=== PATIENT | female | born 1955 | race Caucasian/White ===

== ENCOUNTER 2022-02-20 08:02 | Outpatient (REF) | payer OTHER, SELFPAY ==
--- NOTE | ~2022-02-20 | XR_ITS ---
EXAMINATION: XR PELVIS XR HIP, LEFT CLINICAL INFORMATION: Pain COMPARISON: None TECHNIQUE: One view of the pelvis and 2 views of the left hip. FINDINGS: No fracture or dislocation is seen. There is a left hip replacement in satisfactory position. There is osteopenia or cystic change seen in the pelvis adjacent to the acetabular component. There is also a small lucency adjacent to the stem of the femoral component. There is arthritis at the right hip joint. There are degenerative changes of the visualized lumbar spine. Bones are osteopenic. Bones of the pelvis are unremarkable. Soft tissues are unremarkable. XR/XR pelvis 1-2V IMPRESSION: Left hip replacement. Focal osteopenia or cystic change in the left pelvis adjacent to the acetabular component. Small lucency adjacent to the stem of the femoral component questionable for loosening. Generalized osteopenia. Arthritis at the right hip joint and degenerative changes of the lower lumbar spine.
--- NOTE | ~2022-02-20 | XR_ITS ---
EXAMINATION: XR PELVIS XR HIP, LEFT CLINICAL INFORMATION: Pain COMPARISON: None TECHNIQUE: One view of the pelvis and 2 views of the left hip. FINDINGS: No fracture or dislocation is seen. There is a left hip replacement in satisfactory position. There is osteopenia or cystic change seen in the pelvis adjacent to the acetabular component. There is also a small lucency adjacent to the stem of the femoral component. There is arthritis at the right hip joint. There are degenerative changes of the visualized lumbar spine. Bones are osteopenic. Bones of the pelvis are unremarkable. Soft tissues are unremarkable. XR/XR hip LT min 2V IMPRESSION: Left hip replacement. Focal osteopenia or cystic change in the left pelvis adjacent to the acetabular component. Small lucency adjacent to the stem of the femoral component questionable for loosening. Generalized osteopenia. Arthritis at the right hip joint and degenerative changes of the lower lumbar spine.
== END 2022-02-20 08:03 | disposition home or self-care (01) ==
LOC: HO.HOSX 08:02
PROVIDERS: Visit Provider Physician Assistant
DX: M70.62 Trochanteric bursitis, left hip (principal)
CPT/HCPCS: 20610; 72170; 73502; 99202; J1040

== ENCOUNTER → 2022-03-18 10:15 | Outpatient (REF) | payer OTHER, SELFPAY ==
--- NOTE | ~2022-03-18 | NM_ITS ---
EXAMINATION: THREE PHASE BONE SCAN CLINICAL INFORMATION: Pain left hip, history of left hip arthroplasty, placed 6 years ago. Status post falls September,.. COMPARISON: No previous bone scan is available for comparison. Radiographs of pelvis and the left hip 02/20/2022 are available for comparison.. TECHNIQUE: Initial rapid sequence images were obtained over the hips and proximal femurs in the anterior and posterior projections during the bolus injection of 25 mCi Tc-99m MDP. Static images of the whole-body in the anterior and posterior projections with anterior and posterior oblique views of the chest, pelvis and proximal femurs were then obtained 2.75 hours post injection. FINDINGS: Initial rapid sequence images show no foci of abnormally increased flow in either hip or any other focus in the pelvis or proximal femurs. Blood pool images obtained immediately following the flow study show a subtle photopenic defect from a left hip prosthesis. There are no foci of abnormal blood pool activity present. The delayed static images show: In the head, no significant abnormalities are present. In the thoracic cage and upper extremities, there is mildly increased activity in the glenohumeral articulations bilaterally and in multiple mild foci in the hands bilaterally, most prominently in the radial side of the left hand probably in the first carpometacarpal joint, all likely arthritic. In the spine, there is a mild thoracolumbar scoliosis with lumbar convexity to the right. There is mildly increased activity in the left side of L2 to through L4 and in the right side of L5. There is also mildly increased activity anteriorly in the upper thoracic spine in the small focus to the left of midline in the upper cervical spine. In the pelvis, there is mildly increased activity in the superior lip of the right acetabulum. No abnormal activity is present in the left acetabulum adjacent to the left hip prosthesis. In the lower extremities, a photopenic defect from a left hip prosthesis is noted. There is mildly increased activity diffusely adjacent to the left femoral stem with slightly more intense activity near the distal tip of the femoral stem anteriorly but otherwise no significant focal accentuation's present. There is markedly increased activity diffusely in the right knee, most prominently in the right medial femoral condyle. Additional foci of mildly increased activity are present in the ankles bilaterally and in the proximal right foot and right first metatarsophalangeal joint region. The urinary bladder and both kidneys are visualized. 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 NM/NM bone 3 phase IMPRESSION: 1. Mild activity adjacent to the left femoral stem is nonspecific but in combination with the accentuation near the distal tip, this is suspicious for loosening. There is no significant increase in flow or blood pool activity to suggest active infection. There is only very mild activity diffusely in the left acetabulum and this is not strongly suspicious for loosening or fracture in this region. 2. Very prominent abnormalities are present diffusely in the right knee, with a focal accentuation in the medial femoral condyle and the right. These are likely due to severe degenerative disease, but the focal abnormality in the medial femoral condyle could be due to a recent fracture. Correlation with radiographs of the right knee is recommended. 3. A few additional mild nonspecific abnormalities are noted as described above and these are all likely arthritic or traumatic in etiology. None of these abnormalities is strongly suspicious for metastatic disease.
== END ==
LOC: HO.NUCMED 10:15
PROVIDERS: Visit Provider Physician Assistant
DX: Z98.890 Other specified postprocedural states (principal)
CPT/HCPCS: 78315; A9503

== ENCOUNTER → 2022-04-30 09:34 | Outpatient (BNVA) | payer OTHER, SELFPAY | PROVIDERS: PCP Internal Medicine; Visit Provider Orthopaedic Surgery | DX: M25.552 Pain in left hip (principal); Z96.642 Presence of left artificial hip joint | CPT/HCPCS: 99212 ==

== ENCOUNTER → 2022-07-30 12:43 | Outpatient (BNVA) | payer OTHER, SELFPAY | PROVIDERS: PCP Internal Medicine; Visit Provider Physician Assistant | DX: Z12.11 Encounter for screening for malignant neoplasm of colon (principal); R10.9 Unspecified abdominal pain | CPT/HCPCS: 99202; 99212 ==

== ENCOUNTER 2022-10-14 08:03 | Outpatient (REF) | payer OTHER, SELFPAY ==
--- NOTE | ~2022-10-14 | US_ITS ---
EXAMINATION: US ABDOMEN COMPLETE CLINICAL INFORMATION: Unspecified abdominal pain. COMPARISON: Nuclear medicine study 03/18/2022. Low-dose screening chest CT 08/11/2021. TECHNIQUE: Real-time imaging of the abdominal viscera. Technically difficult study secondary to bowel gas and body habitus. FINDINGS: PANCREAS: Pancreas is obscured by bowel gas and not well seen. ABDOMINAL AORTA: The proximal, mid, and distal segments are normal in caliber. INFERIOR VENA CAVA: Visualized portions are normal. LIVER: The liver is normal in size. The liver contour is normal. There is increased echogenicity due to hepatic steatosis. No focal hepatic lesion. There is no intrahepatic biliary duct dilatation seen. GALLBLADDER: Surgically absent. COMMON BILE DUCT: Normal in caliber measuring 0.3 cm in diameter. RIGHT KIDNEY: Right kidney is malrotated, but otherwise normal No hydronephrosis. No renal calculi or focal parenchymal lesions. The kidney measures 9.7 cm in maximum dimension. LEFT KIDNEY: There is 0.3 x 0.2 x 0.3 cm nonobstructing calculus in the interpolar area of left kidney No focal parenchymal lesions. The kidney measures 10.6 cm in maximum dimension. SPLEEN: Normal. The spleen measures 6.6 cm in maximum dimension. There is 1.7 x 2.1 x 1.8 cm splenule seen . FREE FLUID: None. US/US abdomen complete IMPRESSION: 1. Hepatic steatosis. 2. Malrotated right kidney. 3. Nonobstructing calculus in the left kidney.
== END 2022-10-14 08:04 | disposition home or self-care (01) ==
LOC: HO.US 08:03
PROVIDERS: PCP Internal Medicine; Visit Provider Physician Assistant
DX: R10.9 Unspecified abdominal pain (principal)
CPT/HCPCS: 76700

== ENCOUNTER 2023-02-19 11:00 | Outpatient (RCR) | payer OTHER, SELFPAY | END 2023-05-11 09:20 | disposition home or self-care (01) | LOC: HO.PTCHIC 11:00 | PROVIDERS: PCP Internal Medicine; Visit Provider Internal Medicine | DX: M51.36 Other intervertebral disc degeneration, lumbar region (principal) | CPT/HCPCS: 97110; 97163 ==

== ENCOUNTER 2023-05-10 10:18 | Outpatient (REF) | payer OTHER, SELFPAY ==
--- NOTE | ~2023-05-10 | XR_ITS ---
EXAMINATION: XR ABDOMEN COMPLETE CLINICAL INDICATION: Constipation COMPARISON: None available. TECHNIQUE: 2 views of the abdomen. FINDINGS: There is a moderate stool burden. There are air-fluid levels seen in nondilated loops of large bowel. No free air. No suspicious calcifications. Scoliosis and degenerative changes of the spine. Left hip replacement. XR/XR abdomen min 2V IMPRESSION: Moderate constipation.
== END 2023-05-10 10:19 | disposition home or self-care (01) ==
LOC: HO.XRAY 10:18
PROVIDERS: PCP Internal Medicine; Visit Provider Internal Medicine
DX: K59.09 Other constipation (principal)
CPT/HCPCS: 74019

== ENCOUNTER 2023-06-08 09:00 | Outpatient (REF) | payer OTHER, SELFPAY ==
[2023-06-08 14:43] LABS: Appearance Urine Clear; Color Urine Yellow; Glucose Urine UA Negative (Negative); Leukocyte Esterase Urine Negative (Negative); Nitrite Urine Negative (Negative); PH 5.5 (5.0-9.0); Urine Blood Negative (Negative); Urine Ketones Negative (Negative); Urine Protein Negative (Neg-Trace)
[2023-06-08 15:02] LABS: Anion Gap 16 (12-20); Blood Urea Nitrogen 10 mg/dL (9-16); Calcium 10.1 mg/dL (8.4-10.2); Carbon Dioxide 23 mmol/L (22-29); Chloride 106 mmol/L (96-108); Estimated Glomerular Filt Rate > 60; Glucose Fasting 65 mg/dL (60-99); Potassium 3.9 mmol/L (3.3-5.1); Sodium 141 mmol/L (135-145)
== END 2023-06-08 09:01 | disposition home or self-care (01) ==
LOC: HO.CHCLDS 09:00
PROVIDERS: Visit Provider Internal Medicine
DX: N30.00 Acute cystitis without hematuria (principal)
CPT/HCPCS: 36415; 80048; 81003

== ENCOUNTER 2023-08-17 15:58 | Outpatient (REF) | payer OTHER, SELFPAY ==
[2023-08-17 18:41] LABS: Anion Gap 14 (12-20); Blood Urea Nitrogen 13 mg/dL (9-16); Carbon Dioxide 28 mmol/L (22-29); Chloride 105 mmol/L (96-108); Estimated Glomerular Filt Rate > 60; Glucose Random 86 mg/dL (60-115); Magnesium 2.2 mg/dL (1.6-2.6); Potassium 4.3 mmol/L (3.3-5.1); Sodium 143 mmol/L (135-145)
[2023-08-17 19:10] LABS: Vitamin B12 667 pg/mL (200-900)
[2023-08-22 12:02] LABS: Vitamin B1 73 nmol/L (8-30)
== END 2023-08-17 15:59 | disposition home or self-care (01) ==
LOC: HO.CHCLDS 15:58
PROVIDERS: Visit Provider Internal Medicine
DX: R43.8 Other disturbances of smell and taste (principal)
CPT/HCPCS: 36415; 80048; 82607; 83735; 84425

== ENCOUNTER 2024-03-14 10:37 | Outpatient (REF) | payer OTHER, SELFPAY ==
[2024-03-14 14:28] LABS: MANUAL DIFF FLAG NO
[2024-03-14 14:42] LABS: Basophils Absolute Auto 0.1 X10*3/uL (0.0-0.2); Basophils Percent Auto 0.7 % (0-2); Eosinophils Absolute Auto 0.1 X10*3/uL (0.0-0.4); Eosinophils Percent Auto 0.7 % (0-4); Hematocrit 40.6 % (37.0-47.0); Hemoglobin 13.5 g/dl (12.0-16.0); Imm Gran Abs Auto 0.04 X10*3/uL (0.00-0.03); Imm Gran Pct Auto 0.3 % (0.0-0.4); Lymphocytes Absolute Auto 3.9 X10*3/uL (1.2-4.9); Lymphocytes Percent Auto 33.8 % (20-40); Mean Corpuscular HGB Conc 33.3 g/dl (31.0-35.0); Mean Corpuscular Volume 93.1 fL (80.0-98.0); Mean Platelet Volume 9.9 fL (9.4-12.3); Monocytes Absolute Auto 0.9 X10*3/uL (0.1-1.2); Neutrophils Absolute Auto 6.5 x10*3/uL (2.0-8.3); Neutrophils Percent Auto 56.5 % (45-73); Platelet Count 328 X10*3/uL (160-400); Red Blood Count 4.36 X10*6/uL (4.20-5.50); Red Cell Distribution Width 13.7 % (11.0-16.0); White Blood Count 11.4 X10*3/uL (4.8-10.8)
[2024-03-14 16:46] LABS: Magnesium 2.2 mg/dL (1.6-2.6)
[2024-03-14 16:47] LABS: TSH reflex Free T4 0.74 uIU/mL (0.32-4.0); Vitamin D 25-OH Total 47.5 ng/mL (>30)
[2024-03-14 19:09] LABS: Folate 10.8 ng/mL (> or = 4.0); Vitamin B12 513 pg/mL (200-900)
== END 2024-03-14 10:38 | disposition home or self-care (01) ==
LOC: HO.CHCLDS 10:37
PROVIDERS: Visit Provider Internal Medicine
DX: I10 Essential (primary) hypertension (principal); G47.09 Other insomnia; F32.A Depression, unspecified; F41.1 Generalized anxiety disorder
CPT/HCPCS: 36415; 82306; 82607; 82746; 83735; 84443; 85025

== ENCOUNTER 2024-10-11 10:33 | Outpatient (REF) | payer OTHER, SELFPAY ==
[2024-10-11 14:24] LABS: MANUAL DIFF FLAG NO
[2024-10-11 14:32] LABS: Basophils Absolute Auto 0.1 X10*3/uL (0.0-0.2); Basophils Percent Auto 0.7 % (0-2); Eosinophils Absolute Auto 0.1 X10*3/uL (0.0-0.4); Eosinophils Percent Auto 1.1 % (0-4); Hemoglobin 13.8 g/dl (12.0-16.0); Imm Gran Abs Auto 0.02 X10*3/uL (0.00-0.03); Imm Gran Pct Auto 0.2 % (0.0-0.4); Lymphocytes Absolute Auto 4.3 X10*3/uL (1.2-4.9); Lymphocytes Percent Auto 42.2 % (20-40); Mean Corpuscular HGB Conc 32.9 g/dl (31.0-35.0); Mean Corpuscular Hemoglobin 30.9 pg (27.0-33.0); Mean Corpuscular Volume 94.2 fL (80.0-98.0); Mean Platelet Volume 9.7 fL (9.4-12.3); Monocytes Absolute Auto 0.7 X10*3/uL (0.1-1.2); Monocytes Percent Auto 7.4 % (2-11); Neutrophils Absolute Auto 4.9 x10*3/uL (2.0-8.3); Neutrophils Percent Auto 48.4 % (45-73); Platelet Count 305 X10*3/uL (160-400); Red Blood Count 4.46 X10*6/uL (4.20-5.50); Red Cell Distribution Width 13.7 % (11.0-16.0); White Blood Count 10.1 X10*3/uL (4.8-10.8)
[2024-10-11 15:01] LABS: Alanine Aminotransferase 17 U/L (0-31); Albumin Level 4.4 g/dL (3.5-5.0); Alkaline Phosphatase 66 U/L (39-117); Anion Gap 16 (12-20); Aspartate Amino Transferase 28 U/L (5-31); Bilirubin Total 0.3 mg/dL (0.0-1.0); Blood Urea Nitrogen 6 mg/dL (9-16); Calcium 9.6 mg/dL (8.4-10.2); Carbon Dioxide 22 mmol/L (22-29); Chloride 107 mmol/L (96-108); Cholesterol 153 mg/dL (<200); Estimated Glomerular Filt Rate > 60; Glucose Random 96 mg/dL (60-115); HDL Cholesterol 47 mg/dL (>40); LDL Cholesterol Calculated 70 mg/dL (<100); Potassium 3.7 mmol/L (3.3-5.1); Sodium 141 mmol/L (135-145); Total Protein 7.1 g/dL (6.5-8.0); Triglycerides 180 mg/dL (<150)
== END 2024-10-11 10:34 | disposition home or self-care (01) ==
LOC: HO.CHCLDS 10:33
PROVIDERS: Visit Provider Internal Medicine
DX: M51.360 Other intervertebral disc degeneration, lumbar region with discogenic back pain only (principal)
CPT/HCPCS: 36415; 80053; 80061; 84443; 85025

== ENCOUNTER 2025-03-26 10:06 | Outpatient (REF) | payer MEDICARE, SELFPAY ==
--- OUTSIDE RECORDS SUMMARY | 2025-03-26 11:44 | XMS_ITS | Encounter Summary ---
Author Organization [employer] Address [address] [facility] [address] [place] [address] Care Team Providers Care Cotton Farmer Name Role Phone Indra Eason MD Primary Care Provider [phone] Encounter Details Date Type Department Care Team (Late st Contact Info) Description 11/02/2024 Orders Only [facility] [address] [place], [place] [id number] Provider, MD Maria Isabel Social History Tobacco Use Types Packs/Day Years Used Date Smoking Tobacco: Every Day Cigarettes 0.5 40 Passive Smoke Exposure: Never Smokeless Tobacco: Never Alcohol Use Standard Drinks/Week Comments Never 0 (1 standard drink = 0.6 oz pur e alcohol) Depression Answer Date Recorded Patient Health Questionnaire-9 Score 14 10/11/2024 Patient Health Questionnaire-9 Score 14 10/11/2024 Last PHQ-9: Questionnaire Data Not on file 1 12/11/2023 Housing Stability Answer Date Recorded What is your housing situation today? I have kia berry 10/01/[address] you li ve. Do you have problems with any of the following? None of the above 10/01/2023 Food Insecurity Answer Date Recorded Within the past 12 months, y ou worried that your food would run out before you got money to buy more: Never True 10/01/2023 Within the past 12 months,th e food you bought just didn't last and you didn't have enough money to get more: Never True 01/2023 Transportation Answer Date Recorded In the past 12 months, has l ack of transportation kept you from medical appts, meetings, work or from getting things needed for daily living? No 10/01/2023 Utilities Answer Date Recorded In the past 12 months, has t he electric, gas, oil or water company threatened to shut off services in your home? No 10/01/2023 Depression Answer Date Recorded Patient Health Questionnaire-2 Score 4 10/11/2024 Comments Unknown Sex and Gender Information Value Date Recorded Sex Assigned at Female 09/28/2022 10:37 AM EDT Legal Sex Female 10:37 AM EDT Gender Identity Female 09/28/2022 10:37 AM EDT Sexual Orientation Straight 09/28/2022 10 :37 AM EDT documented as of this encounter Plan of Treatment Upcoming Encounters Date Type Department Care Team (Late st Contact Info) Description 04/02/2025 10:45 AM EDT Office Visit [facility] [address] [place] [address] Indra Eason MD [address] [place] [address] documented as of this encounter Procedures Procedure Name Priority Date/Time Associated Diagnosis Comments LUNG CANCER SCREENING Routine 10/30/2024 11:03 AM EST documented in this encounter Results * Hm Lung Cancer Screning (10/30/2024 11:03 AM EST) Anatomical Region Laterality Modality Other us Historical Provider HEALTH MAINTENANCE Final Result documented in this encounter Visit Diagnoses Not on filedocumented in this encounter Additional Health Concerns Assessment Noted Time PHQ-9 Depression Total Score: 14 024 10:06 AM EST documented as of this encounter Care Teams Cotton Farmer Relationship Specialty Start Date End Date Indra Eason MD [address] [place] [address] PCP - General Internal Medicine 06/12/21 documented as of this encounter
--- OUTSIDE RECORDS SUMMARY | 2025-03-26 11:44 | XMS_ITS | Encounter Summary ---
Author Organization [employer] Address [address] [facility] [address] [place] [address] Care Team Providers Care Plant Quality Manager Name Role Phone Indra Eason MD Primary Care Provider [phone] Reason for Visit * Reason Onset Date Comments Lab Orders 03/23/2025 Encounter Details Date Type Department Care Team (Late st Contact Info) Description 03/23/2025 Telephone [facility] [address] [place] [address] Indra Eason MD [address] [place], [place] [phone] Lab Orders Social History Tobacco Use Types Packs/Day Years Used Date Smoking Tobacco: Every Day Cigarettes 0.5 40 Passive Smoke Exposure: Never Smokeless Tobacco: Never Alcohol Use Standard Drinks/Week Comments Never 0 (1 standard drink = 0.6 oz pur e alcohol) Depression Answer Date Recorded Patient Health Questionnaire-9 Score 16 11/24/2024 Patient Health Questionnaire-9 Score 16 11/24/2024 Last PHQ-9: Questionnaire Data Not on file 1 01/25/2024 Housing Stability Answer Date Recorded What is [...] Answer Date Recorded Patient Health Questionnaire-2 Score 6 11/24/2024 Comments Unknown Sex and Gender Information Value Date Recorded Sex Assigned at Female 09/28/2022 10:37 AM EDT Legal Sex Female 10:37 AM EDT Gender Identity Female 09/28/2022 10:37 AM EDT Sexual Orientation Straight 09/28/2022 10 :37 AM EDT documented as of this encounter Miscellaneous Notes * Telephone Encounter - Anabel Simpson RN - 03/23/2025 10:45 AM EDT TC to patient. She states there is slight burning when urinating, and she is feeling a little weak.Stated urine color was dark yellow. Instructed patient to come into office to give urine sample. Patient stated she could not get to office until Wednesday d/t transportation issues. Uber offered, patient refused. Instructed patient to go to walk-in clinic tomorrow morning if able to, or go to urgent care over the weekend if needed. Patient stated understanding and verbally agreed with plan. * Telephone Encounter - Ilene Peck - 03/23/2025 10:04 AM EDT Tc from pt requesting blood work, pt believe she has some kind of infection. Contact pt at [phone] documented in this encounter Plan of Treatment Upcoming Encounters Date Type Department Care Team ([facility] st Contact Info) Description 04/02/2025 10:45 AM EDT Office Visit [facility] [address] [place] [address] Indra Eason MD [address] [place], [place] [phone] Scheduled Orders Name Type Priority Associated Diagnoses Orde r Schedule Urinalysis, Complete, with Reflex to Culture Lab Routine Burning with urination Expected: 03/23/2025 (Approximate), Expires: 03/23/2026 documented as of this encounter Visit Diagnoses Diagnosis Burning with urination Dysuria documented in this encounter Additional Health Concerns Assessment Noted Time PHQ-9 Depression Total Score: 16 024 12:36 PM EST documented as of this encounter Care Teams Plant Quality Manager Relationship Specialty Start Date End Date Indra Eason MD [address] [place] [address] PCP - General Internal Medicine 06/12/21 documented as of this encounter
--- OUTSIDE RECORDS SUMMARY | 2025-03-26 11:44 | XMS_ITS | Clinical Summary ---
Author Organization [facility] Address [address] [place] [address] Care Team Providers Care Storage And Backup Administrator Name Role Phone Unavailable Primary Care Provider Unavailabl e Social History Tobacco Use Types Packs/Day Years Used Date Smoking Tobacco: Never Assessed Comments Unknown Sex and Gender Information Value Date Recorded Sex Assigned at Not on file Legal Sex Female 8:15 PM EST Gender Identity Not on file Sexual Orientation Not on file Plan of Treatment Health Maintenance Due Date Last Done Comments DTaP,Tdap,and Td Vaccines (1 - Tdap) 1974 Pneumococcal Vaccine: 50+ Years (1 of 1 - PCV) 2005 Zoster Vaccines (1 of 2) 2005 Colorectal Cancer Screening: Colonoscopy 10/31/2022 Depression Screening 10/31/2022 Falls Risk Assessment 10/31/2022 Hepatitis C Screening 10/31/2022 Social Influencers of Health Screening 10/31/2022 COVID-19 Vaccine ( - 2023-2 5 season) 2024 Breast Cancer Screening 04/08/2025 04/08/20 23, 10/03/2021, 09/22/2019 Influenza Vaccine (Season Ended) 2025 RSV Immunization Adult Patients (1 - 1-dose 75+ series) 2030 Osteoporosis Screening (Bone Density Screening) 07/24/2031 07/24/2021 HIB Vaccines Aged Out No longer eligi ble based on patient's age to complete this topic HPV Vaccines Aged Out No longer eligi ble based on patient's age to complete this topic Hepatitis A Vaccines Aged Out No long er eligible based on patient's age to complete this topic Hepatitis B Vaccines Aged Out No long er eligible based on patient's age to complete this topic IPV Vaccines Aged Out No longer eligi ble based on patient's age to complete this topic MMR Vaccines Aged Out No longer eligi ble based on patient's age to complete this topic Meningococcal ACWY Vaccine Aged Out N o longer eligible based on patient's age to complete this topic Meningococcal B Vaccine Aged Out No l onger eligible based on patient's age to complete this topic RSV Immunization Patients Under 20 months Aged Out No longer eligible b ased on patient's age to complete this topic Varicella Vaccines Aged Out No longer eligible based on patient's age to complete this topic Procedures Procedure Name Priority Date/Time Associated Diagnosis Comments [facility] SCREENING DIGITAL Routine 04/08/2023 11:57 AM EDT Encounter for screening mammogram for malignant neoplasm of breast [facility] DEXA AXIAL SKELETON Routine 07/24/2021 11:57 AM EDT Other specified disorders of bone density and structure, multiple sites from Last 3 Months or Most Recently Relevant to Health Maintenance Results * [facility] SCREENING DIGITAL (04/08/2023 11:57 AM EDT) Anatomical Region Laterality Modality Mammography 04/08/2023 11:0 0 AM EDT Narrative 04/08/2023 11:57 AM EDT [facility] Diagnostic Imaging Department [address] [place] [address] Patient: ??MARIBEL ACOSTA ?/Age/Sex: 1955 - 67 - F Unit#: ??[id number] ? Location/Status: ??SPDIMAM/REG CLI ? Mnemonic/Ordering Site: ??DIGSC/SPMAM Ordering Physician: ??INNA EASON MD Quintin Screening Digital - 04/08/23 - 1137 HISTORY: The patient is a 67-year-old female presenting for routine screening mammography. FINDINGS: ??CC and MLO views of both breasts were obtained using full field digital mammography in the [employer] 2000-D unit. Computer aided detection with the iCAD Second Look 7.2-H was employed. In addition, breast tomosynthesis in MLO projection was performed. The breasts are again seen to be composed of a combination of fatty and fibroglandular elements (scattered areas of fibroglandular density, category B density, as calculated by [employer]para software), as also demonstrated on prior studies performed 10/03/2021, 10/03/2019, and 09/22/2019. ??A portion of the right axilla is obscured by an overlying object which was not present on prior studies. ??Again seen is an 18 mm diameter nodular density in the retroareolar region, demonstrated on ultrasound examination performed 10/03/2019 to represent a cyst. ??There is no suspicious cluster of microcalcifications, mass, or area of architectural distortion. There is no skin thickening or nipple retraction. IMPRESSION: No mammographic evidence of malignancy. ??However, a portion of the right axilla is obscured by an overlying object, possibly a cardiac pacemaker, not seen on prior studies. A negative mammogram in the presence of a clinically suspicious palpable abnormality does not preclude the possibility of malignancy or alter the indications for biopsy. BIRADS Code Class 2: ??Benign Finding PQRI CPT II 3342F Code 83836, 27725 PQRI 225 CPT II 7025F Dictating Physician: ??BRENDA HYLTON MD Electronically Signed by: ??BRENDA HYLTON MD Dic Date/Time: ??04/08/23 1149 Sign date/Time: ??04/08/23 1157 Procedure Note Brenda Hylton MD - 12/31/2023 [facility] Diagnostic Imaging Department [address] [place] [address] Patient: MARIBEL ACOSTA /Age/Sex: 1955 - 67 - F Unit#: [id number] Location/Status: [facility] CLI Mnemonic/Ordering Site: [facility] Ordering Physician: INNA EASON MD Quintin Screening Digital - 04/08/231136 HISTORY: The patient is a 67-year-old female presenting for routinescreening mammography. FINDINGS: CC and MLO views of both breasts were obtained using fullfield digital mammography in the [employer] 2000-D unit. Computer aideddetection with the XDx Second Look 7.2-H was employed. In addition, breasttomosynthesis in MLO projection was performed. The breasts are again seen to be composed of a combination of fatty and fibroglandular elements (scattered areas of fibroglandular density,category B density, as calculated by [employer] software), as also demonstratedon prior studies performed 10/03/2021, 10/03/2019, and 09/22/2019. A portionof the right axilla is obscured by an overlying object which was not present onprior studies. Again seen is an 18 mm diameter nodular density in theretroareolar region, demonstrated on ultrasound examination performed 10/03/2019 torepresent a cyst. There is no suspicious cluster of microcalcifications, mass, orarea of architectural distortion. There is no skin thickening or nippleretraction. IMPRESSION: No mammographic evidence of malignancy. However, a portion ofthe right axilla is obscured by an overlying object, possibly a cardiacpacemaker, not seen on prior studies. A negative mammogram in the presence of a clinically suspicious palpable abnormality does not preclude the possibility of malignancy or alter the indications for biopsy. BIRADS Code Class 2: Benign Finding PQRI CPT II 3342F Code 29538, 02920 PQRI 225 CPT II 7025F Dictating Physician: BRENDA HYLTON MD Electronically Signed by: BRENDA HYLTON MD Dic Date/Time: 04/08/23 1149 Sign date/Time: 04/08/23 1157 us Inna Eason MD IMG BI PROCEDURES Final R esult * QUINTIN DEXA AXIAL SKELETON (07/24/2021 11:57 AM EDT) Anatomical Region Laterality Modality Mammography 07/24/2021 10:5 6 AM EDT Narrative 07/24/2021 11:57 AM EDT [facility] Diagnostic Imaging Department [address] [place] [id number] Patient: ??MARIBEL ACOSTA ?/Age/Sex: 1955 - 65 - F Unit#: ??[id number] ? Location/Status: ??SPDIMAM/REG CLI ? Mnemonic/Ordering Site: ??MAMDEXAAX/SPMAM Ordering Physician: ??INNA EASON MD Quintin Dexa Axial Skeleton - 07/24/21 114 HISTORY: ??The patient is a 65-year-old postmenopausal female with clinical concern for metabolic bone disease. FINDINGS: ??Dual energy x-ray absorptiometry of the lumbar spine and right femur is performed. The mean bone mineral density at L1-2 is 0.951 gm/cm2 which is 82% of that of young normals and 98% of that of age matched controls. This yields a T-score of -1.8 and a Z-score of -0.1 which is diagnostic of osteopenia. The mean bone mineral density of the right femur is 0.720 gm/cm2 which is 71% of that of young normals and 85% of that of age matched controls. ??This yields a T-score of -2.3 and a Z-score of -1.0 which is diagnostic of osteopenia. IMPRESSION: 1. Osteopenia. 2. FRAX analysis yields a 10-year probability of major osteoporotic fracture of 12.2% and a 10-year probability of hip fracture of 3.4%. Code 77395 Dictating Physician: ??BRENDA HYLTON MD Electronically Signed by: ??BRENDA HYLTON MD Dic Date/Time: ??07/24/21 1151 Sign date/Time: ??07/24/21 1157 Procedure Note Brenda Hylton MD - 11/25/2022 [facility] Diagnostic Imaging Department [address] [place], [place] [id number] Patient: MARIBEL ACOSTA./Age/Sex: 1955 - 65 - F Unit#: [id number] Location/Status: SPDIMAM/REG CLI [facility] Ordering Physician: INNA EASON MD Quintin Dexa Axial Skeleton - 07/24/21 - 1147 HISTORY: The patient is a 65-year-old postmenopausal female withclinical concern for metabolic bone disease. FINDINGS: Dual energy x-ray absorptiometry of the lumbar spine and rightfemur is performed. The mean bone mineral density at L1-2 is 0.951 gm/cm2 whichis 82% of that of young normals and 98% of that of age matched controls. Thisyields a T-score of -1.8 and a Z-score of -0.1 which is diagnostic of osteopenia. The mean bone mineral density of the right femur is 0.720 gm/cm2 which is71% of that of young normals and 85% of that of age matched controls. Thisyields a T-score of -2.3 and a Z-score of -1.0 which is diagnostic of osteopenia. IMPRESSION: 1. Osteopenia. 2. FRAX analysis yields a 10-year probability of major osteoporoticfracture of 12.2% and a 10-year probability of hip fracture of 3.4%. Code 31560 Dictating Physician: BRENDA HYLTON MD Electronically Signed by: BRENDA HYLTON MD Dic Date/Time: 07/24/21 1151 Sign date/Time: 07/24/21 1157 us Inna Eason MD IMG BI PROCEDURES Final R esult from Last 3 Months or Most Recently Relevant to Health Maintenance
--- OUTSIDE RECORDS SUMMARY | 2025-03-26 11:44 | XMS_ITS | Clinical Summary ---
Author Organization [employer] Address [address] [place] [address] 7t [place] [address] Care Team Providers Care Contract Consultant Name Role Phone Indra Eason MD Primary Care Provider [phone] Allergies Active Allergy Reactions Criticality Noted Date Comments Aspirin 11/10/2022 Medications * This document contains information received from the source organization and may not represent a complete record from that organization. cholecalciferol (Vitamin D-3) 25 MCG (1000 UT) capsule Take 1 capsule by mouth. 1 Active nicotine (Nicoderm, Step 1) 21 MG/24HR patch Place 1 patch on the skin at bed time. 2 Active simethicone (Mylicon,Gas-X) 125 MG capsule Take 1 tablet by mouth every 6 (six) hours. 1 Active zoster vaccine-recombinan t adjuvanted (Shingrix) 50 MCG/0.5ML vaccine Inject 0.5 mL into the shoulder, thigh, or buttocks. 2 Active furosemide (Lasix) 20 MG tablet TAKE 1 TABLET(20 MG) BY MOUTH IN THE MORNING 10 tablet 3 Active Diclofenac Sodium 1 % gelIndications:Yesi pablo osteoarthritis of shoulder, unspecified laterality To apply to the cervical spine 3 times a day 100 g 4 Active lisinopril 5 MG tablet TAKE 1 TABLET BY MOUTH EVERY DAY 90 tablet 3 4 Active estradiol (Estrace) 0.1 MG/GM vaginal cream 1g vaginally twice weekly 45 g 4 Active simvastatin (Zocor) 20 MG tablet TAKE 1 TABLET BY MOUTH EVERY DAY 90 tablet 3 4 Active Active Problems Problem Noted Date Diagnosed Date Persistent depressive disorder 05/09/2024 Assessment & Plan (11/24/2024 12:54 PM EST): During IBH Consult Maribel presenting with depressed mood, Tearful, irritable mood, loss of interests/pleasure , sense of isolation/loneliness , isolating, changes in sleep difficulty falling asleep, psychomotor retardation, fatigue/loss of energy, worthlessness, inappropriate/excessive guilt , difficulty concentrating, indecisiveness; for a period of 24+ mo, for most or all symptoms in the context of family issues, financial concern, and illness or family illness. Pt reported experiencing multiple stressful family situations at this time. Triggers are associated with her sister's worsening medical condition, her daughter's legal problems and extended family with substance abuse. Pt's new insurance is starting on 11/2024. She is unsure if she would be able to continue her medical treatment with us which is also adding to more stress. We explored importance of navigating through one's emotions and validate her feeling in this difficult times. Highlighted the use of coping strategies; pt enjoys watching TV. Her sense of spirituality is strong and identified as protective factor and strength. Pt was on medication for depression, however, side effects were significant. Pt discontinued treatment (PCP was informed). clinician engaged patient with active/reflective listening. Reviewed and assessed for risk, current stressors and protective factors using open-ended questions. Provided a safe space for pt to share her emotions and concerns. Pt would wait until her new insurance starts to make sure her services will continue for medical and behavioral health. Assessment & Plan (05/10/2024 9:46 AM EDT): During IBH Consult Maribel presenting with depressed mood, loss of interests/pleasure , changes in sleep difficulty staying asleep , psychomotor retardation, trouble concentrating, inappropriate guilt , hopelessness, difficulty concentrating and excessive worry/anxiety, difficulty controlling worry, restless/keyed up/On edge, easily fatigued, difficulty concentrating/Mind going blank , irritability, and sleep disturbance difficulty staying asleep ; for a period of 18+ mo, for all symptoms in the context of family issues and illness or family illness. Maribel is aware of family stressors and environmental triggers causing symptoms. Exposure of screen time and keeping up with tragic news worldwide exacerbates severe anxiety as well. Started medication to help decrease sxs; pt reports medication is not working due to having strong side effects for her. PLAN: (check all that apply) Continue with current services (defined as services in the past 12 months) Assessment & Plan (03/14/2024 11:20 AM EDT): During IBH Consult Maribel presenting with depressed mood, loss of interests/pleasure , changes in sleep difficulty falling asleep, change in appetite or weight reduce appetite, psychomotor retardation, trouble concentrating, thoughts of worthlessness or guilt, fatigue/loss of energy, inappropriate guilt , hopelessness, worthlessness , difficulty concentrating and excessive worry/anxiety, difficulty controlling worry, restless/keyed up/On edge, easily fatigued, difficulty concentrating/Mind going blank , irritability, and sleep disturbance difficulty falling asleep; for a period of 0-6 mo, for all symptoms in the context of family issues and illness or family illness. Maribel is aware of family stressors and triggers causing severity of symptoms. Exposure of screen time and keeping up with tragic news worldwide exacerbates anxiety as well. Interested in starting medication for anxiety (see PCP note). PLAN: (check all that apply) Continue with current services (defined as services in the past 12 months) Assessment & Plan (03/02/2024 12:46 PM EDT): During IBH Consult Maribel presenting with depressed mood, loss of interests/pleasure , changes in sleep difficulty falling asleep, psychomotor retardation, trouble concentrating, thoughts of worthlessness or guilt, fatigue/loss of energy, inappropriate guilt , hopelessness, worthlessness , difficulty concentrating and excessive worry/anxiety, difficulty controlling worry, restless/keyed up/On edge, easily fatigued, difficulty concentrating/Mind going blank , irritability, and sleep disturbance difficulty falling asleep; for a period of 0-6 mo, for all symptoms in the context of family issues, illness or family illness, and relationship issues. Maribel is aware of family stressors and triggers for severity of symptoms. Exposure of screen time and keeping up with tragic news worldwide exacerbates anxiety as well. PLAN: (check all that apply) New/Additional Services needed PCP management Off-site services for Behavioral Health Integration Plan External OP therapy referral Patient Self Plan Patient to utilize skills provided in intervention , Patient to reach out to [facility] team as needed, Comply with medication , Patient to engage in OP therapy , and Patient to reach out to [facility] as needed. Clinician will provide follow-up during next medical appointment if needed. Calculus of left kidney 11/19/2022 Assessment & Plan (10/11/2024 11:05 AM EST): Aware to keep herself well hydrated No acute intervention today Multinodular goiter 07/24/2021 Allergic rhinitis 07/07/2021 Chronic obstructive lung disease 07/07/2021 Assessment & Plan (10/11/2024 11:03 AM EST): Stable NO recent worsening Pt will request for help to quit smoking as needed. Degeneration of lumbar intervertebral disc 07/07 Assessment & Plan (10/11/2024 11:06 AM EST): Tylenol and acupuncture recommended Pt declines a referral to physical therapy Generalized anxiety disorder 07/07/2021 Assessment & Plan (05/10/2024 9:46 AM EDT): During IBH Consult Maribel presenting with depressed mood, loss of interests/pleasure , changes in sleep difficulty staying asleep , psychomotor retardation, trouble concentrating, inappropriate guilt , hopelessness, difficulty concentrating and excessive worry/anxiety, difficulty controlling worry, restless/keyed up/On edge, easily fatigued, difficulty concentrating/Mind going blank , irritability, and sleep disturbance difficulty staying asleep ; for a period of 18+ mo, for all symptoms in the context of family issues and illness or family illness. Maribel is aware of family stressors and environmental triggers causing symptoms. Exposure of screen time and keeping up with tragic news worldwide exacerbates severe anxiety as well. Started medication to help decrease sxs; pt reports medication is not working due to having strong side effects for her. PLAN: (check all that apply) Continue with current services (defined as services in the past 12 months) Assessment & Plan (03/14/2024 11:20 AM EDT): During IBH Consult Maribel presenting with depressed mood, loss of interests/pleasure , changes in sleep difficulty falling asleep, change in appetite or weight reduce appetite, psychomotor retardation, trouble concentrating, thoughts of worthlessness or guilt, fatigue/loss of energy, inappropriate guilt , hopelessness, worthlessness , difficulty concentrating and excessive worry/anxiety, difficulty controlling worry, restless/keyed up/On edge, easily fatigued, difficulty concentrating/Mind going blank , irritability, and sleep disturbance difficulty falling asleep; for a period of 0-6 mo, for all symptoms in the context of family issues and illness or family illness. Maribel is aware of family stressors and triggers causing severity of symptoms. Exposure of screen time and keeping up with tragic news worldwide exacerbates anxiety as well. Interested in starting medication for anxiety (see PCP note). PLAN: (check all that apply) Continue with current services (defined as services in the past 12 months) Assessment & Plan (03/02/2024 12:46 PM EDT): During IBH Consult Maribel presenting with depressed mood, loss of interests/pleasure , changes in sleep difficulty falling asleep, psychomotor retardation, trouble concentrating, thoughts of worthlessness or guilt, fatigue/loss of energy, inappropriate guilt , hopelessness, worthlessness , difficulty concentrating and excessive worry/anxiety, difficulty controlling worry, restless/keyed up/On edge, easily fatigued, difficulty concentrating/Mind going blank , irritability, and sleep disturbance difficulty falling asleep; for a period of 0-6 mo, for all symptoms in the context of family issues, illness or family illness, and relationship issues. Maribel is aware of family stressors and triggers for severity of symptoms. Exposure of screen time and keeping up with tragic news worldwide exacerbates anxiety as well. PLAN: (check all that apply) New/Additional Services needed PCP management Off-site services for Behavioral Health Integration Plan External OP therapy referral Patient Self Plan Patient to utilize skills provided in intervention , Patient to reach out to [facility] team as needed, Comply with medication , Patient to engage in OP therapy , and Patient to reach out to [facility] as needed. Clinician will provide follow-up during next medical appointment if needed. Horseshoe kidney 07/07/2021 Tobacco dependence syndrome 07/07/2021 Osteopenia 07/07/2021 Osteoarthritis of multiple joints 07/07/2021 Kyphoscoliosis deformity of spine 07/07/2021 Assessment & Plan (10/11/2024 11:06 AM EST): As above Hypercholesterolemia 01/29/2021 Hypertensive disorder 01/29/2021 Assessment & Plan (10/11/2024 11:04 AM EST): Stable No change TO continue w/ the DASH diet History of total left hip replacement 11/08/2017 Spondylosis without myelopathy 10/30/2016 Left inguinal hernia 10/30/2016 Assessment & Plan (10/11/2024 11:05 AM EST): No acute findings Pt is to contact the office if having any pain, change of color of the skin or other concerns. Encounters Date Type Department Care Team Description 03/23/2025 Telephone [facility] [address] [place] [address] Indra Eason MD Lab Orders 01/29/2025 Telephone [facility]EDS [address] [place], [place] [phone] Indra Eason MD Chart Prep from Last 3 Months Immunizations Name Administration Dates Next Due Influenza, High Dose Seasonal, Preservative Free 10/11/2024 [employer] SARS-CoV-2 Vaccination 02/19/2021 Pfizer Covid-19 Vaccine 12+ 10/17/2021 Pfizer Covid-19 Vaccine 12+ Bivalent 09/17/2022 Pneumococcal Conjugate PCV 20 05/14/2022 RSV Adjuvant 11/11/2023 Tdap 10/11/2024,04/18/2012 Zoster, Recombinant 05/14/2022 Social History Tobacco Use Types Packs/Day Years Used Date Smoking Tobacco: Every Day Cigarettes 0.5 40 Passive Smoke Exposure: Never Smokeless Tobacco: Never Tobacco Cessation:Ready to Q uit: Not Asked; Counseling Given: Not Answered Alcohol Use Standard Drinks/Week Comments Never 0 [...] Orientation Straight 09/28/2022 10 :37 AM EDT Last Filed Vital Signs Vital Sign Reading Time Taken Comments Blood Pressure 138/66 10/11/2024 9:35 AM EST Pulse 70 10/11/2024 9:35 AM EST Temperature 36.5 ??C (97.7 ??F) 10/11/2024 9:35 AM ES T Respiratory Rate 20 10/11/2024 9:35 AM EST Oxygen Saturation 98% 10/11/2024 9:35 AM EST Inhaled Oxygen Concentration - - Weight 67.1 kg (148 lb) 10/11/2024 9:35 AM EST Height 147.3 cm (4' 10 ) 10/11/2024 9:35 AM EST Body Mass Index 30.93 10/11/2024 9:35 AM EST Plan of Treatment Upcoming Encounters Date Type Department Care Team (Late st Contact Info) Description 04/02/2025 10:45 AM EDT Office Visit [facility] [address] [place] [address] Indra Eason MD [address] [place] [address] Health Maintenance Due Date Last Done Comments CT Colonography 1955 FIT DNA/Cologuard 1955 FIT 1955 FOBT 1955 Sigmoidoscopy 1955 Alcohol/Substance Use Screening 1967 Mammogram 1995 Zoster Vaccines (2 of 2) 07/09/2022 05/14/2022 SDOH Screening 03/14/2025 03/14/2024 COVID-19 Vaccine ( season) 2025 11/11/2023, 09/17/2022, 10/17/2021, Additional history exists Postponed from 07/30/2024 (Patient Refused) Tobacco Screening 10/11/2025 10/11/2024 Lung Cancer Screening 10/30/2025 10/30/2024 Depression Screening 11/24/2025 11/24/2024, 11/24/20 24 HPV/Cotest 11/10/2027 11/10/2022 Pap Smear 11/10/2027 11/10/2022 Lipid Panel 10/11/2029 10/11/2024, 04/1 11/2021, 05/23/2021 Colonoscopy 07/30/2032 07/30/2022 Colorectal Cancer Screening 07/30/2032 DTaP/Tdap/Td Vaccines (3 - Td or Tdap) 10/11/2034 10/11/2024, 04/18/2012 Hepatitis C Screening Completed 05/14/2022 Pneumococcal Vaccine: 50+ Years Completed 05/14/2022 RSV Patients and Patients Aged 60 years or older Completed 11/11/2023 Influenza Vaccine Completed 10/11/2024 HIB Vaccines Aged Out No longer eligi [...] patient's age to complete this topic Meningococcal Vaccine Aged Out No zoey pilar eligible based on patient's age to complete this topic RSV under 20 months Aged Out No longe r eligible based on patient's age to complete this topic Rotavirus Vaccines Aged Out No longer eligible based on patient's age to complete this topic Procedures Procedure Name Priority Date/Time Associated Diagnosis Comments LUNG CANCER SCREENING Routine 10/30/2024 11:03 AM EST LIPID PANEL, STANDARD Routine 10/11/2024 10:34 AM EST Degeneration of intervertebral disc of lumbar region with discogenic back pain THINPREP PAP AND HPV MRNA E6/E7 Routine 11/10/2022 12:00 AM EST HM COLONOSCOPY Routine 07/30/2022 ZZZ HISTORICAL HEPATITIS C AB W/REFL TO HCV RNA, QN, PCR Routine 05/14/2022 10:15 AM EDT from Last 3 Months or Most Recently Relevant to Health Maintenance Results * Lung Cancer Screning (10/30/2024 11:03 AM EST) Anatomical Region Laterality Modality Other us Historical Provider MD HEALTH MAINTENANCE Final Result * (ABNORMAL) Lipid Panel, Standard (10/11/2024 10:34 AM EST) Triglycerides 180(H) <150 mg/dL [facility] Comment:Desirable Triglyceri de: less than 150 mg/dLBorderline High Triglyceride 150-199 mg/dLHigh Triglyceride: 200-499 mg/dLVery High Triglyceride: greater than or equal to 5OO mg/dL Cholesterol 153 <200 mg/dL [facility] Comment:Desirable Cholestero l: less than 200 mg/dLBorderline High Cholesterol: 200-239 mg/dLHigh Cholesterol: greater than 239 mg/dL LDL Cholesterol Calculated 70 <100 mg/dL [facility] Comment:Desirable LDL: less than 100 mg/dLNear Optimal/Above Optimal LDL: 110- 129 mg/dLBorderline High LDL: 130-159 mg/dLHigh LDL: 160-189 mg/dLVery High LDL: greater than or equal to 190 mg/dL HDL Cholesterol 47 >40 mg/dL [facility] Comment:Desirable HDL: great er than 40 mg/dL Note: This HDL assay may give artificially low results in patients with liver disease. Blood Venous blood specimen / Unknown 10/11/2024 10:34 AM EST 10/11/2024 2:19 PM EST us Indra Eason MD LAB BLOOD ORDERABLES Final Result [facility] [address] [place] [phone] * Thinprep PAP and HPV nRNA E6/E7 (11/10/2022 12:00 AM EST) Clinical Information: Routine exam Metacafe LMP: NONE GIVEN Metacafe Prev. PAP: NONE GIVEN [employer] Prev. BX: NONE GIVEN [employer]acafe SOURCE: Cervix Metacafe Statement Of Adequacy: SATISFACTORY FOR EVALUATION Metacafe Interpretation/Re sult: Metacafe Comment: Negative for intraepithelial lesion or malignancy. Atrophic pattern; predominantly parabasal cells Contact Lens Polisher: [email or web address] Comment: SL, CT(ASCP) CT screening location: [address] ??[phone] (Always Message) [facility] [email or web address] Comment: EXPLANATORY NOTE: The Pap is a screening test for cervical cancer. It is not a diagnostic test and is subject to false negative and false positive results. It is most reliable when a satisfactory sample, regularly obtained, is submitted with relevant clinical findings and history, and when the Pap result is evaluated along with historic and current clinical information. HPV nRNA E6/E7 Not Detected Not Detected [employer] Comment: Methodology: Checker Loader-Mediated Amplification This assay detects E6/E7 viral messenger RNA (mRNA) from 14 high-risk HPV types (16,18,31,33,35,39,45,51,52,56,58,59,66,68). Cervical sources are required for HPV testing. If a vaginal source from a patient who has had a total hysterectomy with removal of cervix was submitted, please contact the testing laboratory for alternative testing options. For additional information, please refer to http://CrowdRise.Ceon/faq/JBX560g6 (This link if provided for information/ educational purposes only.) 11/10/2022 11/11/2022 9:2 1 AM EST Narrative [facility] - 12/29/2022 12:43 PM EST FASTING: UNKNOWN Alix Ayala CNM LAB PATHOLOGY ORDERABLES Final Result [address], [place] [address] Seriously-Seriously [address] [place] [address], ([address]) [place] [address] * Colonoscopy (07/30/2022) Colonoscopy Performed Historical Provider HEALTH MAINTENANCE Final Result * HEPATITIS C AB W/REFL TO HCV RNA, QN, PCR (05/14/2022 10:15 AM EDT) HEPATITIS C ANTIBODY NON-REACT L[facility]SET NON-REACT [facility] INDEX <0.02 <1.00 [facility] Comment: ?? HCV antibody was non-reactive. There is no laboratory ?? evidence of HCV infection. ?? In most cases, no further action is required. However, if recent HCV exposure is suspected, a test for HCV RNA (test code 26890) is suggested. ?? For additional information please refer to http://CrowdRise.Ceon/faq/TCA45h7 (This link is being provided for informational/ educational purposes only.) ?? 05/14/2022 10:1 5 AM EDT Indra Eason MD HISTORICAL/NON ORDERABLE LA BS Final Result [facility] [address] from Last 3 Months or Most Recently Relevant to Health Maintenance Insurance [employer] PPO Care Teams Contract Consultant Relationship Specialty Start Date End Date Indra Eason MD [address] [place], [place] [phone] PCP - General Internal Medicine 06/12/21
--- OUTSIDE RECORDS SUMMARY | 2025-03-26 11:44 | XMS_ITS | Encounter Summary ---
Author Organization [employer] Address [address] [facility] [address] [place] [address] Care Team Providers Care Order Processor Name Role Phone Indra Eason MD Primary Care Provider [phone]- [phone] Encounter Details Date Type Department Care Team (Late st Contact Info) Description 03/17/2024 Orders Only [facility] [address] [place], [place] [phone] Indra Eason MD [address] [place], [place] [phone] Depressive disorder (Primary Dx) Social History Tobacco Use Types Packs/Day Years Used Date Smoking Tobacco: Every Day Cigarettes 0.5 40 Passive Smoke Exposure: Never Smokeless Tobacco: Never Alcohol Use Standard Drinks/Week Comments Never 0 (1 standard drink = 0.6 oz pur e alcohol) Depression Answer Date Recorded Patient Health Questionnaire-9 Score 22 03/14/2024 Patient Health Questionnaire-9 Score 22 03/14/2024 Last PHQ-9: Questionnaire Data Not on file 0 03/14/2024 Housing Stability Answer Date Recorded What is [...] Date Recorded Patient Health Questionnaire-2 Score 6 03/14/2024 Comments Unknown Sex and Gender Information Value [...] Description 04/02/2025 10:45 AM EDT Office Visit [facility] PEDS [address] [place] [address] Indra Eason MD [address] [place] [address] documented as of this encounter Visit Diagnoses Diagnosis Depressive disorder- Primary Depressive disorder, not elsewhere classified documented in this encounter Additional Health Concerns Assessment Noted Time PHQ-9 Depression Total Score: 22 024 9:57 AM EDT documented as of this encounter Care Teams Order Processor Relationship Specialty Start Date End Date Indra Eason MD [address] [place] [address] PCP - General Internal Medicine 06/12/21 documented as of this encounter
--- OUTSIDE RECORDS SUMMARY | 2025-03-26 11:44 | XMS_ITS | Encounter Summary ---
Author Organization [employer] Address [address] [facility] 7t [place] [address] Care Team Providers Care Tank Operator Name Role Phone Indra Eason MD Primary Care Provider [phone] [phone] Encounter Details Date Type Department Care Team (Late st Contact Info) Description 10/01/2023 Abstract [facility] [address] [place], [place] [phone] Tanya Fields Social History Tobacco Use Types Packs/Day Years Used Date Smoking Tobacco: Every Day Cigarettes 0.5 40 Passive Smoke Exposure: Never Smokeless Tobacco: Never Alcohol Use Standard Drinks/Week Comments Never 0 (1 standard drink = 0.6 oz pur e alcohol) Depression Answer Date Recorded Patient Health Questionnaire-9 Score 9 11/19/2022 Housing Stability Answer Date Recorded What is [...] Answer Date Recorded Patient Health Questionnaire-2 Score 2 11/19/2022 Comments Unknown Sex and Gender Information Value [...] 10:45 AM EDT Office Visit [facility] MED & PEDS [address] [place] [address] Indra Eason MD [address] [place] [address] documented as of this encounter Visit Diagnoses Not on filedocumented in this encounter Additional Health Concerns Assessment Noted Time PHQ-9 Depression Total Score: 9 11/19/20 22 11:13 AM EST documented as of this encounter Care Teams Tank Operator Relationship Specialty Start Date End Date Indra Eason MD [address] [place] [address] PCP - General Internal Medicine 06/12/21 documented as of this encounter
--- OUTSIDE RECORDS SUMMARY | 2025-03-26 11:44 | XMS_ITS | Encounter Summary ---
Author Organization [employer] [facility] Address [address] [place] [address] 7 [place] [address] Care Team Providers Care Black Powder Glazing Operator Name Role Phone Indra Eason MD Primary Care Provider [phone]- [phone] Reason for Visit * Reason Comments Med Refill Encounter Details Date Type Department Care Team ([facility] Contact Info) Description 08/25/2023 Refill [facility] [address] [place], [place] [phone] Indra Eason MD [address] [place], [place] [phone] Tingling of upper extremity Social History Tobacco Use Types Packs/Day Years Used Date Smoking Tobacco: Every Day Cigarettes 0.5 40 Passive Smoke Exposure: Never Smokeless Tobacco: Never Alcohol Use Standard Drinks/Week Comments Never 0 (1 standard drink = 0.6 oz pur e alcohol) Depression Answer Date Recorded Patient Health Questionnaire-9 Score 9 11/19/2022 Depression Answer Date Recorded Patient Health Questionnaire-2 [...] Encounters Date Type Department Care Team (Late Contact Info) Description 04/02/2025 10:45 AM EDT Office Visit [facility] [address] [place], [place] [phone] Indra Eason MD [address] [place], [place] [phone] documented as of this encounter Visit Diagnoses Diagnosis Tingling of upper extremity documented in this encounter Additional Health Concerns Assessment Noted Time PHQ-9 Depression Total Score: 9 11/19/20 22 11:13 AM EST documented as of this encounter Care Teams Black Powder Glazing Operator Relationship Specialty Start Date End Date Indra Eason MD [address] [place] [address] PCP - General Internal Medicine 06/12/21 documented as of this encounter
--- OUTSIDE RECORDS SUMMARY | 2025-03-26 11:44 | XMS_ITS | Data Portability ---
Author Organization [employer] Address [address] [place] [address] Care Team Providers Care Outlet Manager Name Role Phone [facility] Referring Provider [phone] [facility] Referring Provider Assessment Encounter Date Assessment Date Assessment LastModified by Organization Details LastModified Time 08/13/2022 08/13/2022 Ms. Maribel Chahal am is a 67yoF w/ a PmHx of HTN and recurrent UTIs who is seen today for dysuria and right sided flank pain. Ms. Dong reports 3-4 days of increasing urinary frequency, burning with urination, and sharp right flank pain. No nausea/vomiting, diarrhea, or fevers. VSS. Tool Maker Bench on site reports appears well. POC UA negative but with visible sediment suggestive of ?nephrolithiasis. Will culture UA and give dose of toradol for pain control today. Primary team, Ms. Dong would benefit from follow up in the next week to make sure her pain is improving and consideration to first time nephrolithiasis work up. [email or web address] Not available 08/13/2022 11:56:34 05/24/2023 05/24/2023 Called to jiaanca martinez 67 y/o w COPD, HTN who c/o urinary sxs x 2 days. Reports dysuria, hematuria and left flank pain. VSS Urine POC: leuk+, Nitr-, blood+ Given bactrim DS x 1 Allergies: NKDA Clinical picture c/w pyelonephritis, given dose of bactrim DS on site. Patient strongly encouraged to drink plenty of fluids. Follow up with PCP as scheduled. Alarm signs reviewed, advised to call 911 if onset. [email or web address] Not available 05/24/2023 11:47:25 Plan of Treatment Reminders Order Date Submit Date Provider Last Modified By Organization Details Last Modified Time Details Appointments None recorded. Lab urinalysis , dipstick 2022 023 [place] [facility], [address] [place] [address], [id number] 3 10:09:06 culture, urine 2021 022 [place] [facility] (Centralized Electronic Ordering - All Locations), Patient Can Go To The Location Of Their Choice, [facility] 11:41:40 culture, urine 2021 022 [place] [facility] (Centralized Electronic Ordering - All Locations), Patient Can Go To The Location Of Their Choice, [id number] 05:01:57 Referral None recorded. Procedures None recorded. Surgeries None recorded. Imaging None recorded. Medication Orders Bactrim DS 800 mg-160 mg tablet 2022 023 [email or web address] [id number], [address] [place] [address], [id number], 11:47:06 Bactrim DS 800 mg-160 mg tablet 2022 023 [facility] #[id number], [address] [place], [place], [id number], 11:47:16 Bactrim DS 800 mg-160 mg tablet 2021 022 [facility] #[id number], [address] [place], [place], [id number], 12:31:51 Patient TargetsNo targets recorded. Patient InstructionsNo instructions recorded. Reason for Referral None Reported. Results Created Date Observation Date Name Description Value Unit Range Abnormal Flag Note LastModifiedBy Organization Detail LastModifiedTime 08/13/2008/13/2022 UA W/REF THOM CULTU RE appear/color COLOR LESS CLEAR Not Available [facility] (Centralized Electronic Ordering - All Locations) Patient Can Go To The Location Of Their Choice, [facility] 08/13/2022 23:31:57 09/15/20 22 08/13/2022 UA W/REF THOM CULTU RE sp. gravity 1.004 (1.002 -1.030 ) Not Available [facility] (Centralized Electronic Ordering - All Locations) Patient Can Go To The Location Of Their Choice, 08/13/2022 23:31:57 08/13/2008/13/2022 UA W/REF THOM CULTU RE urine pH 7.0 (5.0-8 .0) Not Available [facility] (Centralized Electronic Ordering - All Locations) Patient Can Go To The Location Of Their Choice, 08/13/2022 23:31:57 08/13/2008/13/2022 UA W/REF THOM CULTU RE urine albumin NEGATI VE (neg) Not Available [facility] (Centralized Electronic Ordering - All Locations) Patient Can Go To The Location Of Their Choice, 08/13/2022 23:31:57 08/13/2008/13/2022 UA W/REF THOM CULTU RE urine glucose NEGATI VE (neg) Not Available [facility] (Centralized Electronic Ordering - All Locations) Patient Can Go To The Location Of Their Choice, 08/13/2022 23:31:57 08/13/2008/13/2022 UA W/REF THOM CULTU RE urine ketones NEGATI VE (neg) Not Available [facility] (Centralized Electronic Ordering - All Locations) Patient Can Go To The Location Of Their Choice, 08/13/2022 23:31:57 08/13/2008/13/2022 UA W/REF THOM CULTU RE urine bilirubin NEGATI VE (neg) Not Available [facility] (Centralized Electronic Ordering - All Locations) Patient Can Go To The Location Of Their Choice, 08/13/2022 23:31:57 08/13/2008/13/2022 UA W/REF THOM CULTU RE urine hemoglobin NEGATI VE (neg) Not Available [facility] (Centralized Electronic Ordering - All Locations) Patient Can Go To The Location Of Their Choice, 08/13/2022 23:31:57 08/13/2008/13/2022 UA W/REF THOM CULTU RE urine nitrite NEGATI VE (neg) Not Available [facility] (Centralized Electronic Ordering - All Locations) Patient Can Go To The Location Of Their Choice, 08/13/2022 23:31:57 08/13/20 22 08/13/2022 UA W/REF THOM CULTU RE urine leukocyte NEGATI VE (neg) Not Available [facility] (Centralized Electronic Ordering - All Locations) Patient Can Go To The Location Of Their Choice, 08/13/2022 23:31:57 08/13/20 22 08/13/2022 UA W/REF THOM CULTU RE urobilinogen NORMAL mg/dL (norm) Not Available [facility] (Centralized [facility] Ordering - All Locations) Patient Can Go To The Location Of Their Choice, 08/13/2022 23:31:57 08/13/20 22 08/13/2022 UA W/REF THOM CULTU RE urine WBCs <1 /hpf (0-5) Not Available [facility] (Centralized Electronic Ordering - All Locations) Patient Can Go To The Location Of Their Choice, 08/13/2022 23:31:57 08/13/2008/13/2022 UA W/REF THOM CULTU RE urine RBCs 1 /hpf (0-3) Not Available [facility] (Centralized Electronic Ordering - All Locations) Patient Can Go To The Location Of Their Choice, 08/13/2022 23:31:57 08/13/20 22 08/13/2022 UA W/REF THOM CULTU RE bacteria SLIGHT hpf (neg) abnormal Not Available [facility] (Centralized Electronic Ordering - All Locations) Patient Can Go To The Location Of Their Choice, 08/13/2022 23:31:57 08/13/2008/13/2022 UA W/REF THOM CULTU RE squamous epith <1 /hpf (0-8) Not Available [facility] (Centralized Electronic Ordering - All Locations) Patient Can Go To The Location Of Their Choice, 08/13/2022 23:31:57 08/13/2008/13/2022 UA W/REF THOM CULTU RE clarity CLEAR (clear ) Not Available [facility] (Centralized Electronic Ordering - All Locations) Patient Can Go To The Location Of Their Choice, 08/13/2022 23:31:57 08/13/2008/13/2022 UA W/REF THOM CULTU RE culture indication CULTUR E NOT INDICA CARISA Not Available [facility] (Centralized Electronic Ordering - All Locations) Patient Can Go To The Location Of Their Choice, [id number] 08/13/2022 23:31:57 09/15/2009/15/2022 URINE CULTU RE specimen description URINE Not Available [facility] ([facility] Ordering - All Locations) Patient Can Go To The Location Of Their Choice, [id number] 09/16/2022 11:41:40 09/15/2009/15/2022 URINE CULTU RE special requests NONE Not Available [facility] (Centralized [facility] Ordering - All Locations) Patient Can Go To The Location Of Their Choice, [id number] 09/16/2022 11:41:40 09/15/2009/16/2022 URINE CULTU RE culture Mixed bacter ial you, indica tive of urogen ital contam inatio n. Not Available [facility] (Centralized Electronic Ordering - All Locations) Patient Can Go To The Location Of Their Choice, [facility] 09/16/2022 11:41:40 09/15/2009/16/2022 URINE CULTU RE report status FINAL 2021 Not Available [facility] (Centralized Electronic Ordering - All Locations) Patient Can Go To The Location Of Their Choice, [id number] 09/16/2022 11:41:40 Result Notes None recorded. Medical Equipment None Reported. Medications Name Sig Start Date Stop Date Status Note LastModified by Organization Details LastModified Time sulfamethoxaz ole 800 mg-trimethopr im 160 mg tablet TAKE 1 TABLET BY MOUTH EVERY 12 HOURS FOR 14 DAYS active Not Available Not Available No t Available simvastatin 20 mg tablet TAKE 1 TABLET BY MOUTH ONCE DAILY active Not Available Not Available No t Available lisinopril 5 mg tablet TAKE 1 TABLET BY MOUTH EVERY DAY active Not Available Not Available No t Available furosemide 20 mg tablet active Not Available Not Available No t Available polyethylene glycol 3350 17 gram/dose oral powder MIX AND DRINK DIRECTED THE DAY BEFORE YOUR PROCEDURE active Not Available Not Available No t Available estradiol 0.01% (0.1 mg/gram) vaginal cream active Not Available Not Availabl e Not Available clotrimazole 1 % topical cream APPLY TOPICALLY TO THE AFFECTED AREA IN THE MORNING AND AT BEDTIME FOR 14 DAYS active Not Available Not Available No t Available Laxative (bisacodyl) 5 mg tablet TAKE 2 TABLETS BY MOUTH AT 12PM THE DAY BEFORE YOUR PROCEDURE active Not Available Not Available No t Available Metamucil Sugar-Free (aspartame) 3.4 gram/5.8 gram oral powder MIX AND TAKE 5.12GM BY MOUTH TWICE DAILY active Not Available Not Available No t Available Vitals Date Recorded Body temperature Heart rate Body weight Oxygen saturation Oxygen saturation in Arterial blood by Pulse oximetry Respiratory rate Systolic blood pressure Diastolic blood pressure Provider Name and Address Organization Details Last Updated DateTime 3 97.9 [degF] 85 /min 51155.7 2 g 98 % 98 % 14 /min 163 mm[Hg] 84 mm[Hg] Not Available [employer] 3 10:43:47 Date Recorded Body weight Body temperature Heart rate Respiratory rate Oxygen saturation Oxygen saturation in Arterial blood by Pulse oximetry Heart rate Respiratory rate Body weight Oxygen saturation Oxygen saturation in Arterial blood by Pulse oximetry Body temperature Heart rate Body temperature Body weight Respiratory rate Oxygen saturation Oxygen saturation in Arterial blood by Pulse oximetry Systolic blood pressure Diastolic blood pressure Systolic blood pressure Diastolic blood pressure Systolic blood pressure Diastolic blood pressure Provider Name and Address Organization Details Last Updated DateTime 3 53386.8 g 97.8 [degF] 76 /min 18 /min 98 % 98 % 76 /min 18 /min 10504.8 g 98 % 98 % 97.8 [degF] 76 /min 97.8 [degF] 27464.8 g 18 /min 98 % 98 % 156 mm[Hg] 78 mm[Hg] 156 mm[Hg] 78 mm[Hg] 156 mm[Hg] 78 mm[Hg] Not Available [employer] [facility] [place] 3 11:55:40 Date Recorded Oxygen saturation Oxygen saturation in Arterial blood by Pulse oximetry Body temperature Respiratory rate Heart rate Systolic blood pressure Diastolic blood pressure Provider Name and Address Organization Details Last Updated DateTime 2 99 % 99 % 98.1 [degF] 16 /min 78 /min 120 mm[Hg] 82 mm[Hg] Not Available [employer] 2 12:54:18 Date Recorded Oxygen saturation Oxygen saturation in Arterial blood by Pulse oximetry Heart rate Respiratory rate Body temperature Systolic blood pressure Diastolic blood pressure Provider Name and Address Organization Details Last Updated DateTime 2 99 % 99 % 88 /min 16 /min 98.6 [degF] 124 mm[Hg] 77 mm[Hg] Not Available [employer] 12:24:04 Social History None recorded. Functional Status None recorded. Mental Status None recorded. Family History Nothing Reported. Medical History No medical history recorded. Gynecological HistoryNo gynecological history recorded. Obstetrics History GPAL:G 0 P 0 0 0 0 Past Encounters Encounter ID Performer Location Encounter Start Date Encounter Closed Date Diagnosis/Indication Diagnosis SNOMED-CT Code Diagnosis ICD10 Code Diagnosis Note [id number] Brianda Forrest MD [address] [address] 08/13/2022 11:49:44 08/31/2022 15:08:44 Kidney stone 39361703 N20.0 [id number] Melanie Sheikh MD [address] [address] 09/15/2022 12:23:55 09/15/2022 13:15:24 Acute urinary tract infection 124046435 N39.0 67 year old female being evaluated for urinary symptoms for 3 days. Patient reports urgency, dysuria and frequency, along with hematuria and subjective fever. Last UTI was in March. Patient able to tolerate PO currently, without n/v or flank pain. Exam notable for normal vital signs. Will send for urinalysis and culture, and empiricall y treat with bactrim. [id number] Melanie Sheikh MD [address] [address] 05/03/2023 10:43:44 05/04/2023 15:51:57 Diarrhea 03915569 R19.7 67 year old female being evaluated for diarrhea for nearly 72h. Patient reports able to eat and drink, mild nausea without vomiting, but having brown liquid stools every 25 minutes. Patient took miralax just prior to onset of symptoms, but had ceased all stool softeners since. Patient without sick contacts or new exposures, and no recent antibiotic use. Exam notable for normal vital signs, POC BMP normal. Presentati on consistent with likely gastroente ritis, without evidence of hypokalemi a or dehydratio n. Continue PO hydration as tolerated, FU PCP for further work up if symptoms persistent beyond next week. [id number] Beatris Gandhi MD [address] [address] 05/24/2023 11:11:02 05/25/2023 11:28:31 Acute pyelonephritis [id number] N10 Health Concerns Section Related Observation LastModified by Organization Detai ls LastModified Time None Recorded Concern Status LastModified by Organization Details LastModified Time None Recorded Advance Directives Directive None Recorded Payers Encounter Date Sequence Insurance Name Policy Number Policy Chong Covered Member ID Chong Member ID Guarantor Name 08/13/2022 1 [facility] - DOS PRIOR TO 2023 - DUAL ELIGIBLE (MEDICARE REPLACEMENT/ADV ANTAGE - HMO) [facility] [id number] [facility] 09/15/2022 1 [facility] [employer] - DOS PRIOR TO 2023 - DUAL ELIGIBLE (MEDICARE REPLACEMENT/ADV ANTAGE - HMO) [facility] [id number] [facility] 05/03/2023 1 [facility] - DOS ON OR AFTER 2023 - DUAL ELIGIBLE - CARE HOME OPTIONS AND ONE CARE (MEDICARE REPLACEMENT/ADV ANTAGE - HMO) [facility] [id number] [facility] [place] 05/24/2023 1 [facility] - DOS ON OR AFTER 2023 - DUAL ELIGIBLE - CARE HOME OPTIONS AND ONE CARE (MEDICARE REPLACEMENT/ADV ANTAGE - HMO) [facility] [id number] [facility] [employer] [place] Notes Date Note Type Note Provider Name and Address Organization Details Recorded Time 08/13/2022 text/html HPI: Patient with two day history of painful urination. No blood or pus. No fever. Has low back and right sided flank pain. Patient is current smoker. ...................... ...................... ...................... ...................... ...................... ...................... ......... CRC Nursing Assessment: Comments: no further information needed to process visit ...................... ...................... ...................... ...................... ...................... ...................... ......... Tool Maker Bench Note: Dysuria. Vitals, assessment, UA, cultures ...................... ...................... ...................... ...................... ...................... ...................... ......... Disposition: Fulfilled Brianda Forrest MD [address] [place] [address],[address], [place], [address], [employer] 08/13/2022 15:49:24 09/15/2022 text/html CRC Nursing Assessment: Reason For Request: PMH: general anxiety disorder, osteopenia RFR: UTI symptoms Patient Reports: Painful urination; Frequent and increased urination with flank pain; Painful urination with or without fever Denies: Inability to fully empty bladder Chief Complaints: UTI/Pyelonephritis PMH: COPD/Asthma, Hypertension Allergies: No Known Comments: Member with stress incontinence, but worse pressure, urgency and incontinence. She does have pain, burning and hematuria. Says bleeding started yesterday morning, stopped in the afternoon but started back this morning, it is bright in color. Thinks she may be running a slight fever but has not taken her temperature, denies chills. ...................... ...................... ...................... ...................... ...................... ...................... ......... Tool Maker Bench Note: Dispatched to a/a for urinary s/s. Found patient in home awake and alert, airway open and patent, breathing regular. Pt reports x3 days of urinary s/s, including dysuria/urgency/freque ncy. Pt also reporting small amounts of blood when wiping/found in sanitary pad. Pt reports chronic back pain, no worse than normal. Pt reports 5 weeks of bilateral upper abd pain that has been reported to her MD and she is scheduled to get imaging for, no worse than it has been. States like she may have fevers of the last few days but is unsure. Pt reports decreased appetite but is trying to continue to push fluids. Pt has hx of chronic back pain, no worse than normal. Last UTI 04/19, denies hx of hospitalizations for UTI. Tool Maker Benchcarla Calzada performs pt assessment. Skin is warm and dry. Equal chest rise and fall, abd is soft, +tender, not distended. No CVA tenderness. No other signs/symptoms at this time. Obtained clean catch urine, and Wicho Calzada performed UA. Results uploaded to [employer] [place]. Consulted [facility] who ordered dose of Bactrim DS culture to be sent to lab and will send script to pt's pharmacy. Went over red flags and provided pt education on how to prevent UTI's in future. No further questions or concerns at this time. ...................... ...................... ...................... ...................... ...................... ...................... ......... Disposition: Fulfilled Melanie Sheikh MD [address] [place] [address],[address] [facility], [place], [phone], [employer] 09/15/2022 12:29:40 05/03/2023 text/html CRC Nursing Assessment: Chief Complaints: Abdominal Pain PMH: COPD/Asthma, Hypertension Allergies: No Known Comments: RN from [facility] calling on behalf of member with request for [facility] visit for eval of vague abdominal pain and loos stools x 3 days deny fever/chills. Verify member name/- Melanie Sheikh MD [address] [place] [address],[address] [facility], [place], [address], [employer] 05/03/2023 11:24:14 05/24/2023 text/html CRC Nursing Assessment: Reason For Request: Back pain Patient Reports: Frequent and increased urination with flank pain; Painful urination with or without fever Chief Complaints: UTI/Pyelonephritis, Abdominal Pain, Pain, Syncope/Dizziness/Ligh theadedness PMH: COPD/Asthma, Hypertension Allergies: No Known Comments: Member calling with request for [facility] visit for eval for flank pain and dysuria and pressure x 2 days +hematuria this am, Deny fevers. Verify name/- ...................... ...................... ...................... ...................... ...................... ...................... ......... Tool Maker Bench Note From Rosas Alanis: Pt presents A@Ox4 . [place] warm and dry. Pt c/o UTI related symptoms , Painful urination blood, left flank pain. Unsure if she had fever because she takes tylenol and incontinence Pt denies CP SOB fever, nausea diarrhea. Baseline vitals assessed and recorded Urine dip pos for DINORAH BLQ and PRO. [facility] contacted and 800mg/160mg Bactrim given PO and RX for Bactrim called into RX. Pt educated on signs that would indicate the ER. Pt advised to follow up with PCP ...................... ...................... ...................... ...................... ...................... ...................... ......... Disposition: Fulfilled Beatris Gandhi MD [address] [facility],[address], [place], [address], [employer] 05/24/2023 15:12:34 OBGyn Episode No OBEpisode recorded.
--- OUTSIDE RECORDS SUMMARY | 2025-03-26 11:44 | XMS_ITS | Encounter Summary ---
Author Organization [employer] [facility] Address [address] [place] [address] [address] [place] [address] Care Team Providers Care Steam Train Driver Name Role Phone Indra Eason MD Primary Care Provider [phone] Reason for Visit * Reason Comments Med Refill Encounter Details Date Type Department Care Team ([facility] Contact Info) Description 07/27/2023 Refill [facility] [address] [place], [place] [phone] Indra Eason MD [address] [place], [place] [phone] Social History Tobacco Use Types Packs/Day Years [...] Upcoming Encounters Date Type Department Care Team ([facility] [address] Contact Info) Description 04/02/2025 10:45 AM EDT Office Visit [facility] [address] [place], [place] [phone] Indra Eason MD [address] [place], [place] [phone] documented as of this encounter Visit Diagnoses Not on filedocumented in this encounter Additional Health Concerns Assessment Noted Time PHQ-9 Depression Total Score: 9 11/19/20 22 11:13 AM EST documented as of this encounter Care Teams Steam Train Driver Relationship Specialty Start Date End Date Indra Eason MD [address] [place] [address] PCP - General Internal Medicine 06/12/21 documented as of this encounter
--- OUTSIDE RECORDS SUMMARY | 2025-03-26 11:44 | XMS_ITS | Encounter Summary ---
Author Organization [employer] Address [address] [facility] [address] [place] [address] Care Team Providers Care Finger Cobbler Name Role Phone Indra Eason MD Primary Care Provider [phone] Reason for Visit * Reason Comments Med Refill Encounter Details Date Type Department Care Team ([facility] st Contact Info) Description 09/22/2024 Refill [facility] [address] [place], [place] [phone] Alix Ayala CN [address] [place], [place] [phone] Social History Tobacco Use Types Packs/Day Years Used Date Smoking Tobacco: Every Day Cigarettes 0.5 40 Passive Smoke Exposure: Never Smokeless Tobacco: Never Alcohol Use Standard Drinks/Week Comments Never 0 (1 standard drink = 0.6 oz pur e alcohol) Depression Answer Date Recorded Patient Health Questionnaire-9 Score 15 05/10/2024 Patient Health Questionnaire-9 Score 15 05/10/2024 Last PHQ-9: Questionnaire Data Not on file 0 05/10/2024 Housing Stability Answer Date Recorded What is [...] Date Recorded Patient Health Questionnaire-2 Score 4 05/10/2024 Comments Unknown Sex and Gender Information Value [...] Description 04/02/2025 10:45 AM EDT Office Visit [facility] [address] [place] [address] Indra Eason MD [address] [place] [address] documented as of this encounter Visit Diagnoses Not on filedocumented in this encounter Additional Health Concerns Assessment Noted Time PHQ-9 Depression Total Score: 15 024 9:23 AM EDT documented as of this encounter Care Teams Finger Cobbler Relationship Specialty Start Date End Date Indra Eason MD [address] [place] [address] PCP - General Internal Medicine 06/12/21 documented as of this encounter
[2025-03-26 14:27] LABS: Appearance Urine Clear; Color Urine Yellow; Glucose Urine UA Negative (Negative); Leukocyte Esterase Urine Trace (Negative); Nitrite Urine Negative (Negative); UMIC TRIGGER UACC YES; Urine Blood Negative (Negative); Urine Ketones Negative (Negative); Urine Protein Negative (Neg-Trace)
[2025-03-26 14:31] LABS: Bacteria Urine Trace (None Seen); Hyaline Casts Urine 0-2 /LPF (0-2); RBC Urine 0-2 /HPF (0-2); Squamous Epithelial Cell Urine >20 /HPF (0-2); WBC Urine 0-5 /HPF (0-5)
== END 2025-03-26 10:07 | disposition home or self-care (01) ==
LOC: HO.CHCLDS 10:06
PROVIDERS: Visit Provider Internal Medicine
DX: Z13.89 Encounter for screening for other disorder (principal)
CPT/HCPCS: 81001

== ENCOUNTER 2025-05-03 13:18 | Outpatient (AMB) | payer MEDICARE, SELFPAY ==
--- NOTE | 2025-05-03 13:23 | MHC.OFFVIS ---
Vital Signs 05/03/25 13:27 Height 4 ft 11 in Weight 143 lb 4.807 oz BMI 28.9 BP 119/61 Blood Pressure Location Lt brachial Position Sitting Pulse 81 Intake Visit Reasons: rectal bleeding/Reena 07/30/2022 Intake Note: Maribel presents in the office as a rectal bleeding Reena patient follow up. CC: States that she takes OTC vitamins A,B,C,D,E,Magnesium, zinc. She states that when she goes to the bathroom she has some blood at times not all the times. She gets both constipation and diarrhea - she believes she has IBS. Casing Tester Required: No Allergies aspirin Adverse Reaction (Mild, Verified 05/03/25 13:58) Abdominal Pain Medication List - Last Reconciled 05/03/25 by Cherelle Montana CNP lisinopril 5 mg PO DAILY simvastatin 20 mg PO DAILY HPI HPI rectal bleeding/Reena 07/30/2022: Details: Patient is a 69-year-old female with PMH of hyperlipidemia and hypertension. Last visit with TONY Murray 07/30/2022 for pre colonoscopy screening. She is here today for pre colonscopy screening. Shares screening was not complete in 2001 but believe she had stool screening in the interium but unsure of results. She reports a long-standing hx of alternating bowel habits, cycling between constipation and diarrhea, with stool described as small, soft, hard, clumped, floating, or sinking, and occasionally feeling incomplete evacuation. She often feels urgency but is sometimes unable to pass stool. She notes intermittent rectal bleeding, observed upon wiping, though source is unclear?sometimes noted with urination or defecation. Stools have not been consistently loose or watery, but are often irregular in form. She denies using any laxatives, stool softeners, or fiber supplements prior to visit. She complains of chronic upper abdominal pain/pressure that is present all the time, worse with wrong foods but not always triggered by eating, mildly improved after defecation. No n/v, but frequent heartburn, occasional mild regurgitation, and recent (?1 week) sore throat with mild trouble swallowing and hoarseness. Denies appetite changes but reports low PO intake overall. Reports ?9 lbs unintentional weight loss since October (from 152 to 143 lbs). No hx of hematochezia in urine; recent UA in February was negative for blood. PMHx notable for fatty liver found on abdo U/S Sep 2022, non-obstructing left renal calculi, and malpositioned kidney. Cholecystectomy in past for gallstones. Also notes hx of hernia repair with mesh, but recurrence within 5 months?painful at times, but no bowel obstruction sx. Pt also reports chronic candidal/fungal skin overgrowth with malodor, previously managed with topical antifungal/corticosteroid. Patient denies: fever/chills, appetite changes or dysphasia. Social History - Diet: - Low intake, often skips breakfast/lunch; nonspecific dietary restrictions - Alcohol/Tobacco/Drug Use: - Tobacco: Current, ?9/day; attempting cessation, no current cessation aid - Alcohol: Denies - Illicit drugs: Denies - Occupation: - Formerly worked at [employer]; hx of heavy lifting (hernia history); no occupational exposures identified relevant to GI - Living situation: With roommate [facility] Medical History (Updated 05/03/25 @ 14:58 by Cherelle Montana CNP) Candidiasis Rectal bleeding Nicotine dependence Acid reflux Colon cancer screening Fatty liver Constipation Hypercholesteremia Hypertension Surgical History History of hernia surgery Hx of cholecystectomy History of total left hip replacement Family History Brother Diabetes Maternal Aunt Diabetes Other Cancer Heart disease Social History (Updated 07/30/22 @ 13:09 by Reena Simpson PA-C) Alcohol intake: never Patient Tobacco Use Status: Current someday Tobacco user Current occupational status: retired Review of Systems Const Reports as per HPI ENT Reports as per HPI Card Reports as per HPI Resp Reports as per HPI GI Reports as per HPI Reports as per HPI Physical Exam Const General: healthy appearing, no acute distress and well developed Nutritional Appearance: well nourished Orientation/consciousness: patient oriented x3 HEENT Head: Yes normal to inspection, Yes normocephalic and Yes atraumatic Face and sinus: Yes normal facial exam Eyes General: appearance normal, both eyes and all related structures Neck Neck: Yes normal visual inspection Resp Effort & Inspection: normal respiratory effort, able to speak in complete sentences, no tracheal deviation and symmetric chest movement Auscultation: clear to auscultation bilaterally Cardio Jugular venous distension: no JVD Rate: regular rate Rhythm: regular rhythm Heart sounds: S1 normal heart sound present, S2 normal heart sound present, no gallops and no murmurs GI Inspection: Yes normal to inspection, No distended and Yes obesity Palpation (GI): Soft to palpation, not firm, Tenderness to palpation present (GI) in the epigastrum, in the LUQ and in the RUQ; Robles's sign negative, No hepatosplenomegaly present and no hernias Auscultation: normal bowel sounds Skin Other: Maceration with mild erythema noted to abdominal folds Neuro General: patient oriented x3 Gait exam (Neuro): Normal gait present Psych Appearance: grossly normal Mental Status: mental status grossly normal Speech and movement: Normal speech and movement present Affect: normal affect Attitude: cooperative Thought process: Normal thought process present Thought content: Normal thought content present Insight: Good insight present (Psych) Judgement: Good judgement present (Psych) Assessment & Plan Assessment & Plan (1) Abdominal pain: Code(s): R10.9 - Unspecified abdominal pain Category: Medical Qualifiers: Abdominal location: upper abdomen, unspecified Qualified Code(s): R10.10 - Upper abdominal pain, unspecified Plan: DDX reviewed: constipation VS GERD induced VS IBS VS IBD. s/p cholecystectomy. She would be benefit from constipation and GERD management. Will consider imaging if workup unyeilding or no improvement with current plan Reinforced lifestyle modifications to promote regularity: -higher fiber diet, examples provided -adequate hydration with water -150 minutes of moderate intensity exercise per week (2) Acid reflux: Code(s): K21.9 - Gastro-esophageal reflux disease without esophagitis Category: Medical Qualifiers: Esophagitis presence: esophagitis presence not specified Qualified Code(s): K21.9 - Gastro-esophageal reflux disease without esophagitis Plan: Chronic reflux sx with new upper throat symptoms; requires mucosal evaluation; initial med trial started. - Additional Tests: - EGD (upper endoscopy) - Routine LFTs - Medications: - Omeprazole 20mg oral daily - Avoid NSAIDs; use acetaminophen for analgesia Encouraged to take omeprazole as prescribed, taken at least 30-60 minutes before a meal. Education on GERD prevention : -Advised against heavy meals; encouraged small, frequent meals instead of large ones. - Instructed to remain upright for 2?3 hours after eating. - Advised to avoid late-night meals, spicy foods, caffeine, alcohol, known dietary triggers, and tight-fitting clothing. - Emphasis placed on gradual implementation of lifestyle changes to improve adherence and symptom control. (3) Nicotine dependence: Code(s): F17.200 - Nicotine dependence, unspecified, uncomplicated Category: Medical Qualifiers: Nicotine product type: cigarettes Substance use status: uncomplicated Qualified Code(s): F17.210 - Nicotine dependence, cigarettes, uncomplicated Plan: Smoking 9/day, long-term, struggling to quit - Medications: - None currently; consider NRT or bupropion (Wellbutrin) as alternative to Chantix, discuss with PCP - Lifestyle Modifications: - Encourage gradual cessation, behavioral support (4) Colon cancer screening: Code(s): Z12.11 - Encounter for screening for malignant neoplasm of colon Category: Medical Plan: This will be her first colonoscopy Diagnostic Tests: Prescriptions for laxative tablets and Miralax sent to pharmacy; instructions for Gatorade purchase and clear liquid diet given. Patient educated on procedure preparation, including avoiding certain foods and ensuring clear liquid intake. Advised on necessity for ride post-procedure due to sedation. (5) Rectal bleeding: Code(s): K62.5 - Hemorrhage of anus and rectum Category: Medical Plan: Multiple alarm features for CRC/IBD (altered bowels, rectal bleeding, weight loss, age), longstanding but worsening; colonoscopy indicated. - Additional Tests: - Colonoscopy - Routine stool kit (guaiac/FIT) - Fecal calprotectin/occult blood if available - CBC, CMP, liver panel, electrolytes, iron studies, TSH, inflammatory markers - Chest X-ray (wt loss, smoker, hoarseness, chronic sore throat) (6) Candidiasis: Code(s): B37.9 - Candidiasis, unspecified Category: Medical Plan: affecting ab folds and Chronic, previously well managed w/ topical antifungal - Medications: - Topical antifungal powder as needed - Lifestyle Modifications: - Maintain skin dryness/hygiene, loose clothing, wt loss if possible - Follow-up: - f/u w/ PCP or derm if rash worsens (7) Fatty liver: Code(s): K76.0 - Fatty (change of) liver, not elsewhere classified Category: Medical Plan: - Ongoing monitoring per 2021 U/S, metabolic syndrome; screen for complications. - Additional Tests: - Repeat LFTs, hepatitis serology (incl Hep C), HIV - Monitor glucose, BMI, wt trend - Medications: - Continue statin, lisinopril per PCP - Lifestyle Modifications: - low fat/low sugar diet, gradual wt loss, avoid EtOH - Follow-up: - Routine per PCP unless LFTs abnl Plan follow up in 4 weeks or sooner as needed Time: I spent a total of 50 minutes on the date of encounter which includes: Preparing to see the patient (reviewed previous documentation, test results and medical history) Performing a medically appropriate exam and/or evaluation Ordering medications, tests, and procedures Documenting clinical information in the health record Orders: Orders Complete Blood Count Auto Diff Today R10.9 - Unspecified abdominal pain TSH reflex Free T4 Today R10.9 - Unspecified abdominal pain Calprotectin, Fecal Today R10.9 - Unspecified abdominal pain IRON PROFILE Today K76.0 - Fatty (change of) liver, not elsewhere classified Vitamin B12 and Folate Today K76.0 - Fatty (change of) liver, not elsewhere classified Prothrombin Time INR Today K76.0 - Fatty (change of) liver, not elsewhere classified XR chest 2V Today F17.200 - Nicotine dependence, unspecified, uncomplicated, R63.4 - Abnormal weight loss Transglutaminase IgA Today R10.9 - Unspecified abdominal pain C Reactive Protein Today R10.9 - Unspecified abdominal pain Hepatitis A,B,C Profile Today K76.0 - Fatty (change of) liver, not elsewhere classified HIV Ab/Ag Today K76.0 - Fatty (change of) liver, not elsewhere classified Ferritin Today K76.0 - Fatty (change of) liver, not elsewhere classified Hemoglobin A1c Today B37.9 - Candidiasis, unspecified Medications: New polyethylene glycol 3350 (Miralax) Mix 17G in 4 to 8 oz of water until dissolved and drink immediately 17 grams PO DAILY 100 ea 1RF docusate sodium (Colace) take one tablet at bedtime 100 mg PO BEDTIME 90 caps 1RF omeprazole 20 mg PO DAILY 90 caps 1RF methylcellulose (laxative) (Citrucel) Take one tablet daily 500 mg PO DAILY 90 tabs 1RF bisacodyl Take four tablets once for 1 day per colonoscopy instructions 5 mg PO ONCE 1 day 4 tabs 0RF polyethylene glycol 3350 (Miralax) per colonoscopy prep instructions 238 grams PO ONCE 238 grams 0RF nystatin Apply to the affected areas 2 to 3 times daily as needed until healing is complete 1 appl topical TID PRN 60 grams 0RF candidiasis Coding Level of Care Code New Pt New Pt Level 5 (45681) Patient Type New Diagnoses Pain of upper abdomen R10.10 Abdominal location: upper abdomen, unspecified Gastroesophageal reflux disease, unspecified whether esophagitis present K21.9 Esophagitis presence: esophagitis presence not specified Cigarette nicotine dependence without complication F17.210 Nicotine product type: cigarettes Substance use status: uncomplicated Colon cancer screening Z12.11 Rectal bleeding K62.5 Candidiasis B37.9 Fatty liver K76.0
[2025-05-03 13:27] VITALS: BP 119/61; PULSE 81; BMI 28.9
--- OUTSIDE RECORDS SUMMARY | 2025-05-03 15:38 | XMS_ITS | Encounter Summary ---
Author Organization [employer] Address [address] [facility] 7t [place] [address] Care Team Providers Care Staple Laster Name Role Phone Indra Eason MD Primary Care Provider Encounter Details Date Type Department Care Team (Late st Contact Info) Description 03/17/2024 Orders Only [facility] [address] [place], [place] [phone] Indra Eason MD [address] [place], [place] [phone] Depressive disorder (Primary Dx) Social History Tobacco [...] Upcoming Encounters Date Type Department Care Team ([facility] st Contact Info) Description 07/09/2025 10:00 AM EDT Office Visit [facility] [address] [place] [address] Indra Eason MD [address] [place] [address] documented as of this encounter Visit Diagnoses Diagnosis Depressive disorder- Primary Depressive disorder, not elsewhere classified documented in this encounter Additional Health Concerns Assessment Noted Time PHQ-9 Depression Total Score: 22 024 9:57 AM EDT documented as of this encounter Care Teams Staple Laster Relationship Specialty Start Date End Date Indra Eason MD [address] [place] [address] PCP - General Internal Medicine 06/12/21 documented as of this encounter
== END 2025-05-03 14:28 | disposition home or self-care (01) ==
LOC: HO.HGI 13:18
PROVIDERS: PCP Internal Medicine; Visit Provider Nurse Practitioner Family
DX: K62.5 Hemorrhage of anus and rectum (principal); R10.10 Upper abdominal pain, unspecified; K21.9 Gastro-esophageal reflux disease without esophagitis; F17.210 Nicotine dependence, cigarettes, uncomplicated; B37.9 Candidiasis, unspecified; K76.0 Fatty (change of) liver, not elsewhere classified
CPT/HCPCS: 99204

== ENCOUNTER → 2025-05-03 13:18 | Outpatient (BNVA) | payer MEDICARE, SELFPAY | PROVIDERS: PCP Internal Medicine; Visit Provider Nurse Practitioner Family | DX: R10.10 Upper abdominal pain, unspecified (principal); K21.9 Gastro-esophageal reflux disease without esophagitis; K62.5 Hemorrhage of anus and rectum; B37.9 Candidiasis, unspecified; K76.0 Fatty (change of) liver, not elsewhere classified; F17.200 Nicotine dependence, unspecified, uncomplicated | CPT/HCPCS: 99202 ==

== ENCOUNTER 2025-05-29 16:20 | Outpatient (REF) | payer MEDICARE, SELFPAY ==
--- OUTSIDE RECORDS SUMMARY | 2025-05-29 16:29 | XMS_ITS | Clinical Summary ---
Author Organization [facility] Address [address] [place] [address] Phone Care Team Providers Care Faculty Administrator Name Role Phone Inna Eason MD Primary Care Provider [phone] Encounters Date Type Department Care Team Description 04/18/2025 10:19 AM EDT - 04/18/2025 11:59 PM EDT Hospital [facility] [address] [address] Encounter for screening mammogram for malignant neoplasm of breast Discharge Disposition: Home or Self Care from Last 3 Months Social History Tobacco Use Types Packs/Day Years Used Date Smoking Tobacco: Never Assessed Comments No Sex and Gender Information Value Date Recorded Sex Assigned at Not on file Legal Sex Female 8:15 PM EST Gender Identity Not on file Sexual Orientation Not on file Obstetrics History Para Term AB IAB SAB Ectopic Multiple Livin g Live Births 1 Last Filed Vital Signs Vital Sign Reading Time Taken Comments Blood Pressure - - Pulse - - Temperature - - Respiratory Rate - - Oxygen Saturation - - Inhaled Oxygen Concentration - - Weight 64.9 kg (143 lb) 04/18/2025 10:31 AM EDT Height 149.9 cm (4' 11 ) 04/18/2025 10:31 AM EDT Body Mass Index 28.88 04/18/2025 10:31 AM EDT Plan of Treatment Health Maintenance Due Date Last Done Comments Zoster Vaccines (2 of 2) 07/09/2022 05/14/2022 Colorectal Cancer Screening: Colonoscopy 10/31/2022 Falls Risk Assessment 10/31/2022 Hepatitis C Screening 10/31/2022 Lung Cancer Screening (Low Dose CT) 10/31/2022 Medicare Annual Wellness Visit 10/31/2022 Social Influencers of Health Screening 10/31/2022 COVID-19 Vaccine ( season) 2024 11/11/2023, 09/17/2022, 10/17/2021, Additional history exists Hypertension/CHF/CAD Annual BMP Blood Test 04/18/2025 Influenza Vaccine (#1) 2025 10/11/2024 Depression Screening 11/24/2025 11/24/2024 Breast Cancer Screening 04/18/2027 04/18/20, 04/08/2023, 10/03/2021, Additional history exists Cholesterol Screening (Lipid Panel) 10/11/2029 10/11/2024 Osteoporosis Screening (Bone Density Screening) 07/24/2031 07/24/2021 DTaP,Tdap,and Td Vaccines (3 - Td or Tdap) 10/11/2034 10/11/2024, 04/18/2012 Pneumococcal Vaccine: 50+ Years Completed 05/14/2022 RSV Immunization Adult Patients Completed 11/11/2023 HIB Vaccines Aged Out No longer eligi [...] 20 months Aged Out No longer eligible based on patient's age to complete this topic Varicella Vaccines Aged Out No longer eligible based on patient's age to complete this topic Procedures Procedure Name Priority Date/Time Associated Diagnosis Comments MG MAMMO DIGITAL SCREENING W KIMANI BILAT Routine 04/18/2025 10:38 AM EDT Encounter for screening mammogram for malignant neoplasm of breast SE DEXA AXIAL SKELETON Routine 07/24/2021 11:57 AM EDT Other specified disorders of bone density and structure, multiple sites from Last 3 Months or Most Recently Relevant to Health Maintenance Results * MG Mammo Digital Screening w Kimani bilat (04/18/2025 10:38 AM EDT) Anatomical Region Laterality Modality Breast Bilateral Mammography 04/18/2025 4:42 PM EDT Impressions 04/18/2025 4:52 PM EDT No mammographic evidence of malignancy. No suspicious interval change. A negative mammogram in the presence of a clinically suspicious palpable abnormality does not preclude the possibility of malignancy or alter the indications for biopsy. ASSESSMENT: BI-RADS 1: NEGATIVE RECOMMENDATION(S): 1: Routine screening mammogram BILATERAL in 1 year. [facility] location[facility] [address], [address] -------- FINAL REPORT -------- Dictated By: Constantine Banks Dictated Date: 04/18/2025 16:42 ET Assigned Physician: Constantine Banks Reviewed and Electronically Signed By: Constantine Bansk Signed Date: 04/18/2025 16:52 ET Workstation ID: [id number] Transcribed By: Self Edit Transcribed Date: 04/18/2025 16:42 ET Narrative 04/18/2025 4:52 PM EDT EXAM: SCREENING MAMMOGRAPHY, BILATERAL HISTORY: SCREENING. No additional history. COMPARISON: 04/08/23, 10/03/21 TECHNIQUE: Synthesized CC and MLO projections of each breast. Tomosynthesis of each breast in the CC and MLO projections. ADDITIONAL IMAGING: None Computer-aided detection was employed with the iCAD Pricing Engine AI 3-D. TISSUE DENSITY: The breasts are almost entirely fatty. (BI-RADS Category A) FINDINGS: RIGHT BREAST: No suspicious mass. No suspicious calcification. No distortion. No additional suspicious right breast findings LEFT BREAST: No suspicious mass. No suspicious calcification. No distortion. Duct ectasia in the retroareolar region is unchanged. Procedure Note Constantine Banks MD - 04/18/2025 EXAM: SCREENING MAMMOGRAPHY, BILATERAL HISTORY: SCREENING. No additional history. COMPARISON: 04/08/23, 10/03/21 TECHNIQUE: Synthesized CC and MLO projections of each breast.Tomosynthesis of each breast in the CC and MLO projections. ADDITIONAL IMAGING: None Computer-aided detection was employed with the iCAD Pricing Engine AI 3-D. TISSUE DENSITY: The breasts are almost entirely fatty. (BI-RADS CategoryA) FINDINGS: RIGHT BREAST: No suspicious mass. No suspicious calcification. No distortion. Noadditional suspicious right breast findings LEFT BREAST: No suspicious mass. No suspicious calcification. No distortion. Ductectasia in the retroareolar region is unchanged. IMPRESSION: No mammographic evidence of malignancy. No suspicious interval change. A negative mammogram in the presence of a clinically suspicious palpableabnormality does not preclude the possibility of malignancy or alter theindications for biopsy. ASSESSMENT: BI-RADS 1: NEGATIVE RECOMMENDATION(S): 1: Routine screening mammogram BILATERAL in 1 year. [facility] location[facility] [address] [place], [address] -------- FINAL REPORT -------- Dictated By: Constantine Banks Dictated Date: 04/18/2025 16:42 ET Assigned Physician: Constantine Banks Reviewed and Electronically Signed By: Constantine Banks Signed Date: 04/18/2025 16:52 ET Workstation ID: [id number] Transcribed By: Self Edit Transcribed Date: 04/18/2025 16:42 ET us Inna Eason MD IMG BI PROCEDURES Final R esult * SE DEXA AXIAL SKELETON (07/24/2021 11:57 AM EDT) Anatomical Region Laterality Modality Mammography 07/24/2021 10:5 6 AM EDT Narrative 07/24/2021 11:57 AM EDT [facility] Diagnostic Imaging Department [address] [place] [id number] Patient: MARIBEL ACSOTA /Age/Sex: 1955 - 65 - F Unit#: [id number] Location/Status: SPDIMAM/REG CLI Mnemonic[facility] Order[facility] Physician: INNA EASON MD [facility]a [facility]ial [facility]keleton - 07/24/211146 HISTORY: The patient is a 65-year-old postmenopausal female with clinical concern for metabolic bone disease. FINDINGS: Dual [...] 85% of that of age matched controls. This yields a T-score of -2.3 and a Z-score of -1.0 which is diagnostic of osteopenia. IMPRESSION: 1. Osteopenia. 2. FRAX analysis yields a 10-year probability of major osteoporotic fracture of 12.2% and a 10-year probability of hip fracture of 3.4%. Code 67047 Dictating Physician: BRENDA HYLTON MD Electronically Signed by: BRENDA HYLTON MD Dic Date/Time: 07/24/21 1151 Sign date/Time: 07/24/21 115 Procedure Note Brenda Hylton MD - 11/25/2022 [facility] Diagnostic Imaging Department [address] [place] [address] Patient: MARIBEL ACOSTA /Age/Sex: 1955 - 65 - F Unit#: [id number] Location/Status: SPDIMA/REG CLI Mnemonic/Ordering Site: [facility] Ordering Physician: INNA EASON MD [facility]ial [place] - 07/24/21 - 1147 [...] probability of hip fracture of 3.4%. Code 39048 Dictating Physician: BRENDA HYLTON MD Electronically Signed by: BRENDA HYLTON MD Dic Date/Time: 07/24/21 1151 Sign date/Time: 07/24/21 1157 us Inna Eason MD IMG BI PROCEDURES Final R esult from Last 3 Months or Most Recently Relevant to Health Maintenance Insurance [employer]VANTAGE on file MEDICAID - [place] Care Teams Faculty Administrator Relationship Specialty Start Date End Date Inna Eason MD [address] [place] [id number] PCP - General Internal Medicine 04/18/25
--- OUTSIDE RECORDS SUMMARY | 2025-05-29 16:29 | XMS_ITS | Encounter Summary ---
Author Organization [employer] Address [address] [facility] 7t [place] [address] Care Team Providers Care Labor Delivery Rn Name Role Phone Indra Eason MD Primary Care Provider [phone] Reason for Visit * Reason Onset Date Comments Referral 04/25/2025 Encounter Details Date Type Department Care Team ([facility] st Contact Info) Description 04/25/2025 Telephone [facility] [address] [place] [address] Indra Eason MD [address] [place], [place] [phone] Referral Social History Tobacco Use Types Packs/Day Years [...] encounter Miscellaneous Notes * Telephone Encounter - La Dean RN - 04/25/2025 10:37 AM EDT TC to pt. Pt stating has not received a call from podiatry yet, referral generated 04/02/25. Pt stated she needs GI referral for colonoscopy. Stated was supposed to get one completed several years ago,but canceled due to being afraid she wouldn't be able to handle the prep. She states now she thinksshe needs one done. Maribel does state that over past year she has had small amounts of red blood in her stool from time to time. Due to symptom, pt is not eligible for Cologuard. Pt also worried that she may need surgery on her hip again and is asking for another referral to [facility]. Author advised provider had ordered x-rays of knee and hip and advised pt to complete those prior to anortho referral. Pt requested x-ray orders be faxed to [facility] for exam to be completed there. Author advised will review with provider for colonoscopy referral. Pt verbalized understanding and agreement with plan * Telephone Encounter - Juventino Akers - 04/25/2025 10:22 AM EDT Tc from pt reporting from 6 referrals requested has 4 she still missing referral for orthopedics for her hips-waist and for colonoscopy. documented in this encounter Plan of Treatment Upcoming Encounters Date Type Department Care Team (Late st Contact Info) Description 07/09/2025 10:00 AM EDT Office Visit [facility] & PEDS [address] [place] [address] Indra Eason MD [address] [place] [address] documented as of this encounter Visit Diagnoses Not on filedocumented in this encounter Additional Health Concerns Assessment Noted Time PHQ-9 Depression Total Score: 16 024 12:36 PM EST documented as of this encounter Care Teams Labor Delivery Rn Relationship Specialty Start Date End Date Indra Eason MD [address] [place] [address] PCP - General Internal Medicine 06/12/21 documented as of this encounter
--- OUTSIDE RECORDS SUMMARY | 2025-05-29 16:29 | XMS_ITS | Data Portability ---
Author Organization [employer] [facility], [place] [employer] [facility] Address [address] [place] [address] Care Team Providers Care Senior Javascript Developer Name Role Phone [facility] Referring Provider [phone] [facility] Referring Provider Assessment Encounter Date Assessment [...] pain. No nausea/vomiting, diarrhea, or fevers. VSS. Optimization Specialist on site reports appears well. POC UA [...] 08/13/2022 11:56:34 05/24/2023 05/24/2023 Called to jiaanca michelle 67 y/o w COPD, HTN who c/o [...] recorded. Lab urinalysis , dipstick 2022 023 [facility], [address] [place] [address], [id number] 3 10:09:06 culture, urine 2021 022 [facility] (Centralized Electronic Ordering - All Locations), Patient Can Go To The Location Of Their Choice, [id number] 11:41:40 culture, urine 2021 022 [facility] (Centralized Electronic Ordering - All Locations), Patient Can Go To The Location Of Their Choice, [id number] 05:01:57 Referral None recorded. Procedures None recorded. Surgeries None recorded. Imaging None recorded. Medication Orders Bactrim DS 800 mg-160 mg tablet 2022 023 [email or web address] [id number], [address] [place], [place], [id number], 11:47:06 Bactrim DS 800 mg-160 mg tablet 2022 023 [facility] #[id number], [address] [place], [place], [id number], 11:47:16 Bactrim DS 800 mg-160 mg tablet 2021 022 [facility] #[id number], [address] [place], [place], [id number], 12:31:51 Patient TargetsNo targets recorded. Patient InstructionsNo instructions recorded. Reason for Referral None Reported. Results Created Date Observation Date Name Description Value Unit Range Abnormal Flag Note LastModifiedBy Organization Detail LastModifiedTime 08/13/2008/13/2022 UA W/REF THOM CULTU RE appear/color COLOR LESS CLEAR Not Available [facility] (Centralized Electronic Ordering - All Locations) Patient Can Go To The Location Of Their Choice, [id number] 08/13/2022 23:31:57 08/13/2008/13/2022 UA W/REF THOM CULTU RE sp. gravity [...] 08/13/2008/13/2022 UA W/REF THOM CULTU RE urine leukocyte NEGATI VE (neg) Not Available [facility] (Centralized Electronic Ordering - All Locations) Patient Can Go To The Location Of Their Choice, 08/13/2022 23:31:57 08/13/2008/13/2022 UA W/REF THOM CULTU RE urobilinogen NORMAL mg/dL (norm) Not Available [facility] (Centralized Electronic Ordering - All Locations) Patient Can Go To The Location Of Their Choice, 08/13/2022 23:31:57 08/13/2008/13/2022 UA W/REF THOM CULTU RE urine WBCs [...] 23:31:57 08/13/2008/13/2022 UA W/REF THOM CULTU RE bacteria SLIGHT [...] Go To The Location Of Their Choice, [id number] 08/13/2022 23:31:57 09/15/2009/15/2022 URINE CULTU RE specimen description URINE Not Available [facility] (Centralized Electronic Ordering - All Locations) Patient Can Go To The Location Of Their Choice, [id number] 09/16/2022 11:41:40 09/15/2009/15/2022 URINE CULTU RE special requests NONE Not Available [facility] (Centralized Electronic Ordering - All Locations) Patient Can Go To The Location Of Their Choice, [id number] 09/16/2022 11:41:40 09/15/2009/16/2022 URINE CULTU RE culture Mixed bacter ial you, indica tive of urogen ital contam inatio n. Not Available [facility] (Centralized Electronic Ordering - All Locations) Patient Can Go To The Location Of Their Choice, [id number] 09/16/2022 11:41:40 09/15/2009/16/2022 URINE CULTU RE report status FINAL 2021 Not Available [facility] (Centralized Electronic Ordering - All Locations) Patient Can Go To The Location Of Their Choice, [id number] 09/16/2022 11:41:40 Result Notes None recorded. Medical [...] Updated DateTime 3 97.9 [degF] 85 /min 84388.7 2 g 98 % 98 % 14 /min 163 mm[Hg] 84 mm[Hg] Not Available [email or web address] 3 10:43:47 Date Recorded Body weight Body [...] Address Organization Details Last Updated DateTime 3 13406.8 g 97.8 [degF] 76 /min 18 /min 98 % 98 % 76 /min 18 /min 43270.8 g 98 % 98 % 97.8 [degF] 76 /min 97.8 [degF] 43401.8 g 18 /min 98 % 98 % 156 mm[Hg] 78 mm[Hg] 156 mm[Hg] 78 mm[Hg] 156 mm[Hg] 78 mm[Hg] Not Available [employer] 3 11:55:40 Date Recorded Oxygen saturation Oxygen saturation in Arterial blood by Pulse oximetry Body temperature Respiratory rate Heart rate Systolic blood pressure Diastolic blood pressure Provider Name and Address Organization Details Last Updated DateTime 2 99 % 99 % 98.1 [degF] 16 /min 78 /min 120 mm[Hg] 82 mm[Hg] Not Available [email or web address] 2 12:54:18 Date Recorded Oxygen saturation Oxygen [...] Code Diagnosis Note [id number] Brianda Forrest MD [address] [address] 08/13/2022 11:49:44 08/31/2022 15:08:44 Kidney stone 74056803 N20.0 [id number] Melanie Sheikh MD [address] [address] 09/15/2022 12:23:55 09/15/2022 13:15:24 Acute urinary tract infection 338472318 N39.0 67 year old female being evaluated for urinary symptoms for 3 days. Patient reports urgency, dysuria and frequency, along with hematuria and subjective fever. Last UTI was in March. Patient able to tolerate PO currently, without n/v or flank pain. Exam notable for normal vital signs. Will send for urinalysis and culture, and empiricall y treat with bactrim. [id number] Melanie Sheikh MD [address] [address] 05/03/2023 10:43:44 05/04/2023 15:51:57 Diarrhea 50052522 R19.7 67 year old female being evaluated [...] up if symptoms persistent beyond next week. [id number] Beatris Gandhi MD [address] [address] 05/24/2023 11:11:02 05/25/2023 11:28:31 Acute pyelonephritis 91025965 N10 Health Concerns Section Related Observation LastModified by Organization Detai ls LastModified Time None Recorded Concern Status LastModified by Organization Details LastModified Time None Recorded Advance Directives Directive None Recorded Payers Insurance Date Sequence Insurance Name Policy Number Policy Chong Covered Member ID Chong Member ID Guarantor Name 05/03/2023 1 [facility] - DOS PRIOR TO 2023 - DUAL ELIGIBLE (MEDICARE REPLACEMENT/ADV ANTAGE - HMO) [facility] [id number] Maribel Bardales Dong 05/24/2023 1 [facility] - DOS ON OR AFTER 2023 - DUAL ELIGIBLE - INTERMEDIATE OPTIONS AND ONE CARE (MEDICARE REPLACEMENT/ADV ANTAGE - HMO) Maribel Dong [id number] Maribel Bardales Dong Notes Date Note Type Note Provider Name [...] ...................... ...................... ...................... ...................... ...................... ...................... ......... Optimization Specialist Note: Dysuria. Vitals, assessment, UA, cultures ...................... ...................... ...................... ...................... ...................... ...................... ......... Disposition: Fulfilled Brianda Forrest MD [address] [place] [address],[address], [place], [address], [employer] 08/13/2022 15:49:24 09/15/2022 text/html CRC Nursing Assessment: [...] ...................... ...................... ...................... ...................... ...................... ...................... ......... Optimization Specialist Note: Dispatched to a/a for urinary s/s. [...] 04/19, denies hx of hospitalizations for UTI. Optimization Specialist Zheng performs pt assessment. Skin is warm and dry. Equal chest rise and fall, abd is soft, +tender, not distended. No CVA tenderness. No other signs/symptoms at this time. Obtained clean catch urine, and Optimization Specialist Zheng performed UA. Results uploaded to [employer] [facility]. Consulted [facility] who ordered dose of Bactrim DS culture to be sent to lab and will send script to pt's pharmacy. Went over red flags and provided pt education on how to prevent UTI's in future. No further questions or concerns at this time. ...................... ...................... ...................... ...................... ...................... ...................... ......... Disposition: Fabienne Sheikh MD [address] [facility],[address], [place], [address], [place] [employer] 09/15/2022 12:29:40 05/03/2023 text/html CRC Nursing Assessment: Chief Complaints: Abdominal Pain PMH: COPD/Asthma, Hypertension Allergies: No Known Comments: RN from [facility] calling on behalf of member with request for [facility] visit for eval of vague abdominal pain and loos stools x 3 days deny fever/chills. Verify member name/- Melanie Sheikh MD [address] [facility],[address], [place], [address], [employer] 05/03/2023 11:24:14 05/24/2023 text/html CRC Nursing Assessment: Reason For Request: Back pain Patient Reports: Frequent and increased urination with flank pain; Painful urination with or without fever Chief Complaints: UTI/Pyelonephritis, Abdominal Pain, Pain, Syncope/Dizziness/Ligh theadedness PMH: COPD/Asthma, Hypertension Allergies: No Known Comments: Member calling with request for [facility] visit for eval for flank pain and dysuria and pressure x 2 days +hematuria this am, Deny fevers. Verify name/- ...................... ...................... ...................... ...................... ...................... ...................... ......... Optimization Specialist Note From Rosas Alanis: Pt presents A@Ox4 . [place] warm and dry. Pt c/o UTI related [...] ...................... ......... Disposition: Fulfilled Beatris Gandhi MD [address] [place] [address],[address], [place], [address], [employer] 05/24/2023 15:12:34 OBGyn Episode No OBEpisode recorded.
[2025-05-30 11:29] LABS: Bacterial Vaginosis PCR NEGATIVE (Negative); Candida Group PCR NOT DETECTED (Not Detect); Candida glab krusei PCR NOT DETECTED (Not Detect); Trichomonas vaginalis PCR NOT DETECTED (Not Detect)
[2025-05-31 20:13] LABS: C. trachomatis RNA TMA NOT DETECTED (NOT DETECTED); N. gonorrhoeae RNA TMA NOT DETECTED (NOT DETECTED); Trichomonas (NAAT) NOT DETECTED (NOT DETECTED)
== END 2025-05-29 16:21 | disposition home or self-care (01) ==
LOC: HO.LNP 16:20
PROVIDERS: Visit Provider Advanced Practice Midwife
DX: N95.0 Postmenopausal bleeding (principal); R39.9 Unspecified symptoms and signs involving the genitourinary system; N89.8 Other specified noninflammatory disorders of vagina; Z11.3 Encounter for screening for infections with a predominantly sexual mode of transmission
CPT/HCPCS: 81515; 87086; 87491; 87591; 87626; 87661; 88175

== ENCOUNTER 2025-05-30 08:14 | Outpatient (REF) | payer MEDICARE, SELFPAY ==
--- NOTE | ~2025-05-30 | XR_ITS ---
EXAMINATION: XR HIP, LEFT CLINICAL INFORMATION: Left hip pain s/p Total hip replacement in 2017 COMPARISON: February 20, 2022 TECHNIQUE: Two views of the left hip. FINDINGS: Total hip arthroplasty is again noted. There is been no migration of the hardware. Acetabular cup is secured with a single screw. XR/XR hip LT min 2V IMPRESSION: Stable left hip replacement Electronically signed by: Javan Davis MD 05/30/2025 02:47 PM EDT
--- NOTE | ~2025-05-30 | XR_ITS ---
EXAMINATION: XR CHEST CLINICAL INFORMATION: R63.4 - Abnormal weight loss COMPARISON: None available. TECHNIQUE: 2 views of the chest were obtained. FINDINGS: No significant abnormality is noted involving the heart, lungs, mediastinum, bony thorax or soft tissues. There is a dome-shaped mass along the posterior left hemidiaphragm XR/XR chest 2V IMPRESSION: Dome-shaped mass involving posterior left hemidiaphragm probably represents a Bochdalek hernia, eventration, or less likely a solid mass/neoplasm. Electronically signed by: Javan Davis MD 05/30/2025 02:50 PM EDT
--- NOTE | ~2025-05-30 | XR_ITS ---
EXAMINATION: XR KNEE, RIGHT CLINICAL INFORMATION: right knee pain COMPARISON: None available. TECHNIQUE: AP lateral and sunrise of the right knee. FINDINGS: There is a joint effusion. There is severe narrowing of the lateral joint space with remodeling. There are large marginal osteophytes, 3 compartment. Osteopenia is noted. 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 Electronically signed by: Javan Davis MD 05/30/2025 02:46 PM EDT
--- OUTSIDE RECORDS SUMMARY | 2025-05-30 08:17 | XMS_ITS | Clinical Summary ---
Author Organization [facility] Address [address] [place] [address] Phone Care Team Providers Care Renewable Energy Project Manager Name Role Phone Inna Eason MD Primary Care Provider [phone] Encounters Date Type Department Care Team Description 04/18/2025 10:19 AM EDT - 04/18/2025 11:59 PM EDT Hospital Encounter [facility] at [address] [address] Encounter for screening mammogram for [...] year. Mammography location[facility] [address], [address] -------- FINAL REPORT -------- Dictated By: Constantine Banks Dictated Date: 04/18/2025 16:42 ET Assigned Physician: Constantine Banks Reviewed and Electronically Signed By: Constantine Banks Signed Date: 04/18/2025 16:52 ET Workstation ID: [id number] Transcribed By: Self Edit Transcribed Date: 04/18/2025 16:42 ET Narrative 04/18/2025 4:52 PM EDT EXAM: SCREENING MAMMOGRAPHY, BILATERAL HISTORY: SCREENING. No additional history. COMPARISON: 04/08/23, 10/03/21 TECHNIQUE: Synthesized CC and MLO projections of each breast. Tomosynthesis of each breast in the CC and MLO projections. ADDITIONAL IMAGING: None Computer-aided detection was employed with the iCAD Enervee AI 3-D. TISSUE DENSITY: The breasts are [...] Computer-aided detection was employed with the iCAD Enervee AI 3-D. TISSUE DENSITY: The breasts are [...] year. [facility]amm[facility] location: [facility] [address] [place], [address] -------- FINAL REPORT -------- Dictated By: Constantine Banks Dictated Date: 04/18/2025 16:42 ET Assigned Physician: Constantine Banks Reviewed and Electronically Signed By: Constantine Banks Signed Date: 04/18/2025 16:52 ET Workstation ID: [id number] Transcribed By: Self Edit Transcribed Date: 04/18/2025 16:42 ET us Inna Eason MD IMG BI PROCEDURES Final R esult * SE DEXA AXIAL SKELETON (07/24/2021 11:57 AM EDT) Anatomical Region Laterality Modality Mammography 07/24/2021 10:5 6 AM EDT Narrative 07/24/2021 11:[address] [facility] Diagnostic Imaging Department [address] [place] [id number] Patient: MARIBEL ACOSTA /Age/Sex: 1955 - 65 - F Unit#: [id number] Location/Status: SPDIMAM/REG CLI Mnemonic[facility] Order[facility] Physician: INNA EASON MD [facility] Dexa Axial Skeleton - 07/24/211146 HISTORY: The [...] probability of hip fracture of 3.4%. Code 22110 Dictating Physician: BRENDA HYLTON MD Electronically Signed by: BRENDA HYLTON MD Dic Date/Time: 07/24/21 1151 Sign date/Time: 07/24/21 115 Procedure Note Brenda Hylton MD - 11/25/2022 [facility] Diagnostic Imaging Department [address] [place] [address] Patient: MARIBEL ACOSTA /Age/Sex: 1955 - 65 - F Unit#: [id number] Location/Status: SPDIMA/REG CLI Mnemonic/Ordering Site: [facility] Ordering Physician: INNA EASON MD [facility] Dexa Axial Skeleton - 07/24/21 - 1147 [...] probability of hip fracture of 3.4%. Code 80132 Dictating Physician: BRENDA HYLTON MD Electronically Signed by: BRENDA HYLTON MD Dic Date/Time: 07/24/21 1151 Sign date/Time: 07/24/21 1157 us Inna Eason MD IMG BI PROCEDURES Final R esult from Last 3 Months or Most Recently Relevant to Health Maintenance Insurance H[employer] MED[employer]ARE ADVANTAGE on file [place] Care Teams Renewable Energy Project Manager Relationship Specialty Start Date End Date Inna Eason MD [address] [place] [id number] PCP - General Internal Medicine 04/18/25
--- OUTSIDE RECORDS SUMMARY | 2025-05-30 08:17 | XMS_ITS | Encounter Summary ---
Author Organization [employer] Address [address] [facility] 7t [place] [address] Care Team Providers Care Human Resources Receptionist Name Role Phone Indra Eason MD Primary Care Provider Reason for Visit * Reason Onset Date Comments Referral 04/25/2025 Encounter Details Date Type Department Care Team ([facility] st Contact Info) Description 04/25/2025 Telephone [facility] MEDICINE [address] [place] [address] Indra Eason MD [address] [place], [place] [phone] Referral Social History Tobacco Use Types Packs/Day [...] and is asking for another referral to [facility]. Author advised provider had ordered x-rays of knee and hip and advised pt to complete those prior to anortho referral. Pt requested x-ray orders be faxed to [facility] for exam to be completed there. Author [...] Description 07/09/2025 10:00 AM EDT Office Visit [facility] PEDS [address] [place] [address] Indra Eason MD [address] [place] [address] documented as of this encounter Visit Diagnoses Not on filedocumented in this encounter Additional Health Concerns Assessment Noted Time PHQ-9 Depression Total Score: 16 024 12:36 PM EST documented as of this encounter Care Teams Human Resources Receptionist Relationship Specialty Start Date End Date Indra Eason MD [address] [place] [address] PCP - General Internal Medicine 06/12/21 documented as of this encounter
[2025-05-30 09:03] LABS: Hematocrit 40.2 % (37.0-47.0); Hemoglobin 13.6 g/dl (12.0-16.0); Imm Gran Abs Auto 0.03 X10*3/uL (0.00-0.03); Imm Gran Pct Auto 0.3 % (0.0-0.4); Lymphocytes Absolute Auto 5.0 X10*3/uL (1.2-4.9); MANUAL DIFF FLAG SCAN; Mean Corpuscular HGB Conc 33.8 g/dl (31.0-35.0); Mean Corpuscular Hemoglobin 31.2 pg (27.0-33.0); Mean Corpuscular Volume 92.2 fL (80.0-98.0); NRBC Abs Auto 0.000 X10*3/uL (0.0-0.012); NRBC Pct Auto 0.0 /100WBC (0.0-0.2); Platelet Count 277 X10*3/uL (160-400); Red Blood Count 4.36 X10*6/uL (4.20-5.50); SCAN SMEAR FLAG 1; White Blood Count 11.8 X10*3/uL (4.8-10.8)
[2025-05-30 09:07] LABS: INTERNATIONAL NORM RATIO 0.9 (0.9-1.1); Prothrombin Time 9.9 SEC (10.9-12.4)
[2025-05-30 09:08] LABS: Hemoglobin A1C 126.0468 umol/L; Total Hemoglobin (HGBA1C) 3519.6872 umol/L
[2025-05-30 09:31] LABS: Iron 53 mcg/dL (30-160); Percent Iron Saturation 18 % (15-50); Total Iron Binding Capacity 291 mcg/dL (228-428); Unsaturated Iron Binding 238 ug/dL
[2025-05-30 09:46] LABS: Ferritin 80 ng/mL (10-250)
[2025-05-30 09:53] LABS: HBS Num1 19.77 mIU/mL (0-7.99); HBc Num1 0.05 S/CO (0.00-0.79); HBsAGNum1 0.30 S/CO (0.00-0.99); HIV Num 1 0.06 S/CO (0.00-0.99); Hepatitis A Antibody IgM 0.17 Index (0-0.79); Hepatitis B Surface Antigen Negative (Negative); ~HepC Num1 0.07 S/CO (0.00-0.79); ~Hepatitis A Antibody IgM Nonreactive (Nonreactive); ~Hepatitis B Surface Antibody REACTIVE (Nonreactive); ~Hepatitis C Antibody Nonreactive (Nonreactive)
[2025-05-30 10:00] LABS: Folate 13.7 ng/mL (> or = 4.0); Vitamin B12 569 pg/mL (200-900)
== END 2025-05-30 08:15 | disposition home or self-care (01) ==
LOC: HO.LAB 08:14
PROVIDERS: Absent Provider Internal Medicine; PCP Internal Medicine; Visit Provider Nurse Practitioner Family
DX: R10.9 Unspecified abdominal pain (principal); K76.0 Fatty (change of) liver, not elsewhere classified; B37.9 Candidiasis, unspecified; M25.552 Pain in left hip; M17.11 Unilateral primary osteoarthritis, right knee; R63.4 Abnormal weight loss; F17.200 Nicotine dependence, unspecified, uncomplicated
CPT/HCPCS: 36415; 71046; 73502; 73562; 82607; 82728; 82746; 83036; 83540; 84443; 85025; 85610; 86140; 86364; 86704; 86706; 86709; 86803; 87340; 87389

== ENCOUNTER → 2025-05-30 08:40 | Outpatient (BNV) | payer MEDICARE, SELFPAY | PROVIDERS: Absent Provider Internal Medicine; PCP Internal Medicine; Visit Provider Radiology Diagnostic Radiology | DX: M25.552 Pain in left hip (principal); R68.89 Other general symptoms and signs; M11.261 Other chondrocalcinosis, right knee; Z96.642 Presence of left artificial hip joint; M25.461 Effusion, right knee | CPT/HCPCS: 71046; 73502; 73562 ==

== ENCOUNTER 2025-06-03 08:58 | Outpatient (REF) | payer MEDICARE, SELFPAY ==
[2025-06-09 18:59] LABS: Calprotectin, Fecal 7 mcg/g
== END 2025-06-03 08:59 | disposition home or self-care (01) ==
LOC: HO.LNP 08:58
PROVIDERS: Visit Provider Nurse Practitioner Family
DX: R10.9 Unspecified abdominal pain (principal)
CPT/HCPCS: 83993

== ENCOUNTER 2025-06-04 07:55 | Outpatient (REF) | payer MEDICARE, SELFPAY ==
--- NOTE | ~2025-06-04 | US_ITS ---
CLINICAL HISTORY: postmenopausal bleeding Ultrasound of the female pelvis Comparison: None Technique: Grayscale ultrasound with assistance of color Doppler. Transabdominal scanning performed for overall anatomy. Transvaginal scanning performed for better anatomic delineation. Findings: Anteverted atrophic uterus, measuring 5.2 x 2.1 x 4.7 cm, 6 mm calcification of anterior uterine body may reflect small calcified fibroid. Atrophic endometrium, minimal fluid in the fundal endometrium, endometrium excluding fluid measures less than 3 mm in thickness, no focal lesion or abnormal vascular flow. Unremarkable cervix. Ovaries are not seen, no adnexal mass. No free fluid. Impression: Atrophic uterus and endometrium, minimal endometrial fluid. Nonvisualization of the ovaries. This document has been electronically signed by: Faviola Thakkar MD on 06/04/2025 15:09:13
--- OUTSIDE RECORDS SUMMARY | 2025-06-04 07:58 | XMS_ITS | Encounter Summary ---
Author Organization [employer] Address [address] [facility] 7t [place] [address] Care Team Providers Care Doctor Osteopathic Name Role Phone Indra Eason MD Primary Care Provider Reason for Visit * Reason Onset Date Comments Referral 04/25/2025 Encounter Details Date Type Department Care Team ([facility] st Contact Info) Description 04/25/2025 Telephone [facility] [address] [place] [address] Indra Eason MD [address] [place], [place] [phone] Referral Social History Tobacco Use Types Packs/Day [...] and is asking for another referral to [facility]. Author advised provider had ordered x-rays of knee and hip and advised pt to complete those prior to anortho referral. Pt requested x-ray orders be faxed to [facility] for exam to be completed there. [...] Description 07/09/2025 10:00 AM EDT Office Visit [facility] [address] [place] [address] Indra Eason MD [address] [place] [address] documented as of this encounter Visit Diagnoses Not on filedocumented in this encounter Additional Health Concerns Assessment Noted Time PHQ-9 Depression Total Score: 16 024 12:36 PM EST documented as of this encounter Care Teams Doctor Osteopathic Relationship Specialty Start Date End Date Indra Eason MD [address] [place] [address] PCP - General Internal Medicine 06/12/21 documented as of this encounter
--- OUTSIDE RECORDS SUMMARY | 2025-06-04 07:58 | XMS_ITS | Data Portability ---
Author Organization [employer], [place] [employer] [facility] Address [address] [place] [address] Care Team Providers Care Solar Process Engineer Name Role Phone [facility] Referring Provider [facility] Referring Provider Assessment Encounter Date Assessment [...] pain. No nausea/vomiting, diarrhea, or fevers. VSS. Equipment Lead on site reports appears well. POC UA [...] Lab urinalysis , dipstick 2022 023 [facility]ly [facility], [facility], [address] [place] [address], [id number] 3 10:09:06 culture, urine 2021 022 [facility] (Centralized Electronic Ordering - All Locations), Patient Can Go To The Location Of Their Choice, [id number] 11:41:40 culture, urine 2021 022 [facility] (Centralized Electronic Ordering - All Locations), Patient Can Go To The Location Of Their Choice, [id number] 05:01:57 Referral None recorded. Procedures None recorded. Surgeries None recorded. Imaging None recorded. Medication Orders Bactrim DS 800 mg-160 mg tablet 2022 023 [email or web address] [facility] #[id number], [address], [place], [id number], 11:47:06 Bactrim DS 800 mg-160 mg tablet 2022 023 [facility] #[id number], [address], [place], [id number], 11:47:16 Bactrim DS 800 mg-160 mg tablet 2021 022 [facility] #[id number], [address], [place], [id number], 12:31:51 Patient TargetsNo targets recorded. Patient InstructionsNo instructions recorded. Reason for Referral None Reported. Results Created Date Observation Date Name Description Value Unit Range Abnormal Flag Note LastModifiedBy Organization Detail LastModifiedTime 08/13/2008/13/2022 UA W/REF THOM CULTU RE appear/color COLOR LESS CLEAR Not Available [facility] (Centralized Electronic Ordering - All Locations) Patient Can Go To The Location Of Their Choice, [id number] 08/13/2022 23:31:57 08/13/2008/13/2022 UA W/REF THOM CULTU [...] Go To The Location Of Their Choice, [id number] 08/13/2022 23:31:57 09/15/2009/15/2022 URINE CULTU RE specimen description URINE Not Available [facility] (Centralized Electronic Ordering - All Locations) Patient Can Go To The Location Of Their Choice, [id number] 09/16/2022 11:41:40 09/15/2009/15/2022 URINE CULTU RE special requests NONE Not Available [facility] (Centralized Electronic Ordering - All Locations) Patient Can Go To The Location Of Their Choice, [id number] 09/16/2022 11:41:40 09/15/2009/16/2022 URINE CULTU RE culture Mixed bacter ial you, indica tive of urogen ital contam inatio n. Not Available [facility] (Centralized Electronic Ordering - All Locations) Patient Can Go To The Location Of Their Choice, [id number] 09/16/2022 11:41:40 09/15/2009/16/2022 URINE CULTU RE report status FINAL 2021 Not Available [facility] (Centralized Electronic Ordering - All Locations) Patient Can Go To The Location Of Their Choice, [id number] 09/16/2022 11:41:40 Result Notes None recorded. Medical [...] blood by Pulse oximetry Respiratory rate Systolic And Diastolic Provider Name and Address Organization Details Last Updated DateTime 3 97.9 [degF] 85 /min 40428.7 2 g 98 % 98 % 14 /min 163/84 mm[Hg] Not Available [employer] 3 10:43:47 Date Recorded Body weight Body temperature Heart rate Respiratory rate Oxygen saturation Oxygen saturation in Arterial blood by Pulse oximetry Heart rate Respiratory rate Body weight Oxygen saturation Oxygen saturation in Arterial blood by Pulse oximetry Body temperature Provider Name and Address Organization Details Last Updated DateTime 3 92092.8 g 97.8 [degF] 76 /min 18 /min 98 % 98 % 76 /min 18 /min 95552.8 g 98 % 98 % 97.8 [degF] Not Available [employer] 3 11:26:24 Date Recorded Heart rate Body temperature Body weight Respiratory rate Oxygen saturation Oxygen saturation in Arterial blood by Pulse oximetry Systolic And Diastolic Systolic And Diastolic Systolic And Diastolic Provider Name and Address Organization Details Last Updated DateTime 3 76 /min 97.8 [degF] 82537.8 g 18 /min 98 % 98 % 156/78 mm[Hg] 156/78 mm[Hg] 156/78 mm[Hg] Not Available [employer] 3 11:55:40 Date Recorded Oxygen saturation Oxygen saturation in Arterial blood by Pulse oximetry Body temperature Respiratory rate Heart rate Systolic And Diastolic Provider Name and Address Organization Details Last Updated DateTime 2 99 % 99 % 98.1 [degF] 16 /min 78 /min 120/82 mm[Hg] Not Available [employer] 2 12:54:18 Date Recorded Oxygen saturation Oxygen saturation in Arterial blood by Pulse oximetry Heart rate Respiratory rate Body temperature Systolic And Diastolic Provider Name and Address Organization Details Last Updated DateTime 2 99 % 99 % 88 /min 16 /min 98.6 [degF] 124/77 mm[Hg] Not Available [employer] - production 12:24:04 [...] Code Diagnosis Note [id number] Brianda Forrest MD [facility] - [address] [address] 08/13/2022 11:49:44 08/31/2022 15:08:44 Kidney stone 55579215 N20.0 [id number] Melanie Sheikh MD [facility] - [address] [address] 09/15/2022 12:23:55 09/15/2022 13:15:24 Acute urinary tract infection [id number] N39.0 67 year old female being evaluated for urinary symptoms for 3 days. Patient reports urgency, dysuria and frequency, along with hematuria and subjective fever. Last UTI was in March. Patient able to tolerate PO currently, without n/v or flank pain. Exam notable for normal vital signs. Will send for urinalysis and culture, and empiricall y treat with bactrim. [id number] Melanie Sheikh MD [address] [address] 05/03/2023 10:43:44 05/04/2023 15:51:57 Diarrhea 54043614 R19.7 67 year old female being evaluated [...] up if symptoms persistent beyond next week. [id number] Beatris Gandhi MD [facility] - [address] [address] 05/24/2023 11:11:02 05/25/2023 11:28:31 Acute pyelonephritis 61404707 N10 Health Concerns Section Related Observation LastModified by Organization Detai ls LastModified Time None Recorded Concern Status LastModified by Organization Details LastModified Time None Recorded Advance Directives Directive None Recorded Payers Insurance Date Sequence Insurance Name Policy Number Policy Chong Covered Member ID Chong Member ID Guarantor Name 05/03/2023 1 [facility] - DOS PRIOR TO 2023 - DUAL ELIGIBLE (MEDICARE REPLACEMENT/ADV ANTAGE - HMO) [facility] [id number] Maribel Bardales Dong 05/24/2023 1 [facility] - DOS ON OR AFTER 2023 - DUAL ELIGIBLE - COR[employer]CTION OPT[employer] AND ONE CARE (MEDICARE REPLACEMENT/ADV ANTAGE - HMO) Maribel Dong [id number] Maribel Bardales Dong Notes Date Note Type [...] ...................... ...................... ...................... ...................... ...................... ...................... ......... Equipment Lead Note: Dysuria. Vitals, assessment, UA, cultures ...................... ...................... ...................... ...................... ...................... ...................... ......... Disposition: Fulfilled Brianda Forrest MD [address] [place] [address],[address], [place], [address], [employer] 08/13/2022 15:49:24 09/15/2022 text/html CRC Nursing Assessment: [...] ...................... ...................... ...................... ...................... ...................... ...................... ......... Equipment Lead Note: Dispatched to a/a for urinary s/s. [...] 04/19, denies hx of hospitalizations for UTI. Equipment Lead Zheng performs pt assessment. Skin is warm and dry. Equal chest rise and fall, abd is soft, +tender, not distended. No CVA tenderness. No other signs/symptoms at this time. Obtained clean catch urine, and Equipment Lead Zheng performed UA. Results uploaded to [facility]. Consulted [facility] who ordered dose of Bactrim DS culture to be sent to lab and will send script to pt's pharmacy. Went over red flags and provided pt education on how to prevent UTI's in future. No further questions or concerns at this time. ...................... ...................... ...................... ...................... ...................... ...................... ......... Disposition: Fabienne Sheikh MD [address] [facility],[address], [place], [address], [employer] 09/15/2022 12:29:40 05/03/2023 text/html CRC Nursing Assessment: Chief Complaints: Abdominal Pain PMH: COPD/Asthma, Hypertension Allergies: No Known Comments: RN from [facility] calling on behalf of member with request for [facility] visit for eval of vague abdominal pain and loos stools x 3 days deny fever/chills. Verify member name/- Melanie Sheikh MD [address] [facility],[address], [place], [address], [employer] 05/03/2023 11:24:14 05/24/2023 text/html CRC Nursing Assessment: Reason For Request: Back pain Patient Reports: Frequent and increased urination with flank pain; Painful urination with or without fever Chief Complaints: UTI/Pyelonephritis, Abdominal Pain, Pain, Syncope/Dizziness/Ligh theadedness PMH: COPD/Asthma, Hypertension Allergies: No Known Comments: Member calling with request for [facility] visit for eval for flank pain and dysuria and pressure x 2 days +hematuria this am, Deny fevers. Verify name/- ...................... ...................... ...................... ...................... ...................... ...................... ......... Equipment Lead Note From Rosas Alanis: Pt presents A@Ox4 . Clarinda warm and dry. Pt c/o UTI related [...] ...................... ......... Disposition: Fulfilled Beatris Gandhi MD [address] [place] [address],[address] [facility], [place], [address], [employer] 05/24/2023 15:12:34 OBGyn Episode No OBEpisode recorded.
--- OUTSIDE RECORDS SUMMARY | 2025-06-04 07:58 | XMS_ITS | Clinical Summary ---
Author Organization [facility] Address [address] [place] [address] Phone Care Team Providers Care Advice Clerk Name Role Phone Inna Eason MD Primary Care Provider [phone] Encounters Date Type Department Care Team Description 04/18/2025 10:19 AM EDT - 04/18/2025 11:59 PM EDT Hospital Encounter [facility] at [address] [address] Encounter for screening mammogram for [...] year. Mammography location: [facility] [address], [address] -------- FINAL REPORT -------- Dictated By: Constantine Banks Dictated Date: 04/18/2025 16:42 ET Assigned Physician: Constantine Banks Reviewed and Electronically Signed By: Constantine Banks Signed Date: 04/18/2025 16:52 ET Workstation ID: [id number] Transcribed By: Self Edit Transcribed Date: 04/18/2025 16:42 ET Narrative 04/18/2025 4:52 PM EDT EXAM: SCREENING MAMMOGRAPHY, BILATERAL HISTORY: SCREENING. No additional history. COMPARISON: 04/08/23, 10/03/21 TECHNIQUE: Synthesized CC and MLO projections of each breast. Tomosynthesis of each breast in the CC and MLO projections. ADDITIONAL IMAGING: None Computer-aided detection was employed with the iCAD Symetrica AI 3-D. TISSUE DENSITY: The breasts are [...] Computer-aided detection was employed with the iCAD Symetrica AI 3-D. TISSUE DENSITY: The breasts are [...] year. [facility]amm[facility] location: [facility] [address] [place], [address] -------- FINAL REPORT -------- Dictated By: Constantine Banks Dictated Date: 04/18/2025 16:42 ET Assigned Physician: Constantine Banks Reviewed and Electronically Signed By: Constantine Banks Signed Date: 04/18/2025 16:52 ET Workstation ID: [id number] Transcribed By: Self Edit Transcribed Date: 04/18/2025 16:42 ET us Inna Eason MD IMG BI PROCEDURES Final R esult * SE DEXA AXIAL SKELETON (07/24/2021 11:57 AM EDT) Anatomical Region Laterality Modality Mammography 07/24/2021 10:5 6 AM EDT Narrative 07/24/2021 11:[address] [facility] Diagnostic Imaging Department [address] [place] [address] Patient: MARIBEL ACOSTA /Age/Sex: 1955 - 65 - F Unit#: [id number] Location/Status: SPDIMAM/REG CLI [facility]em[facility]ician: INNA EASON MD [facility] Dexa Axial Skeleton - 07/24/211146 HISTORY: The [...] probability of hip fracture of 3.4%. Code 76776 Dictating Physician: BRENDA HYLTON MD Electronically Signed by: BRENDA HYLTON MD Dic Date/Time: 07/24/21 1151 Sign date/Time: 07/24/21 115 Procedure Note Brenda Hylton MD - 11/25/2022 [facility] Diagnostic Imaging Department [address] [place] [address] Patient: MARIBEL ACOSTA /Age/Sex: 1955 - 65 - F Unit#: [id number] Location/Status: SPDIMA/REG CLI Mnemonic/Ordering Site: [facility] Ordering Physician: INNA EASON MD [facility] Dexa Axial Skeleton - 07/24/21 - 1147 [...] probability of hip fracture of 3.4%. Code 14547 Dictating Physician: BRENDA HYLTON MD Electronically Signed by: BRENDA HYLTON MD Dic Date/Time: 07/24/21 1151 Sign date/Time: 07/24/21 1157 us Inna Eason MD IMG BI PROCEDURES Final R esult from Last 3 Months or Most Recently Relevant to Health Maintenance Insurance [employer]VANTAGE on file [place] Care Teams Advice Clerk Relationship Specialty Start Date End Date Inna Eason MD [address] [place] [phone] PCP - General Internal Medicine 04/18/25
== END 2025-06-04 07:56 | disposition home or self-care (01) ==
LOC: HO.US 07:55
PROVIDERS: PCP Internal Medicine; Visit Provider Advanced Practice Midwife
DX: N95.0 Postmenopausal bleeding (principal)
CPT/HCPCS: 76830; 76856

== ENCOUNTER → 2025-06-04 07:57 | Outpatient (BNV) | payer MEDICARE, SELFPAY | PROVIDERS: PCP Internal Medicine; Visit Provider Radiology Diagnostic Radiology | DX: N85.8 Other specified noninflammatory disorders of uterus (principal) | CPT/HCPCS: 76830; 76856 ==

== ENCOUNTER 2025-06-13 09:06 | Outpatient (AMB) | payer MEDICARE, SELFPAY ==
--- NOTE | 2025-06-13 09:10 | A.OFFVIS_ITS ---
Vital Signs 06/13/25 09:11 Height 4 ft 11 in Weight 137 lb BMI 27.7 BP 123/68 Blood Pressure Location Lt brachial Position Sitting Pulse 82 Pulse Oximetry (%) 97 Oxygen Delivery Method Room Air Intake Visit Reasons: 4 wks Intake Note: Patient 4 weeks follow up for Abdominal pain, fecal, X-Ray and lab results. Patient cc: between diarrhea and constipation on and off, heartburn come and go, and some swallowing problems with dry mouth, denies any other GI issues. Community Relations Officer Required: No Accompanied by: Self / Same As Patient Allergies aspirin Adverse Reaction (Mild, Verified 06/13/25 09:10) Abdominal Pain HPI HPI 4 wks: Details: Patient is a 69-year-old female with PMH of hyperlipidemia and hypertension. Maribel presents for a follow-up regarding alternating stool patterns, reflux, blood in stools and unexplained weight loss. These symptoms began over the past few months. She reports experiencing both diarrhea and constipation intermittently. Reflux symptoms include heartburn exacerbated by acidic foods such as cranberry and lemon juice, with coffee causing issues less frequently. Previously conducted lab tests and imaging, have been reassuring, ruling out inflammatory bowel disease, celiac disease, and anemia. A recent chest X-ray revealed a dome-shaped mass along the left diaphragm suggesting a possible congenital hernia, warranting further imaging for confirmation. Previous treatments included stool softeners and a prescription for Miralax, though Maribel is inconsistent due to concerns about diarrhea. She has not initiated prescribed Omeprazole therapy for reflux. Associated symptoms include occasional abdominal pain and rare blood presence in stools. [facility] Medical History (Updated 06/13/25 @ 10:18 by Cherelle Montana CNP) Change in consistency of stool Unintentional weight loss Mass in chest Candidiasis Rectal bleeding Nicotine dependence Acid reflux Colon cancer screening Fatty liver Constipation Hypercholesteremia Hypertension Surgical History History of hernia surgery Hx of cholecystectomy History of total left hip replacement Family History Brother Diabetes Maternal Aunt Diabetes Other Cancer Heart disease Social History Alcohol intake: never Patient Tobacco Use Status: Current someday Tobacco user Current occupational status: retired Review of Systems Const Reports as per HPI ENT Reports as per HPI Card Reports as per HPI Resp Reports as per HPI GI Reports as per HPI Reports as per HPI Physical Exam Vital Signs: Last Vital Signs Pulse 82 06/13/25 09:11 BP 123/68 06/13/25 09:11 Pulse Ox 97 06/13/25 09:11 Oxygen Delivery Method Room Air 06/13/25 09:11 BMI result Body Mass Index 27.7 Const General: healthy appearing, no acute distress and well developed Nutritional Appearance: well nourished Orientation/consciousness: patient oriented x3 HEENT Head: Yes normal to inspection, Yes normocephalic and Yes atraumatic Face and sinus: Yes normal facial exam Eyes General: appearance normal, both eyes and all related structures Neck Neck: Yes normal visual inspection Resp Effort & Inspection: normal respiratory effort, able to speak in complete sentences, no tracheal deviation and symmetric chest movement Auscultation: clear to auscultation bilaterally Cardio Jugular venous distension: no JVD Rate: regular rate Rhythm: regular rhythm Heart sounds: S1 normal heart sound present, S2 normal heart sound present, no gallops and no murmurs GI Inspection: Yes normal to inspection, No distended, Yes obesity and Yes striae Palpation (GI): Soft to palpation, not firm, Tenderness to palpation present (GI) in the epigastrum and No hepatosplenomegaly present Auscultation: normal bowel sounds Neuro General: patient oriented x3 Gait exam (Neuro): Normal gait present Psych Appearance: grossly normal Mental Status: mental status grossly normal Speech and movement: Normal speech and movement present Affect: normal affect Attitude: cooperative Thought process: Normal thought process present Thought content: Normal thought content present Insight: Good insight present (Psych) Judgement: Good judgement present (Psych) Results Reviewed Results Reviewed: Date of Service: 06/04/25 Procedure(s): US pelvic and transvaginal Accession Number(s): [id number] cc: Indra Eason MD; DENNYS MAE CNM~ CLINICAL HISTORY: postmenopausal bleeding Ultrasound of the female pelvis Comparison: None Technique: Grayscale ultrasound with assistance of color Doppler. Transabdominal scanning performed for overall anatomy. Transvaginal scanning performed for better anatomic delineation. Findings: Anteverted atrophic uterus, measuring 5.2 x 2.1 x 4.7 cm, 6 mm calcification of anterior uterine body may reflect small calcified fibroid. Atrophic endometrium, minimal fluid in the fundal endometrium, endometrium excluding fluid measures less than 3 mm in thickness, no focal lesion or abnormal vascular flow. Unremarkable cervix. Ovaries are not seen, no adnexal mass. No free fluid. Impression: Atrophic uterus and endometrium, minimal endometrial fluid. Nonvisualization of the ovaries. Assessment & Plan Assessment & Plan (1) Acid reflux: Code(s): K21.9 - Gastro-esophageal reflux disease without esophagitis Category: Medical Qualifiers: Esophagitis presence: esophagitis presence not specified Qualified Code(s): K21.9 - Gastro-esophageal reflux disease without esophagitis Plan: Heartburn, dietary triggers, and reported dysphagia. Additional Tests: EGD pending. Barium swallow to assess for structural abnormality or hernia. Medications: Reinforce initiation of omeprazole 20mg PO daily. Lifestyle Modifications: Avoid acidic/caffeinated foods; take omeprazole on empty stomach, wait 30 min before eating. Follow-Up: Reassess reflux control after endoscopy, imaging and medication trial. (2) Change in consistency of stool: Code(s): R19.5 - Other fecal abnormalities Category: Medical Plan: Alternating diarrhea and constipation, rare blood in stool. Additional Tests: Colonoscopy (pending, with note for assistance with positioning due to orthopedic limitations); CT abdomen/pelvis ordered to r/o mass or identifiable source of suspected rectal bleeding. Medications: Miralax daily (new Rx to be provided for daily use; reserve current supply for colonoscopy prep); continue stool softener as needed. Lifestyle Modifications: Monitor stool frequency/consistency; maintain hydration; dietary fiber as tolerated. Follow-Up: Review colonoscopy findings; reassess stool pattern and bleeding. (3) Unintentional weight loss: Code(s): R63.4 - Abnormal weight loss Category: Medical Plan: 6 lb weight loss over one month; with GERD, epigastric pain and rectal bleeding. Ongoing GI workup. Recent pelvic and transvaginal ultrasound (see above) ordered by ADMITTED ATTORNEYS showed evidence of atrophy 2 uterus and endometrial; questionable calcified 5 years. Per patient uterine bleeding was ruled out. Additional Tests: CT chest (to further evaluate left diaphragmatic mass), barium swallow, colonoscopy, upper endoscopy. Medications: Consider nutritional support if intake inadequate. Lifestyle Modifications: Maintain weight log; monitor dietary intake. Follow-Up: Review imaging and endoscopy results; if GI workup negative, refer to PCP for further evaluation. (4) Mass in chest: Code(s): R22.2 - Localized swelling, mass and lump, trunk Category: Medical Plan: Dome-shaped mass on left diaphragm on 05/30/25 CXR. Additional Tests: CT chest with IV contrast. Follow-Up: Review CT findings; refer to surgery if indicated. Plan Follow-up after endoscopy or sooner as needed Time: I spent a total of 45 minutes on the date of encounter which includes: Preparing to see the patient (reviewed previous documentation, test results and medical history) Performing a medically appropriate exam and/or evaluation Ordering medications, tests, and procedures Documenting clinical information in the health record Orders: Orders CT chest w IV con Today R22.2 - Localized swelling, mass and lump, trunk, R63.4 - Abnormal weight loss Comprehensive [place]. Panel Fast Today R10.10 - Upper abdominal pain, unspecified [place] barium swallow Today K21.9 - Gastro-esophageal reflux disease without esophagitis, R10.10 - Upper abdominal pain, unspecified CT abdomen pelvis w IV con Today K62.5 - Hemorrhage of anus and rectum, R10.10 - Upper abdominal pain, unspecified Medications: New polyethylene glycol 3350 (Miralax) Take 17G (one cap full) daily with 8oz of water 17 grams PO DAILY 510 grams 2RF constipation 30 days Discontinued polyethylene glycol 3350 (Miralax) Mix 17G in 4 to 8 oz of water until dissolved and drink immediately Discontinued Reason: Duplicate 17 grams PO DAILY 100 ea 1RF Coding Level of Care Code Established Pt Est Pt Level 5 (16934) Patient Type Established Diagnoses Gastroesophageal reflux disease, unspecified whether esophagitis present K21.9 Esophagitis presence: esophagitis presence not specified Change in consistency of stool R19.5 Unintentional weight loss R63.4 Mass in chest R22.2
[2025-06-13 09:11] VITALS: BP 123/68; PULSE 82; O2SAT 97; BMI 27.7
--- OUTSIDE RECORDS SUMMARY | 2025-06-13 09:22 | XMS_ITS | Encounter Summary ---
Author Organization [employer] Address [address] [facility] 7t [place] [address] Care Team Providers Care Marine Railway Operator Name Role Phone Indra Eason MD Primary Care Provider Reason for Visit * Reason Onset Date Comments Referral 04/25/2025 Encounter Details Date Type Department Care Team ([facility] st Contact Info) Description 04/25/2025 Telephone [facility] MEDICINE [address] [place] [address] Indra Eason MD [address] [place], [place] [phone] Referral Social History Tobacco Use Types Packs/Day [...] and is asking for another referral to [facility]. Author advised provider had ordered x-rays of knee and hip and advised pt to complete those prior to anortho referral. Pt requested x-ray orders be faxed to [facility] for exam to be completed there. Author [...] Description 07/09/2025 10:00 AM EDT Office Visit [facility] CHC MED & PEDS [address] [place] [address] Indra Eason MD [address] [place] [address] documented as of this encounter Visit Diagnoses Not on filedocumented in this encounter Additional Health Concerns Assessment Noted Time PHQ-9 Depression Total Score: 16 024 12:36 PM EST documented as of this encounter Care Teams Marine Railway Operator Relationship Specialty Start Date End Date Indra Eason MD [address] [place] [address] PCP - General Internal Medicine 06/12/21 documented as of this encounter
--- OUTSIDE RECORDS SUMMARY | 2025-06-13 09:23 | XMS_ITS | Clinical Summary ---
Author Organization [facility] Address [address] [place] [address] Phone Care Team Providers Care Salesperson Furniture Name Role Phone Inna Eason MD Primary Care Provider +1 [phone] Encounters Date Type Department Care Team Description 04/18/2025 10:19 AM EDT - 04/18/2025 11:59 PM EDT [facility] [address] [address] Encounter for screening mammogram for [...] [facility]amm[facility] [address], [address] -------- FINAL REPORT -------- Dictated By: Constantine Banks Dictated Date: 04/18/2025 16:42 ET Assigned Physician: Constantine Banks Reviewed and Electronically Signed By: Constantine Banks Signed Date: 04/18/2025 16:52 ET Workstation ID: [id number] Transcribed By: Self Edit Transcribed Date: 04/18/2025 16:42 ET Narrative 04/18/2025 4:52 PM EDT EXAM: SCREENING MAMMOGRAPHY, BILATERAL HISTORY: SCREENING. No additional history. COMPARISON: 04/08/23, 10/03/21 TECHNIQUE: Synthesized CC and MLO projections of each breast. Tomosynthesis of each breast in the CC and MLO projections. ADDITIONAL IMAGING: None Computer-aided detection was employed with the [employer] AI 3-D. TISSUE DENSITY: The breasts are [...] Computer-aided detection was employed with the [employer]CAD [employer] AI 3-D. TISSUE DENSITY: The breasts are [...] year. [facility]amm[facility] location: [facility] [address] [place], [address] -------- FINAL REPORT -------- Dictated By: Constantine Banks Dictated Date: 04/18/2025 16:42 ET Assigned Physician: Constantine Banks Reviewed and Electronically Signed By: Constantine Banks Signed Date: 04/18/2025 16:52 ET Workstation ID: [id number] Transcribed By: Self Edit Transcribed Date: 04/18/2025 16:42 ET us Inna Eason MD IMG BI PROCEDURES Final R esult * SE DEXA AXIAL SKELETON (07/24/2021 11:57 AM EDT) Anatomical Region Laterality Modality Mammography 07/24/2021 10:5 6 AM EDT Narrative 07/24/2021 11:57 AM EDT [facility] Diagnostic Imaging Department [address] [place] [address] Patient: MARIBEL ACOSTA /Age/Sex: 1955 - 65 - F Unit#: [id number] Location/Status: SPDIMAM/REG CLI [facility] Ordering Physician: INNA AESON MD [facility] Dexa Axial Skeleton - 07/24/211146 HISTORY: [...] probability of hip fracture of 3.4%. Code 66398 Dictating Physician: BRENDA HYLTON MD Electronically Signed by: BRENDA HYLTON MD Dic Date/Time: 07/24/21 1151 Sign date/Time: 07/24/21 115 Procedure Note Brenda Hylton MD - 11/25/2022 [facility] Diagnostic Imaging Department [address] [place] [address] Patient: MARIBEL ACOSTA /Age/Sex: 1955 - 65 - F Unit#: [id number] Location/Status: SPDIMA/REG CLI Mnemonic/Ordering Site: [facility] Ordering Physician: INNA EASON MD [facility] Dexa Axial Skeleton - 07/24/21 - [...] probability of hip fracture of 3.4%. Code 22070 Dictating Physician: BRENDA HYLTON MD Electronically Signed by: BRENDA HYLTON MD Dic Date/Time: 07/24/21 1151 Sign date/Time: 07/24/21 1157 us Inna Eason MD IMG BI PROCEDURES Final R esult from Last 3 Months or Most Recently Relevant to Health Maintenance Insurance [employer] MEDICARE ADVANTAGE on file MEDICAID - [place] Care Teams Salesperson Furniture Relationship Specialty Start Date End Date Inna Eason MD [address] [place] [id number] PCP - General Internal Medicine 04/18/25
--- OUTSIDE RECORDS SUMMARY | 2025-06-13 09:23 | XMS_ITS | Data Portability ---
Author Organization [facility] [employer] [facility] Address [address] [place] [address] Care Team Providers Care Vendette Name Role Phone [facility] Referring Provider [facility] Referring Provider Assessment Encounter Date Assessment Date [...] pain. No nausea/vomiting, diarrhea, or fevers. VSS. Gas Distribution And Emergency Clerk on site reports appears well. POC UA [...] recorded. Lab urinalysis , dipstick 2022 023 [facility], [address] [place] [address], [id number] 3 10:09:06 culture, urine 2021 022 [facility] (Centralized Electronic Ordering - All Locations), Patient Can Go To The Location Of Their Choice, [id number] 11:41:40 culture, urine 2021 022 [facility] (Centralized Electronic Ordering - All Locations), Patient Can Go To The Location Of Their Choice, [address] 05:01:57 Referral None recorded. Procedures None recorded. Surgeries None recorded. Imaging None recorded. Medication Orders Bactrim DS 800 mg-160 mg tablet 2022 023 [id number], [address] [place], [place], [id number], 11:47:06 Bactrim DS 800 mg-160 mg tablet 2022 023 [id number], [address], [place], [id number], 11:47:16 Bactrim DS 800 mg-160 mg tablet 2021 022 [facility] #58900, [address], [place], [id number], 12:31:51 Patient TargetsNo targets recorded. Patient InstructionsNo instructions recorded. Reason for Referral None Reported. Results Created Date Observation Date Name Description Value Unit Range Abnormal Flag Note LastModifiedBy Organization Detail LastModifiedTime 08/13/2008/13/2022 UA W/REF THOM CULTU RE appear/color COLOR LESS CLEAR Not Available [facility] (Centralized Electronic Ordering - All Locations) Patient Can Go To The Location Of Their Choice, [address] 08/13/2022 23:31:57 08/13/2008/13/2022 UA W/REF THOM CULTU [...] Go To The Location Of Their Choice, [address] 08/13/2022 23:31:57 09/15/2009/15/2022 URINE CULTU RE specimen description URINE Not Available [facility] (Centralized Electronic Ordering - All Locations) Patient Can Go To The Location Of Their Choice, [address] 09/16/2022 11:41:40 09/15/2009/15/2022 URINE CULTU RE special requests NONE Not Available [facility] (Centralized Electronic Ordering - All Locations) Patient Can Go To The Location Of Their Choice, [address] 09/16/2022 11:41:40 09/15/2009/16/2022 URINE CULTU RE culture Mixed bacter ial you, indica tive of urogen ital contam inatio n. Not Available [facility] (Centralized Electronic Ordering - All Locations) Patient Can Go To The Location Of Their Choice, [address] 09/16/2022 11:41:40 09/15/2009/16/2022 URINE CULTU RE report status FINAL 2021 Not Available [facility] (Centralized Electronic Ordering - All Locations) Patient Can Go To The Location Of Their Choice, [address] 09/16/2022 11:41:40 Result Notes None recorded. Medical [...] Updated DateTime 3 97.9 [degF] 85 /min 36088.7 2 g 98 % 98 % 14 /min 163/84 mm[Hg] Not Available [facility] 3 10:43:47 Date Recorded Body weight Body temperature Heart rate Respiratory rate Oxygen saturation Oxygen saturation in Arterial blood by Pulse oximetry Heart rate Respiratory rate Body weight Oxygen saturation Oxygen saturation in Arterial blood by Pulse oximetry Body temperature Provider Name and Address Organization Details Last Updated DateTime 3 49758.8 g 97.8 [degF] 76 /min 18 /min 98 % 98 % 76 /min 18 /min 37550.8 g 98 % 98 % 97.8 [degF] Not Available [facility] 3 11:26:24 Date Recorded Heart rate Body temperature Body weight Respiratory rate Oxygen saturation Oxygen saturation in Arterial blood by Pulse oximetry Systolic And Diastolic Systolic And Diastolic Systolic And Diastolic Provider Name and Address Organization Details Last Updated DateTime 3 76 /min 97.8 [degF] 41995.8 g 18 /min 98 % 98 % 156/78 mm[Hg] 156/78 mm[Hg] 156/78 mm[Hg] Not Available [facility] 3 11:55:40 Date Recorded Oxygen saturation Oxygen saturation in Arterial blood by Pulse oximetry Body temperature Respiratory rate Heart rate Systolic And Diastolic Provider Name and Address Organization Details Last Updated DateTime 2 99 % 99 % 98.1 [degF] 16 /min 78 /min 120/82 mm[Hg] Not Available [facility] 2 12:54:18 Date Recorded Oxygen saturation Oxygen [...] Code Diagnosis Note [id number] Brianda Forrest MD [facility] - [address] [phone] 08/13/2022 11:49:44 08/31/2022 15:08:44 Kidney stone 42801675 N20.0 [id number] Melanie Sheikh MD [facility] - [address] [address] 09/15/2022 12:23:55 09/15/2022 13:15:24 Acute urinary tract infection 656218339 N39.0 67 year old female being evaluated for urinary symptoms for 3 days. Patient reports urgency, dysuria and frequency, along with hematuria and subjective fever. Last UTI was in March. Patient able to tolerate PO currently, without n/v or flank pain. Exam notable for normal vital signs. Will send for urinalysis and culture, and empiricall y treat with bactrim. [id number] Melanie Sheikh MD [address] [address] 05/03/2023 10:43:44 05/04/2023 15:51:57 Diarrhea 36054361 R19.7 67 year old female being evaluated [...] up if symptoms persistent beyond next week. [id number] Beatris Gandhi MD [facility] - [address] [address] 05/24/2023 11:11:02 05/25/2023 11:28:31 Acute pyelonephritis 73203348 N10 Health Concerns Section Related Observation LastModified by Organization Detai ls LastModified Time None Recorded Concern Status LastModified by Organization Details LastModified Time None Recorded Advance Directives Directive None Recorded Payers Insurance Date Sequence Insurance Name Policy Number Policy Chong Covered Member ID Chong Member ID Guarantor Name 05/03/2023 1 [facility] - DOS PRIOR TO 2023 - DUAL ELIGIBLE (MEDICARE REPLACEMENT/ADV ANTAGE - HMO) [facility] [id number] Maribel Bardales Dong 05/24/2023 1 [facility] - DOS ON OR AFTER 2023 - DUAL ELIGIBLE - DETENTION OPTIONS AND ONE CARE (MEDICARE REPLACEMENT/ADV ANTAGE - HMO) Maribel Dong [id number] Maribel Bardales Dong Notes Date Note Type [...] ...................... ...................... ...................... ...................... ...................... ...................... ......... Gas Distribution And Emergency Clerk Note: Dysuria. Vitals, assessment, UA, cultures ...................... ...................... ...................... ...................... ...................... ...................... ......... Disposition: Fulfilled Brianda Forrest MD [address] [place] [address],[address], [place], [address], [employer] 08/13/2022 15:49:24 09/15/2022 text/html CRC Nursing Assessment: [...] ...................... ...................... ...................... ...................... ...................... ...................... ......... Gas Distribution And Emergency Clerk Note: Dispatched to a/a for urinary s/s. [...] 04/19, denies hx of hospitalizations for UTI. Gas Distribution And Emergency Clerk Zheng performs pt assessment. Skin is warm and dry. Equal chest rise and fall, abd is soft, +tender, not distended. No CVA tenderness. No other signs/symptoms at this time. Obtained clean catch urine, and Gas Distribution And Emergency Clerk Zheng performed UA. Results uploaded to [facility] [place]. Consulted [facility] who ordered dose of Bactrim DS culture to be sent to lab and will send script to pt's pharmacy. Went over red flags and provided pt education on how to prevent UTI's in future. No further questions or concerns at this time. ...................... ...................... ...................... ...................... ...................... ...................... ......... Disposition: Fabienne Sheikh MD [address] [facility],[address], [place], [address], [employer] 09/15/2022 12:29:40 05/03/2023 text/html CRC Nursing Assessment: Chief Complaints: Abdominal Pain PMH: COPD/Asthma, Hypertension Allergies: No Known Comments: RN from [facility] calling on behalf of member with request for [facility] visit for eval of vague abdominal pain and loos stools x 3 days deny fever/chills. Verify member name/- Melanie Sheikh MD [address] [facility],[address], [place], [address], [employer] 05/03/2023 11:24:14 05/24/2023 text/html CRC Nursing Assessment: Reason For Request: Back pain Patient Reports: Frequent and increased urination with flank pain; Painful urination with or without fever Chief Complaints: UTI/Pyelonephritis, Abdominal Pain, Pain, Syncope/Dizziness/Ligh theadedness PMH: COPD/Asthma, Hypertension Allergies: No Known Comments: Member calling with request for [facility] visit for eval for flank pain and dysuria and pressure x 2 days +hematuria this am, Deny fevers. Verify name/- ...................... ...................... ...................... ...................... ...................... ...................... ......... Gas Distribution And Emergency Clerk Note From Rosas Alanis: Pt presents A@Ox4 . Olivia warm and dry. Pt c/o UTI related [...] ...................... ......... Disposition: Fulfilled Beatris Gandhi MD [address] [place] [address],[address] [facility], [place], [address], [employer] 05/24/2023 15:12:34 OBGyn Episode No OBEpisode recorded.
== END 2025-06-13 10:11 | disposition home or self-care (01) ==
LOC: HO.HGI 09:07
PROVIDERS: PCP Internal Medicine; Visit Provider Nurse Practitioner Family
DX: K21.9 Gastro-esophageal reflux disease without esophagitis (principal); R19.5 Other fecal abnormalities; R63.4 Abnormal weight loss; R22.2 Localized swelling, mass and lump, trunk
CPT/HCPCS: 99215

== ENCOUNTER → 2025-06-13 09:06 | Outpatient (BNVA) | payer MEDICARE, SELFPAY | PROVIDERS: PCP Internal Medicine; Visit Provider Nurse Practitioner Family | DX: K21.9 Gastro-esophageal reflux disease without esophagitis (principal); R19.5 Other fecal abnormalities; R22.2 Localized swelling, mass and lump, trunk; R63.4 Abnormal weight loss | CPT/HCPCS: 99212 ==

== ENCOUNTER 2025-06-25 12:01 | Outpatient (REF) | payer MEDICARE, SELFPAY ==
--- NOTE | ~2025-06-25 | CT_ITS ---
EXAMINATION: CT CHEST WITH IV CONTRAST, CT ABDOMEN PELVIS WITH IV CONTRAST INDICATION: R22.2 - Localized swelling, mass and lump, trunk. Hemorrhage of anus and rectum. COMPARISON: Correlation is made with PA and lateral views of the chest dated 05/30/2025.. TECHNIQUE: CT scan of the chest, abdomen and pelvis was performed following administration of 85 mL Omnipaque 350 using standard departmental protocol. Coronal and sagittal reformatted images were generated and reviewed. The patient received oral contrast material. This CT exam was performed with one or more of the following dose reduction techniques: automated exposure control, adjustment of the mA and/or kV according to patient size, use of iterative reconstruction technique. CHEST: THYROID: The thyroid is unremarkable. LUNGS: The lungs are clear. MEDIASTINUM: There is no mediastinal lymphadenopathy. RESHMA: There is no hilar lymphadenopathy. CARDIOVASCULATURE: The heart is normal in size. There is no pericardial effusion. The thoracic aorta is normal in caliber. DEGREE OF CORONARY CALCIFICATION: not evaluable, due to dense contrast in the coronary arteries PLEURA: There is no pleural effusion. No pneumothorax. MAIN AIRWAYS: The mainstem bronchi and proximal branches are patent. AXILLA: There is no axillary lymphadenopathy. 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 BONES: The bones are intact. ABDOMEN: LIVER: The liver is normal in size and contour. No liver mass is identified. The hepatic and portal veins are patent. GALLBLADDER / BILE DUCTS: The gallbladder is surgically absent. There is no intra or extrahepatic biliary ductal dilatation. SPLEEN: The spleen is normal in size. No focal splenic lesion is identified. PANCREAS: The pancreas is unremarkable in appearance. ADRENAL GLANDS: The right adrenal gland is unremarkable. There is a 2.4 cm left adrenal mass. KIDNEYS/RETROPERITONEUM: There is a horseshoe kidney. No renal calculi are identified. There is no hydronephrosis. No renal masses are identified. LYMPH NODES: No abdominal or pelvic lymphadenopathy. VASCULATURE: The abdominal aorta demonstrates atherosclerotic calcification, but is normal in caliber. MESENTERY/PERITONEUM: No free fluid. No masses. There is no free intraperitoneal gas. STOMACH: The stomach is unremarkable. SMALL BOWEL: The small bowel is normal in caliber. COLON: There is diverticulosis of the sigmoid colon. Evaluation is somewhat limited due to streak artifact from a left total hip arthroplasty. However, no obvious pericolonic inflammatory changes are identified. APPENDIX: Normal. URINARY BLADDER/PELVIC ORGANS: The urinary bladder is collapsed, limiting detailed evaluation. The uterus is partially obscured by streak artifact. BONES / SOFT TISSUES: There is a left inguinal hernia containing unobstructed loop of small bowel. There is degenerative disc disease of the spine. CT/CT abdomen pelvis w IV con IMPRESSION: 1. 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 2. 2.4 cm left adrenal mass. In the absence of a known primary malignancy, this likely represents an adenoma. If there is a known primary malignancy, adrenal protocol CT is recommended. 3. Horseshoe kidney. 4. Left inguinal hernia containing unobstructed loops of small bowel. 5. Sigmoid diverticulosis without definite evidence of diverticulitis. Electronically signed by: Yunior Martinez MD 06/25/2025 02:45 PM EDT
--- OUTSIDE RECORDS SUMMARY | 2025-06-25 13:05 | XMS_ITS | Encounter Summary ---
Author Organization [employer] Address [address] [facility] 7t [place] [address] Care Team Providers Care Feedmobile Driver Name Role Phone Indra Eason MD Primary Care Provider Reason for Visit * Reason Onset Date Comments Referral 04/25/2025 Encounter Details Date Type Department Care Team ([facility] st Contact Info) Description 04/25/2025 Telephone [facility] MEDICINE [address] [place] [address] Indra Eason MD [address] [place], [place] [phone] Referral Social History Tobacco Use Types Packs/Day [...] and is asking for another referral to [facility]. Author advised provider had ordered x-rays of knee and hip and advised pt to complete those prior to anortho referral. Pt requested x-ray orders be faxed to [facility] for exam to be completed there. [...] Description 07/09/2025 10:00 AM EDT Office Visit [facility] CHC MED & PEDS [address] [place] [address] Indra Eason MD [address] [place] [address] documented as of this encounter Visit Diagnoses Not on filedocumented in this encounter Additional Health Concerns Assessment Noted Time PHQ-9 Depression Total Score: 16 024 12:36 PM EST documented as of this encounter Care Teams Feedmobile Driver Relationship Specialty Start Date End Date Indra Eason MD [address] [place] [address] PCP - General Internal Medicine 06/12/21 documented as of this encounter
--- OUTSIDE RECORDS SUMMARY | 2025-06-25 13:05 | XMS_ITS | Clinical Summary ---
Author Organization [facility] Address [address] [place] [address] Phone Care Team Providers Care Gunner Mate Name Role Phone Inna Eason MD Primary Care Provider +1 [phone] Encounters Date Type Department Care Team Description 04/18/2025 10:19 AM EDT - 04/18/2025 11:59 PM EDT [facility] [address] [address] Encounter for screening mammogram for [...] 2024 11/11/2023, 09/17/2022, 10/17/2021, Additional history exists Depression Screening 11/29/2024 Hypertension/CHF/CAD Annual BMP Blood Test 04/18/2025 Influenza Vaccine (#1) 2025 10/11/2024 Breast Cancer Screening 04/18/2027 04/18/20, 04/08/2023, 10/03/2021, [...] screening mammogram for malignant neoplasm of breast QUINTIN DEXA AXIAL SKELETON Routine 07/24/2021 11:57 AM [...] year. [facility]amm[facility] [address], [address] -------- FINAL REPORT -------- Dictated By: Constantine Banks Dictated Date: 04/18/2025 16:42 ET Assigned Physician: Constantine Banks Reviewed and Electronically Signed By: Constantine Banks Signed Date: 04/18/2025 16:52 ET Workstation ID: [id number] Transcribed By: Self Edit Transcribed Date: 04/18/2025 16:42 ET Narrative 04/18/2025 4:52 PM EDT EXAM: SCREENING MAMMOGRAPHY, BILATERAL HISTORY: SCREENING. No additional history. COMPARISON: 04/08/23, 10/03/21 TECHNIQUE: Synthesized CC and MLO projections of each breast. Tomosynthesis of each breast in the CC and MLO projections. ADDITIONAL IMAGING: None Computer-aided detection was employed with the [employer] AI 3-D. TISSUE DENSITY: The breasts are [...] Computer-aided detection was employed with the [employer] AI 3-D. TISSUE DENSITY: The breasts are [...] Mammography at [facility] [address] [place], [address] -------- FINAL REPORT -------- Dictated By: Constantine Banks Dictated Date: 04/18/2025 16:42 ET Assigned Physician: Constantine Banks Reviewed and Electronically Signed By: Constantine Banks Signed Date: 04/18/2025 16:52 ET Workstation ID: [id number] Transcribed By: Self Edit Transcribed Date: 04/18/2025 16:42 ET us Inna Eason MD IMG BI PROCEDURES Final R esult * QUINTIN DEXA AXIAL SKELETON (07/24/2021 11:57 AM EDT) Anatomical Region Laterality Modality Mammography 07/24/2021 10:5 6 AM EDT Narrative 07/24/2021 11:57 AM EDT [facility] Diagnostic Imaging Department [address] [place] [address] Patient: MARIBEL ACOSTA /Age/Sex: 1955 - 65 - F Unit#: [id number] [facility] Ordering Physician: INNA EASON MD [facility] Dexa Axial Skeleton - 07/24/21 114 HISTORY: The patient is a 65-year-old postmenopausal [...] probability of hip fracture of 3.4%. Code 75760 Dictating Physician: BRENDA HYLTON MD Electronically Signed by: BRENDA HYLTON MD Dic Date/Time: 07/24/21 1151 Sign date/Time: 07/24/21 1157 Procedure Note Brenda Hylton MD - 11/25/2022 [facility] Diagnostic Imaging Department [address] [place] [address] Patient: MARIBEL ACOSTA /Age/Sex: 1955 - 65 - F Unit#: [id number] Location/Status: SPDIMAM/REG CLI Mnemonic/Ordering Site: [facility] Ordering Physician: INNA EASON MD [facility] Dexa Axial Skeleton - 07/24/21 1147 HISTORY: The patient is a 65-year-old [...] probability of hip fracture of 3.4%. Code 67079 Dictating Physician: BRENDA HYLTON MD Electronically Signed by: BRENDA HYLTON MD Dic Date/Time: 07/24/21 1151 Sign date/Time: 07/24/21 1157 us Inna Eason MD IMG BI PROCEDURES Final R esult from Last 3 Months or Most Recently Relevant to Health Maintenance Insurance [employer] MEDICARE ADVANTAGE on file [place] Member Subscriber Plan / Payer ( fective 2025-Present) Name:Maribel Acosta Relation to Subscriber:Self Name:Maribel Acosta Payer ID:[id number] Group ID:Not on file Type:Not on file Address: [facility] [employer] ATTN:[employer] [address] [place] [address] Care Teams Gunner Mate Relationship Specialty Start Date End Date Inna Eason MD [address] [place] [address] PCP - General Internal Medicine 04/18/25
[2025-06-25] MEDS: iohexoL 350 MG/ML 100 ML INFUS..BTL IV (14:26)
[2025-06-25] MEDS: Barium Sulfate Oral (Berry) 450 ML ORAL.SUSP 900 ML PO (14:26)
[2025-06-25 16:12] LABS: Creatinine POC 0.6 mg/dL (0.5-1.4); GFR POC > 60
== END 2025-06-25 12:02 | disposition home or self-care (01) ==
LOC: HO.CT 12:01
PROVIDERS: PCP Internal Medicine; Visit Provider Nurse Practitioner Family
DX: K62.5 Hemorrhage of anus and rectum (principal); R22.2 Localized swelling, mass and lump, trunk; R63.4 Abnormal weight loss; R10.10 Upper abdominal pain, unspecified
CPT/HCPCS: 71260; 74177; 82565; Q9967

== ENCOUNTER → 2025-06-25 12:10 | Outpatient (BNV) | payer MEDICARE, SELFPAY | PROVIDERS: PCP Internal Medicine; Visit Provider Radiology Diagnostic Radiology | DX: D44.12 Neoplasm of uncertain behavior of left adrenal gland (principal) | CPT/HCPCS: 71260; 74177 ==

== ENCOUNTER 2025-07-20 07:32 | Outpatient (REF) | payer MEDICARE, SELFPAY ==
--- NOTE | ~2025-07-20 | FL_ITS ---
EXAMINATION: XR FLUOROSCOPY BARIUM SWALLOW CLINICAL INFORMATION: Epigastric pain, GERD COMPARISON: None TECHNIQUE: Fluoroscopic air contrast barium swallow examination was performed utilizing standard techniques with thin and thick barium and effervescent granules. Numerous spot images were obtained. Several fluoroscopic image hold cine sequences were also obtained. FINDINGS: Study was somewhat limited as the patient was unable to tolerate prone positioning. The patient also had difficulty retaining the effervescent granule gas. ESOPHAGRAM: Lateral cine images of the oropharynx and hypopharynx demonstrate normal swallow mechanism with normal epiglottic inversion and soft palate elevation. No laryngeal penetration, glottic or subglottic aspiration identified. No nasopharyngeal reflux present. Hypopharyngeal structures appear normal without evidence of mass or diverticulum. There was mild cricopharyngeal achalasia. Dual and single contrast images of the esophagus demonstrate normal caliber, contour, and mucosal pattern. No evidence of stricture, mass, or ulcerations identified. Esophageal peristalsis was moderately disordered. Small type I hiatus hernia present. Gastroesophageal reflux identified to the level of the thoracic inlet. Images of the stomach were somewhat limited due to patient inability to retain the effervescent granule gas. There was normal contour and gastric mucosal pattern without evidence of mass or gross ulceration. Mildly thickened gastric rugal folds. Contrast freely passed into the gastric antrum and duodenal bulb without delay. Single and air-contrast images of the duodenal bulb demonstrate no abnormality. The duodenal sweep has a normal course. FLUOROSCOPY TIME: 2 minutes, 17 seconds Number of Spot Images:6 Number of cines obtained: 9 DOSE AREA PRODUCT: 1864 uGy-m2 (microgray-meter squared) FL/FL barium swallow with air IMPRESSION: 1. Mild cricopharyngeal achalasia. 2. Moderately disordered esophageal peristalsis. 3. Small type I hiatal hernia present. 4. Gastroesophageal reflux identified to the level of the thoracic inlet. 5. Somewhat limited examination of the stomach due to patient inability to retain the effervescent granule gas. Mildly thickened gastric rugal folds, may indicate gastritis. Electronically signed by: Lexa García MD 07/20/2025 10:40 AM EDT
--- OUTSIDE RECORDS SUMMARY | 2025-07-20 07:34 | XMS_ITS | Encounter Summary ---
Author Organization [employer] Address [address] [facility] 7[address] [place] [address] Care Team Providers Care Commercial Credit Head Name Role Phone Indra Eason MD Primary Care Provider [phone] Reason for Visit * Reason Onset Date Comments Referral 04/25/2025 Encounter Details Date Type Department Care Team ([facility] st Contact Info) Description 04/25/2025 Telephone [facility] MEDICINE [address] [place] [address] Indra Eason MD [address] [place], [place] [phone] Referral Social History Tobacco Use Types Packs/Day [...] and is asking for another referral to [facility]. Author advised provider had ordered x-rays of knee and hip and advised pt to complete those prior to anortho referral. Pt requested x-ray orders be faxed to [facility] for exam to be completed there. Author [...] Care Team (Late st Contact Info) Description 08/09/2025 9:30 AM EDT Office Visit [facility] MED & PEDS [address] [place] [address] Indra Eason MD [address] [place] [address] documented as of this encounter Visit Diagnoses Not on filedocumented in this encounter Additional Health Concerns Assessment Noted Time PHQ-9 Depression Total Score: 16 024 12:36 PM EST documented as of this encounter Care Teams Commercial Credit Head Relationship Specialty Start Date End Date Indra Eason MD [address] [place] [address] PCP - General Internal Medicine 06/12/21 documented as of this encounter
--- OUTSIDE RECORDS SUMMARY | 2025-07-20 07:34 | XMS_ITS | Clinical Summary ---
Author Organization [facility] Address [address] [place] [address] Phone Care Team Providers Care Engraver Pantograph Name Role Phone Inna Eason MD Primary Care Provider [phone] Social History Tobacco Use Types Packs/Day Years [...] (#1) 2025 10/11/2024 Breast Cancer Screening 04/18/2027 04/18/20 25, 04/08/2023, 10/03/2021, Additional history exists Cholesterol Screening [...] Results * MG Mammo Digital Screening w Ikmani bilat (04/18/2025 10:38 AM EDT) Anatomical Region [...] year. [facility] [address], [address] -------- FINAL REPORT -------- Dictated By: Constantine Banks Dictated Date: 04/18/2025 16:42 ET Assigned Physician: Constantine Banks Reviewed and Electronically Signed By: Constantine Banks Signed Date: 04/18/2025 16:52 ET Workstation ID: [id number] Transcribed By: Self Edit Transcribed Date: 04/18/2025 16:42 ET Narrative 04/18/2025 4:52 PM EDT EXAM: SCREENING MAMMOGRAPHY, BILATERAL HISTORY: SCREENING. No additional history. COMPARISON: 04/08/23, 10/03/21 TECHNIQUE: Synthesized CC and MLO projections of each breast. Tomosynthesis of each breast in the CC and MLO projections. ADDITIONAL IMAGING: None Computer-aided detection was employed with the [employer] AI 3-D. TISSUE DENSITY: The breasts are [...] None Computer-aided detection was employed with the [employer] AI 3-D. TISSUE DENSITY: The breasts are [...] year. [facility]amm[facility] location: [facility] [address] [place], [address] -------- FINAL REPORT -------- Dictated By: Constantine Banks Dictated Date: 04/18/2025 16:42 ET Assigned Physician: Constantine Banks Reviewed and Electronically Signed By: Constantine Banks Signed Date: 04/18/2025 16:52 ET Workstation ID: [id number] Transcribed By: Self Edit Transcribed Date: 04/18/2025 16:42 ET us Inna Eason MD IMG BI PROCEDURES Final R esult * UQINTIN DEXA AXIAL SKELETON (07/24/2021 11:57 AM EDT) Anatomical Region Laterality Modality Mammography 07/24/2021 10:5 6 AM EDT Narrative 07/24/2021 11:57 AM EDT [facility] Diagnostic Imaging Department [address] [place] [address] Patient: MARIBEL ACOSTA./Age/Sex: 1955 - 65 - F Unit#: [id number] Location/Status: SPDIMAM/REG CLI Mnem[facility] Ordering Physician: INNA EASON MD Quintin [...] probability of hip fracture of 3.4%. Code 07387 Dictating Physician: BRENDA HYLTON MD Electronically Signed by: BRENDA HYLTON MD Dic Date/Time: 07/24/21 115 Sign date/Time: 07/24/21 115 Procedure Note Brenda Hylton MD - 11/25/2022 [facility] Diagnostic Imaging Department [address] [place], [place] [phone] Patient: MARIBEL ACOSTA/Age/Sex: 1955 - 65 - F Unit#: [id number] Location/Status: SPDIMAM/REG CLI Mnemonic[facility] Ordering Physician: INNA EASON MD [facility] Dexa Axial Skeleton - 07/24/21 - 1147 [...] probability of hip fracture of 3.4%. Code 28726 Dictating Physician: BRENDA HYLTON MD Electronically Signed by: BRENDA HYLTON MD Dic Date/Time: 07/24/21 1151 Sign date/Time: 07/24/21 1157 Inna Eason MD IMG BI PROCEDURES Final R esult from Last 3 Months or Most Recently Relevant to Health Maintenance Insurance [facility] on file MEDICAID - [place] Care Teams Engraver Pantograph Relationship Specialty Start Date End Date Inna Eason MD [address] [place] [id number] PCP - General Internal Medicine 04/18/25
== END 2025-07-20 07:33 | disposition home or self-care (01) ==
LOC: HO.XRAY 07:32
PROVIDERS: PCP Internal Medicine; Visit Provider Nurse Practitioner Family
DX: K21.9 Gastro-esophageal reflux disease without esophagitis (principal); R10.10 Upper abdominal pain, unspecified
CPT/HCPCS: 74221

== ENCOUNTER → 2025-07-20 07:33 | Outpatient (BNV) | payer MEDICARE, SELFPAY | PROVIDERS: PCP Internal Medicine; Visit Provider Radiology Diagnostic Radiology | DX: K22.4 Dyskinesia of esophagus (principal) | CPT/HCPCS: 74221 ==

== ENCOUNTER 2025-07-31 09:43 | Outpatient (AMB) | payer MEDICARE, SELFPAY ==
--- NOTE | 2025-07-31 10:00 | MHC.OFFVIS ---
Vital Signs 07/31/25 10:01 Height 4 ft 11 in Weight 137 lb BMI 27.7 BP 124/76 Intake Visit Reasons: PMB Health Social Work Professor: Health Social Work Professor Present (Samanta) Allergies aspirin Adverse Reaction (Mild, Verified 07/31/25 10:01) Abdominal Pain HPI Comments Details: Presenting complaining of recurrent episodes of vaginal bleeding over the last six-months Last co testing in 06/22 was negative 06/22 pelvic ultrasound showed the following: Anteverted atrophic uterus, measuring 5.2 x 2.1 x 4.7 cm, 6 mm calcification of anterior uterine body may reflect small calcified fibroid. Atrophic endometrium, minimal fluid in the fundal endometrium, endometrium excluding fluid measures less than 3 mm in thickness, no focal lesion or abnormal vascular flow. Unremarkable cervix. Ovaries are not seen, no adnexal mass. No free fluid. Impression: Atrophic uterus and endometrium, minimal endometrial fluid. Nonvisualization of the ovaries.: [facility] Medical History Change in consistency of stool Unintentional weight loss Mass in chest Candidiasis Rectal bleeding Nicotine dependence Acid reflux Colon cancer screening Fatty liver Constipation Hypercholesteremia Hypertension Surgical History History of hernia surgery Hx of cholecystectomy History of total left hip replacement Family History Brother Diabetes Maternal Aunt Diabetes Other Cancer Heart disease Social History Alcohol intake: never Patient Tobacco Use Status: Current someday Tobacco user Current occupational status: retired Review of Systems Const All systems reviewed & are unremarkable except as noted in HPI and below Physical Exam General: Yes no CVA tenderness External Female Exam: normal external appearance and normal appearance of the urethra Speculum Exam - Vagina: normal appearance of the vagina, normal palpation, no lesions and no masses Speculum Exam - Cervix: normal appearance of the cervix, normal palpation, no lesions, no masses and nontender Bimanual exam- vagina & uterus: normal bimanual exam, normal palpation, uterine size normal, normal palpation, uterine shape normal, No Cervical tenderness present and non-tender Bimanual Exam- Adnexa, other: normal adnexae Back/Spine/Pelvis Back: no CVA tenderness Office Procedures Endometrial Biopsy Details: The patient was counseled regarding the indication and benefits of endometrial sampling to rule out endometrial pathology including not limited to endometrial hyperplasia or endometrial cancer and others; The alternatives (Either do nothing vs. hysteroscopy D&C) & the risks were discussed with the patient including but not limited: pain, uterine perforation, bleeding, infection, possible injury to bladder, bowel, ureter, possible need for blood transfusion with all its possible risks. The patient verbalized understanding all questions answered and signed consent. The patient was placed into the dorsal lithotomy position; a speculum was inserted in the vagina. Using aseptic technique for the procedure, the cervix was cleansed with Betadine. The anterior lip of the cervix was grasped with a single tooth tenaculum. The uterus was sounded to 6 cm with a 4 mm Pipelle was used. Tissues samples were obtained and placed in formalin, in a patient labeled container and sent to the pathology department. At the end of the procedure, there was minimal bleeding noted The patient tolerated the procedure well and was discharged in good condition with the following instructions: Nothing in the vagina until the bleeding stops. No sex until the bleeding stops, to call if any of the following occurs: fever (>100.4), flu-like symptoms, abdominal pain, heavy bleeding, four smelling vaginal discharge. The patient was instructed to schedule a Follow up appointment in 2 weeks to discuss pathology results of the biopsy and treatment options. This note was generated with a voice recognition program. Some errors may have been overlooked during the review of this note. Sometimes these errors may affect the content or meaning of a given sentence. 25374-Cmujlzjkscn Biopsy Assessment & Plan Assessment & Plan (1) Post-menopausal bleeding: Code(s): N95.0 - Postmenopausal bleeding Category: Medical Plan: Discussed with the patient the results of the ultrasound and co testing, since vaginal bleeding is recurrent, recommended endometrial sampling. Recommended to the patient that the next step is an endometrial sampling via hysteroscopy D&C possible polypectomy versus endometrial biopsy to r/o endometrial pathology including hyperplasia or cancer. All the pros and cons risks and benefits of each approach were discussed with the patient, endometrial biopsy being less invasive, office procedure with less sensitivity and inability diagnose a polyp and removal versus hysteroscopy done under anesthesia more invasive more sensitive to endometrial cancer and possibility of diagnosing and endometrial polyp with the possibility of polypectomy. All questions were answered pt verbalized understanding and decided to proceed with endometrial biopsy. EMB done, see procedure note Orders: Orders AMB Endometrial Biopsy Today N95.0 - Postmenopausal bleeding Coding Level of Care Code New Pt Level 3 (57916) Procedure Only Diagnoses Post-menopausal bleeding N95.0 CPT Codes Endometrial Biopsy - CPT: 53200-Nclxsxarmyn Biopsy ([id number])
[2025-07-31 10:01] VITALS: BP 124/76; BMI 27.7
--- OUTSIDE RECORDS SUMMARY | 2025-07-31 10:50 | XMS_ITS | Clinical Summary ---
Author Organization [facility] Address [address] [place] [address] Phone Care Team Providers Care Driver Supervisor Name Role Phone Inna Eason MD Primary Care Provider [phone] Social History Tobacco Use Types Packs/Day Years [...] year. [facility]amm[facility] [address], [address] -------- FINAL REPORT -------- Dictated By: Constantine Banks Dictated Date: 04/18/2025 16:42 ET Assigned Physician: Constantine Banks Reviewed and Electronically Signed By: Constantine Banks Signed Date: 04/18/2025 16:52 ET Workstation ID: [id number] Transcribed By: Self Edit Transcribed Date: 04/18/2025 16:42 ET Narrative 04/18/2025 4:52 PM EDT EXAM: SCREENING MAMMOGRAPHY, BILATERAL HISTORY: SCREENING. No additional history. COMPARISON: 04/08/23, 10/03/21 TECHNIQUE: Synthesized CC and MLO projections of each breast. Tomosynthesis of each breast in the CC and MLO projections. ADDITIONAL IMAGING: None Computer-aided detection was employed with the [employer] AI 3-D. TISSUE DENSITY: The breasts are [...] None Computer-aided detection was employed with the [employer] 3-D. TISSUE DENSITY: The breasts are [...] year. [facility]ammography location: [facility] [address] [place], [address] -------- FINAL REPORT -------- Dictated By: Constantine Banks Dictated Date: 04/18/2025 16:42 ET Assigned Physician: Constantine Banks Reviewed and Electronically Signed By: Constantine Banks Signed Date: 04/18/2025 16:52 ET Workstation ID: [id number] Transcribed By: Self Edit Transcribed Date: 04/18/2025 16:42 ET us Inna Eason MD IMG BI PROCEDURES Final R esult * QUINTIN DEXA AXIAL SKELETON (07/24/2021 11:57 AM EDT) Anatomical Region Laterality Modality Mammography 07/24/2021 10:5 6 AM EDT Narrative 07/24/2021 11:[address] [facility] Diagnostic Imaging Department [address] [place] [address] Patient: MARIBEL ACOSTA./Age/Sex: 1955 - 65 - F Unit#: [id number] Location/Status: SPDIMAM/REG CLI Mnemonic[facility] Ordering Physician: INNA EASON MD [facility] Dexa [...] probability of hip fracture of 3.4%. Code 98084 Dictating Physician: BRENDA HYLTON MD Electronically Signed by: BRENDA HYLTON MD Dic Date/Time: 07/24/21 115 Sign date/Time: 07/24/21 115 Procedure Note Brenda Hylton MD - 11/25/2022 [facility] Diagnostic Imaging Department [address] [place], [place] [id number] Patient: MARIBEL ACOSTA/Age/Sex: 1955 - 65 - F Unit#: [id number] Location/Status: SPDIMAM/REG CLI Mnemonic[facility] Ordering Physician: INNA EASON MD [facility] Dexa Axial Skeleton - 07/24/21 [...] probability of hip fracture of 3.4%. Code 76940 Dictating Physician: BRENDA HYLTON MD Electronically Signed by: BRENDA HYLTON MD Dic Date/Time: 07/24/21 1151 Sign date/Time: 07/24/21 1157 Inna Eason MD IMG BI PROCEDURES Final R esult from Last 3 Months or Most Recently Relevant to Health Maintenance Insurance [employer] MEDICARE ADVANTAGE on file MEDICAID - [place] Care Teams Driver Supervisor Relationship Specialty Start Date End Date Inna Eason MD [address] [place] [address] PCP - General Internal Medicine 04/18/25
== END 2025-07-31 10:40 | disposition home or self-care (01) ==
LOC: HO.HWS 09:43
PROVIDERS: PCP Internal Medicine; Visit Provider Obstetrics & Gynecology
DX: N95.0 Postmenopausal bleeding (principal)
CPT/HCPCS: 58100; 99203

== ENCOUNTER 2025-07-31 09:43 | Outpatient (REF) | payer MEDICARE, SELFPAY ==
--- OUTSIDE RECORDS SUMMARY | 2025-07-31 12:13 | XMS_ITS | Encounter Summary ---
Author Organization [employer] Address [address] [facility] [address] [place] [address] Care Team Providers Care Automated Weaver Name Role Phone Indra Eason MD Primary Care Provider Encounter Details Date Type Department Care Team (Late st Contact Info) Description 10/01/2023 Abstract [facility] MEDICINE [address] [place] [address] Tanya Fields Social History Tobacco Use Types [...] Description 08/09/2025 9:30 AM EDT Office Visit [facility] MED & PEDS [address] [place] [address] Indra Eason MD [address] [place] [address] documented as of this encounter Visit Diagnoses Not on filedocumented in this encounter Additional Health Concerns Assessment Noted Time PHQ-9 Depression Total Score: 9 11/19/20 22 11:13 AM EST documented as of this encounter Care Teams Automated Weaver Relationship Specialty Start Date End Date Indra Eason MD [address] [place] [address] PCP - General Internal Medicine 06/12/21 documented as of this encounter
--- OUTSIDE RECORDS SUMMARY | 2025-07-31 12:13 | XMS_ITS | Encounter Summary ---
Author Organization [employer] Address [address] [facility] [address] [place] [address] Care Team Providers Care Service Operations Manager Name Role Phone Indra Eason MD Primary Care Provider Reason for Visit * Reason Onset Date Comments fyi 06/27/2025 Encounter Details Date Type Department Care Team ([facility] st Contact Info) Description 06/27/2025 Telephone [facility] CHC MED & PEDS [address] [place], [place] [phone] Indra Eason MD [address] [place] [address] fyi Social History Tobacco Use Types Packs/Day Years Used Date Smoking Tobacco: Every Day Cigarettes 0.5 40 Passive Smoke Exposure: Never Smokeless Tobacco: Never Alcohol Use Standard Drinks/Week Comments Never 0 (1 standard drink = 0.6 oz pur e alcohol) Depression Answer Date Recorded Patient Health Questionnaire-9 Score 14 05/30/2025 Patient Health Questionnaire-9 Score 14 05/30/2025 Last PHQ-9: Questionnaire Data Not on file 0 05/30/2025 Housing Stability Answer Date Recorded What is [...] Date Recorded Patient Health Questionnaire-2 Score 4 05/30/2025 Comments Unknown Sex and Gender Information Value Date Recorded Sex Assigned at Female 09/28/2022 10:37 AM EDT Legal Sex Female 10:37 AM EDT Gender Identity Female 09/28/2022 10:37 AM EDT Sexual Orientation Straight 09/28/2022 10 :37 AM EDT documented as of this encounter Miscellaneous Notes * Telephone Encounter - Shanelle Hewitt RN - 06/27/2025 4:13 PM EDT No HIPAA listed for this person calling. Pt has upcoming appt on 07/09/25 and can discuss then. * Telephone Encounter - Mandy Gross - 06/27/2025 2:46 PM EDT Tc from [facility] stating pt is waiting on a podiatry referral update due to pts toenails being very grown out. [facility] states pt is wheezing with oxygen levels at 100s. Pt would benefit being seenby provider , pt is a daily smoker. Lastly [facility] states that pt as never gotten a colonoscopy and she says soon as pt is done with tests pt states she has to keep in mind a colonoscopy. Contact pt at [phone] documented in this encounter Plan of Treatment Upcoming Encounters Date Type Department Care Team ([facility] st Contact Info) Description 08/09/2025 9:30 AM EDT Office Visit [facility] MED & PEDS [address] [place] [address] Indra Eason MD [address] [place], [place] [phone] documented as of this encounter Visit Diagnoses Not on filedocumented in this encounter Additional Health Concerns Assessment Noted Time PHQ-9 Depression Total Score: 14 025 11:02 AM EDT documented as of this encounter Care Teams Service Operations Manager Relationship Specialty Start Date End Date Indra Eason MD [address] [place] [id number] PCP - General Internal Medicine 06/12/21 documented as of this encounter
--- OUTSIDE RECORDS SUMMARY | 2025-07-31 12:13 | XMS_ITS | Clinical Summary ---
Author Organization [employer] Address [address] [facility] [address] [place] [address] Care Team Providers Care Research Epidemiologist Name Role Phone Indra Eason MD Primary Care Provider Allergies Active Allergy Reactions Criticality Noted Date Comments Aspirin 11/10/2022 Medications * This document contains information received from the source organization and may not represent a complete record from that organization. cholecalciferol (Vitamin D-3) 25 MCG (1000 UT) capsule Take 1 capsule by mouth. 021 Active nicotine (Nicoderm, Step 1) 21 MG/24HR patch Place 1 patch on the skin at bed time. 022 Active simethicone (Mylicon,Gas-X) 125 MG capsule Take 1 tablet by mouth every 6 (six) hours. 021 Active zoster vaccine-recombina nt adjuvanted (Shingrix) 50 MCG/0.5ML vaccine Inject 0.5 mL into the shoulder, thigh, or buttocks. 022 Active furosemide (Lasix) 20 MG tablet TAKE 1 TABLET(20 MG) BY MOUTH IN THE MORNING 10 tablet 023 Active Diclofenac Sodium 1 % gelIndications:Pr imary osteoarthritis of shoulder, unspecified laterality To apply to the cervical spine 3 times a day 100 g 024 Active simvastatin (Zocor) 20 MG tablet TAKE 1 TABLET BY MOUTH EVERY DAY 90 tablet 3 024 Active lisinopril 5 MG tablet TAKE 1 TABLET BY MOUTH EVERY DAY 90 tablet 3 025 Active estradiol (Estrace) 0.1 MG/GM vaginal cream 1g vaginally twice weekly 1 Unspecified 025 Active buPROPion SR (Wellbutrin SR) 150 MG 12 hr tablet TAKE 1 TABLET BY MOUTH TWICE A DAY. DO NOT CRUSH, CHEW OR SPLIT. 60 tablet 025 Active buPROPion SR (Wellbutrin SR) 150 MG 12 hr tablet Take 1 tablet (150 mg) by mouth 2 times daily. Do not crush, chew, or split. 60 tablet 025 2024 Discontinued(R eorder (will not trigger notification to Pharmacy)) Active Problems Problem Noted Date Diagnosed Date Persistent depressive disorder 05/09/2024 Assessment & Plan (05/30/2025 11:14 AM EDT): During IBH Consult Maribel presenting with depressed mood, Tearful, crying spells , hopelessness, irritable mood, loss of interests/pleasure , changes in sleep difficulty falling asleep and difficulty staying asleep , psychomotor retardation, fatigue/loss of energy, inappropriate/excessive guilt , difficulty concentrating, indecisiveness; for a period of 18+ mo, for most or all symptoms in the context of , family issues, and illness or family illness. Pt with baseline depression. Her sxs have increased after her sister's - pt was very close to her sister. Presentation of sxs are identified as normal in the bereavement process. We discussed about coping strategies during this difficult time, offered grief counseling and provided empathic listening. Assessment & Plan (05/24/2025 10:48 AM EDT): During IBH Consult Maribel presenting with depressed mood, Tearful, crying spells , hopelessness, irritable mood, loss of interests/pleasure , sense of isolation/loneliness , isolating, change in appetite or weight reduce appetite, changes in sleep difficulty falling asleep, fatigue/loss of energy, inappropriate/excessive guilt , difficulty concentrating, indecisiveness; for a period of 18+ mo, for most or all symptoms in the context of and family issues. Pt reported experiencing multiple stressful family situations which has being mentally exhausting for her. Triggers for increase of sxs include: her daughter being incarcerated and the passing of her sister. Discussed coping strategies to use and important of engaging in MH services. Assessment & Plan (11/24/2024 12:54 PM EST): [...] intervention , Patient to reach out to [facility] team as needed, Comply with medication , [...] intervention , Patient to reach out to [facility] team as needed, Comply with medication , [...] of the skin or other concerns. Encounters * This document contains information received from the source organization and may not represent a complete record from that organization. Date Type Department Care Team Description 07/20/2025 Orders Only [facility] External Provider, [facility] 07/10/2025 Refill [facility] [address] [place] [address] Indra Eason MD 07/09/2025 10:00 AM EDT Office Visit [facility] [address] [place] [address] Indra Eason MD Diaphragm, eventration (Primary Dx); Left adrenal mass (CMS/HCC); Post-menopausal bleeding; Primary hypertension; Primary osteoarthritis of right knee; Left hip pain; Tobacco dependence syndrome 07/09/2025 Travel 06/28/2025 Orders Only [facility] [address] [place] [address] Maria Isabel Thomas MD 06/27/2025 Telephone [facility] [address] [place] [address] Indra Eason MD fyi 06/25/2025 Orders Only [facility] External Provider, [facility] 06/18/2025 Telephone [facility] [address] [place], [place] [phone] Indra Eason MD Requesting call back 06/05/2025 Orders Only [address] [address] Dennys Mae CNM 06/05/2025 Results Follow-Up [address] [address] Dennys Mae CNM US Pelvis Transvaginal 06/04/[address] [address] Indra Eason MD Letter 05/30/[address] [address] Dennys Mae CNM 05/30/2025 Orders Only GENERIC EXTERNAL DATA DEPARTMENT Provider, Generic External Data 05/29/2025 9:00 AM EDT Procedure Visit [address] [address] Dennys Mae CNM Urinary symptom or sign (Primary Dx); Post-menopausal bleeding; Screening examination for venereal disease; Vaginal discharge 05/29/2025 Orders Only [address] [address] Dennys Mae CNM 05/29/2025 Travel 05/28/[address] [address] Indra Eason MD chartprep 05/21/[address] [address] Indra Eason MD Nurse Triage 05/05/2025 Refill [facility] [address] [place] [address] Indra Eason MD from Last 3 Months Immunizations Immunization Administration Dates Next Due Influenza, High Dose Seasonal, Preservative Free 10/11/2024 Cameron SARS-CoV-2 Vaccination 02/19/2021 Pfizer Covid-19 Vaccine 12+ [...] housing situation today? I have kia berry 07/09/[address] you li ve. Do you have problems with any of the following? None of the above 07/09/2025 Food Insecurity Answer Date Recorded Within the past 12 months, y ou worried that your food would run out before you got money to buy more: Never True 07/09/2025 Within the past 12 months,th e food you bought just didn't last and you didn't have enough money to get more: Never True 09/2025 Transportation Answer Date Recorded In the past 12 months, has l ack of transportation kept you from medical appts, meetings, work or from getting things needed for daily living? No 07/09/2025 Utilities Answer Date Recorded In the past 12 months, has t he electric, gas, oil or water company threatened to shut off services in your home? No 07/09/2025 Depression Answer Date Recorded Patient Health Questionnaire-2 Score 4 05/30/2025 Internet Access Answer Date Recorded Internet Access Q1 Yes 07/09/2025 Internet Access Q2 Not on file 07/09/2025 Comments Unknown Sex and Gender Information Value Date Recorded Sex Assigned at Female 09/28/2022 10:37 AM EDT Legal Sex Female 10:37 AM EDT Gender Identity Female 09/28/2022 10:37 AM EDT Sexual Orientation Straight 09/28/2022 10 :37 AM EDT Last Filed Vital Signs Vital Sign Reading Time Taken Comments Blood Pressure 146/58 07/09/2025 9:38 AM EDT Pulse 76 07/09/2025 9:38 AM EDT Temperature 36.6 C (97.8 F) 07/09/2025 9:38 AM EDT Respiratory Rate 18 07/09/2025 9:38 AM EDT Oxygen Saturation 98% 07/09/2025 9:38 AM EDT Inhaled Oxygen Concentration - - Weight 66.2 kg (146 lb) 07/09/2025 9:38 AM EDT Height 145.4 cm (4' 9.25 ) 07/09/2025 9:38 AM ED T Body Mass Index 31.32 07/09/2025 9:38 AM EDT Plan of Treatment Upcoming Encounters Date Type Department Care Team (Late st Contact Info) Description 08/09/2025 9:30 AM EDT Office Visit [facility] [address] [place] [address] Indra Eason MD [address] [place] [address] Health Maintenance Due Date Last Done Comments CT Colonography 1955 FIT DNA/Cologuard 1955 FIT 1955 FOBT 1955 Sigmoidoscopy 1955 Zoster Vaccines (2 of 2) 07/09/2022 05/14/2022 Influenza Vaccine (#1) 2025 10/11/2024 COVID-19 Vaccine ( season) 2025 11/11/2023, 09/17/2022, 10/17/2021, Additional history exists Postponed from 07/30/2024 (Patient Refused) Lung Cancer Screening 10/30/2025 10/30/2024 Depression Monitoring 11/30/2025 05/30/2025, 025 Alcohol/Substance Use Screening 07/09/2026 07/09/2025 SDOH Screening 07/09/2026 07/09/2025 Tobacco Screening 07/09/2026 07/09/2025 Mammogram 04/18/2027 04/18/2025, 0511/2024, 04/18/2025 Lipid Panel 10/11/2029 10/11/2024, 02/27, 05/23/2021 HPV/Cotest 05/29/2030 05/29/2025, 11/10/2022 Pap Smear 05/29/2030 05/29/2025, 11/10/2022 Colonoscopy 07/30/2032 07/30/2022 Colorectal Cancer Screening 07/30/2032 DTaP/Tdap/Td Vaccines (3 - Td or Tdap) 10/11/2034 10/11/2024, 04/18/2012 Pneumococcal Vaccine: 50+ Years Completed 05/14/2022 RSV Patients and Patients Aged 60 years or older Completed 11/11/2023 Hepatitis C Screening Completed 05/30/2025, 022 HIB Vaccines Aged Out No longer eligi [...] Procedure Name Priority Date/Time Associated Diagnosis Comments FL ESOPHAGUS BARIUM SWALLOW WITH AIR Routine 07/20/2025 8:00 AM EDT POCT CREATININE GFR Routine 06/25/2025 2 :[address] CHEST W CONTRAST Routine 06/25/2025 2 :[address] ABDOMEN PELVIS W CONTRAST Routine 06/25/2025 2:[address] ABD/PELVIS W/O + W/ IV CONTRAST Routine 06/25/2025 11:10 AM EDT US PELVIS TRANSVAGINAL STAT 3:09 PM EDT Post-menopausal bleeding XR CHEST 2 VIEWS Routine 05/30/2025 9:00 AM EDT XR KNEE 3 VIEWS RIGHT Routine 05/30/2025 9:00 AM EDT Primary osteoarthritis of right knee XR HIP 2 OR 3 VIEWS LEFT Routine 05/30/2025 9:00 AM EDT Left hip pain TISSUE TRANSGLUTAMINASE AB, IGA Routine 05/30/2025 8:36 AM EDT HIV 1/2 ANTIGEN/ANTIBODY, FOURTH GENERATION W/RFL Routine 05/30/2025 8:36 AM EDT HEPATITIS PANEL, GENERAL Routine 05/30/2025 8:36 AM EDT VITAMIN B12/FOLATE, SERUM PANEL Routine 05/30/2025 8:36 AM EDT TSH W/REFLEX TO FT4 Routine 05/30/2025 8 :36 AM EDT FERRITIN Routine 05/30/2025 8:36 AM EDT C-REACTIVE PROTEIN Routine 05/30/2025 8: 36 AM EDT IRON AND TOTAL IRON BINDING CAPACITY Routine 05/30/2025 8:36 AM EDT SLIDE REVIEW Routine 05/30/2025 8:36 AM EDT CBC WITH AUTO DIFFERENTIAL Routine 05/30/2025 8:36 AM EDT HEMOGLOBIN A1C Routine 05/30/2025 8:36 AM EDT PROTHROMBIN TIME-INR Routine 05/30/2025 8:36 AM EDT CHLAMYDIA/N. GONORRHOEAE AND T. VAGINALIS RNA, QUAL,TMA Routine 05/29/2025 9:29 AM EDT Screening examination for venereal disease PAP SMEAR Routine 05/29/2025 9:29 AM EDT Post-menopausal bleeding POCT URINALYSIS DIPSTICK Routine 05/29/2025 9:29 AM EDT Urinary symptom or sign HPV DNA, LOW/HIGH RISK Routine 9:29 AM EDT BACTERIAL VAGINOSIS PANEL Routine 05/29/2025 9:29 AM EDT Vaginal discharge CULTURE, URINE, ROUTINE Routine 05/29/20 9:29 AM EDT Urinary symptom or sign AMB REFERRAL TO GASTROENTEROLOGY Routine 05/03/2025 Rectal bleed BI MAMMOGRAM SCREENING TOMOSYNTHESIS BILATERAL Routine 04/18/2025 Screening mammogram for breast cancer HM LUNG CANCER SCREENING Routine 10/30/2024 11:03 AM EST LIPID PANEL, STANDARD Routine 10/11/2024 10:34 AM EST Degeneration of intervertebral disc of lumbar region with discogenic back pain HM COLONOSCOPY Routine 07/30/2022 from Last 3 Months or Most Recently Relevant to Health Maintenance Results * FL Esophagus Barium Swallow w/Air (07/20/2025 8:00 AM EDT) Anatomical Region Laterality Modality Head, Neck Radiographic Ely ging 07/20/2025 8:00 AM EDT Narrative 07/20/2025 10:43 AM EDT [address] [address] Fluoroscopy Report Signed Patient: Maribel Dong MR#: [id number] 38 : 1955 Acct:[id number] Age/Sex: 69 / F ADM Date: 07/20/25 Loc: [facility]NAC[facility] Attending Dr: Cherelle Montana CNP Ordering Physician: Cherelle Montana CNP Date of Service: 07/20/25 Procedure(s): FL barium swallow with air Accession Number(s): [id number] cc: Indra Eason MD; Cherelle Montana CNP EXAMINATION: XR FLUOROSCOPY BARIUM SWALLOW CLINICAL INFORMATION: Epigastric pain, GERD COMPARISON: None TECHNIQUE: Fluoroscopic air contrast barium swallow examination was performed utilizing standard techniques with thin and thick barium and effervescent granules. Numerous spot images were obtained. Several fluoroscopic image hold cine sequences were also obtained. FINDINGS: Study was somewhat limited as the patient was unable to tolerate prone positioning. The patient also had difficulty retaining the effervescent granule gas. ESOPHAGRAM: Lateral cine images of the oropharynx and hypopharynx demonstrate normal swallow mechanism with normal epiglottic inversion and soft palate elevation. No laryngeal penetration, glottic or subglottic aspiration identified. No nasopharyngeal reflux present. Hypopharyngeal structures appear normal without evidence of mass or diverticulum. There was mild cricopharyngeal achalasia. Dual and single contrast images of the esophagus demonstrate normal caliber, contour, and mucosal pattern. No evidence of stricture, mass, or ulcerations identified. Esophageal peristalsis was moderately disordered. Small type I hiatus hernia present. Gastroesophageal reflux identified to the level of the thoracic inlet. Images of the stomach were somewhat limited due to patient inability to retain the effervescent granule gas. There was normal contour and gastric mucosal pattern without evidence of mass or gross ulceration. Mildly thickened gastric rugal folds. Contrast freely passed into the gastric antrum and duodenal bulb without delay. Single and air-contrast images of the duodenal bulb demonstrate no abnormality. The duodenal sweep has a normal course. FLUOROSCOPY TIME: 2 minutes, 17 seconds Number of Spot Images:6 Number of cines obtained: 9 DOSE AREA PRODUCT: 1864 uGy-m2 (microgray-meter squared) FL/FL barium swallow with air IMPRESSION: 1. Mild cricopharyngeal achalasia. 2. Moderately disordered esophageal peristalsis. 3. Small type I hiatal hernia present. 4. Gastroesophageal reflux identified to the level of the thoracic inlet. 5. Somewhat limited examination of the stomach due to patient inability to retain the effervescent granule gas. Mildly thickened gastric rugal folds, may indicate gastritis. Electronically signed by: Lexa García MD 07/20/2025 10:40 AM EDT RP Dictated By: Lexa García MD Signed By: <Electronically signed by Lexa García MD in OV> 07/20/25 1040 DD/ 0800 TD/TT: 07/20/25 0820 Portrait Photographer: Procedure Note Donotuseinterpreter, Image - 07/20/2025 [place] [address] Fluoroscopy Report Signed Patient: Melissa Dong#: [id number] [birth year] : 5Acct:[id number] Age/Sex: 69 / FADM Date: 07/20/25 Loc: IGNACIO Attending Dr: Cherelle Montana CNP Ordering Physician: Cherelle Montana CNP Date of Service: 07/20/25 Procedure(s): FL barium swallow with air Accession Number(s): [id number] cc: Indra Eason MD; Cherelle Montana CNP EXAMINATION: XR FLUOROSCOPY BARIUM SWALLOW CLINICAL INFORMATION: Epigastric pain, GERD COMPARISON: None TECHNIQUE: Fluoroscopic air contrast barium swallow examination was performed utilizing standard techniques with thin and thick barium and effervescent granules. Numerous spot images were obtained. Several fluoroscopic image hold cine sequences were also obtained. FINDINGS: Study was somewhat limited as the patient was unable to tolerate prone positioning. The patient also had difficulty retaining the effervescent granule gas. ESOPHAGRAM: Lateral cine images of the oropharynx and hypopharynx demonstrate normal swallow mechanism with normal epiglottic inversion and soft palate elevation. No laryngeal penetration, glottic or subglottic aspiration identified. No nasopharyngeal reflux present. Hypopharyngeal structures appear normal without evidence of mass or diverticulum. There was mild cricopharyngeal achalasia. Dual and single contrast images of the esophagus demonstrate normal caliber, contour, and mucosal pattern. No evidence of stricture, mass, or ulcerations identified. Esophageal peristalsis was moderately disordered. Small type I hiatus hernia present. Gastroesophageal reflux identified to the level of the thoracic inlet. Images of the stomach were somewhat limited due to patient inability to retain the effervescent granule gas. There was normal contour and gastric mucosal pattern without evidence of mass or gross ulceration. Mildly thickened gastric rugal folds. Contrast freely passed into the gastric antrum and duodenal bulb without delay. Single and air-contrast images of the duodenal bulb demonstrate no abnormality. The duodenal sweep has a normal course. FLUOROSCOPY TIME: 2 minutes, 17 seconds Number of Spot Images:6 Number of cines obtained: 9 DOSE AREA PRODUCT: 1864 uGy-m2 (microgray-meter squared) FL/FL barium swallow with air IMPRESSION: 1. Mild cricopharyngeal achalasia. 2. Moderately disordered esophageal peristalsis. 3. Small type I hiatal hernia present. 4. Gastroesophageal reflux identified to the level of the thoracic inlet. 5. Somewhat limited examination of the stomach due to patient inability to retain the effervescent granule gas. Mildly thickened gastric rugal folds, may indicate gastritis. Electronically signed by: Leax García MD 07/20/2025 10:40 AM EDT RP Dictated By: Lexa García MD Signed By: <Electronically signed by Lexa García MD in OV> 07/20/25 1040 DD/ 0800 TD/TT: 07/20/25 0820 Portrait Photographer: [facility] External Provider IMG FLU OROSCOPY PROCEDURES Final Result * POCT Creatinine GFR (06/25/2025 2:05 PM EDT) POCT Creatinine 0.6 0.5 - 1.4 mg/dL [facility] GFR POC >60 [facility] Comment:Chronic Kidney Disea se: Estimated GFR < 60 mL/min/1.26j8Pgtuwg Kidney Disease: Estimated GFR < 15 mL/min/1.73m2 06/25/2025 2:05 PM EDT 06/25/2025 4:12 PM EDT Narrative [facility] - 06/25/2025 4:12 PM EDT [id number] Generic External Data Provider LAB POINT OF CARE TEST DOCKED DEVICE ORDERABLES Final Result [facility] [address] [place] [phone] * CT Abdomen Pelvis w/ Contrast (06/25/2025 2:05 PM EDT) Anatomical Region Laterality Modality Body, Pelvis, Abdomen Computed T omography 06/25/2025 2:05 PM EDT Narrative 06/25/2025 2:48 PM EDT [address] [address] [address] Scan Report Signed Patient: Maribel Dong MR#: [id number] 38 : 1955 Acct:[id number] Age/Sex: 69 / F ADM Date: 06/25/25 Loc: HO.CT Attending Dr: Cherelle Montana CNP Ordering Physician: Cherelle Montana CNP Date of Service: 06/25/25 Procedure(s): CT abdomen pelvis w IV con Accession Number(s): [id number] cc: Indra Eason MD; Cherelle Montana CNP Report Number: [id number]: Total DLP = 393.00 mGy-cm EXAMINATION: CT CHEST WITH IV CONTRAST, CT ABDOMEN PELVIS WITH IV CONTRAST INDICATION: R22.2 - Localized swelling, mass and lump, trunk. Hemorrhage of anus and rectum. COMPARISON: Correlation is made with PA and lateral views of the chest dated 05/30/2025.. TECHNIQUE: CT scan of the chest, abdomen and pelvis was performed following administration of 85 mL Omnipaque 350 using standard departmental protocol. Coronal and sagittal reformatted images were generated and reviewed. The patient received oral contrast material. This CT exam was performed with one or more of the following dose reduction techniques: automated exposure control, adjustment of the mA and/or kV according to patient size, use of iterative reconstruction technique. CHEST: THYROID: The thyroid is unremarkable. LUNGS: The lungs are clear. MEDIASTINUM: There is no mediastinal lymphadenopathy. RESHMA: There is no hilar lymphadenopathy. CARDIOVASCULATURE: The heart is normal in size. There is no pericardial effusion. The thoracic aorta is normal in caliber. DEGREE OF CORONARY CALCIFICATION: not evaluable, due to dense contrast in the coronary arteries PLEURA: There is no pleural effusion. No pneumothorax. MAIN AIRWAYS: The mainstem bronchi and proximal branches are patent. AXILLA: There is no axillary lymphadenopathy. 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 BONES: The bones are intact. ABDOMEN: LIVER: The liver is normal in size and contour. No liver mass is identified. The hepatic and portal veins are patent. GALLBLADDER / BILE DUCTS: The gallbladder is surgically absent. There is no intra or extrahepatic biliary ductal dilatation. SPLEEN: The spleen is normal in size. No focal splenic lesion is identified. PANCREAS: The pancreas is unremarkable in appearance. ADRENAL GLANDS: The right adrenal gland is unremarkable. There is a 2.4 cm left adrenal mass. KIDNEYS/RETROPERITONEUM: There is a horseshoe kidney. No renal calculi are identified. There is no hydronephrosis. No renal masses are identified. LYMPH NODES: No abdominal or pelvic lymphadenopathy. VASCULATURE: The abdominal aorta demonstrates atherosclerotic calcification, but is normal in caliber. MESENTERY/PERITONEUM: No free fluid. No masses. There is no free intraperitoneal gas. STOMACH: The stomach is unremarkable. SMALL BOWEL: The small bowel is normal in caliber. COLON: There is diverticulosis of the sigmoid colon. Evaluation is somewhat limited due to streak artifact from a left total hip arthroplasty. However, no obvious pericolonic inflammatory changes are identified. APPENDIX: Normal. URINARY BLADDER/PELVIC ORGANS: The urinary bladder is collapsed, limiting detailed evaluation. The uterus is partially obscured by streak artifact. BONES / SOFT TISSUES: There is a left inguinal hernia containing unobstructed loop of small bowel. There is degenerative disc disease of the spine. CT/CT abdomen pelvis w IV con IMPRESSION: 1. 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 2. 2.4 cm left adrenal mass. In the absence of a known primary malignancy, this likely represents an adenoma. If there is a known primary malignancy, adrenal protocol CT is recommended. 3. Horseshoe kidney. 4. Left inguinal hernia containing unobstructed loops of small bowel. 5. Sigmoid diverticulosis without definite evidence of diverticulitis. Electronically signed by: Yunior Martinez MD 06/25/2025 02:45 PM EDT RP Dictated By: Yunior Martinez MD Signed By: <Electronically signed by Yunior Martinez MD in OV> 06/25/25 1445 DD/ 1405 TD/TT: 06/25/25 1431 Portrait Photographer: Procedure Note Donotuseinterpreter, Image - 06/25/[address] [address] [address] Scan Report Signed Patient: Melissa Dong#: [id number] [birth year] : 5Acct:[id number] Age/Sex: 69 / FADM Date: 06/25/25 Loc: HO.CT Attending Dr: Cherelle Montana CNP Ordering Physician: Cherelle Montana CNP Date of Service: 06/25/25 Procedure(s): CT abdomen pelvis w IV con Accession Number(s): [id number] cc: Indra Eason MD; Cherelle Montana CNP Report Number: [id number]: Total DLP = 393.00 mGy-cm EXAMINATION: CT CHEST WITH IV CONTRAST, CT ABDOMEN PELVIS WITH IV CONTRAST INDICATION: R22.2 - Localized swelling, mass and lump, trunk. Hemorrhage of anus and rectum. COMPARISON: Correlation is made with PA and lateral views of the chest dated 05/30/2025.. TECHNIQUE: CT scan of the chest, abdomen and pelvis was performed following administration of 85 mL Omnipaque 350 using standard departmental protocol. Coronal and sagittal reformatted images were generated and reviewed. The patient received oral contrast material. This CT exam was performed with one or more of the following dose reduction techniques: automated exposure control, adjustment of the mA and/or kV according to patient size, use of iterative reconstruction technique. CHEST: THYROID: The thyroid is unremarkable. LUNGS: The lungs are clear. MEDIASTINUM: There is no mediastinal lymphadenopathy. RESHMA: There is no hilar lymphadenopathy. CARDIOVASCULATURE: The heart is normal in size. There is no pericardial effusion. The thoracic aorta is normal in caliber. DEGREE OF CORONARY CALCIFICATION: not evaluable, due to dense contrast in the coronary arteries PLEURA: There is no pleural effusion. No pneumothorax. MAIN AIRWAYS: The mainstem bronchi and proximal branches are patent. AXILLA: There is no axillary lymphadenopathy. 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 BONES: The bones are intact. ABDOMEN: LIVER: The liver is normal in size and contour. No liver mass is identified. The hepatic and portal veins are patent. GALLBLADDER / BILE DUCTS: The gallbladder is surgically absent. There is no intra or extrahepatic biliary ductal dilatation. SPLEEN: The spleen is normal in size. No focal splenic lesion is identified. PANCREAS: The pancreas is unremarkable in appearance. ADRENAL GLANDS: The right adrenal gland is unremarkable. There is a 2.4 cm left adrenal mass. KIDNEYS/RETROPERITONEUM: There is a horseshoe kidney. No renal calculi are identified. There is no hydronephrosis. No renal masses are identified. LYMPH NODES: No abdominal or pelvic lymphadenopathy. VASCULATURE: The abdominal aorta demonstrates atherosclerotic calcification, but is normal in caliber. MESENTERY/PERITONEUM: No free fluid. No masses. There is no free intraperitoneal gas. STOMACH: The stomach is unremarkable. SMALL BOWEL: The small bowel is normal in caliber. COLON: There is diverticulosis of the sigmoid colon. Evaluation is somewhat limited due to streak artifact from a left total hip arthroplasty. However, no obvious pericolonic inflammatory changes are identified. APPENDIX: Normal. URINARY BLADDER/PELVIC ORGANS: The urinary bladder is collapsed, limiting detailed evaluation. The uterus is partially obscured by streak artifact. BONES / SOFT TISSUES: There is a left inguinal hernia containing unobstructed loop of small bowel. There is degenerative disc disease of the spine. CT/CT abdomen pelvis w IV con IMPRESSION: 1. 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 2. 2.4 cm left adrenal mass. In the absence of a known primary malignancy, this likely represents an adenoma. If there is a known primary malignancy, adrenal protocol CT is recommended. 3. Horseshoe kidney. 4. Left inguinal hernia containing unobstructed loops of small bowel. 5. Sigmoid diverticulosis without definite evidence of diverticulitis. Electronically signed by: Yunior Martinez MD 06/25/2025 02:45 PM EDT RP Dictated By: Ynuior Martinez MD Signed By: <Electronically signed by Yunior Martinez MD in OV> 06/25/25 1445 DD/ 1405 TD/TT: 06/25/25 1431 Portrait Photographer: [facility] External Provider IMG CT PROCEDURES Final Result * CT Chest w/ Contrast (06/25/2025 2:05 PM EDT) Anatomical Region Laterality Modality Body, Chest Computed Tomogra phy 06/25/2025 2:05 PM EDT Narrative 06/25/2025 2:48 PM EDT [place] [address] CT Scan Report Signed Patient: Maribel Dong MR#: [id number] 38 : 1955 Acct:[id number] Age/Sex: 69 / F ADM Date: 06/25/25 Loc: HO.CT Attending Dr: Cherelle Montana CNP Ordering Physician: Cherelle Montana CNP Date of Service: 06/25/25 Procedure(s): CT chest w IV con Accession Number(s): [id number] cc: Indra Eason MD; Cherelle Montana CNP Report Number: [id number]: Total DLP = 504.00 mGy-cm EXAMINATION: CT CHEST WITH IV CONTRAST, CT ABDOMEN PELVIS WITH IV CONTRAST INDICATION: R22.2 - Localized swelling, mass and lump, trunk. Hemorrhage of anus and rectum. COMPARISON: Correlation is made with PA and lateral views of the chest dated 05/30/2025.. TECHNIQUE: CT scan of the chest, abdomen and pelvis was performed following administration of 85 mL Omnipaque 350 using standard departmental protocol. Coronal and sagittal reformatted images were generated and reviewed. The patient received oral contrast material. This CT exam was performed with one or more of the following dose reduction techniques: automated exposure control, adjustment of the mA and/or kV according to patient size, use of iterative reconstruction technique. CHEST: THYROID: The thyroid is unremarkable. LUNGS: The lungs are clear. MEDIASTINUM: There is no mediastinal lymphadenopathy. RESHMA: There is no hilar lymphadenopathy. CARDIOVASCULATURE: The heart is normal in size. There is no pericardial effusion. The thoracic aorta is normal in caliber. DEGREE OF CORONARY CALCIFICATION: not evaluable, due to dense contrast in the coronary arteries PLEURA: There is no pleural effusion. No pneumothorax. MAIN AIRWAYS: The mainstem bronchi and proximal branches are patent. AXILLA: There is no axillary lymphadenopathy. 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 BONES: The bones are intact. ABDOMEN: LIVER: The liver is normal in size and contour. No liver mass is identified. The hepatic and portal veins are patent. GALLBLADDER / BILE DUCTS: The gallbladder is surgically absent. There is no intra or extrahepatic biliary ductal dilatation. SPLEEN: The spleen is normal in size. No focal splenic lesion is identified. PANCREAS: The pancreas is unremarkable in appearance. ADRENAL GLANDS: The right adrenal gland is unremarkable. There is a 2.4 cm left adrenal mass. KIDNEYS/RETROPERITONEUM: There is a horseshoe kidney. No renal calculi are identified. There is no hydronephrosis. No renal masses are identified. LYMPH NODES: No abdominal or pelvic lymphadenopathy. VASCULATURE: The abdominal aorta demonstrates atherosclerotic calcification, but is normal in caliber. MESENTERY/PERITONEUM: No free fluid. No masses. There is no free intraperitoneal gas. STOMACH: The stomach is unremarkable. SMALL BOWEL: The small bowel is normal in caliber. COLON: There is diverticulosis of the sigmoid colon. Evaluation is somewhat limited due to streak artifact from a left total hip arthroplasty. However, no obvious pericolonic inflammatory changes are identified. APPENDIX: Normal. URINARY BLADDER/PELVIC ORGANS: The urinary bladder is collapsed, limiting detailed evaluation. The uterus is partially obscured by streak artifact. BONES / SOFT TISSUES: There is a left inguinal hernia containing unobstructed loop of small bowel. There is degenerative disc disease of the spine. CT/CT chest w IV con IMPRESSION: 1. 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 2. 2.4 cm left adrenal mass. In the absence of a known primary malignancy, this likely represents an adenoma. If there is a known primary malignancy, adrenal protocol CT is recommended. 3. Horseshoe kidney. 4. Left inguinal hernia containing unobstructed loops of small bowel. 5. Sigmoid diverticulosis without definite evidence of diverticulitis. Electronically signed by: Yunior Martinez MD 06/25/2025 02:45 PM EDT RP Dictated By: Yunior Martinez MD Signed By: <Electronically signed by Yunior Martinez MD in OV> 06/25/25 1445 DD/ 1405 TD/TT: 06/25/25 1427 Portrait Photographer: Procedure Note Donotuseinterpreter, Image - 06/25/[address] [place] [address] [address] Scan Report Signed Patient: Melissa Dong#: [id number] 38 : 5Acct:[id number] Age/Sex: 69 / FADM Date: 06/25/25 Loc: HO.CT Attending Dr: Cherelle Montana CNP Ordering Physician: Cherelle Montana CNP Date of Service: 06/25/25 Procedure(s): CT chest w IV con Accession Number(s): [id number] cc: Indra Eason MD; Cherelle Montana CNP Report Number: [id number]: Total DLP = 504.00 mGy-cm EXAMINATION: CT CHEST WITH IV CONTRAST, CT ABDOMEN PELVIS WITH IV CONTRAST INDICATION: R22.2 - Localized swelling, mass and lump, trunk. Hemorrhage of anus and rectum. COMPARISON: Correlation is made with PA and lateral views of the chest dated 05/30/2025.. TECHNIQUE: CT scan of the chest, abdomen and pelvis was performed following administration of 85 mL Omnipaque 350 using standard departmental protocol. Coronal and sagittal reformatted images were generated and reviewed. The patient received oral contrast material. This CT exam was performed with one or more of the following dose reduction techniques: automated exposure control, adjustment of the mA and/or kV according to patient size, use of iterative reconstruction technique. CHEST: THYROID: The thyroid is unremarkable. LUNGS: The lungs are clear. MEDIASTINUM: There is no mediastinal lymphadenopathy. RESHMA: There is no hilar lymphadenopathy. CARDIOVASCULATURE: The heart is normal in size. There is no pericardial effusion. The thoracic aorta is normal in caliber. DEGREE OF CORONARY CALCIFICATION: not evaluable, due to dense contrast in the coronary arteries PLEURA: There is no pleural effusion. No pneumothorax. MAIN AIRWAYS: The mainstem bronchi and proximal branches are patent. AXILLA: There is no axillary lymphadenopathy. 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 BONES: The bones are intact. ABDOMEN: LIVER: The liver is normal in size and contour. No liver mass is identified. The hepatic and portal veins are patent. GALLBLADDER / BILE DUCTS: The gallbladder is surgically absent. There is no intra or extrahepatic biliary ductal dilatation. SPLEEN: The spleen is normal in size. No focal splenic lesion is identified. PANCREAS: The pancreas is unremarkable in appearance. ADRENAL GLANDS: The right adrenal gland is unremarkable. There is a 2.4 cm left adrenal mass. KIDNEYS/RETROPERITONEUM: There is a horseshoe kidney. No renal calculi are identified. There is no hydronephrosis. No renal masses are identified. LYMPH NODES: No abdominal or pelvic lymphadenopathy. VASCULATURE: The abdominal aorta demonstrates atherosclerotic calcification, but is normal in caliber. MESENTERY/PERITONEUM: No free fluid. No masses. There is no free intraperitoneal gas. STOMACH: The stomach is unremarkable. SMALL BOWEL: The small bowel is normal in caliber. COLON: There is diverticulosis of the sigmoid colon. Evaluation is somewhat limited due to streak artifact from a left total hip arthroplasty. However, no obvious pericolonic inflammatory changes are identified. APPENDIX: Normal. URINARY BLADDER/PELVIC ORGANS: The urinary bladder is collapsed, limiting detailed evaluation. The uterus is partially obscured by streak artifact. BONES / SOFT TISSUES: There is a left inguinal hernia containing unobstructed loop of small bowel. There is degenerative disc disease of the spine. CT/CT chest w IV con IMPRESSION: 1. 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 2. 2.4 cm left adrenal mass. In the absence of a known primary malignancy, this likely represents an adenoma. If there is a known primary malignancy, adrenal protocol CT is recommended. 3. Horseshoe kidney. 4. Left inguinal hernia containing unobstructed loops of small bowel. 5. Sigmoid diverticulosis without definite evidence of diverticulitis. Electronically signed by: Yunior Martinez MD 06/25/2025 02:45 PM EDT Dictated By: Yunior Martinez MD Signed By: <Electronically signed by Yunior Martinez MD in OV> 06/25/25 1445 DD/ 1405 TD/TT: 06/25/25 1427 Portrait Photographer: [facility] External Provider IMG CT PROCEDURES Final Result * CT ABD/PELVIS W/O + W/ IV CONTRAST (06/25/2025 11:10 AM EDT) Anatomical Region Laterality Modality Body, Pelvis, Abdomen Computed T omography Historical Provider IMRadha CT PROCEDURES Final R esult * US Pelvis Transvaginal (06/04/2025 3:09 PM EDT) Anatomical Region Laterality Modality Pelvis Ultrasound 06/04/2025 3:09 PM EDT Narrative 06/04/2025 3:10 PM EDT [address] [address] Ultrasound Report Signed Patient: Maribel Dong MR#: [id number] 38 : 1955 Acct:[id number] Age/Sex: 69 / F ADM Date: 06/04/25 Loc: HO.US Attending Dr: Dennys Mae CNM Ordering Physician: DENNYS MAE CNM Date of Service: 06/04/25 Procedure(s): US pelvic and transvaginal Accession Number(s): [id number] cc: Indra Eason MD; DENNYS MAE CNM CLINICAL HISTORY: postmenopausal bleeding Ultrasound of the female pelvis Comparison: None Technique: Grayscale ultrasound with assistance of color Doppler. Transabdominal scanning performed for overall anatomy. Transvaginal scanning performed for better anatomic delineation. Findings: Anteverted atrophic uterus, measuring 5.2 x 2.1 x 4.7 cm, 6 mm calcification of anterior uterine body may reflect small calcified fibroid. Atrophic endometrium, minimal fluid in the fundal endometrium, endometrium excluding fluid measures less than 3 mm in thickness, no focal lesion or abnormal vascular flow. Unremarkable cervix. Ovaries are not seen, no adnexal mass. No free fluid. Impression: Atrophic uterus and endometrium, minimal endometrial fluid. Nonvisualization of the ovaries. This document has been electronically signed by: Faviola Thakkar MD on 06/04/2025 15:09:13 Dictated By: Faviola Thakkar MD Signed By: <Electronically signed by Faviola Thakkar MD in OV> 06/04/25 1510 DD/ 1509 TD/TT: 06/04/25 1509 Portrait Photographer: Procedure Note Donotuseinterpreter, Image - 06/04/2025 [place] [address] Ultrasound Report Signed Patient: Melissa Dong#: [id number] 38 : 5Acct:[id number] Age/Sex: 69 / FADM Date: 06/04/25 Loc: HO.US Attending Dr: Dennys Mae CNM Ordering Physician: DENNYS MAE CNM Date of Service: 06/04/25 Procedure(s): US pelvic and transvaginal Accession Number(s): [id number] cc: Indra Eason MD; DENNYS MAE CNM CLINICAL HISTORY: postmenopausal bleeding Ultrasound of the female pelvis Comparison: None Technique: Grayscale ultrasound with assistance of color Doppler. Transabdominal scanning performed for overall anatomy. Transvaginal scanning performed for better anatomic delineation. Findings: Anteverted atrophic uterus, measuring 5.2 x 2.1 x 4.7 cm, 6 mm calcification of anterior uterine body may reflect small calcifiedfibroid. Atrophic endometrium, minimal fluid in the fundal endometrium, endometrium excluding fluid measures less than 3 mm in thickness, no focal lesion or abnormal vascular flow. Unremarkable cervix. Ovaries are not seen, no adnexal mass. No free fluid. Impression: Atrophic uterus and endometrium, minimal endometrial fluid. Nonvisualization of the ovaries. This document has been electronically signed by: Faviola Thakkar MD on 06/04/2025 15:09:13 Dictated By: Faviola Thakkar MD Signed By: <Electronically signed by Faviola Thakkar MD in OV> 06/04/25 1510 DD/ 1509 TD/TT: 06/04/25 1509 Portrait Photographer: us Dennys BARCENAS IMG US PROCEDURES Final R esult * XR Knee 3 Views Right (05/30/2025 9:00 AM EDT) Anatomical Region Laterality Modality Lower Extremities, Knee Right [facility] 05/30/2025 9:00 AM EDT Narrative 05/30/2025 2:48 PM EDT [place] [address] XRay Report Signed Patient: Maribel Dong MR#: [id number] 38 : 1955 Acct:[id number] Age/Sex: 69 / F ADM Date: 05/30/25 Loc: HO.LAB Attending Dr: Cherelle Montana HAND GLASS CUTTER Ordering Physician: Indra Eason MD Date of Service: 05/30/25 Procedure(s): XR knee RT 3V Accession Number(s): [id number] cc: Indra Eason MD EXAMINATION: XR KNEE, RIGHT CLINICAL INFORMATION: right knee pain COMPARISON: None available. TECHNIQUE: AP lateral and sunrise of the right knee. FINDINGS: There is a joint effusion. There is severe narrowing of the lateral joint space with remodeling. There are large marginal osteophytes, 3 compartment. Osteopenia is noted. 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 Electronically signed by: Javan Davis MD 05/30/2025 02:46 PM EDT RP Dictated By: Javan Davis MD Signed By: <Electronically signed by Javan Davis MD in OV> 05/30/25 1446 DD/ 9 TD/TT: 05/30/25 0914 Portrait Photographer: Procedure Note Donotuseinterpreter, Image - 05/30/2025 [place] [address] XRay Report Signed Patient: Melissa Dong#: [id number] 38 : 5Acct:[id number] Age/Sex: 69 / FADM Date: 05/30/25 Loc: HO.LAB Attending Dr: Cherelle Montana [facility] Ordering Physician: Indra Eason MD Date of Service: 05/30/25 Procedure(s): XR knee RT 3V Accession Number(s): [id number] cc: Indra Eason MD EXAMINATION: XR KNEE, RIGHT CLINICAL INFORMATION: right knee pain COMPARISON: None available. TECHNIQUE: AP lateral and sunrise of the right knee. FINDINGS: There is a joint effusion. There is severe narrowing of the lateral joint space with remodeling. There are large marginal osteophytes, 3 compartment. Osteopenia is noted. 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 Electronically signed by: Javan Davis MD 05/30/2025 02:46 PM EDT RP Dictated By: Javan Davis MD Signed By: <Electronically signed by Javan Davis MD in OV> 05/30/25 1446 DD/ 9 TD/TT: 05/30/25913 Portrait Photographer: us Indra Eason MD IMG XR PROCEDURES Final Res ult * XR Hip 2 or 3 Views Left (05/30/2025 9:00 AM EDT) Anatomical Region Laterality Modality Lower Extremities, Hip Left Radiograp hic Imaging 05/30/2025 9:00 AM EDT Narrative 05/30/2025 2:50 PM EDT [address] [address] XRay Report Signed Patient: Maribel Dong MR#: [id number] 38 : 1955 Acct:[id number] Age/Sex: 69 / F ADM Date: 05/30/25 Loc: HO.LAB Attending Dr: Cherelle Montana [facility] Ordering Physician: Indra Eason MD Date of Service: 05/30/25 Procedure(s): XR hip LT min 2V Accession Number(s): [id number] cc: Indra Eason MD EXAMINATION: XR HIP, LEFT CLINICAL INFORMATION: Left hip pain s/p Total hip replacement in 2017 COMPARISON: February 20, 2022 TECHNIQUE: Two views of the left hip. FINDINGS: Total hip arthroplasty is again noted. There is been no migration of the hardware. Acetabular cup is secured with a single screw. XR/XR hip LT min 2V IMPRESSION: Stable left hip replacement Electronically signed by: Javan Davis MD 05/30/2025 02:47 PM EDT Dictated By: Javan Davis MD Signed By: <Electronically signed by Javan Davis MD in OV> 05/30/25 1447 DD/ 9 TD/TT: 05/30/25913 Portrait Photographer: Procedure Note Donotuseinterpreter, Image - 05/30/[address] [address] XRay Report Signed Patient: Oseas DongR#: [id number] 38 : 5Acct:[id number] Age/Sex: 69 / FADM Date: 05/30/25 Loc: HO.LAB Attending Dr: Cherelle Montana CNP Ordering Physician: Indra Eason MD Date of Service: 05/30/25 Procedure(s): XR hip LT min 2V Accession Number(s): [id number] cc: Indra Eason MD EXAMINATION: XR HIP, LEFT CLINICAL INFORMATION: Left hip pain s/p Total hip replacement in 2017 COMPARISON: February 20, 2022 TECHNIQUE: Two views of the left hip. FINDINGS: Total hip arthroplasty is again noted. There is been no migration of the hardware. Acetabular cup is secured with a single screw. XR/XR hip LT min 2V IMPRESSION: Stable left hip replacement Electronically signed by: Javan Davis MD 05/30/2025 02:47 PM EDT Dictated By: Javan Davis MD Signed By: <Electronically signed by Javan Davis MD in OV> 05/30/25 1447 DD/ 09 TD/TT: 05/30/25 0914 Portrait Photographer: Indra Eason MD IMG XR PROCEDURES Final Res ult * XR Chest 2 Views (05/30/2025 9:00 AM EDT) Anatomical Region Laterality Modality Chest Radiographic [place] 05/30/2025 9:00 AM EDT Narrative 05/30/2025 2:52 PM EDT [address] [address] XRay Report Signed Patient: Maribel Dong MR#: [id number] 38 : 1955 Acct:[id number] Age/Sex: 69 / F ADM Date: 05/30/25 Loc: HO.LAB Attending Dr: Cherelle Montana CNP Ordering Physician: Cherelle Montana CNP Date of Service: 05/30/25 Procedure(s): XR chest 2V Accession Number(s): [id number] cc: Indra Eason MD; Cherelle [place] CNP EXAMINATION: XR CHEST CLINICAL INFORMATION: R63.4 - Abnormal weight loss COMPARISON: None available. TECHNIQUE: 2 views of the chest were obtained. FINDINGS: No significant abnormality is noted involving the heart, lungs, mediastinum, bony thorax or soft tissues. There is a dome-shaped mass along the posterior left hemidiaphragm XR/XR chest 2V IMPRESSION: Dome-shaped mass involving posterior left hemidiaphragm probably represents a Bochdalek hernia, eventration, or less likely a solid mass/neoplasm. Electronically signed by: Javan Davis MD 05/30/2025 02:50 PM EDT RP Dictated By: Javan Davis MD Signed By: <Electronically signed by Javan Davis MD in OV> 05/30/25 1450 DD/ 0900 TD/TT: 05/30/25 0914 Portrait Photographer: Procedure Note Donotuseinterpreter, Image - 05/30/2025 [place] [address] XRay Report Signed Patient: Melissa Dong#: [id number] 38 : 5Acct:[id number] Age/Sex: 69 / FADM Date: 05/30/25 Loc: HO.LAB Attending Dr: Cherelle Montana CNP Ordering Physician: Cherelle Montana CNP Date of Service: 05/30/25 Procedure(s): XR chest 2V Accession Number(s): [id number] cc: Indra Eason MD; Cherelle Montana CNP EXAMINATION: XR CHEST CLINICAL INFORMATION: R63.4 - Abnormal weight loss COMPARISON: None available. TECHNIQUE: 2 views of the chest were obtained. FINDINGS: No significant abnormality is noted involving the heart, lungs, mediastinum, bony thorax or soft tissues. There is a dome-shaped mass along the posterior left hemidiaphragm XR/XR chest 2V IMPRESSION: Dome-shaped mass involving posterior left hemidiaphragm probably represents a Bochdalek hernia, eventration, or less likely a solid mass/neoplasm. Electronically signed by: Javan Davis MD 05/30/2025 02:50 PM EDT RP Dictated By: Javan Davis MD Signed By: <Electronically signed by Javan Davis MD in OV> 05/30/25 1450 DD/ 0900 TD/TT: 05/30/25 0914 Portrait Photographer: [facility] External Provider IMG XR PROCEDURES Final Result * Slide Review (05/30/2025 8:36 AM EDT) Slide Review VERIFIED [facility] 05/30/2025 8:36 AM EDT 05/30/2025 8:36 AM EDT Generic External Data Provider LAB BLOOD ORDERAB LES Final Result [facility] [address] [place] [address] [phone] * Vitamin B12 (Cobalamin) and Folate Panel, Serum (05/30/2025 8:36 AM EDT) Vitamin B12 569 200 - 900 pg/mL [facility] Comment:NORMAL 200-900 PG/ML INDETERMINATE 160-199 PG/ML DEFICIENT < 160 PG/ML Folate 13.7 > or = 4.0 ng/mL [facility] Comment:Reference Values:> o r = 4.0 ng/mL< 4.0 ng/mL suggests folate deficiency Methotrexate, aminopterin and folinic acid(leucovorin) are chemotherapeutic agents whose molecularstructures are similar to folate; therefore, the Architectfolate assay cannot be used for patients using these drugs. 05/30/2025 8:36 AM EDT 05/30/2025 8:36 AM EDT Generic External Data Provider LAB BLOOD ORDERAB LES Final Result Performing Organization Address [facility] Co de Phone Number [facility] [address] [place] [phone] * TSH with Reflex to Free T4 (05/30/2025 8:36 AM EDT) Pathologist [facility] TSH reflex Free T4 1.58 0.32 - 4.0 uIU/mL [facility] 05/30/2025 8:36 AM EDT 05/30/2025 8:36 AM EDT Generic External Data Provider LAB BLOOD ORDERAB LES Final Result Performing Organization Address [facility] de Phone Number [facility] [address] [place] [address] [phone] * Hepatitis Panel, General (05/30/2025 8:36 AM EDT) [facility] Hepatitis A IgM Nonreactive Nonreactive [facility] Comment:IgM antibodies to FRANCOIS V not detected; does not exclude earlyacute or recovered HAV infection. ~Hepatitis B Surface Antibody REACTIVE Nonreactive [facility] Comment:REACTIVE: > 11.99 mI U/mL Hepatitis B Core Antibody Nonreactive Nonreactive [facility] Hepatitis C Antibody Nonreactive Nonreactive [facility] Comment:Antibodies to HCV no t detected; does not exclude early acuteHCV infection. Hepatitis B Surface Ag Negative Negative [facility] 05/30/2025 8:36 AM EDT 05/30/2025 8:36 AM EDT Generic External Data Provider LAB BLOOD ORDERAB LES Final Result Performing Organization Address [facility] Co de Phone Number [facility] [address] [place] [phone] * (ABNORMAL) CBC auto differential (05/30/2025 8:36 AM EDT) Pathologist [facility] White Blood Count 11.8(H) 4.8 - 10.8 X10*3/uL [facility] Red Blood Count 4.36 4.20 - 5.50 X10*6/uL [facility] Hemoglobin 13.6 12.0 - 16.0 g/dl [facility] Hematocrit 40.2 37.0 - 47.0 % [facility] Mean Corpuscular Volume 92.2 80.0 - 98.0 fL [facility] Mean Corpuscular Hemoglobin 31.2 27.0 - 33.0 pg [facility] Mean Corpuscular HGB Conc 33.8 31.0 - 35.0 g/dl [facility] Red Cell Distribution Width 13.1 11.0 - 16.0 % [facility] Platelet Count 277 160 - 400 X10*3/uL [facility] Mean Platelet Volume 9.7 9.4 - 12.3 fL [facility] Neutrophils Percent Auto 47.7 45 - 73 % [facility] Imm Gran Pct Auto 0.3 0.0 - 0.4 % [facility] Lymphocytes Percent Auto 42.0(H) 20 - 40 % [facility] Monocytes Percent Auto 7.5 2 - 11 % [facility] Eosinophils Percent Auto 1.9 0 - 4 % [facility] Basophils Percent Auto 0.6 0 - 2 % [facility] NRBC Pct Auto 0.0 0.0 - 0.2 /100WBC [facility] Neutrophils Absolute Auto 5.6 2.0 - 8.3 x10*3/uL [facility] Imm Gran Abs Auto 0.03 0.00 - 0.03 X10*3/uL [facility] Lymphocytes Absolute Auto 5.0(H) 1.2 - 4.9 X10*3/uL [facility] Monocytes Absolute Auto 0.9 0.1 - 1.2 X10*3/uL [facility] Eosinophils Absolute Auto 0.2 0.0 - 0.4 X10*3/uL [facility] Basophils Absolute Auto 0.1 0.0 - 0.2 X10*3/uL [facility] NRBC Abs Auto 0.000 0.0 - 0.012 X10*3/uL [facility] 05/30/2025 8:36 AM EDT 05/30/2025 8:36 AM EDT us Generic External Data Provider LAB BLOOD ORDERAB LES Edited Result - Final Performing Organization Address [facility] Co de Phone Number [facility] [address] [place] [phone] * Iron And Total Iron Binding Capacity (05/30/2025 8:36 AM EDT) Iron 53 30 - 160 mcg/dL [facility] Total Iron Binding Capacity 291 228 - 428 mcg/dL [facility] Percent Iron Saturation 18 15 - 50 % [facility] Unsaturated Iron Binding 238 ug/dL [facility] 05/30/2025 8:36 AM EDT 05/30/2025 8:36 AM EDT us Generic External Data Provider LAB BLOOD ORDERAB LES Final Result Performing Organization Address [facility] de Phone [facility] [address] [place] [phone] * Tissue Transglutaminase Antibody, IgA (05/30/2025 8:36 AM EDT) Transglutaminase IgA <1.0 U/mL [facility] Comment:Value Interpretation ----- <15.0 Antibody not detected> or = 15.0 Antibody detectedTHIS TEST WAS PERFORMED AT:[employer] [place] [phone] BOYER MD 05/30/2025 8:36 AM EDT 05/30/2025 8:36 AM EDT us Generic External Data Provider LAB BLOOD ORDERAB LES Final Result Performing Organization Address [facility] Co de Phone Number [facility] [address] [place] [phone] * HIV-1/2 Antigen and Antibodies, Fourth Generation, with Reflexes (05/30/2025 8:36 AM EDT) HIV AB/AG Nonreactive Nonreactive [facility] Comment:HIV-1 p24 Ag and/or HIV-1/HIV-2 Ab not detected.A test result that is nonreactive does not exclude thepossibility of exposure to or infection with HIV-1 and/orHIV-2. Nonreactive results in this assay for individualswith prior exposure to HIV-1 and/or HIV-2 may be due toantigen and antibody levels that are below the limit ofdetection of this assay.The 8020select HIV Ag/Ab Combo assay result andsupplemental assay results should be interpreted inconjunction with the patient's clinical presentation,history and other laboratory results. If the results areinconsistent with clinical evidence, additional testing issuggested to confirm the result. 05/30/2025 8:36 AM EDT 05/30/2025 8:36 AM EDT us Generic External Data Provider LAB BLOOD ORDERAB LES Final Result Performing Organization Address [facility] Co de Phone Number [facility] [address] [place] [phone] * (ABNORMAL) Prothrombin Time-INR (05/30/2025 8:36 AM EDT) Prothrombin Time 9.9(L) 10.9 - 12.4 SEC [facility] INTERNATIONAL NORM RATIO 0.9 0.9 - 1.1 [facility] Comment:INTERNATIONAL NORMAL IZED RATIO (INR) REFERENCE RANGES Reference RangeFor patients not on anticoagulant therapy: 0.9 - 1.1INR ranges for oral anticoagulanttherapy:For prevention and treatment of venous thrombosis and pulmonary embolism: 2.0 - 3.0For acute myocardial infarction with aspirin therapy: 2.0 - 3.0For acute myocardial infarction without aspirin therapy: 3.0 - 4.0For patients with mechanical prosthetic heart valves: 2.5 - 3.5 05/30/2025 8:36 AM EDT 05/30/2025 8:36 AM EDT us Generic External Data Provider LAB BLOOD ORDERAB LES Final Result Performing Organization Address [facility]/ZIP Co de Phone Number [facility] [address] [place] [phone] * C-reactive Protein (05/30/2025 8:36 AM EDT) C Reactive Protein 0.17 < or = 0.50 mg/dL [facility] 05/30/2025 8:36 AM EDT 05/30/2025 8:36 AM EDT Generic External Data Provider LAB BLOOD ORDERAB LES Final Result Performing Organization Address City/[facility] Co de Phone Number [facility] [address] [place] [phone] * Hemoglobin A1c (05/30/2025 8:36 AM EDT) Hemoglobin A1c 5.4 <6.0 % [facility] Comment:Hemoglobin A1C Refer ence Range Adults: 4.8 - 6.0 % Non diabetic: < 6.0 % Goal: < 7.0 %Additional Action Suggested: > 8.0 %Note: Hemoglobin A1c results are invalid for patients with abnormal amounts of HbF. Blood transfusions may impact the HbA1c concentration in the patient sample. Estimated Average Glucose 108 mg/dL [facility] Comment:eAG = Estimated ave rage glucose which is %A1C expressed asaverage glucose, using the formula of the R9E-UjkhyzwOalgskt Glucose study (ADAG), Diabetes Care, Vol.31,#8,Jun. 2007 05/30/2025 8:36 AM EDT 05/30/2025 8:36 AM EDT us Generic External Data Provider LAB BLOOD ORDERAB LES Final Result Performing Organization Address City/[facility]/ZIP Co de Phone Number [facility] [address] [place] [phone] * Ferritin (05/30/2025 8:36 AM EDT) Ferritin 80 10 - 250 ng/mL [facility] 05/30/2025 8:36 AM EDT 05/30/2025 8:36 AM EDT Generic External Data Provider LAB BLOOD ORDERAB LES Final Result Performing Organization Address [facility] Co de Phone Number [facility] [address] [place] [phone] * STI testing add on (NG, CT, Trich) (05/29/2025 9:29 AM EDT) Trichomonas (NAAT) NOT DETECTED NOT DETECTED [facility] Comment:The analytical perfo rmance characteristics of thisassay have been determined by [employer]. Themodifications have not been cleared or approved bythe FDA. This assay has been validated pursuant to theIA regulations and is used for clinical purposes.For additional information, please refer tohttp://education.[employer]/faq/Trichomonastma(This link is being provided for information/educational purposes only.)THIS TEST WAS PERFORMED AT:[employer] [place] [phone] BOYER MD CTNG Ref Lab NOT DETECTED NOT DETECTED [facility] NG Ref Lab NOT DETECTED NOT DETECTED [facility] ThinPrep vial Cervix uteri structure / Unknown 05/29/2025 9:29 AM EDT 05/30/2025 8:25 AM EDT Narrative [facility] - 05/31/2025 8:13 PM EDT Collection Date: [id number] by: ANN Dubon: Cervix us Dennys Jinni CNM LAB CYTOLOGY ORDERABLES F inal Result Performing Organization Address [facility]/ZIP Co de Phone Number [facility] [address] [place] [phone] * Bacterial Vaginosis Panel (05/29/2025 9:29 AM EDT) TRICHOMONAS VAGINALIS DETECTION BY PCR NOT DETECTED Not Detect [facility] BACTERIAL VAGINOSIS DETECTION BY PCR NEGATIVE Negative [facility] Comment:The BV organism targ ets of the Xpert Xpress MVP test can becommensal in women; Xpert Xpress MVP positive results forbacterial vaginosis should be considered in conjunction withother clinical and patient information to determine thedisease status. Organisms that are not detected by the XpertXpress MVP test have also been reported to be associatedwith BV and aerobic vaginitis.The Xpert Xpress MVP test performance has not been evaluatedin patients under the age of 14. QING GROUP DETECTION BY PCR NOT DETECTED Not Detect [facility] Qing glab krusei PCR NOT DETECTED Not Detect [facility] Swab Vaginal structure / Unknown 05/29/2025 9:29 AM EDT 05/29/2025 4:[address] [facility] MICROBIOLOGY - GENERA L ORDERABLES Final Result Performing Organization Address [facility] Co de Phone Number [facility] [address] [place] [phone] * HPV DNA, Low/High Risk (05/29/2025 9:29 AM EDT) HPV High Risk Negative Negative [facility] HPV Genotype 16 Negative Negative [facility] HPV Genotype 18 Negative Negative [facility] Comment:HPV testing performe d at [facility] (CLIA#[id number]), [address] [place] [phone].Testing for HPV was performed using the Jenna [employer]ESH 6800system. The presence of HPV in the female genital tract isassociated with a number of diseases, including cervicalcarcinoma. The HPV DNA high risk pool tests for HPV 31, 33,35, 39, 45, 51, 52, 56, 58, 59, 66 and 68. The testing forHPV 16 and 18 genotypes has also been performed. A positiveresult indicates detection of nucleic acid sequences fromone or more subtypes, whereas a negative result indicatessuch sequences were not detected. 05/29/2025 9:29 AM EDT 05/30/2025 8:25 AM EDT Dennys BARCENAS LAB BLOOD ORDERABLES Ashwini ugalde Result [facility] [address] [place] [address] [phone] * (ABNORMAL) POCT urinalysis dipstick manually resulted (05/29/2025 9:29 AM EDT) Color, UA Yellow Clarity, UA Clear Glucose, UA Negative Bilirubin, UA Negative Ketones, UA Negative Spec Grav, UA 1.005 Blood, UA Negative Negative, None Detected pH, UA 6.0 Protein, UA Negative Urobilinogen, UA 0.2 Leukocytes, UA Trace Negative, Rare, Trace Nitrite, UA Negative Negative, None Detected Appearance, UA clear QC Media Lot # [id number] Lot# Expiration Date [id number] Urine 05/29/2025 9:29 AM EDT Dennys Mae [facility] POINT OF CARE TEST ENTER/ EDIT ORDERABLES Final Result * Culture, Urine, Routine (05/29/2025 9:29 AM EDT) Urine Urine specimen obtained by clean catch procedure / Unknown 05/29/2025 9:29 AM EDT 05/29/2025 4:23 PM EDT Comment:UACC Narrative [facility] - 05/31/2025 10:29 AM EDT Urine Culture Report Result Urine Culture < 10,000 cfu/ml Specimen Source: Urine clean catch Dennys Mae CNM LAB MICROBIOLOGY - GENERA L ORDERABLES Final Result [facility] [address] [place] [phone] * Pap Smear (05/29/2025 9:29 AM EDT) Swab Cervix uteri structure / Unknown 05/29/2025 9:29 AM EDT 05/30/2025 8:25 AM EDT Narrative [facility] - 06/05/2025 12:33 PM EDT ----- ------- Name: Maribel Dong Age/Sex: 69/F : 1955 Unit#: [id number] Attend Dr: DENNYS MAE CNM Re05/29/25 Status: DEP REF Location: [facility] Disch: ----- ------- SPEC : [id number] RECD: 05/30/25 STATUS: CLIFF LOU NUM: [id number] CARLOS: 05/29/[address]: DENNYS MAE CNM ENTERED: 05/30/25 SP TYPE: Pap Smr OTHR : ORDERED: Pap Smear Interpretation Satisfactory for evaluation. Negative for intraepithelial lesion or malignancy. HPV High Risk: Negative HPV Genotyping 16: Negative HPV Genotyping 18: Negative Clinical Information LMP: Postmenopausal Previous PAP test: 2021, WNL Other history: Possible postmenopausal bleeding Material Received ThinPrep-Cervical PAP Disclaimer As of September 20, 2024, the technical services to include automated prescreening performed by the ThinPrep Imaging System, PAP screening and HPV testing will be performed at [facility] (CLIA #[id number]), [address] [place] [address]. Testing for HPV was performed using the [employer] system. The presence of HPV in the female genital tract is associated with a number of diseases, including cervical carcinoma. The HPV DNA high risk pool tests for HPV 31, 33, 35, 39, 45, 51, 52, 56, 58, 59, 66 and 68. The testing for HPV 16 and 18 genotypes has also been performed. A positive result indicates detection of nucleic acid sequences from one or more subtypes, whereas a negative result indicates such sequences were not detected. All professional services are performed by [facility] ([address] [place] [address]; ; CLIA #[id number]). The PAP Test is a screening procedure with the inherent possibility of both false negative and false positive results. Results should be interpreted in the context of historic and current clinical findings. Reliability of the PAP Test is enhanced by performing the test on a regular repetitive basis. ----- ------- Signed (signature on file) PATRICIA Cutler (ASC) 06/05/25 1233 ----- ------- END OF REPORT us Dennys Davinaudie [facility] LAB CYTOLOGY ORDERABLES F inal Result [facility] [address] [place] [phone] * Referral to Gastroenterology (05/03/2025) us Indra Eason MD OUTPATIENT REFERRAL ORDERAB LES Final Result * BI Mammogram Screening Tomosynthesis Bilateral (04/18/2025) Anatomical Region Laterality Modality Breast Bilateral Mammography us Indra Eason MD IMG BI PROCEDURES Final Res ult * Hm Lung Cancer Screning (10/30/2024 11:03 AM EST) Anatomical Region Laterality Modality Other us Historical Provider HEALTH MAINTENANCE Final Result * (ABNORMAL) Lipid Panel, Standard (10/11/2024 10:34 AM EST) Triglycerides 180(H) <150 mg/dL [facility] Comment:Desirable Triglyceri de: less than 150 mg/dLBorderline High Triglyceride 150-199 mg/dLHigh Triglyceride: 200-499 mg/dLVery High Triglyceride: greater than or equal to 5OO mg/dL Cholesterol 153 <200 mg/dL [facility] Comment:Desirable Cholestero l: less than 200 mg/dLBorderline High Cholesterol: 200-239 mg/dLHigh Cholesterol: greater than 239 mg/dL LDL Cholesterol Calculated 70 <100 mg/dL [facility] Comment:Desirable LDL: less than 100 mg/dLNear [...] 10:34 AM EST 10/11/2024 2:19 PM EST Indra Eason MD LAB BLOOD ORDERABLES Final Result Performing Organization Address City/State/[facility] Co de Phone Number [facility] [address] [place] [phone] * Hm Colonoscopy (07/30/2022) Colonoscopy Performed us Historical Provider HEALTH MAINTENANCE Final Result from Last 3 Months or Most Recently Relevant to Health Maintenance Insurance [facility] PPO N FULL Care Teams Research Epidemiologist Relationship Specialty Start Date End Date Indra Eason MD [address] [place] [phone] PCP - General Internal Medicine 06/12/21
--- OUTSIDE RECORDS SUMMARY | 2025-07-31 12:13 | XMS_ITS | Encounter Summary ---
Author Organization [employer] [facility] Address [address] [place] [address] [address] [place] [address] Care Team Providers Care Archival Records Clerk Name Role Phone Indra Eason MD Primary Care Provider [phone] Reason for Visit * Reason Comments Med Refill Encounter Details Date Type Department Care Team ([facility] Contact Info) Description 07/27/2023 Refill [facility] MED & PEDS [address] [place], [place] [phone] Indra Eason MD [address] [place], [place] [phone] Social History Tobacco Use Types Packs/Day Years [...] Upcoming Encounters Date Type Department Care Team ([facility] Contact Info) Description 08/09/2025 9:30 AM EDT Office Visit [facility] MED & PEDS [address] [place], [place] [phone] Indra Eason MD [address] [place], [place] [phone] documented as of this encounter Visit Diagnoses Not on filedocumented in this encounter Additional Health Concerns Assessment Noted Time PHQ-9 Depression Total Score: 9 11/19/20 22 11:13 AM EST documented as of this encounter Care Teams Archival Records Clerk Relationship Specialty Start Date End Date Indra Eason MD [address] [place] [phone] PCP - General Internal Medicine 06/12/21 documented as of this encounter
--- OUTSIDE RECORDS SUMMARY | 2025-07-31 12:13 | XMS_ITS | Encounter Summary ---
Author Organization [employer] Address [address] [facility] [address] [place] [address] Care Team Providers Care Lathe Hand Name Role Phone Indra Eason MD Primary Care Provider Encounter Details Date Type Department Care Team (Late st Contact Info) Description 03/17/2024 Orders Only [facility] [address] [place], [place] [phone] Indra Eason MD [address] [place], [place] [phone] Depressive disorder (Primary Dx) Social History Tobacco [...] Upcoming Encounters Date Type Department Care Team ([facility] st Contact Info) Description 08/09/2025 9:30 AM EDT Office Visit [facility] MED & PEDS [address] [place] [address] Indra Eason MD [address] [place] [address] documented as of this encounter Visit Diagnoses Diagnosis Depressive disorder- Primary Depressive disorder, not elsewhere classified documented in this encounter Additional Health Concerns Assessment Noted Time PHQ-9 Depression Total Score: 22 024 9:57 AM EDT documented as of this encounter Care Teams Lathe Hand Relationship Specialty Start Date End Date Indra Eason MD [address] [place] [phone] PCP - General Internal Medicine 06/12/21 documented as of this encounter
--- OUTSIDE RECORDS SUMMARY | 2025-07-31 12:13 | XMS_ITS | Encounter Summary ---
Author Organization [employer] Address [address] [facility] [address] [place] [address] Care Team Providers Care Salesperson Wigs Name Role Phone Indra Eason MD Primary Care Provider [phone] Encounter Details Date Type Department Care Team (Late st Contact Info) Description 11/02/2024 Orders Only [facility] [address] [place], [place] [phone] Provider, MD Maria Isabel Social History Tobacco [...] Description 08/09/2025 9:30 AM EDT Office Visit [facility] MED & PEDS [address] [place] [address] Indra Eason MD [address] [place] [address] documented as of this encounter Procedures Procedure Name Priority Date/Time Associated Diagnosis Comments LUNG CANCER SCREENING Routine 10/30/2024 11:03 AM EST documented in this encounter Results * Hm Lung Cancer Screning (10/30/2024 11:03 AM EST) Anatomical Region Laterality Modality Other Historical Provider HEALTH MAINTENANCE Final Result documented in this encounter Visit Diagnoses Not on filedocumented in this encounter Additional Health Concerns Assessment Noted Time PHQ-9 Depression Total Score: 14 024 10:06 AM EST documented as of this encounter Care Teams Salesperson Wigs Relationship Specialty Start Date End Date Indra Eason MD [address] [place] [address] PCP - General Internal Medicine 06/12/21 documented as of this encounter
--- OUTSIDE RECORDS SUMMARY | 2025-07-31 12:13 | XMS_ITS | Encounter Summary ---
Author Organization [employer] Address [address] [facility] [address] [place] [address] Care Team Providers Care Mattress Packer Name Role Phone Indra Eason MD Primary Care Provider Reason for Visit * Reason Comments Med Refill Encounter Details Date Type Department Care Team ([facility] st Contact Info) Description 09/22/2024 Refill [facility] MED[facility] [address] [place], [place] [phone] Alix Ayala CN [address] [place], [place] [phone] Social History Tobacco Use Types Packs/Day Years [...] [facility] st Contact Info) Description 08/09/2025 9:30 AM EDT Office Visit [facility] MED & PEDS [address] [place] [address] Indra Eason MD [address] [place] [address] documented as of this encounter Visit Diagnoses Not on filedocumented in this encounter Additional Health Concerns Assessment Noted Time PHQ-9 Depression Total Score: 15 024 9:23 AM EDT documented as of this encounter Care Teams Mattress Packer Relationship Specialty Start Date End Date Indra Eason MD [address] [place] [address] PCP - General Internal Medicine 06/12/21 documented as of this encounter
--- OUTSIDE RECORDS SUMMARY | 2025-07-31 12:13 | XMS_ITS | Encounter Summary ---
Author Organization [employer] Address [address] [place] [address] 7 [place] [address] Care Team Providers Care Body Builder Apprentice Name Role Phone Indra Eason MD Primary Care Provider Reason for Visit * Reason Comments Med Refill Encounter Details Date Type Department Care Team ([facility] Contact Info) Description 08/25/2023 Refill [facility] MED & PEDS [address] [place], [place] [phone] Indra Eason MD [address] [place], [place] [phone] Tingling of upper extremity Social History Tobacco [...] Upcoming Encounters Date Type Department Care Team ([facility] Contact Info) Description 08/09/2025 9:30 AM EDT Office Visit [facility] MED [facility]ED[facility] [address] [place], [place] [phone] Indra Eason MD [address] [place], [place] [phone] documented as of this encounter Visit Diagnoses Diagnosis Tingling of upper extremity documented in this encounter Additional Health Concerns Assessment Noted Time PHQ-9 Depression Total Score: 9 11/19/20 22 11:13 AM EST documented as of this encounter Care Teams Body Builder Apprentice Relationship Specialty Start Date End Date Indra Eason MD [address] [place] [id number] PCP - General Internal Medicine 06/12/21 documented as of this encounter
--- OUTSIDE RECORDS SUMMARY | 2025-07-31 12:13 | XMS_ITS | Encounter Summary ---
Author Organization [employer] Address [address] [facility] 7t [place] [address] Care Team Providers Care Sample Supervisor Name Role Phone Indra Eason MD Primary Care Provider Reason for Visit * Reason Onset Date Comments Referral 04/25/2025 Encounter Details Date Type Department Care Team ([facility] st Contact Info) Description 04/25/2025 Telephone [facility] MED[facility] [address] [place] [address] Indra Eason MD [address] [place], [place] [phone] Referral Social History Tobacco Use Types Packs/Day [...] and is asking for another referral to [facility]. Author advised provider had ordered x-rays of knee and hip and advised pt to complete those prior to anortho referral. Pt requested x-ray orders be faxed to [facility] for exam to be completed there. [...] Description 08/09/2025 9:30 AM EDT Office Visit [facility] MED & PEDS [address] [place] [address] Indra Eason MD [address] [place] [address] documented as of this encounter Visit Diagnoses Not on filedocumented in this encounter Additional Health Concerns Assessment Noted Time PHQ-9 Depression Total Score: 16 024 12:36 PM EST documented as of this encounter Care Teams Sample Supervisor Relationship Specialty Start Date End Date Indra Eason MD [address] [place] [address] PCP - General Internal Medicine 06/12/21 documented as of this encounter
--- OUTSIDE RECORDS SUMMARY | 2025-07-31 12:13 | XMS_ITS | Encounter Summary ---
Author Organization [employer] Address [address] [facility] 7t [place] [address] Care Team Providers Care Metal Work Duct Installer Name Role Phone Indra Eason MD Primary Care Provider [phone] Encounter Details Date Type Department Care Team (Late st Contact Info) Description 06/28/2025 Orders Only [facility] [address] [place], [place] [phone] Provider, MD Maria Isabel Social History Tobacco [...] Description 08/09/2025 9:30 AM EDT Office Visit [facility]ED[facility] [address] [place] [address] Indra Eason MD [address] [place] [address] documented as of this encounter Procedures Procedure Name Priority Date/Time Associated Diagnosis Comments CT ABD/PELVIS W/O + W/ IV CONTRAST Routine 06/25/2025 11:10 AM EDT documented in this encounter Results * CT ABD/PELVIS W/O + W/ IV CONTRAST (06/25/2025 11:10 AM EDT) Anatomical Region Laterality Modality Body, Pelvis, Abdomen Computed T omography Historical Provider MD DE LA ROSA CT PROCEDURES Final R esult documented in this encounter Visit Diagnoses Not on filedocumented in this encounter Additional Health Concerns Assessment Noted Time PHQ-9 Depression Total Score: 14 025 11:02 AM EDT documented as of this encounter Care Teams Metal Work Duct Installer Relationship Specialty Start Date End Date Indra Eason MD [address] [place] [address] PCP - General Internal Medicine 06/12/21 documented as of this encounter
== END 2025-07-31 09:44 | disposition home or self-care (01) ==
LOC: HO.LNP 09:43
PROVIDERS: PCP Internal Medicine; Visit Provider Obstetrics & Gynecology
DX: N95.0 Postmenopausal bleeding (principal); N84.0 Polyp of corpus uteri
CPT/HCPCS: 58100; 88305; 99202

== ENCOUNTER 2025-08-13 11:31 | Outpatient (AMB) | payer MEDICARE, SELFPAY ==
--- NOTE | 2025-08-13 11:37 | MHC.OFFVIS ---
Intake Visit Reasons: EMB Results Acrobatic Rigger: Acrobatic Rigger Present Allergies aspirin Adverse Reaction (Mild, Verified 07/31/25 10:01) Abdominal Pain Is last menstrual period known: Yes Last menstrual period: 09/26/20 Post menopausal: No Patient : No Do you need a note to return to daycare/school/sports/work: Yes (for surgery on wednesday) HPI Comments Details: The patient is presenting after endometrial biopsy. The patient has no complaints, no vaginal bleeding, no feverishness chills or abdominal pain. The endometrial biopsy pathology report showed the following: Scant strips of benign atrophic endometrium, fragments of benign endometrial polyp with focal metaplastic changes, and scant benign endocervical glandular epithelium; no atypia or carcinoma PFSH Medical History Change in consistency of stool Unintentional weight loss Mass in chest Candidiasis Rectal bleeding Nicotine dependence Acid reflux Colon cancer screening Fatty liver Constipation Hypercholesteremia Hypertension Surgical History History of hernia surgery Hx of cholecystectomy History of total left hip replacement Family History Brother Diabetes Maternal Aunt Diabetes Other Cancer Heart disease Social History Alcohol intake: never Patient Tobacco Use Status: Current someday Tobacco user Current occupational status: retired Female Reproductive History Menstrual Date of last menstrual period: 09/26/20 Total pregnancies: 2 Full term: 2 Review of Systems Card Reports as per HPI and Reports no additional complaints Resp Reports as per HPI and Reports no additional complaints GI Reports as per HPI and Reports no additional complaints Reports as per HPI Physical Exam Const General: cooperative, healthy appearing and comfortable Resp Effort & Inspection: normal respiratory effort Auscultation: clear to auscultation bilaterally Percussion: percussion normal Cardio Palpation: normal PMI Rate: regular rate Rhythm: regular rhythm Heart sounds: no murmurs and no rubs Peripheral pulses: Peripheral pulses 2+ throughout GI Inspection: Yes normal to inspection Palpation (GI): Soft to palpation, nontender, no guarding, not rigid and No hepatosplenomegaly present Percussion: Yes normal to percussion Auscultation: normal bowel sounds Rectal Exam - Female: deferred Assessment & Plan Assessment & Plan (1) Post-menopausal bleeding: Comment: Fragments of polyp on EMB pathology with metaplastic changes Code(s): N95.0 - Postmenopausal bleeding Category: Medical Plan: Discussed with the patient the finding on pathology report, recommended hysteroscopy D&C polypectomy /myomectomy Discussed with the patient the procedure , all benefits and risks including but not limited to inability to complete the procedure , insufficient endometrial tissue for a complete evaluation of the endometrial cavity , bleeding, infection, possible need for blood transfusion with all its risk ( HIV,syphilis, Hepatitis, anaphylaxis shock, others..), injury to bladder, rectum, possible need for laparoscopy/laparotomy or hysterectomy. The patient verbalized understanding and signed the consent. Instructions given the patient to stay NPO after midnight the day prior to the procedure and not to take any of her medications the morning of the surgical procedure and to schedule a 2 week postoperative appointment Coding Level of Care Code Est Pt Level 3 (27738) Diagnoses Post-menopausal bleeding N95.0
--- OUTSIDE RECORDS SUMMARY | 2025-08-13 15:48 | XMS_ITS | Encounter Summary ---
Author Organization [employer] [facility] Address [address] [place] [address] 7 [place] [address] Care Team Providers Care Sales Representative Trainee Name Role Phone Indra Eason MD Primary Care Provider Reason for Visit * Reason Comments Med Refill Encounter Details Date Type Department Care Team ([facility] Contact Info) Description 08/25/2023 Refill [facility] MED & PEDS [address] [place], [place] [phone] Indra Eason MD [address] [place], [place] [phone] Tingling of upper extremity Social History Tobacco [...] Upcoming Encounters Date Type Department Care Team ([facility] Contact Info) Description 09/10/2025 1:45 PM EDT Office Visit [facility] MED & PEDS [address] [place], [place] [phone] Indra Eason MD [address] [place], [place] [phone] documented as of this encounter Visit Diagnoses Diagnosis Tingling of upper extremity documented in this encounter Additional Health Concerns Assessment Noted Time PHQ-9 Depression Total Score: 9 11/19/20 22 11:13 AM EST documented as of this encounter Care Teams Sales Representative Trainee Relationship Specialty Start Date End Date Indra Eason MD [address] [place] [phone] PCP - General Internal Medicine 06/12/21 documented as of this encounter
--- OUTSIDE RECORDS SUMMARY | 2025-08-13 15:48 | XMS_ITS | Clinical Summary ---
Author Organization [facility] Address [address] [place] [address] Phone Care Team Providers Care Distribution Sales Representative Name Role Phone Inna Eason MD Primary Care Provider [phone] Social History Tobacco Use Types Packs/Day Years [...] 10/31/2022 Social Influencers of Health Screening 10/31/2022 Depression Screening 11/29/2024 Hypertension/CHF/CAD Annual BMP Blood Test 04/18/2025 COVID-19 Vaccine ( season) 2025 11/11/2023, 09/17/2022, 10/17/2021, Additional history exists Influenza Vaccine (#1) 2025 10/11/2024 Breast Cancer [...] year. [facility]amm[facility] [address], [address] -------- FINAL REPORT -------- Dictated By: Constantine Banks Dictated Date: 04/18/2025 16:42 ET Assigned Physician: Constantine Banks Reviewed and Electronically Signed By: Constantine Banks Signed Date: 04/18/2025 16:52 ET Workstation ID: [id number] Transcribed By: Self Edit Transcribed Date: 04/18/2025 16:42 ET Narrative 04/18/2025 4:52 PM EDT EXAM: SCREENING MAMMOGRAPHY, BILATERAL HISTORY: SCREENING. No additional history. COMPARISON: 04/08/23, 10/03/21 TECHNIQUE: Synthesized CC and MLO projections of each breast. Tomosynthesis of each breast in the CC and MLO projections. ADDITIONAL IMAGING: None Computer-aided detection was employed with the judo AI 3-D. TISSUE DENSITY: The breasts are [...] None Computer-aided detection was employed with the judo AI 3-D. TISSUE DENSITY: The breasts are [...] year. Mammography location: [facility] [address] [place], [address] -------- FINAL REPORT -------- Dictated By: Constantine Banks Dictated Date: 04/18/2025 16:42 ET Assigned Physician: Constantine Banks Reviewed and Electronically Signed By: Constantine Banks Signed Date: 04/18/2025 16:52 ET Workstation ID: [id number] Transcribed By: Self Edit Transcribed Date: 04/18/2025 16:42 ET us Inna Eason MD IMG BI PROCEDURES Final R esult * QUINTIN DEXA AXIAL SKELETON (07/24/2021 11:57 AM EDT) Anatomical Region Laterality Modality Mammography 07/24/2021 10:5 6 AM EDT Narrative 07/24/2021 11:57 AM EDT [facility] Diagnostic Imaging Department [address] [place] [address] Patient: MARIBEL ACOSTA./Age/Sex: 1955 - 65 - F Unit#: [id number] Location/Status: SPDIMAM/REG CLI Mnemonic[facility] Ordering Physician: INNA EASON MD Quintin [...] probability of hip fracture of 3.4%. Code 39652 Dictating Physician: BRENDA HYLTON MD Electronically Signed by: BRENDA HYLTON MD Dic Date/Time: 07/24/21 115 Sign date/Time: 07/24/21 115 Procedure Note Brenda Hylton MD - 11/25/2022 [facility] Diagnostic Imaging Department [address] [place], [place] [address] Patient: MARIBEL ACOSTA/Age/Sex: 1955 - 65 - F Unit#: [id number] Location/Status: SPDIMAM/REG CLI Mnemonic[facility] Order[facility] Physician: INNA EASON MD [facility] Dexa Axial Skeleton - 07/24/21 - [...] probability of hip fracture of 3.4%. Code 93943 Dictating Physician: BRENDA HYLTON MD Electronically Signed by: BRENDA HYLTON MD Dic Date/Time: 07/24/21 1151 Sign date/Time: 07/24/21 1157 Inna Eason MD IMG BI PROCEDURES Final R esult from Last 3 Months or Most Recently Relevant to Health Maintenance Insurance [facility] MEDICARE ADVANTAGE on file [place] Care Teams Distribution Sales Representative Relationship Specialty Start Date End Date Inna Eason MD [address] [place] [id number] PCP - General Internal Medicine 04/18/25
--- OUTSIDE RECORDS SUMMARY | 2025-08-13 15:48 | XMS_ITS | Clinical Summary ---
Author Organization [employer] Address [address] [facility] [address] [place] [address] Care Team Providers Care Station Superintendent Name Role Phone Indra Eason MD Primary Care Provider [phone] Allergies Active Allergy Reactions Criticality Noted Date Comments Aspirin 11/10/2022 Medications * This document contains information received from the source organization and may not represent a complete record from that organization. cholecalciferol (Vitamin D-3) 25 MCG (1000 UT) capsule Take 1 capsule by mouth. 07/24/20 21 Active nicotine (Nicoderm, Step 1) 21 MG/24HR patch Place 1 patch on the skin at bed time. 05/14/20 22 Active simethicone (Mylicon,Gas-X) 125 MG capsule Take 1 tablet by mouth every 6 (six) hours. 07/09/20 21 Active zoster vaccine-recombinan t adjuvanted (Shingrix) 50 MCG/0.5ML vaccine Inject 0.5 mL into the shoulder, thigh, or buttocks. 05/14/20 22 Active furosemide (Lasix) 20 MG tablet TAKE 1 TABLET(20 MG) BY MOUTH IN THE MORNING 10 tablet 06/03/20 23 Active Diclofenac Sodium 1 % gelIndications:Yesi pablo osteoarthritis of shoulder, unspecified laterality To apply to the cervical spine 3 times a day 100 g 03/14/20 24 Active simvastatin (Zocor) 20 MG tablet TAKE 1 TABLET BY MOUTH EVERY DAY 90 tablet 3 08/14/20 24 Active lisinopril 5 MG tablet TAKE 1 TABLET BY MOUTH EVERY DAY 90 tablet 3 05/07/20 25 Active estradiol (Estrace) 0.1 MG/GM vaginal cream 1g vaginally twice weekly 1 Unspecified 06/05/20 25 Active buPROPion SR (Wellbutrin SR) 150 MG 12 hr tablet TAKE 1 TABLET BY MOUTH TWICE A DAY. DO NOT CRUSH, CHEW OR SPLIT. 60 tablet 11 07/10/20 25 Active Active Problems Problem Noted Date Diagnosed [...] intervention , Patient to reach out to [facility] team as needed, Comply with medication , [...] (03/02/2024 12:46 PM EDT): During IBH Consult Marbiel presenting with depressed mood, loss of interests/pleasure [...] intervention , [facility] as needed, Comply with medication , [...] organization. Date Type Department Care Team Description 08/04/2025 Refill [facility] [address] [place] [address] Indra Eason MD 07/31/2025 Orders Only GENERIC EXTERNAL DATA DEPARTMENT Provider, Generic External Data 07/20/2025 Orders Only [facility] External Provider, [facility] 07/10/2025 Refill [facility] [address] [place] [address] Indra Eason MD 07/09/2025 10:00 AM EDT Office Visit [facility] [address] [place] [address] Indra Eason MD Diaphragm, eventration (Primary Dx); Left adrenal mass (CMS/HCC); Post-menopausal bleeding; Primary hypertension; Primary osteoarthritis of right knee; Left hip pain; Tobacco dependence syndrome 07/09/2025 Travel 06/28/2025 Orders Only [facility] [address] [place] [address] Maria Isabel Thomas MD 06/27/2025 Telephone [facility] [address] [place] [address] Indra Eason MD adela 06/25/2025 Orders Only [facility] External Provider, [facility] 06/18/2025 Telephone [facility] [address] [place], [place] [phone] Indra Eason MD Requesting call back 06/05/2025 Orders Only [facility] [place] [address] Dennys Mae CNM 06/05/2025 Results Follow-Up [facility] [address] [facility] [place] [address] Dennys Mae CNM US Pelvis Transvaginal 06/04/[address] [place] [address] Indra Eason MD Letter 05/30/[address] [place] [address] Dennys Mae CNM 05/30/2025 Orders Only GENERIC EXTERNAL DATA DEPARTMENT Provider, Generic External Data 05/29/2025 9:00 AM EDT Procedure Visit [address] [place] [address] Dennys Mae CNM Urinary symptom or sign (Primary Dx); Post-menopausal bleeding; Screening examination for venereal disease; Vaginal discharge 05/29/2025 Orders Only [address] [place] [address] Dennys Mae CNM 05/29/2025 Travel 05/28/[address] [address] Indra Eason MD chartprep 05/21/[address] [address] Indra Eason MD Nurse Triage from Last 3 Months Immunizations Immunization Administration [...] your housing situation today? I have kia jamal 07/09/[address] you li [...] Upcoming Encounters Date Type Department Care Team ([facility] Contact Info) Description 09/10/2025 1:45 PM EDT Office Visit [facility] [address] [place] [address] Indra Eason MD [address] [place], [place] [phone] Health Maintenance Due Date Last Done Comments CT Colonography 1955 FIT DNA/Cologuard 1955 FIT 1955 FOBT 1955 Sigmoidoscopy 1955 Zoster Vaccines (2 of 2) 07/09/2022 05/14/2022 COVID-19 Vaccine ( season) 2025 11/11/2023, 09/17/2022, 10/17/2021, Additional history exists Influenza Vaccine (#1) 2025 10/11/2024 Lung Cancer Screening 10/30/2025 10/30/2024 Depression Monitoring 11/30/2025 05/30/2025, 025 Alcohol/Substance Use Screening 07/09/2026 07/09/2025 SDOH Screening 07/09/2026 07/09/2025 Tobacco Screening 07/09/2026 07/09/2025 Mammogram 04/18/2027 04/18/2025, 0511/2024, 04/18/2025 Lipid Panel 10/11/2029 10/11/2024, 0411/2021, 05/23/2021 HPV/Cotest 05/29/2030 05/29/2025, 11/10/2022 Pap Smear [...] Procedure Name Priority Date/Time Associated Diagnosis Comments HEMATOXYLIN AND EOSIN STAIN Routine 07/31/2025 10:42 AM EDT FL ESOPHAGUS BARIUM SWALLOW WITH AIR Routine [...] 9:29 AM EDT Urinary symptom or sign BI MAMMOGRAM SCREENING TOMOSYNTHESIS BILATERAL Routine 04/18/2025 Screening mammogram for breast cancer HM LUNG CANCER SCREENING Routine 10/30/2024 11:03 AM EST LIPID PANEL, STANDARD Routine 10/11/2024 10:34 AM EST Degeneration of intervertebral disc of lumbar region with discogenic back pain HM COLONOSCOPY Routine 07/30/2022 from Last 3 Months or Most Recently Relevant to Health Maintenance Results * Hematoxylin and Eosin Stain (07/31/2025 10:42 AM EDT) 07/31/2025 10:4 2 AM EDT 08/01/2025 6:00 AM EDT [facility] - 08/02/2025 4:53 PM EDT ----- ------- Name: Maribel Dong Age/Sex: 70/F : 1955 Unit#: [id number] Attend Dr: Anson Doan MD Re07/31/25 Status: DEP REF Location: [facility] Disch: ----- ------- SPEC : [id number] RECD: 08/01/25 STATUS: CLIFF LOU NUM: [id number] CARLOS: 07/31/[address] [facility] [address]: Anson Doan MD ENTERED: 08/01/25 SP TYPE: Surgical OTHR DR: Indra Eason MD ORDERED: HE Stain/2, Gross Micro L4 Diagnosis Endometrium, biopsy: Scant strips of benign atrophic endometrium, fragments of benign endometrial polyp with focal metaplastic changes, and scant benign endocervical glandular epithelium; no atypia or carcinoma. Clinical History PMB Microscopic Description Microscopic sections reviewed. Material Received Endometrial biopsy Gross Description Received in formalin labeled EMB is a 1.4 x 1.2 x 0.3 cm aggregate of predominantly mucus and blood and shards red-maroon tissue, submitted in toto in a cassette labeled A. CEDS This case was reviewed intradepartmentally. IHC S/NG Disclaimer NOTE: Unless otherwise stated, all tissue is formalin-fixed and paraffin-embedded. Some or all of the immunohistochemical tests reported herein may have been developed and their performance characteristics determined by [facility]. They have not been cleared or approved by the U.S. Food and Drug Administration (FDA). However, the FDA has determined that such clearance or approval is not necessary. This laboratory is certified under the Clinical Laboratory Improvement Amendments of 1988 (CLIA) as qualified to perform high complexity clinical laboratory testing. Copies To: Indra Eason MD [address] [address] CONTINUED ON NEXT PAGE ----- ------- Name: Maribel Dong Age/Sex: 70/F : 1955 Unit#: [id number] Attend Dr: Anson Doan MD Re07/31/25 Status: DEP REF Location: [facility] Disch: ----- ------- SPEC : [id number] RECD: 08/01/25 STATUS: CLIFF LOU NUM: [id number] CARLOS: 07/31/25-[address] [facility] [address]: Anson Doan MD ENTERED: 08/01/25 SP TYPE: Surgical OTHR DR: Indra Eason MD ORDERED: DANNY Stain/2, Gross Micro L4 Copies To: (Continued) Anson Doan MD [facility] [address] [place] [address] [place] [phone] ----- ------- Signed (signature on file) Pratima Evelyn 08/02/25 1653 ----- ------- END OF REPORT us Generic External Data Provider LAB BLOOD ORDERAB LES Final Result [facility] [address] [place] [phone] * FL Esophagus Barium Swallow w/Air (07/20/2025 8:00 AM EDT) Anatomical Region Laterality Modality Head, Neck Radiographic Ely ging 07/20/2025 8:00 AM EDT Narrative 07/20/2025 10:43 AM EDT [address] [address] Fluoroscopy Report Signed Patient: Maribel Dong MR#: [id number] 38 : 1955 Acct:[id number] Age/Sex: 69 / F ADM Date: 07/20/25 Loc: IGNACIO Attending Dr: Cherelle Montana CNP Ordering Physician: Cherelle Montana CNP Date of Service: 07/20/25 Procedure(s): FL barium swallow with air Accession Number(s): [id number] cc: Indra Eason MD; Cherelle Montana CNP [...] Lexa García MD 07/20/2025 10:40 AM EDT Dictated By: Lexa García MD Signed By: <Electronically signed by Lexa García MD in OV> 07/20/25 1040 DD/ 0800 TD/TT: 07/20/25 0820 Police Officer Booking: Procedure Note Donotuseinterpreter, Image - 07/20/[address] [address] Fluoroscopy Report Signed Patient: Melissa Dong#: [id number] 38 : 5Acct:[id number] Age/Sex: 69 / FADM Date: 07/20/25 Loc: IGNACIO Attending Dr: Cherelle Montana CNP Ordering Physician: Cherelle Montana CNP Date of Service: 07/20/25 Procedure(s): FL barium swallow with air Accession Number(s): [id number] cc: Indra Eason MD; Cherelle Montana CNP [...] 07/20/25 1040 DD/ 0800 TD/TT: 07/20/25 0820 Police Officer Booking: [facility] External Provider IMG FLU OROSCOPY PROCEDURES Final Result * POCT Creatinine GFR (06/25/2025 2:05 PM EDT) POCT Creatinine 0.6 0.5 - 1.4 mg/dL [facility] GFR POC >60 [facility] Comment:Chronic Kidney Disea se: Estimated GFR < 60 mL/min/1.39c5Peseky Kidney Disease: Estimated GFR < 15 mL/min/1.73m2 06/25/2025 2:05 PM EDT 06/25/2025 4:12 PM EDT Narrative [facility] - 06/25/2025 4:12 PM EDT [id number] Generic External Data Provider LAB POINT OF CARE TEST DOCKED DEVICE ORDERABLES Final Result [facility] [address] [place] [phone] * CT Abdomen Pelvis w/ Contrast (06/25/2025 2:05 PM EDT) Anatomical Region Laterality Modality Body, Pelvis, Abdomen Computed T omography 06/25/2025 2:05 PM EDT Narrative 06/25/2025 2:48 PM EDT [address] [address] [address] Scan Report Signed Patient: Maribel Dong MR#: [id number] 38 : 1955 Acct:[id number] Age/Sex: 69 / F ADM Date: 06/25/25 Loc: HO.CT Attending Dr: Cherelle Montana CNP Ordering Physician: Cherelle Montana CNP Date of Service: 06/25/25 Procedure(s): CT abdomen pelvis w IV con Accession Number(s): [id number] cc: Indra Eason MD; Cherelle Montana [facility] Report Number: [id number]: Total DLP = 393.00 mGy-cm EXAMINATION: CT [...] 06/25/25 1445 DD/ 1405 TD/TT: 06/25/25 1431 Police Officer Booking: Procedure Note Donotuseinterpreter, Image - 06/25/[address] [address] [address] Scan Report Signed Patient: Melissa Dong#: [id number] 38 : 5Acct:[id number] Age/Sex: 69 / FADM Date: 06/25/25 Loc: HO.CT Attending Dr: Cherelle Montana CNP Ordering Physician: Cherelle Montana CNP Date of Service: 06/25/25 Procedure(s): CT abdomen pelvis w IV con Accession Number(s): [id number] cc: Indra Eason MD; Cherelle Montana CNP Report Number: [id number]: Total DLP = 393.00 mGy-cm EXAMINATION: CT [...] 06/25/25 1445 DD/ 1405 TD/TT: 06/25/25 1431 Police Officer Booking: [facility] External Provider IMG CT PROCEDURES Final Result * CT Chest w/ Contrast (06/25/2025 2:05 PM EDT) Anatomical Region Laterality Modality Body, Chest Computed Tomogra phy 06/25/2025 2:05 PM EDT Narrative 06/25/2025 2:48 PM EDT [address] [address] [address] Scan Report Signed Patient: Maribel Dong MR#: [id number] 38 : 1955 Acct:[id number] Age/Sex: 69 / F ADM Date: 06/25/25 Loc: HO.CT Attending Dr: Cherelle Montana CNP Ordering Physician: Cherelle Montana CNP Date of Service: 06/25/25 Procedure(s): CT chest w IV con Accession Number(s): [id number] cc: Indra Eason MD; Cherelle Montana CNP Report Number: [id number]: Total DLP = 504.00 mGy-cm EXAMINATION: CT [...] 06/25/25 1445 DD/ 1405 TD/TT: 06/25/25 1427 Police Officer Booking: Procedure Note Donotuseinterpreter, Image - 06/25/[address] [address] [address] Scan Report Signed Patient: Melissa Dong#: [id number] 38 : 5Acct:[id number] Age/Sex: 69 / FADM Date: 06/25/25 Loc: HO.CT Attending Dr: Cherelle Montana CNP Ordering Physician: Cherelle Montana CNP Date of Service: 06/25/25 Procedure(s): CT chest w IV con Accession Number(s): [id number] cc: Indra Eason MD; Cherelle Montana CNP Report Number: [id number]: Total DLP = 504.00 mGy-cm EXAMINATION: CT [...] 06/25/25 1445 DD/ 1405 TD/TT: 06/25/25 1427 Police Officer Booking: [facility] External Provider IMG CT PROCEDURES Final Result * CT ABD/PELVIS W/O + W/ IV CONTRAST (06/25/2025 11:10 AM EDT) Anatomical Region Laterality Modality Body, Pelvis, Abdomen Computed T omography Historical Provider IMG CT PROCEDURES Final R esult * US Pelvis Transvaginal (06/04/2025 3:09 PM EDT) Anatomical Region Laterality Modality Pelvis Ultrasound 06/04/2025 3:09 PM EDT Narrative 06/04/2025 3:10 PM EDT [place] [address] Ultrasound Report Signed Patient: Maribel Dong MR#: [id number] 38 : 1955 Acct:[id number] Age/Sex: 69 / F ADM Date: 06/04/25 Loc: HO.US Attending Dr: Dennys Mae CNM Ordering Physician: DENNYS MAE CNM Date of Service: 06/04/25 Procedure(s): US pelvic and transvaginal Accession Number(s): [id number] cc: Indra Eason MD; DENNYS MAE CNM [...] MD on 06/04/2025 15:09:13 Dictated By: Faviola Thakkra MD Signed By: <Electronically signed by Faviola Thakkar MD in OV> 06/04/25 1510 DD/ 1509 TD/TT: 06/04/25 1509 Police Officer Booking: Procedure Note Donotuseinterpreter, Image - 06/04/[address] [address] Ultrasound Report Signed Patient: Melissa Dong#: [id number] 38 : 5Acct:[id number] Age/Sex: 69 / FADM Date: 06/04/25 Loc: HO.US Attending Dr: Dennys Mae CNM Ordering Physician: DENNYS MAE CNM Date of Service: 06/04/25 Procedure(s): US pelvic and transvaginal Accession Number(s): [id number] cc: Indra Eason MD; DENNYS MAE CNM [...] OV> 06/04/25 1510 DD/ 1509 TD/TT: 06/04/25 150 Police Officer Booking: Dennys Mae CNM IMG US PROCEDURES Final R esult * XR Knee 3 Views Right (05/30/2025 9:00 AM EDT) Anatomical Region Laterality Modality Lower Extremities, Knee Right Radiogra phic Imaging 05/30/2025 9:00 AM EDT Narrative 05/30/2025 2:48 PM EDT [address] [address] XRay Report Signed Patient: Maribel Dong MR#: [id number] 38 : 1955 Acct:[id number] Age/Sex: 69 / F ADM Date: 05/30/25 Loc: HO.LAB Attending Dr: Cherelle Montana [facility] Ordering Physician: Indra Eason MD Date of Service: 05/30/25 Procedure(s): XR knee RT 3V Accession Number(s): [id number] cc: Indra Eason MD EXAMINATION: XR KNEE, [...] Javan Davis MD 05/30/2025 02:46 PM EDT Dictated By: Javan Davis MD Signed By: <Electronically signed by Javan Davis MD in OV> 05/30/25 1446 DD/ 09 TD/TT: 05/30/25 0914 Police Officer Booking: Procedure Note Donotuseinterpreter, Image - 05/30/[address] [address] XRay Report Signed Patient: Oseas DongR#: [id number] 38 : 5Acct:[id number] Age/Sex: 69 / FADM Date: 05/30/25 Loc: HO.LAB Attending Dr: Cherelle Montana [facility] Ordering Physician: Indra Eason MD Date of Service: 05/30/25 Procedure(s): XR knee RT 3V Accession Number(s): [id number] cc: Indra Eason MD EXAMINATION: XR KNEE, [...] Javan Davis MD 05/30/2025 02:46 PM EDT Dictated By: Javan Davis MD Signed By: <Electronically signed by Javan Davis MD in OV> 05/30/25 1446 DD/ 0900 TD/TT: 05/30/25 0914 Police Officer Booking: Indra Eason MD IMG XR PROCEDURES Final Res ult * XR Hip 2 or 3 Views Left (05/30/2025 9:00 AM EDT) Anatomical Region Laterality Modality Lower Extremities, Hip Left Radiograp hic Imaging 05/30/2025 9:00 AM EDT Narrative 05/30/2025 2:50 PM EDT [address] [address] XRay Report Signed Patient: Maribel Dong MR#: [id number] 38 : 1955 Acct:[id number] Age/Sex: 69 / F ADM Date: 05/30/25 Loc: HO.LAB Attending Dr: Cherelle Montana CNP Ordering Physician: Indra Eason MD Date of Service: 05/30/25 Procedure(s): XR hip LT min 2V Accession Number(s): [id number] cc: Indra Eason MD EXAMINATION: XR HIP, [...] Javan Davis MD 05/30/2025 02:47 PM EDT RP Dictated By: Javan Davis MD Signed By: <Electronically signed by Javan Davis MD in OV> 05/30/25 1447 DD/ 0900 TD/TT: 05/30/25 0914 Police Officer Booking: Procedure Note Donotuseinterpreter, Image - 05/30/2025 [place] [address] XRay Report Signed Patient: Melissa Dong#: [id number] 38 : 5Acct:[id number] Age/Sex: 69 / FADM Date: 05/30/25 Loc: HO.LAB Attending Dr: Cherelle Montana CNP Ordering Physician: Indra Eason MD Date of Service: 05/30/25 Procedure(s): XR hip LT min 2V Accession Number(s): [id number] cc: Indra Eason MD EXAMINATION: XR HIP, LEFT CLINICAL INFORMATION: Left hip pain s/p Total hip replacement in 2016 COMPARISON: February 20, 2022 TECHNIQUE: Two views of the left hip. FINDINGS: Total hip arthroplasty is again noted. There is been no migration of the hardware. Acetabular cup is secured with a single screw. XR/XR hip LT min 2V IMPRESSION: Stable left hip replacement Electronically signed by: Javan Davis MD 05/30/2025 02:47 PM EDT RP Dictated By: Javan Davis MD Signed By: <Electronically signed by Javan Davis MD in OV> 05/30/25 1447 DD/ 0900 TD/TT: 05/30/25 0914 Police Officer Booking: Indra Eason MD IMG XR PROCEDURES Final Res ult * XR Chest 2 Views (05/30/2025 9:00 AM EDT) Anatomical Region Laterality Modality Chest Radiographic Ely ging 05/30/2025 9:00 AM EDT Narrative 05/30/2025 2:52 PM EDT [place] [address] XRay Report Signed Patient: Maribel Dong MR#: [id number] 38 : 1955 Acct:[id number] Age/Sex: 69 / F ADM Date: 05/30/25 Loc: HO.LAB Attending Dr: Cherelle Montaan CNP Ordering Physician: Cherelle Montana CNP Date of Service: 05/30/25 Procedure(s): XR chest 2V Accession Number(s): [id number] cc: Indra Eason MD; Cherelle Montana CNP [...] Davis MD in OV> 05/30/25 1450 DD/ 9 TD/TT: 05/30/25913 Police Officer Booking: Procedure Note Alvinoter, Image - 05/30/[address] [address] XRay Report Signed Patient: Melissa Dong#: [id number] 38 : 5Acct:[id number] Age/Sex: 69 / FADM Date: 05/30/25 Loc: HO.LAB Attending Dr: Cherelle Montana CNP Ordering Physician: Cherelle Montana CNP Date of Service: 05/30/25 Procedure(s): XR chest 2V Accession Number(s): [id number] cc: Indra Eason MD; Cherelle Montana CNP [...] Javan Davis MD 05/30/2025 02:50 PM EDT Dictated By: Javan Davis MD Signed By: <Electronically signed by Javan Davis MD in OV> 05/30/25 1450 DD/ 9 TD/TT: 05/30/25913 Police Officer Booking: [facility] External Provider IMG XR PROCEDURES Final Result * Slide Review (05/30/2025 8:36 AM EDT) Slide Review VERIFIED [facility] 05/30/2025 8:36 AM EDT 05/30/2025 8:36 AM EDT us Generic External Data Provider LAB BLOOD ORDERAB LES Final Result Performing Organization Address City/[facility]/ZIP Co de Phone Number [facility] [address] [place] [phone] * Vitamin B12 (Cobalamin) and Folate Panel, Serum (05/30/2025 8:36 AM EDT) Vitamin B12 569 200 - 900 pg/mL [facility] Comment:NORMAL 200-900 PG/ML INDETERMINATE 160-199 PG/ML DEFICIENT < 160 PG/ML Folate 13.7 > or = 4.0 ng/mL [facility] Comment:Reference Values:> o r = 4.0 ng/mL< 4.0 ng/mL suggests folate deficiency Methotrexate, aminopterin and folinic acid(leucovorin) are chemotherapeutic agents whose molecularstructures are similar to folate; therefore, the Architectfolate assay cannot be used for patients using these drugs. 05/30/2025 8:36 AM EDT 05/30/2025 8:36 AM EDT us Generic External Data Provider LAB BLOOD ORDERAB LES Final Result Performing Organization Address [facility] Co de Phone Number [facility] [address] [place] [phone] * TSH with Reflex to Free T4 (05/30/2025 8:36 AM EDT) TSH reflex Free T4 1.58 0.32 - 4.0 uIU/mL [facility] 05/30/2025 8:36 AM EDT 05/30/2025 8:36 AM EDT us Generic External Data Provider LAB BLOOD ORDERAB LES Final Result Performing Organization Address City/[facility]/ZIP Co de Phone Number [facility] [address] [place] [phone] * Hepatitis Panel, General (05/30/2025 8:36 AM EDT) Pathologist [facility] Hepatitis A IgM Nonreactive Nonreactive [facility] Comment:IgM antibodies to FRANCOIS V not detected; does not exclude earlyacute or recovered HAV infection. ~Hepatitis B Surface Antibody REACTIVE Nonreactive [facility] Comment:REACTIVE: > 11.99 mI U/mL Hepatitis B Core Antibody Nonreactive Nonreactive [facility] Hepatitis C Antibody Nonreactive Nonreactive [facility] Comment:Antibodies to HCV no t detected; does not exclude early acuteHCV infection. Hepatitis B Surface Ag Negative Negative [facility] 05/30/2025 8:36 AM EDT 05/30/2025 8:36 AM EDT us Generic External Data Provider LAB BLOOD ORDERAB LES Final Result [facility] [address] [place] [phone] * (ABNORMAL) CBC auto differential (05/30/2025 8:36 AM EDT) Pathologist [facility] White Blood Count 11.8(H) 4.8 - 10.8 X10*3/uL [facility] Red Blood Count 4.36 4.20 - 5.50 X10*6/uL [facility] Hemoglobin 13.6 12.0 - 16.0 g/dl [facility] Hematocrit 40.2 37.0 - 47.0 % [facility] Mean Corpuscular Volume 92.2 80.0 - 98.0 fL [facility] Mean Corpuscular Hemoglobin 31.2 27.0 - 33.0 pg [facility] Mean Corpuscular HGB Conc 33.8 31.0 - 35.0 g/dl [facility] Red Cell Distribution Width 13.1 11.0 - 16.0 % [facility] Platelet Count 277 160 - 400 X10*3/uL [facility] Mean Platelet Volume 9.7 9.4 - 12.3 fL [facility] Neutrophils Percent Auto 47.7 45 - 73 % [facility] Imm Gran Pct Auto 0.3 0.0 - 0.4 % [facility] Lymphocytes Percent Auto 42.0(H) 20 - 40 % [facility] Monocytes Percent Auto 7.5 2 - 11 % [facility] Eosinophils Percent Auto 1.9 0 - 4 % [facility] Basophils Percent Auto 0.6 0 - 2 % [facility] NRBC Pct Auto 0.0 0.0 - 0.2 /100WBC [facility] Neutrophils Absolute Auto 5.6 2.0 - 8.3 x10*3/uL [facility] Imm Gran Abs Auto 0.03 0.00 - 0.03 X10*3/uL [facility] Lymphocytes Absolute Auto 5.0(H) 1.2 - 4.9 X10*3/uL [facility] Monocytes Absolute Auto 0.9 0.1 - 1.2 X10*3/uL [facility] Eosinophils Absolute Auto 0.2 0.0 - 0.4 X10*3/uL [facility] Basophils Absolute Auto 0.1 0.0 - 0.2 X10*3/uL [facility] NRBC Abs Auto 0.000 0.0 - 0.012 X10*3/uL [facility] 05/30/2025 8:36 AM EDT 05/30/2025 8:36 AM EDT us Generic External Data Provider LAB BLOOD ORDERAB LES Edited Result - Final [facility] [address] [place] [phone] * Iron And Total Iron Binding Capacity (05/30/2025 8:36 AM EDT) Iron 53 30 - 160 mcg/dL [facility] Total Iron Binding Capacity 291 228 - 428 mcg/dL [facility] Percent Iron Saturation 18 15 - 50 % [facility] Unsaturated Iron Binding 238 ug/dL [facility] 05/30/2025 8:36 AM EDT 05/30/2025 8:36 AM EDT Generic External Data Provider LAB BLOOD ORDERAB LES Final Result Performing Organization Address [facility] de Phone Number [facility] [address] [place] [phone] * Tissue Transglutaminase Antibody, IgA (05/30/2025 8:36 AM EDT) Transglutaminase IgA <1.0 U/mL [facility] Comment:Value Interpretation ----- <15.0 Antibody not detected> or = 15.0 Antibody detectedTHIS TEST WAS PERFORMED AT:[facility] [place] [id number] BOYER MD 05/30/2025 8:36 AM EDT 05/30/2025 8:36 AM EDT Generic External Data Provider LAB BLOOD ORDERAB LES Final Result Performing Organization Address [facility] Phone Number [facility] [address] [place] [address] [phone] * HIV-1/2 Antigen and Antibodies, Fourth Generation, with Reflexes (05/30/2025 8:36 AM EDT) HIV AB/AG Nonreactive Nonreactive [facility] Comment:HIV-1 p24 Ag and/or HIV-1/HIV-2 Ab not detected.A test result that is nonreactive does not exclude thepossibility of exposure to or infection with HIV-1 and/orHIV-2. Nonreactive results in this assay for individualswith prior exposure to HIV-1 and/or HIV-2 may be due toantigen and antibody levels that are below the limit ofdetection of this assay.The [employer] HIV Ag/Ab Combo assay result andsupplemental assay results should be interpreted inconjunction with the patient's clinical presentation,history and other laboratory results. If the results areinconsistent with clinical evidence, additional testing issuggested to confirm the result. 05/30/2025 8:36 AM EDT 05/30/2025 8:36 AM EDT Generic External Data Provider LAB BLOOD ORDERAB LES Final Result Performing Organization Address [facility] Co de Phone Number [facility] [address] [place] [phone] * (ABNORMAL) Prothrombin Time-INR (05/30/2025 8:36 AM EDT) Prothrombin Time 9.9(L) 10.9 - 12.4 SEC [facility] INTERNATIONAL NORM RATIO 0.9 0.9 - 1.1 [facility] Comment:INTERNATIONAL NORMAL IZED RATIO (INR) REFERENCE [...] ORDERAB LES Final Result Performing Organization Address [facility] Co de Phone Number [facility] [address] [place] [address] [phone] * C-reactive Protein (05/30/2025 8:36 AM EDT) Pathologist [facility] C Reactive Protein 0.17 < or = 0.50 mg/dL [facility] 05/30/2025 8:36 AM EDT 05/30/2025 8:36 AM EDT us Generic External Data Provider LAB BLOOD ORDERAB LES Final Result Performing Organization Address [facility] Co de Phone Number [facility] [address] [place] [address] [phone] * Hemoglobin A1c (05/30/2025 8:36 AM EDT) Hemoglobin A1c 5.4 <6.0 % [facility] Comment:Hemoglobin A1C Refer ence Range Adults: 4.8 - 6.0 % Non diabetic: < 6.0 % Goal: < 7.0 %Additional Action Suggested: > 8.0 %Note: Hemoglobin A1c results are invalid for patients with abnormal amounts of HbF. Blood transfusions may impact the HbA1c concentration in the patient sample. Estimated Average Glucose 108 mg/dL [facility] Comment:eAG = Estimated ave rage glucose which is %A1C expressed asaverage glucose, using the formula of the P3Y-WzhgqxbTkdxnch Glucose study (ADAG), Diabetes Care, Vol.31,#8,Jun. 2007 05/30/2025 8:36 AM EDT 05/30/2025 8:36 AM EDT us Generic External Data Provider LAB BLOOD ORDERAB LES Final Result Performing Organization Address [facility] Co de Phone Number [facility] [address] [place] [address] [phone] * Ferritin (05/30/2025 8:36 AM EDT) Ferritin 80 10 - 250 ng/mL [facility] 05/30/2025 8:36 AM EDT 05/30/2025 8:36 AM EDT us Generic External Data Provider LAB BLOOD ORDERAB LES Final Result Performing Organization Address [facility] Co de Phone Number [facility] [address] [place] [address] [phone] * STI testing add on (NG, CT, Trich) (05/29/2025 9:29 AM EDT) Trichomonas (NAAT) NOT DETECTED NOT DETECTED [facility] Comment:The analytical perfo rmance characteristics of thisassay have been determined by [employer]. Themodifications have not been cleared or approved bythe FDA. This assay has been validated pursuant to theIA regulations and is used for clinical purposes.For additional information, please refer tohttp://education.[place]/faq/Trichomonastma(This link is being provided for information/educational purposes only.)THIS TEST WAS PERFORMED AT:[facility] [place] [id number] BOYER MD CTNG Ref Lab NOT DETECTED NOT DETECTED [facility] NG Ref Lab NOT DETECTED NOT DETECTED [facility] ThinPrep vial Cervix uteri structure / Unknown 05/29/2025 9:29 AM EDT 05/30/2025 8:25 AM EDT Narrative [facility] - 05/31/2025 8:13 PM EDT Collection Date: [id number] by: ANN Dubon: Cervix Dennys Mae [facility] CYTOLOGY ORDERABLES F inal Result [facility] [address] [place] [address] [phone] * Bacterial Vaginosis Panel (05/29/2025 9:29 AM EDT) TRICHOMONAS VAGINALIS DETECTION BY PCR NOT DETECTED Not Detect [facility] BACTERIAL VAGINOSIS DETECTION BY PCR NEGATIVE Negative [facility] Comment:The BV organism targ ets of [...] DETECTION BY PCR NOT DETECTED Not Detect [facility] Qing glab krusei PCR NOT DETECTED Not Detect [facility] Swab Vaginal structure / Unknown 05/29/2025 9:29 AM EDT 05/29/2025 4:[address] [facility] MICROBIOLOGY - GENERA L ORDERABLES Final Result Performing Organization Address [facility]/ZIP Co de Phone Number [facility] [address] [place] [address] [phone] * HPV DNA, Low/High Risk (05/29/2025 9:29 AM EDT) HPV High Risk Negative Negative [facility] HPV Genotype 16 Negative Negative [facility] HPV Genotype 18 Negative Negative [facility] Comment:HPV testing performe d at [facility] (CLIA#[id number]), [address] [place] [address].Testing for HPV was performed using the Jenna [...] AM EDT 05/30/2025 8:25 AM EDT Dennys Mae [facility] BLOOD ORDERABLES Ashwini l Result Performing Organization Address [facility]/ZIP Co de Phone Number [facility] [address] [place] [address] [phone] * (ABNORMAL) POCT urinalysis dipstick manually [...] Media Lot # [id number] Lot# Expiration Date [id number] Urine 05/29/2025 9:29 AM EDT Dennys Mae CNM POINT OF CARE TEST ENTER/ EDIT ORDERABLES Final Result * Culture, Urine, Routine (05/29/2025 9:29 AM EDT) Urine Urine specimen obtained by clean catch procedure / Unknown 05/29/2025 9:29 AM EDT 05/29/2025 4:23 PM EDT Comment:[facility] - 05/31/2025 10:29 AM EDT Urine Culture Report Result Urine Culture < 10,000 cfu/ml Specimen Source: Urine clean catch Dennys Mae CNM LAB MICROBIOLOGY - GENERA L ORDERABLES Final Result [facility] [address] [place] [address] [phone] * Pap Smear (05/29/2025 9:29 AM EDT) Swab Cervix uteri structure / Unknown 05/29/2025 9:29 AM EDT 05/30/2025 8:25 AM EDT [facility] - 06/05/2025 12:33 PM EDT ----- ------- Name: Maribel Dong Age/Sex: 69/F : 1955 Unit#: [id number] Attend Dr: DENNYS MAE CNM Re05/29/25 Status: [facility] REF Location: [facility] Disch: ----- ------- SPEC : [id number] RECD: 05/30/25 STATUS: CLIFF LOU NUM: [id number] CARLOS: 05/29/[address] [facility] [address]: DENNYS MAE CNM ENTERED: 05/30/25 SP TYPE: Pap Smr OT DR: ORDERED: Pap Smear Interpretation Satisfactory for evaluation. [...] and HPV testing will be performed at [facility] (CLIA #[id number]), [address] [place] [address]. Testing for HPV was performed using the Jenna MUKESH [id number] system. The presence of HPV in the [...] detected. All professional services are performed by [facility] ([address] [place] [address], [place] [address]; ; CLIA #[id number]). The PAP Test is a screening procedure with the inherent possibility of both false negative and false positive results. Results should be interpreted in the context of historic and current clinical findings. Reliability of the PAP Test is enhanced by performing the test on a regular repetitive basis. ----- ------- Signed (signature on file) PATRICIA Cutler ([facility]) 06/05/25 1233 ----- ------- END OF REPORT us Dennys [facility] CYTOLOGY ORDERABLES F inal Result [facility] [address] [place] [address] [phone] * BI Mammogram Screening Tomosynthesis Bilateral (04/18/2025) Anatomical Region Laterality Modality Breast Bilateral Mammography us Indra Eason MD IMG BI PROCEDURES Final Res ult * Hm Lung Cancer Screning (10/30/2024 11:03 AM EST) Anatomical Region Laterality Modality Other Historical Provider HEALTH MAINTENANCE Final Result * (ABNORMAL) Lipid Panel, Standard (10/11/2024 10:34 AM EST) Triglycerides 180(H) <150 mg/dL [facility] Comment:Desirable Triglyceri de: less than 150 mg/dLBorderline High Triglyceride 150-199 mg/dLHigh Triglyceride: 200-499 mg/dLVery High Triglyceride: greater than or equal to 5OO mg/dL Cholesterol 153 <200 mg/dL [facility] Comment:Desirable Cholestero l: less than 200 mg/dLBorderline High Cholesterol: 200-239 mg/dLHigh Cholesterol: greater than 239 mg/dL LDL Cholesterol Calculated 70 <100 mg/dL [facility] Comment:Desirable LDL: less than 100 mg/dLNear Optimal/Above Optimal LDL: 110- 129 mg/dLBorderline High LDL: 130-159 mg/dLHigh LDL: 160-189 mg/dLVery High LDL: greater than or equal to 190 mg/dL HDL Cholesterol 47 >40 mg/dL [facility] Comment:Desirable HDL: great er than 40 mg/dL Note: This HDL assay may give artificially low results in patients with liver disease. Blood Venous blood specimen / Unknown 10/11/2024 10:34 AM EST 10/11/2024 2:19 PM EST Indra Eason MD LAB BLOOD ORDERABLES Final Result Performing Organization Address City/State/[facility] Co de Phone Number [facility] [address] [place] [address] [phone] * Hm Colonoscopy (07/30/2022) Colonoscopy Performed Historical Provider HEALTH MAINTENANCE Final Result from Last 3 Months or Most Recently Relevant to Health Maintenance Insurance [employer] PPO HSN FULL Care Teams Station Superintendent Relationship Specialty Start Date End Date Indra Eason MD [address] [place] [address] [phone] PCP - General Internal Medicine 06/12/21
--- OUTSIDE RECORDS SUMMARY | 2025-08-13 15:48 | XMS_ITS | Encounter Summary ---
Author Organization [employer] [facility] Address [address] [place] [address] [address] [place] [address] Care Team Providers Care Videogame Designer Name Role Phone Indra Eason MD Primary Care Provider Reason for Visit * Reason Comments Med Refill Encounter Details Date Type Department Care Team ([facility] Contact Info) Description 07/27/2023 Refill [facility] [address] [place], [place] [phone] Indra Eason MD [address] [place], [place] [phone] Social History Tobacco Use Types Packs/Day Years [...] Upcoming Encounters Date Type Department Care Team ([facility] Contact Info) Description 09/10/2025 1:45 PM EDT Office Visit [facility] [address] [place], [place] [phone] Indra Eason MD [address] [place], [place] [phone] documented as of this encounter Visit Diagnoses Not on filedocumented in this encounter Additional Health Concerns Assessment Noted Time PHQ-9 Depression Total Score: 9 11/19/20 22 11:13 AM EST documented as of this encounter Care Teams Videogame Designer Relationship Specialty Start Date End Date Indra Eason MD [address] [place] [phone] PCP - General Internal Medicine 06/12/21 documented as of this encounter
--- OUTSIDE RECORDS SUMMARY | 2025-08-13 15:48 | XMS_ITS | Encounter Summary ---
Author Organization [employer] Address [address] [facility] 7t [place] [address] Care Team Providers Care Bilingual Office Assistant Name Role Phone Indra Eason MD Primary Care Provider Encounter Details Date Type Department Care Team (Late st Contact Info) Description 06/28/2025 Orders Only [facility] [address] [place], [place] [phone] Provider, MD Maria Isabel Social History Tobacco [...] Upcoming Encounters Date Type Department Care Team ([facility] st Contact Info) Description 09/10/2025 1:45 PM EDT Office Visit [facility]ED[facility] [address] [place] [address] Indra Eason MD [address] [place] [address] documented as of this encounter Procedures Procedure [...] documented as of this encounter Care Teams Bilingual Office Assistant Relationship Specialty Start Date End Date Indra Eason MD [address] [place] [address] PCP - General Internal Medicine 06/12/21 documented as of this encounter
--- OUTSIDE RECORDS SUMMARY | 2025-08-13 15:48 | XMS_ITS | Encounter Summary ---
Author Organization [employer] Address [address] [facility] [address] [place] [address] Care Team Providers Care Locker Operator Name Role Phone Indra Eason MD Primary Care Provider [phone] Encounter Details Date Type Department Care Team (Late st Contact Info) Description 11/02/2024 Orders Only [facility] [address] [place], [place] [phone] Provider, MD Maria Isabel Social History Tobacco [...] Upcoming Encounters Date Type Department Care Team ([facility] st Contact Info) Description 09/10/2025 1:45 PM EDT Office Visit [facility] [address] [place] [address] Indra Eason MD [address] [place] [address] documented as of this encounter Procedures Procedure [...] documented as of this encounter Care Teams Locker Operator Relationship Specialty Start Date End Date Indra Eason MD [address] [place] [address] PCP - General Internal Medicine 06/12/21 documented as of this encounter
--- OUTSIDE RECORDS SUMMARY | 2025-08-13 15:48 | XMS_ITS | Encounter Summary ---
Author Organization [employer] Address [address] [facility] [address]t [place] [address] Care Team Providers Care Field Pipe Lines Supervisor Name Role Phone Indra Eason MD Primary Care Provider Encounter Details Date Type Department Care Team (Late st Contact Info) Description 03/17/2024 Orders Only [facility] PEDS [address] [place], [place] [phone] Indra Eason MD [address] [place], [place] [phone] Depressive disorder (Primary Dx) Social History Tobacco [...] Upcoming Encounters Date Type Department Care Team ([facility] st Contact Info) Description 09/10/2025 1:45 PM EDT Office Visit [facility] MED & PEDS [address] [place] [address] Indra Eason MD [address] [place] [address] documented as of this encounter Visit Diagnoses Diagnosis Depressive disorder- Primary Depressive disorder, not elsewhere classified documented in this encounter Additional Health Concerns Assessment Noted Time PHQ-9 Depression Total Score: 22 024 9:57 AM EDT documented as of this encounter Care Teams Field Pipe Lines Supervisor Relationship Specialty Start Date End Date Indra Eason MD [address] [place] [address] PCP - General Internal Medicine 06/12/21 documented as of this encounter
--- OUTSIDE RECORDS SUMMARY | 2025-08-13 15:48 | XMS_ITS | Encounter Summary ---
Author Organization [employer] Address [address] [facility] 7t [place] [address] Care Team Providers Care Radio News Writer Name Role Phone Indra Eason MD Primary Care Provider Reason for Visit * Reason Onset Date Comments Referral 04/25/2025 Encounter Details Date Type Department Care Team ([facility] st Contact Info) Description 04/25/2025 Telephone [facility] [address] [place] [address] Indra Eason MD [address] [place], [place] [phone] Referral Social History Tobacco Use Types Packs/Day [...] and is asking for another referral to [facility]. Author advised provider had ordered x-rays of knee and hip and advised pt to complete those prior to anortho referral. Pt requested x-ray orders be faxed to [facility] for exam to be completed there. Author [...] Care Team (Late st Contact Info) Description 09/10/2025 1:45 PM EDT Office Visit [facility] [address] [place] [address] Indra Eason MD [address] [place] [address] documented as of this encounter Visit Diagnoses Not on filedocumented in this encounter Additional Health Concerns Assessment Noted Time PHQ-9 Depression Total Score: 16 024 12:36 PM EST documented as of this encounter Care Teams Radio News Writer Relationship Specialty Start Date End Date Indra Eason MD [address] [place] [address] PCP - General Internal Medicine 06/12/21 documented as of this encounter
--- OUTSIDE RECORDS SUMMARY | 2025-08-13 15:48 | XMS_ITS | Encounter Summary ---
Author Organization [employer] Address [address] [facility] 7t [place] [address] Care Team Providers Care Health Careers Instructor Name Role Phone Indra Eason MD Primary Care Provider Encounter Details Date Type Department Care Team (Late st Contact Info) Description 10/01/2023 Abstract [facility] [address] [place] [address] Tanya Fields Social History Tobacco [...] Description 09/10/2025 1:45 PM EDT Office Visit [facility] [address] [place] [address] Indra Eason MD [address] [place] [address] documented as of this encounter Visit Diagnoses Not on filedocumented in this encounter Additional Health Concerns Assessment Noted Time PHQ-9 Depression Total Score: 9 11/19/20 22 11:13 AM EST documented as of this encounter Care Teams Health Careers Instructor Relationship Specialty Start Date End Date Indra Eason MD [address] [place] [address] PCP - General Internal Medicine 06/12/21 documented as of this encounter
--- OUTSIDE RECORDS SUMMARY | 2025-08-13 15:48 | XMS_ITS | Encounter Summary ---
Author Organization [employer] Address [address] [facility] [address] [place] [address] Care Team Providers Care Television Picture Tube Rebuilder Name Role Phone Indra Eason MD Primary Care Provider [phone] Reason for Visit * Reason Comments Med Refill Encounter Details Date Type Department Care Team ([facility] Contact Info) Description 08/04/2025 Refill [facility]EDS [address] [place], [place] [phone] Indra Eason MD [address] [place], [place] [phone] Social History Tobacco Use Types Packs/Day Years [...] Upcoming Encounters Date Type Department Care Team ([facility] st Contact Info) Description 09/10/2025 1:45 PM EDT Office Visit [facility] [address] [place] [address] Indra Eason MD [address] [place] [address] documented as of this encounter Visit Diagnoses Not on filedocumented in this encounter Additional Health Concerns Assessment Noted Time PHQ-9 Depression Total Score: 14 025 11:02 AM EDT documented as of this encounter Care Teams Television Picture Tube Rebuilder Relationship Specialty Start Date End Date Indra Eason MD [address] [place] [address] PCP - General Internal Medicine 06/12/21 documented as of this encounter
--- OUTSIDE RECORDS SUMMARY | 2025-08-13 15:48 | XMS_ITS | Encounter Summary ---
Author Organization [employer] Address [address] [facility] 7t [place] [address] Care Team Providers Care Blue Line Trimmer Name Role Phone Indra Eason MD Primary Care Provider Reason for Visit * Reason Comments Med Refill Encounter Details Date Type Department Care Team ([facility] st Contact Info) Description 09/22/2024 Refill [facility] [address] [place], [place] [phone] Alix Ayala CN [address] [place], [place] [phone] Social History Tobacco Use Types Packs/Day Years [...] Upcoming Encounters Date Type Department Care Team ([facility] st Contact Info) Description 09/10/2025 1:45 PM EDT Office Visit [facility] & PEDS [address] [place] [address] Indra Eason MD [address] [place] [address] documented as of this encounter Visit Diagnoses Not on filedocumented in this encounter Additional Health Concerns Assessment Noted Time PHQ-9 Depression Total Score: 15 024 9:23 AM EDT documented as of this encounter Care Teams Blue Line Trimmer Relationship Specialty Start Date End Date Indra Eason MD [address] [place] [address] PCP - General Internal Medicine 06/12/21 documented as of this encounter
== END 2025-08-13 12:25 | disposition home or self-care (01) ==
LOC: HO.HWS 11:31
PROVIDERS: PCP Internal Medicine; Visit Provider Obstetrics & Gynecology
DX: N95.0 Postmenopausal bleeding (principal)
CPT/HCPCS: 99213

== ENCOUNTER → 2025-08-13 11:31 | Outpatient (BNVA) | payer MEDICARE, SELFPAY | PROVIDERS: PCP Internal Medicine; Visit Provider Obstetrics & Gynecology | DX: Z71.2 Person consulting for explanation of examination or test findings (principal); N95.0 Postmenopausal bleeding; N84.9 Polyp of female genital tract, unspecified | CPT/HCPCS: 99212 ==

== ENCOUNTER 2025-08-31 08:03 | Day surgery (SDC) | payer MEDICARE, SELFPAY ==
[2025-08-29 13:16] VITALS: BMI 27.7
--- NOTE | 2025-08-29 13:46 | HO.ANESPROP2 ---
Documented by User: Mariaa Stiles NP 08/29/25 13:49 HPI - Anesthesia Eval Consult details Narrative: 70 yr old female for D&C Hysteroscopy,possible myomectomy,possible polypectomy GERD: on PPI PMFSH Active Problems Active Problems: All Active Problems Post-menopausal bleeding (Acute) Abdominal pain (Acute) Encounter for screening colonoscopy (Acute) Trochanteric bursitis, left hip (Acute) History of arthroplasty of left hip (Acute) Change in consistency of stool (Acute) Unintentional weight loss (Acute) Mass in chest (Acute) Candidiasis (Acute) Rectal bleeding (Acute) Nicotine dependence (Acute) Acid reflux (Acute) Colon cancer screening (Acute) Fatty liver (Acute) Constipation (Acute) Past Medical History Medical History Elevated cholesterol HTN (hypertension) Clot Change in consistency of stool Unintentional weight loss Mass in chest Candidiasis Rectal bleeding Nicotine dependence Acid reflux Colon cancer screening Fatty liver Constipation Hypercholesteremia Hypertension Family History Family History Brother Diabetes Maternal Aunt Diabetes Other Cancer Heart disease Surgical History Surgical History History of hernia surgery Hx of cholecystectomy History of total left hip replacement Social History Social History Alcohol intake: never Patient Tobacco Use Status: Current everyday Tobacco user Have you been hit, kicked, punched, or otherwise hurt by someone within the past year? If so, by whom?: No Are you DNR?: No Advance Directives: No Advance Directives Information Provided: Yes Current occupational status: retired Meds Allergies Allergy/AdvReac Type Severity Reaction Status Date / Time aspirin AdvReac Mild Abdominal Verified 07/31/25 10:01 Pain Home Medications ?Medication ?Instructions ?Recorded ?Confirmed ?Last Taken ?Type lisinopril 5 mg tablet 5 mg PO DAILY 02/20/22 08/31/25 08/30/25 History simvastatin 20 mg tablet 20 mg PO DAILY 07/30/22 08/31/25 Unknown History Exam Height,Weight and Vital Signs: Height 4 ft 11 in Weight 62.142 kg Documented by User: Lyndon Bourne MD 08/31/25 09:33 [facility] Past Medical History Medical History Elevated cholesterol HTN (hypertension) Clot Change in consistency of stool Unintentional weight loss Mass in chest Candidiasis Rectal bleeding Nicotine dependence Acid reflux Colon cancer screening Fatty liver Constipation Hypercholesteremia Hypertension Family History Family History Brother Diabetes Maternal Aunt Diabetes Other Cancer Heart disease Family history of problems with anesthesia: No Surgical History Surgical History History of hernia surgery Hx of cholecystectomy History of total left hip replacement History of Problems with Anesthesia: No Social History Social History Alcohol intake: never Patient Tobacco Use Status: Current everyday Tobacco user Have you been hit, kicked, punched, or otherwise hurt by someone within the past year? If so, by whom?: No Are you DNR?: No Advance Directives: No Advance Directives Information Provided: Yes Current occupational status: retired Meds Allergies Allergy/AdvReac Type Severity Reaction Status Date / Time aspirin AdvReac Mild Abdominal Verified 07/31/25 10:01 Pain Home Medications ?Medication ?Instructions ?Recorded ?Confirmed ?Last Taken ?Type lisinopril 5 mg tablet 5 mg PO DAILY 02/20/22 08/31/25 08/30/25 History simvastatin 20 mg tablet 20 mg PO DAILY 07/30/22 08/31/25 Unknown History Exam Exam Date and Time: 08/31/2025 Airway Mallampati Class: II TM Dist: >3cm Neck ROM: Full Denture: Upper and Lower Loose/Missing/Broken Teeth: Upper and Lower Heart: rrr Lungs: ctab Assessment and Plan Assessment Anesthesia Assessment: Anesthesia Plan Discussed, Smoking Cess. Discussed and Chart Reviewed Final Anesthetic Review Family History of Problems with Anesthesia: No History of Problems with Anesthesia: No NPO: Yes ASA Class: II Final Preanesthetic Review: No Changes in Pt Med Stat, Meds/Allgs Chart Reviewed, Consent Obtained/Reviewed and Anes Risks/Benef Reviewed Patient Risk: Low Procedure Risk: Low Anesthetic Plan Anesthetic Plan: GA Disposition: Standard PACU
[2025-08-31] VITALS (9 sets, daily range): BP systolic 98–119; BP diastolic 39–60; PULSE 64–98; RESP 10–20; TEMP 36.3–36.8; O2SAT 97–100; BMI 27.5
[2025-08-31] MEDS: Lactated Ringers 1,000 ML 100 ML IVCONT (08:58)
--- NOTE | 2025-08-31 10:04 | MHC.SHP ---
Pre-Procedural Eval Section A - 24 Hr Update-Section A only Date of Service: 08/31/25 The patient is an INPATIENT: No Changes since office visit: No Cold of Flu in the past 2 weeks, No New Medical Problems, No Changes in Medication and No Patient answered all questions The patient has been examined within 24 hours of the surgical procedure. The History & Physical has been completed within 30 days and I have reviewed it.: Yes Section B - Complete if H&P > 30 days Chief Complaint: Postmenopausal bleeding Allergies: Allergies Allergy/AdvReac Type Severity Reaction Status Date / Time aspirin AdvReac Mild Abdominal Verified 07/31/25 10:01 Pain Plan Diagnosis/Plan: Unchanged I have reviewed the history and physical and performed a pertinent physical examination on my patient. No changes have occurred unless specified. Time Spent With Patient Time: Total time managing care of this patient today ____ minutes.
--- NOTE | 2025-08-31 10:43 | P.BOP_ITS ---
Brief Operative Note Date of Service: 08/31/25 Pre-op diagnosis: Postmenopausal bleeding, endometrial polyp by EMB pathology Post-op diagnosis: same (Normal endometrial cavity no evidence of pathology) Procedure: Hysteroscopy D&C Surgeon: Anson Doan MD Anesthesia: GLMA Was an Infection Control Rn used for this Procedure?: No Estimated blood loss (mL): 0 Pathology: other (Endometrial Scrapping) Condition: stable Disposition: PACU
--- NOTE | 2025-08-31 10:44 | P.OP_ITS ---
Operative Note Operative Note Date of Service: 08/31/25 Narrative: Preop Diagnosis: Post Menopausal bleeding, endometrial polyp on EMB pathology Operation: Diagnostic Hysteroscopy, Dilataion & Curettage Post Op Diagnosis: Normal endometrial cavity QBL: Minimal Anesthesia: GLMA Surgeon: Anson Doan MD Supervisor Respiratory: None Complication: None Pathology: Endometrial Scrapings Procedure: The patient was put in the dorsal lithotomy position, scrubbed, and draped in the usual manner. A sterile speculum was inserted in the patient's vagina. The anterior lip of the cervix was grasped with a single tooth tenaculum. The cervix was dilated up to 5 mm, then the scope was inserted in the patient's uterus. Inspection revealed Normal endometrial cavity. The Myosure Reach device was used; the scope was removed from the endometrial cavity , sharp curettings was carried on with minimal to moderate amount of tissues retrieved. At the end of the procedure, all instruments were taken out of the patient uterine and vaginal cavity. The single tooth tenaculum was removed and homeostasis was assured using pressure,. The patient tolerated the procedure well and was transferred to the PACU in a stable condition.
== END 2025-08-31 12:02 | disposition home or self-care (01) ==
PROVIDERS: PCP Internal Medicine; Visit Provider Obstetrics & Gynecology
PROC: 0UDB8ZZ Extraction of Endometrium, Via Natural or Artificial Opening Endoscopic (ICD-10-PCS; CPT 58558; principal; 2025-08-31 10:40)
DX: N95.0 Postmenopausal bleeding (principal); K76.0 Fatty (change of) liver, not elsewhere classified; R63.4 Abnormal weight loss; I10 Essential (primary) hypertension; E78.00 Pure hypercholesterolemia, unspecified; K21.9 Gastro-esophageal reflux disease without esophagitis; K59.00 Constipation, unspecified; K62.5 Hemorrhage of anus and rectum; Z79.899 Other long term (current) drug therapy; Z88.6 Allergy status to analgesic agent; Z90.49 Acquired absence of other specified parts of digestive tract; Z98.890 Other specified postprocedural states; Z72.0 Tobacco use
CPT/HCPCS: 58558; 88305; J1100; J2003; J2405; J2704; J3010

== ENCOUNTER → 2025-08-31 08:03 | Outpatient (BNV) | payer MEDICARE, SELFPAY | PROVIDERS: PCP Internal Medicine; Visit Provider Obstetrics & Gynecology | DX: N95.0 Postmenopausal bleeding (principal) | CPT/HCPCS: 58558 ==

== ENCOUNTER 2025-09-20 11:03 | Outpatient (AMB) | payer MEDICARE, SELFPAY ==
--- NOTE | 2025-09-20 11:13 | MHC.OFFVIS ---
Vital Signs 09/20/25 11:17 Height 4 ft 11 in Weight 137 lb BMI 27.7 Intake Visit Reasons: post op Human Performance Consultant Required: No Information Interpreted: non-clinical & clinical Accompanied by: Self / Same As Patient Allergies aspirin Adverse Reaction (Mild, Verified 09/20/25 11:16) Abdominal Pain Post menopausal: Yes HPI Comments Details: The patient is presenting post hysteroscopy D&C no complaints minimal vaginal bleeding no feverishness chills or abdominal pain. The pathology showed the following: Endometrium, curettage: Small fragment with features of endometrial polyp; few strips of inactive endometrium; no atypia identified PFSH Medical History Elevated cholesterol HTN (hypertension) Clot Change in consistency of stool Unintentional weight loss Mass in chest Candidiasis Rectal bleeding Nicotine dependence Acid reflux Colon cancer screening Fatty liver Constipation Hypercholesteremia Hypertension Surgical History History of hernia surgery Hx of cholecystectomy History of total left hip replacement Family History Brother Diabetes Maternal Aunt Diabetes Other Cancer Heart disease Social History Alcohol intake: never Patient Tobacco Use Status: Current everyday Tobacco user Current occupational status: retired Review of Systems Const All systems reviewed & are unremarkable except as noted in HPI and below Reports as per HPI and Reports no additional complaints GI Reports no additional complaints Reports no additional complaints Assessment & Plan Assessment & Plan (1) Post-menopausal bleeding: Comment: Fragments of polyp on EMB pathology with metaplastic changes Code(s): N95.0 - Postmenopausal bleeding Category: Medical Plan: Discussed with the patient the results of the pathology showing fragments of endometrial polyp with inactive endometrium . Discussed with the patient the sensitivity, specificity, positive and negative predictive value, of endometrial biopsy in detecting endometrial pathology including but not limited to endometrial hyperplasia, cancer and other pathology; instructed the patient to call in case vaginal bleeding recurs, the next step will be to proceed with further endometrial sampling evaluation to rule out endometrial pathology. All questions answered and the patient verbalized understanding and agreed with the plan. Coding Level of Care Code Est Pt Level 3 (79054) Diagnoses Post-menopausal bleeding N95.0
[2025-09-20 11:17] VITALS: BMI 27.7
--- OUTSIDE RECORDS SUMMARY | 2025-09-20 13:47 | XMS_ITS | Data Portability ---
Author Organization [employer] [employer] [facility] Address [address] [place] [address] Care Team Providers Care Lard Renderer Name Role Phone [facility] Referring Provider Unavailable Referring Provider Assessment Encounter Date Assessment Date [...] pain. No nausea/vomiting, diarrhea, or fevers. VSS. Fixed Income Analyst on site reports appears well. POC UA [...] available 08/13/2022 11:56:34 05/24/2023 05/24/2023 Called to refugio martinez 67 y/o w COPD, HTN who [...] recorded. Lab urinalysis , dipstick 2022 023 [facility], [address] [place] [address], [id number] 3 10:09:06 culture, urine 2021 022 [facility] (Centralized Electronic Ordering - All Locations), Patient Can Go To The Location Of Their Choice, [facility] 11:41:40 culture, urine 2021 022 [facility] (Centralized Electronic Ordering - All Locations), Patient Can Go To The Location Of Their Choice, [id number] 05:01:57 Referral None recorded. Procedures None recorded. Surgeries None recorded. Imaging None recorded. Medication Orders Bactrim DS 800 mg-160 mg tablet 2022 023 [email or web address][id number], [address], [place], [phone], 11:47:06 Bactrim DS 800 mg-160 mg tablet 2022 023 [facility][id number], [address], [place], [id number], 11:47:16 Bactrim DS 800 mg-160 mg tablet 2021 022 [facility] #[id number], [address], [place], [phone], 12:31:51 Patient TargetsNo targets recorded. Patient InstructionsNo instructions recorded. Reason for Referral None Reported. Results Created Date Observation Date Name Description Value Unit Range Abnormal Flag Note LastModifiedBy Organization Detail LastModifiedTime 08/13/2008/13/2022 UA W/REF THOM CULTU RE appear/color COLOR LESS CLEAR Not Available [facility] (Centralized Electronic Ordering - All Locations) Patient Can Go To The Location Of Their Choice, [facility] 08/13/2022 23:31:57 08/13/20 22 08/13/2022 UA W/REF [...] Go To The Location Of Their Choice, [id number] 08/13/2022 23:31:57 09/15/2009/15/2022 URINE CULTU RE specimen description URINE Not Available [facility] (Centralized Electronic Ordering - All Locations) Patient Can Go To The Location Of Their Choice, [id number] 09/16/2022 11:41:40 09/15/2009/15/2022 URINE CULTU RE special requests NONE Not Available [facility] (Centralized Electronic Ordering - All Locations) Patient Can Go To The Location Of Their Choice, [id number] 09/16/2022 11:41:40 09/15/2009/16/2022 URINE CULTU RE culture Mixed bacter ial you, indica tive of urogen ital contam inatio n. Not Available [facility] (Centralized Electronic Ordering - All Locations) Patient Can Go To The Location Of Their Choice, [id number] 09/16/2022 11:41:40 09/15/2009/16/2022 URINE CULTU RE report status FINAL 2021 Not Available [facility] (Centralized Electronic Ordering - All Locations) Patient Can Go To The Location Of Their Choice, [id number] 09/16/2022 11:41:40 Result Notes None recorded. Medical [...] Updated DateTime 3 97.9 [degF] 85 /min 65366.7 2 g 98 % 98 % 14 /min 163/84 mm[Hg] Not Available [employer] 3 10:43:47 Date Recorded Body weight Body temperature Heart rate Respiratory rate Oxygen saturation Oxygen saturation in Arterial blood by Pulse oximetry Heart rate Respiratory rate Body weight Oxygen saturation Oxygen saturation in Arterial blood by Pulse oximetry Body temperature Provider Name and Address Organization Details Last Updated DateTime 3 78846.8 g 97.8 [degF] 76 /min 18 /min 98 % 98 % 76 /min 18 /min 10060.8 g 98 % 98 % 97.8 [degF] Not Available [employer] 3 11:26:24 Date Recorded Heart rate Body temperature Body weight Respiratory rate Oxygen saturation Oxygen saturation in Arterial blood by Pulse oximetry Systolic And Diastolic Systolic And Diastolic Systolic And Diastolic Provider Name and Address Organization Details Last Updated DateTime 3 76 /min 97.8 [degF] 25312.8 g 18 /min 98 % 98 % 156/78 mm[Hg] 156/78 mm[Hg] 156/78 mm[Hg] Not Available [employer] 3 11:55:40 Date Recorded Oxygen saturation Oxygen saturation in Arterial blood by Pulse oximetry Body temperature Respiratory rate Heart rate Systolic And Diastolic Provider Name and Address Organization Details Last Updated DateTime 2 99 % 99 % 98.1 [degF] 16 /min 78 /min 120/82 mm[Hg] Not Available [employer] 2 12:54:18 Date Recorded Oxygen saturation Oxygen [...] Diagnosis SNOMED-CT Code Diagnosis ICD10 Code Diagnosis IMO Codes Diagnosis Note [id number] Brianda Forrest MD [facility] - [address] [address] 08/13/2022 11:49:44 08/31/2022 15:08:44 Kidney stone 08429588 N20.0 [id number] Melanie Sheikh MD [facility] - [address] [address] 09/15/2022 12:23:55 09/15/2022 13:15:24 Acute urinary tract infection 078597520 N39.0 67 year old female being evaluated for urinary symptoms for 3 days. Patient reports urgency, dysuria and frequency, along with hematuria and subjective fever. Last UTI was in March. Patient able to tolerate PO currently, without n/v or flank pain. Exam notable for normal vital signs. Will send for urinalysis and culture, and empiricall y treat with bactrim. [id number] Melanie Sheikh MD [address] [address] 05/03/2023 10:43:44 05/04/2023 15:51:57 Diarrhea 69152013 R19.7 67 year old female being evaluated [...] up if symptoms persistent beyond next week. [id number] Beatris Gandhi MD [facility] - [address] [address] 05/24/2023 11:11:02 05/25/2023 11:28:31 Acute pyelonephritis 08322266 N10 Health Concerns Section Related Observation LastModified by Organization Detai ls LastModified Time None Recorded Concern Status LastModified by Organization Details LastModified Time None Recorded Advance Directives Directive None Recorded Payers Insurance Date Sequence Insurance Name Policy Number Policy Chong Covered Member ID Chong Member ID Guarantor Name 05/03/2023 1 [facility] - DOS PRIOR TO 2023 - DUAL ELIGIBLE (MEDICARE REPLACEMENT/ADV ANTAGE - HMO) [facility] [id number] Mar[facility] 05/24/2023 1 [facility] - DOS ON OR AFTER 2023 - DUAL ELIGIBLE - CUSTODIAL OPTIONS AND ONE CARE (MEDICARE REPLACEMENT/ADV ANTAGE - HMO) Maribel Dong [id number] Maribel Martinez Dong Notes Date Note Type Note Provider [...] ...................... ...................... ...................... ...................... ...................... ...................... ......... Fixed Income Analyst Note: Dysuria. Vitals, assessment, UA, cultures ...................... ...................... ...................... ...................... ...................... ...................... ......... Disposition: Fulfilled Brianda Forrest MD [address] [place] [address],[address], [place], [address], [employer] 08/13/2022 15:49:24 09/15/2022 text/html CRC Nursing Assessment: [...] ...................... ...................... ...................... ...................... ...................... ...................... ......... Fixed Income Analyst Note: Dispatched to a/a for urinary s/s. [...] 04/19, denies hx of hospitalizations for UTI. Fixed Income Analyst Zheng performs pt assessment. Skin is warm and dry. Equal chest rise and fall, abd is soft, +tender, not distended. No CVA tenderness. No other signs/symptoms at this time. Obtained clean catch urine, and Fixed Income Analyst Zheng performed UA. Results uploaded to [employer] [place]. Consulted [facility] who ordered dose of Bactrim DS culture to be sent to lab and will send script to pt's pharmacy. Went over red flags and provided pt education on how to prevent UTI's in future. No further questions or concerns at this time. ...................... ...................... ...................... ...................... ...................... ...................... ......... Disposition: Fabienne Sheikh MD [address] [facility],[address], [place], [address], [employer] 09/15/2022 12:29:40 05/03/2023 text/html CRC Nursing Assessment: Chief Complaints: Abdominal Pain PMH: COPD/Asthma, Hypertension Allergies: No Known Comments: RN from [facility] calling on behalf of member with request for [facility] visit for eval of vague abdominal pain and loos stools x 3 days deny fever/chills. Verify member name/- Melanie Sheikh MD [address] [facility],[address], [place], [address], [employer] 05/03/2023 11:24:14 05/24/2023 text/html CRC Nursing Assessment: Reason For Request: Back pain Patient Reports: Frequent and increased urination with flank pain; Painful urination with or without fever Chief Complaints: UTI/Pyelonephritis, Abdominal Pain, Pain, Syncope/Dizziness/Ligh theadedness PMH: COPD/Asthma, Hypertension Allergies: No Known Comments: Member calling with request for [facility] visit for eval for flank pain and dysuria and pressure x 2 days +hematuria this am, Deny fevers. Verify name/- ...................... ...................... ...................... ...................... ...................... ...................... ......... Fixed Income Analyst Note From Rosas Alanis: Pt presents A@Ox4 . [place] warm and dry. Pt c/o UTI related [...] ...................... ......... Disposition: Fulfilled Beatris Gandhi MD [address] [place] [address],[address] [facility], [place], [address], [employer] 05/24/2023 15:12:34 OBGyn Episode No OBEpisode recorded.
--- OUTSIDE RECORDS SUMMARY | 2025-09-20 13:48 | XMS_ITS | Data Portability ---
Author Organization [place] - [facility], Allergy Address [address] [facility] [address] [facility] [address] [place] [address] Care Team Providers Care Pediatrician Active Practice Name Role Phone INNA GARCÍA Primary Care Provider Assessment Encounter Date Assessment Date Assessment LastModified by Organization Details LastModified Time 08/02/2025 08/02/2025 The patient demonstrates voice changes likely related to long-term COPD, which has weakened her lungs and reduced air pressure necessary for normal voice quality. No tumors or masses were observed in the voice box during the examination. I recommend the patient work with a voice therapist to perform breathing and voice control exercises, which may improve her voice quality. I reassured her that there is no evidence of cancer in the voice box. She deferred on DIESEL ENGINE TESTER referral at this time. The patient is awaiting an upper endoscopy and colonoscopy as recommended by her oyster culturist to further evaluate her swallowing difficulties and throat-related symptoms. I advised her to follow up with the specialist for these procedures. Regarding her left ear blockage, I suggested scheduling a hearing test in the future to assess her auditory function. I also counseled her to avoid inserting objects deep into her ears and nostrils, as her septum is slightly deviated to the left, which may contribute to discomfort. [email or web address] Not available 08/02/2025 11:39:15 Plan of Treatment Reminders Order Date Submit Date Provider Last Modified By Organization Details Last Modified Time Details Appointments Hearing Test 2024 10:30A M Hearing Test Not available Not available Not available Establish ed 15 2024 11:00A M TONY AMAYA Not available Not available Not available Lab None recorded. Referral None recorded. Procedures None recorded. Surgeries None recorded. Imaging None recorded. Medication Orders None recorded. Patient TargetsNo targets recorded. Patient Instructions Encounter Date Encounter Id Patient Instructions Last Modified By Organization Details Last Modified Time 08/02/2025 [id number] - Follow up with the oyster culturist for upper endoscopy and colonoscopy. - Schedule a hearing test for left ear blockage. - Avoid inserting objects deep into the nostrils. - Consider working with a voice therapist for breathing and voice control exercises. [email or web address] Not available 08/02/2025 11:37:29 Please note: Par ts of this encounter note have been generated by AI based on audio conversation. Patient consent was required prior to utilizing this technology. Content review was required prior to finalizing the note. [email or web address] Not available 08/02/2025 11:37:29 Reason for Referral None Reported. Problems Name Problem SNOMED Code Status Onset Date Resolution Date Notes Provider Name and Address Organization Details Recorded Time Hoarse 37055081 Active 2024 ZULMA DUARTE MD [address] [facility], [place], [address], [place] [facility] 11:34:01 Moderate chronic obstructive pulmonary disease 841063837 Active 2024 ZULMA DUARTE MD [address] [facility], [place], [address], [place] [facility] 11:34:06 Gastric reflux 628156811 Active 2024 ZULMA DUARTE MD [address] [facility], [place], [address], [place] [facility] 11:34:13 Dysphagia 43948792 Active 2024 ZULMA DUARTE MD [address] [facility], [place], [address], [place] [facility] [place] 11:34:19 Hearing loss of left ear 834248341 Active 2024 ZULMA DUARTE MD [address] [facility], [place], [address], [place] [facility] [place] 11:35:40 Cigarette smoker 65216380 Active 2024 ZULMA DUARTE MD [address] [facility] [address], [address], [place] [facility] 11:36:36 Problem Notes None recorded. Procedures Surgical History Date Name Laterality Status Provider Name and Address Organization Details Recorded Time 08/02/2025 FOL_DP completed ZULMA DUARTE MD [address] [facility] [address], [place], [address], [place] [facility] 08/02/2025 11:33:46 Imaging Results None recorded. Procedure Notes None recorded. Medical Equipment None Reported. Medications Name Sig Start Date Stop Date Status Note LastModified by Organization Details LastModified Time acetaminoph en ER 650 mg tablet,exte nded release 08/02 completed Not Available Not Available Not Available simvastatin 20 mg tablet TAKE 1 TABLET BY MOUTH EVERY DAY active Not Available Not Available No t Available docusate sodium 100 mg capsule TAKE 1 CAPSULE EVERY NIGHT AT BEDTIME active Not Available Not Available No t Available omeprazole 20 mg capsule,del ayed release TAKE 1 CAPSULE BY MOUTH DAILY active Not Available Not Available No t Available bisacodyl 5 mg tablet,binta yed release TAKE 4 TABLETS BY MOUTH DIRECTED FOR COLONOSCO PY 08/02 completed Not Available Not Available Not Available lisinopril 5 mg tablet TAKE 1 TABLET BY MOUTH EVERY DAY active Not Available Not Available No t Available polyethylen e glycol 3350 17 gram/dose oral powder DISSOLVE 17G IN 8OZ OF WATER AND DRINK BY MOUTH ONCE DAILY active Not Available Not Available No t Available Vitals Date Recorded Body height Body mass index (BMI) Body weight Provider Name and Address Organization Details Last Updated DateTime 08/02/2025 144.78 cm 31.6 kg/m2 55018.49 g SUZAN JAYA [place] [facility] [place] 08/02/2025 11:19:52 Social History None recorded. Functional Status Question Answer Note LastModified by Organization D etails LastModified Time What is your level of alcohol consumption? None [email or web address] Information not available 08/02/2025 Mental Status None recorded. Family History Nothing Reported. Medical History Condition Response Bleeding Disorder Y Arthritis Y Headaches Y Hypertension Y COPD Y Kidney Disease Y Gynecological HistoryNo gynecological history recorded. Obstetrics History GPAL:G 0 P 0 0 0 0 Past Encounters Encounter ID Performer Location Encounter Start Date Encounter Closed Date Diagnosis/Indication Diagnosis SNOMED-CT Code Diagnosis ICD10 Code Diagnosis IMO Codes Diagnosis Note [id number] ZULMA DUARTE MD [facility] [address] [address] 08/02/2025 10:45:56 08/02/2025 11:39:42 Hoarse 97984210 R49.0 591473 Moderate c hronic obstructive pulmonary disease 649509935 J44.9 115571 Gastric reflux 485333953 K21.9 458703 Dysphagia 72820697 R13.1 4 371023 Hearing lo ss of left ear 750845202 H91.92 71776072 Cigarette smoker 5291333 7 F17.210 552351 Health Concerns Section Related Observation LastModified by Organization Detai ls LastModified Time None Recorded Concern Status LastModified by Organization Details LastModified Time None Recorded Advance Directives Directive None Recorded Payers Insurance Date Sequence Insurance Name Policy Number Policy Chong Covered Member ID Chong Member ID Guarantor Name 08/02/2025 1 [place] [employer] Maribel Dong [id number] Maribelbj Chahalam 08/30/2025 2 [place] [facility] [place] [id number] Maribel Chahalam 08/30/2025 1 [employer] (MEDICARE REPLACEMENT/A DVANTAGE - PPO) Maribel Jeffy Chahalam [id number] Maribel Chahalam 08/30/2025 2 [facility] (MEDICARE REPLACEMENT/A DVANTAGE - HMO) Maribel Chahalam [id number] Maribel Chahalam Notes Date Note Type Note Provider Name and Address Organization Details Recorded Time 08/02/2025 text/html hoarse, dysphagia Maribel Dong is a 70-year-old female who presents for evaluation of throat-related symptoms. She reports difficulty swallowing and a sensation of something stuck in her throat for approximately four to five months. She describes mild pain in the neck area, extending from the jawline to the collarbones, and notes persistent dry mouth and throat. She has a history of COPD and longstanding hoarseness, accompanied by phlegm, coughing, and wheezing. She smokes approximately nine cigarettes daily and is attempting to quit. She has dentures and no history of throat or voice box surgery. She also reports chronic blockage in her left ear and occasional heartburn occurring daily. She has undergone a barium swallow study, which indicated potential issues with throat muscles or veins, and is awaiting an upper endoscopy and colonoscopy in the New Year. She is retired and previously worked at [employer] ZULMA DUARTE MD [address] [place] [address], [address], [place] [facility] 08/02/2025 11:39:24 OBGyn Episode No OBEpisode recorded.
== END 2025-09-20 11:19 | disposition home or self-care (01) ==
LOC: HO.HWS 11:03
PROVIDERS: PCP Internal Medicine; Visit Provider Obstetrics & Gynecology
DX: N95.0 Postmenopausal bleeding (principal)
CPT/HCPCS: 99213

== ENCOUNTER → 2025-09-20 11:03 | Outpatient (BNVA) | payer MEDICARE, SELFPAY | PROVIDERS: PCP Internal Medicine; Visit Provider Obstetrics & Gynecology | DX: Z98.890 Other specified postprocedural states (principal); N95.0 Postmenopausal bleeding | CPT/HCPCS: 99212 ==

== ENCOUNTER 2025-09-28 08:51 | Outpatient (AMB) | payer MEDICARE, SELFPAY ==
--- NOTE | 2025-09-28 09:02 | A.OFFVIS_ITS ---
Vital Signs 09/28/25 09:06 Height 4 ft 11 in Weight 137 lb BMI 27.7 Intake Visit Reasons: MLT- OA of right knee w/ lyft Intake Note: Maribel is a 70 year old female who presents today as a new patient for an evaluation of right knee pain. Patient was seen by PCP with complaints of right knee and left hip pain, referred to orthopedics. Patient reports that she has had an injection about 4 years ago and is unsure if this helped as it been a while. She complains of constant pain in her knee. States that her knee has given out however not too often. Patient uses a cane with ambulation. She states taking Tylenol daily. She would like to discuss repeat of injection as she does not want any surgical intervention. Allergies aspirin Adverse Reaction (Mild, Verified 09/28/25 09:08) Abdominal Pain Medication List - Last Reconciled 09/28/25 by Nate Waters PA-C lisinopril 5 mg PO DAILY simvastatin 20 mg PO DAILY [facility] Medical History Elevated cholesterol HTN (hypertension) Clot Change in consistency of stool Unintentional weight loss Mass in chest Candidiasis Rectal bleeding Nicotine dependence Acid reflux Colon cancer screening Fatty liver Constipation Hypercholesteremia Hypertension Surgical History History of hernia surgery Hx of cholecystectomy History of total left hip replacement Family History Brother Diabetes Maternal Aunt Diabetes Other Cancer Heart disease Social History Alcohol intake: never Patient Tobacco Use Status: Current everyday Tobacco user Current occupational status: retired Physical Exam Vital Signs: BMI result Body Mass Index 27.7 Office Procedures AMB Joint Injection/Aspiration Joint Injection/Aspiration Primary Site: right knee Prep: site was prepped using aseptic technique, ethochloride spray was applied and injection warnings given Injected: 40 mg of, with 3 mL of, 1% plain lidocaine, 0.25% bupivacaine, in the joint and decadron Approach Used: anterolateral Procedure: The patient tolerated the procedure well and there was some relief with the local anesthesia Coding 76189 - Glenohumeral/Tronchanteric Bursa/Intraarticular Procedure code (CPT) selection complete Results Reviewed Results Reviewed: Xrays were obtained in the office today and personally reviewed by me show severe degenerative changes in the medial compartment with varus deformity. Assessment & Plan Assessment & Plan (1) Primary osteoarthritis of right knee: Code(s): M17.11 - Unilateral primary osteoarthritis, right knee Category: Medical Plan: We discussed options today, which include steroid injection. The patient did consent to move forward with the injection, which was tolerated well.? I recommended rest, ice and elevation and OTC antiinflammatories prn for discomfort. If symptoms persist over the next 6-8 weeks, they will contact our office, otherwise, prn Orders: Orders XR knee standing BI Today M25.561 - Pain in right knee, M25.562 - Pain in left knee Coding Level of Care Code New Pt Level 3 (14196) Complex EM visit Add On G2211 Diagnoses Primary osteoarthritis of right knee M17.11 CPT Codes Coding - Joint 7: 17008 - Glenohumeral/Tronchanteric Bursa/Intraarticular ([id number])
[2025-09-28 09:06] VITALS: BMI 27.7
--- OUTSIDE RECORDS SUMMARY | 2025-09-28 09:20 | XMS_ITS | Data Portability ---
Author Organization [place] - [facility], Allergy Address [address] [facility] [address] [place] [address] Care Team Providers Care Peanut Shaker Name Role Phone INNA GARCÍA Primary Care [...] in the voice box. She deferred on CIRCULATION SUPERVISOR referral at this time. The patient is awaiting an upper endoscopy and colonoscopy as recommended by her clinical statistical programmer to further evaluate her swallowing difficulties and [...] By Organization Details Last Modified Time 08/02/2025 05379 - Follow up with the clinical statistical programmer for upper endoscopy and colonoscopy. - Schedule [...] and Address Organization Details Recorded Time Hoarse 12423408 Active 2024 ZULMA DUARTE MD [address] [facility], [place], [address], [place] [facility] 11:34:01 Moderate chronic obstructive pulmonary disease 090240085 Active 2024 ZULMA DUARTE MD [address] [facility], [place], [address], [place] [facility] 11:34:06 Gastric reflux 364442952 Active 2024 ZULMA DUARTE MD [address] [facility], [place], [address], [place] [facility] 11:34:13 Dysphagia 40981898 Active 2024 ZULMA DUARTE MD [address] [facility], [place], [address], [place] [facility] [place] 11:34:19 Hearing loss of left ear 926810243 Active 2024 ZULMA DUARTE MD [address] [facility], [place], [address], [place] [facility] [place] 11:35:40 Cigarette smoker 88593099 Active 2024 ZULMA DUARTE MD [address] [facility] [address], [place], [address], [place] [facility] 11:36:36 Problem Notes None recorded. Procedures Surgical History Date Name Laterality Status Provider Name and Address Organization Details Recorded Time 08/02/2025 FOL_DP completed ZULMA DUARTE MD [address] [facility] [address], [place], [address], [place] [facility] 08/02/2025 11:33:46 Imaging Results None recorded. [...] Updated DateTime 08/02/2025 144.78 cm 31.6 kg/m2 91839.49 g SUZAN JAYA [place] [facility] [place] 08/02/2025 11:19:52 Social History None recorded. Functional Status Question Answer Note LastModified by Organization D etails LastModified Time What is your level of alcohol consumption? None ccomi Information not available 08/02/2025 Mental Status None recorded. Family History Nothing Reported. Medical History Condition Response Bleeding Disorder Y Headaches Y Arthritis Y Hypertension Y COPD Y Kidney Disease Y Gynecological HistoryNo gynecological history recorded. Obstetrics History GPAL:G 0 P 0 0 0 0 Past Encounters Encounter ID Performer Location Encounter Start Date Encounter Closed Date Diagnosis/Indication Diagnosis SNOMED-CT Code Diagnosis ICD10 Code Diagnosis IMO Codes Diagnosis Note [id number] ZULMA DUARTE MD [facility] [address] [address] 08/02/2025 10:45:56 08/02/2025 11:39:42 Hoarse 56561584 R49.0 040826 Moderate c hronic obstructive pulmonary disease 537640281 J44.9 291304 Gastric reflux 687597685 K21.9 209638 Dysphagia 66728562 R13.1 4 015149 Hearing lo ss of left ear 102426453 H91.92 69109327 Cigarette smoker 9529745 7 F17.210 587928 Health Concerns Section Related Observation LastModified by Organization Detai ls LastModified Time None Recorded Concern Status LastModified by Organization Details LastModified Time None Recorded Advance Directives Directive None Recorded Payers Insurance Date Sequence Insurance Name Policy Number Policy Chong Covered Member ID Chong Member ID Guarantor Name 08/02/2025 1 [place] [employer] Maribel Dong [id number] Marbiel Dong 08/30/2025 2 [place] [facility] [place] [id number] Mairbel Chahalam 09/21/2025 1 [employer] (MEDICARE REPLACEMENT/A DVANTAGE - PPO) Maribel Jeffy Chahalam [id number] Maribel Chahalam 08/30/2025 2 [facility] (MEDICARE REPLACEMENT/A DVANTAGE - HMO) Maribel Dong [id number] Maribel Dong Notes Date Note Type Note Provider [...] She is retired and previously worked at [employer]. ZULMA DUARTE MD [address] [place] [address], [address], [place] [facility] 08/02/2025 11:39:24 OBGyn Episode No OBEpisode recorded.
--- OUTSIDE RECORDS SUMMARY | 2025-09-28 09:20 | XMS_ITS | Data Portability ---
Author Organization [employer] [facility] Address [address] [place] [address] Care Team Providers Care Delivery Specialist Name Role Phone [facility] Referring Provider [phone] Unavailable Referring Provider Assessment Encounter Date Assessment [...] pain. No nausea/vomiting, diarrhea, or fevers. VSS. Cdl Bulk Driver on site reports appears well. POC UA [...] recorded. Lab urinalysis , dipstick 2022 023 [facility], [address] [place] [address], [id number] 3 10:09:06 culture, urine 2021 022 [place] (Centralized Electronic Ordering - All Locations), Patient Can Go To The Location Of Their Choice, [facility] 11:41:40 culture, urine 2021 022 [place] (Centralized Electronic Ordering - All Locations), Patient Can Go To The Location Of Their Choice, [id number] 05:01:57 Referral None recorded. Procedures None recorded. Surgeries None recorded. Imaging None recorded. Medication Orders Bactrim DS 800 mg-160 mg tablet 2022 023 [email or web address][id number], [address] [place], [place], [id number], 11:47:06 Bactrim DS 800 mg-160 mg tablet 2022 023 [facility] #[id number], [address] [place], [place], [id number], 11:47:16 Bactrim DS 800 mg-160 mg tablet 2021 022 [facility][id number], [address] [place], [place], [id number], 12:31:51 Patient TargetsNo targets recorded. Patient InstructionsNo instructions recorded. Reason for Referral None Reported. Results Created Date Observation Date Name Description Value Unit Range Abnormal Flag Note LastModifiedBy Organization Detail LastModifiedTime 08/13/2008/13/2022 UA W/REF THOM CULTU RE appear/color COLOR LESS CLEAR Not Available [facility] (Centralized Electronic Ordering - All Locations) Patient Can Go To The Location Of Their Choice, [facility] 08/13/2022 23:31:57 08/13/20 22 08/13/2022 UA W/REF [...] Their Choice, 08/13/2022 23:31:57 08/13/2008/13/2022 UA W/REF THMO CULTU RE urine albumin NEGATI VE (neg) [...] Go To The Location Of Their Choice, [id number] 08/13/2022 23:31:57 09/15/2009/15/2022 URINE CULTU RE specimen description URINE Not Available [facility] (Centralized Electronic Ordering - All Locations) Patient Can Go To The Location Of Their Choice, [id number] 09/16/2022 11:41:40 09/15/2009/15/2022 URINE CULTU RE special requests NONE Not Available [facility] (Centralized Electronic Ordering - All Locations) Patient Can Go To The Location Of Their Choice, [id number] 09/16/2022 11:41:40 09/15/2009/16/2022 URINE CULTU RE culture Mixed bacter ial you, indica tive of urogen ital contam inatio n. Not Available [facility] (Centralized Electronic Ordering - All Locations) Patient Can Go To The Location Of Their Choice, [id number] 09/16/2022 11:41:40 09/15/2009/16/2022 URINE CULTU RE report status FINAL 2021 Not Available [facility] (Centralized Electronic Ordering - All Locations) Patient Can Go To The Location Of Their Choice, [id number] 09/16/2022 11:41:40 Result Notes None recorded. Medical [...] Updated DateTime 3 97.9 [degF] 85 /min 74762.7 2 g 98 % 98 % 14 /min 163/84 mm[Hg] Not Available [facility] 3 10:43:47 Date Recorded Body weight Body temperature Heart rate Respiratory rate Oxygen saturation Oxygen saturation in Arterial blood by Pulse oximetry Heart rate Respiratory rate Body weight Oxygen saturation Oxygen saturation in Arterial blood by Pulse oximetry Body temperature Provider Name and Address Organization Details Last Updated DateTime 3 63223.8 g 97.8 [degF] 76 /min 18 /min 98 % 98 % 76 /min 18 /min 41468.8 g 98 % 98 % 97.8 [degF] Not Available [facility] 11:26:24 Date Recorded Heart rate Body temperature Body weight Respiratory rate Oxygen saturation Oxygen saturation in Arterial blood by Pulse oximetry Systolic And Diastolic Systolic And Diastolic Systolic And Diastolic Provider Name and Address Organization Details Last Updated DateTime 3 76 /min 97.8 [degF] 25416.8 g 18 /min 98 % 98 % 156/78 mm[Hg] 156/78 mm[Hg] 156/78 mm[Hg] Not Available [facility] 3 11:55:40 Date Recorded Oxygen saturation Oxygen saturation in Arterial blood by Pulse oximetry Body temperature Respiratory rate Heart rate Systolic And Diastolic Provider Name and Address Organization Details Last Updated DateTime 2 99 % 99 % 98.1 [degF] 16 /min 78 /min 120/82 mm[Hg] Not Available [facility] 2 12:54:18 Date Recorded Oxygen saturation Oxygen [...] Codes Diagnosis Note [id number] Brianda Forrest MD [facility] - [address] [address] 08/13/2022 11:49:44 08/31/2022 15:08:44 Kidney stone 19779908 N20.0 [id number] Melanie Sheikh MD [facility] - [address] [address] 09/15/2022 12:23:55 09/15/2022 13:15:24 Acute urinary tract infection 129828198 N39.0 67 year old female being evaluated for urinary symptoms for 3 days. Patient reports urgency, dysuria and frequency, along with hematuria and subjective fever. Last UTI was in March. Patient able to tolerate PO currently, without n/v or flank pain. Exam notable for normal vital signs. Will send for urinalysis and culture, and empiricall y treat with bactrim. [id number] Melanie Sheihk MD [address] [address] 05/03/2023 10:43:44 05/04/2023 15:51:57 Diarrhea 44022207 R19.7 67 year old female being evaluated [...] up if symptoms persistent beyond next week. [id number] Beatris Gandhi MD [facility] - [address] [address] 05/24/2023 11:11:02 05/25/2023 11:28:31 Acute pyelonephritis 81216086 N10 Health Concerns Section Related Observation LastModified by Organization Detai ls LastModified Time None Recorded Concern Status LastModified by Organization Details LastModified Time None Recorded Advance Directives Directive None Recorded Payers Insurance Date Sequence Insurance Name Policy Number Policy Chong Covered Member ID Chong Member ID Guarantor Name 05/03/2023 1 [facility] - DOS PRIOR TO 2023 - DUAL ELIGIBLE (MEDICARE REPLACEMENT/ADV ANTAGE - HMO) [id number] Maribel Martinez Dong 05/24/2023 1 [facility] - DOS ON OR AFTER 2023 - DUAL ELIGIBLE - HALF-WAY OPTIONS AND ONE CARE (MEDICARE REPLACEMENT/ADV ANTAGE - HMO) Maribel Dong [id number] Maribel Martinez Dong Notes Date Note Type [...] ...................... ...................... ...................... ...................... ...................... ...................... ......... Cdl Bulk Driver Note: Dysuria. Vitals, assessment, UA, cultures ...................... ...................... ...................... ...................... ...................... ...................... ......... Disposition: Fulfilled Brianda Forrest MD [address] [place] [address],[address], [place], [address], [employer] 08/13/2022 15:49:24 09/15/2022 text/html CRC Nursing Assessment: [...] ...................... ...................... ...................... ...................... ...................... ...................... ......... Cdl Bulk Driver Note: Dispatched to a/a for urinary s/s. [...] 04/19, denies hx of hospitalizations for UTI. Cdl Bulk Driver Zheng performs pt assessment. Skin is warm and dry. Equal chest rise and fall, abd is soft, +tender, not distended. No CVA tenderness. No other signs/symptoms at this time. Obtained clean catch urine, and Cdl Bulk Driver Zheng performed UA. Results uploaded to [facility]. Consulted [facility] who ordered dose of Bactrim DS culture to be sent to lab and will send script to pt's pharmacy. Went over red flags and provided pt education on how to prevent UTI's in future. No further questions or concerns at this time. ...................... ...................... ...................... ...................... ...................... ...................... ......... Disposition: Fabienne Sheikh MD [address] [facility],[address], [place], [address], [employer] 09/15/2022 12:29:40 05/03/2023 text/html CRC Nursing Assessment: Chief Complaints: Abdominal Pain PMH: COPD/Asthma, Hypertension Allergies: No Known Comments: RN from [facility] calling on behalf of member with request for [facility] visit for eval of vague abdominal pain and loos stools x 3 days deny fever/chills. Verify member name/- Melanie Sheikh MD [address] [facility],[address], [place], [address], [employer] 05/03/2023 11:24:14 05/24/2023 text/html CRC Nursing Assessment: Reason For Request: Back pain Patient Reports: Frequent and increased urination with flank pain; Painful urination with or without fever Chief Complaints: UTI/Pyelonephritis, Abdominal Pain, Pain, Syncope/Dizziness/Ligh theadedness PMH: COPD/Asthma, Hypertension Allergies: No Known Comments: Member calling with request for [facility] visit for eval for flank pain and dysuria and pressure x 2 days +hematuria this am, Deny fevers. Verify name/- ...................... ...................... ...................... ...................... ...................... ...................... ......... Cdl Bulk Driver Note From Ros[facility] Alanis: Pt presents A@Ox4 . Peak warm and dry. Pt c/o UTI related [...] ...................... ......... Disposition: Fulfilled Beatris Gandhi MD [address] [place] [address],[address] [facility], [place], [address], [employer] 05/24/2023 15:12:34 OBGyn Episode No OBEpisode recorded.
--- OUTSIDE RECORDS SUMMARY | 2025-09-28 09:20 | XMS_ITS | Clinical Summary ---
Author Organization [facility] Address [address] [place] [address] Phone Care Team Providers Care Mutuel Clerk Name Role Phone Inna Eason MD Primary Care Provider [phone] Social History Tobacco Use Types Packs/Day Years [...] Health Maintenance Due Date Last Done Comments Colorectal Cancer Screening: Colonoscopy 1955 Zoster Vaccines (2 of 2) 07/09/2022 05/14/2022 Falls Risk Assessment 10/31/2022 Hepatitis C Screening [...] year. [facility]amm[facility] [address], [address] -------- FINAL REPORT -------- Dictated By: Constantine Banks Dictated Date: 04/18/2025 16:42 ET Assigned Physician: Constantine Banks Reviewed and Electronically Signed By: Constantine Banks Signed Date: 04/18/2025 16:52 ET Workstation ID: [id number] Transcribed By: Self Edit Transcribed Date: 04/18/2025 16:42 ET Narrative 04/18/2025 4:52 PM EDT EXAM: SCREENING MAMMOGRAPHY, BILATERAL HISTORY: SCREENING. No additional history. COMPARISON: 04/08/23, 10/03/21 TECHNIQUE: Synthesized CC and MLO projections of each breast. Tomosynthesis of each breast in the CC and MLO projections. ADDITIONAL IMAGING: None Computer-aided detection was employed with the [employer] AI 3-D. TISSUE DENSITY: The breasts are [...] None Computer-aided detection was employed with the [employer] AI 3-D. TISSUE DENSITY: The breasts are [...] year. [facility]amm[facility] location: [facility] [address] [place], [address] -------- FINAL REPORT -------- Dictated By: Constantine Banks Dictated Date: 04/18/2025 16:42 ET Assigned Physician: Constantine Banks Reviewed and Electronically Signed By: Constantine Banks Signed Date: 04/18/2025 16:52 ET Workstation ID: [id number] Transcribed By: Self Edit Transcribed Date: 04/18/2025 16:42 ET us Inna Eason MD IMG BI PROCEDURES Final R esult * QUINTIN DEXA AXIAL SKELETON (07/24/2021 11:57 AM EDT) Anatomical Region Laterality Modality Mammography 07/24/2021 10:5 6 AM EDT Narrative 07/24/2021 11:57 AM EDT [facility] Diagnostic Imaging Department [address] [place] [address] Patient: MARIBEL ACOSTA./Age/Sex: 1955 - 65 - F Unit#: [id number] Location/Status: SPDIMAM/REG CLI Mnemonic[facility] Ordering Physician: INNA EASON MD [...] probability of hip fracture of 3.4%. Code 07808 Dictating Physician: BRENDA HYLTON MD Electronically Signed by: BRENDA HYLTON MD Dic Date/Time: 07/24/21 115 Sign date/Time: 07/24/21 115 Procedure Note Brenda Hylton MD - 11/25/2022 [facility] Diagnostic Imaging Department [address] [place], [place] [address] Patient: MARIBEL ACOSTA/Age/Sex: 1955 - 65 - F Unit#: [id number] Location/Status: SPDIMAM/REG CLI Mnemonic[facility] Ordering Physician: INNA EASON MD [facility] Dexa Axial Skeleton - 07/24/21 [...] probability of hip fracture of 3.4%. Code 82632 Dictating Physician: BRENDA HYLTON MD Electronically Signed by: BRENDA HYLTON MD Dic Date/Time: 07/24/21 1151 Sign date/Time: 07/24/21 1157 Inna Eason MD IMG BI PROCEDURES Final R esult from Last 3 Months or Most Recently Relevant to Health Maintenance Insurance [facility] MEDICARE ADVANTAGE on file [place] Care Teams Mutuel Clerk Relationship Specialty Start Date End Date Inna Eason MD [address] [place] [id number] PCP - General Internal Medicine 04/18/25
== END 2025-09-28 09:44 | disposition home or self-care (01) ==
LOC: HO.HOS 08:52
PROVIDERS: PCP Internal Medicine; Visit Provider Physician Assistant
DX: M17.11 Unilateral primary osteoarthritis, right knee (principal)
CPT/HCPCS: 20610; 99203

== ENCOUNTER → 2025-09-28 08:57 | Outpatient (BNV) | payer MEDICARE, SELFPAY | PROVIDERS: Visit Provider Radiology Diagnostic Radiology | DX: M25.561 Pain in right knee (principal) | CPT/HCPCS: 73565 ==

== ENCOUNTER 2025-09-28 14:33 | Outpatient (REF) | payer MEDICARE, SELFPAY ==
--- NOTE | ~2025-09-28 | XR_ITS ---
EXAMINATION: XR KNEE AP STANDING CLINICAL INFORMATION: M25.561 - Pain in right knee COMPARISON: May 30, 2025. TECHNIQUE: AP bilateral standing view of the knees was obtained. FINDINGS: Joint space narrowing involving medial lateral compartment pronounced on the lateral compartment of the right knee. Chondrocalcinosis in menisci, bilaterally. Osteopenia versus osteoporosis. No acute cortical disruption. Vascular calcifications. XR/XR knee standing BI IMPRESSION: Bicompartmental osteoarthrosis/osteoarthritis, moderate to severe involving mostly the lateral compartment of the right knee. Probable CPPD. Electronically signed by: Brandon Lagos MD 09/28/2025 09:48 AM EDT
--- OUTSIDE RECORDS SUMMARY | 2025-09-30 14:34 | XMS_ITS | Encounter Summary ---
Author Organization [employer] Address [address] [facility] [address] [place] [address] Care Team Providers Care Operational Communication Chief Name Role Phone Indra Eason MD Primary Care Provider [phone] Reason for Visit * Reason Onset Date Comments Referral 04/25/2025 Encounter Details Date Type Department Care Team ([facility] st Contact Info) Description 04/25/2025 Telephone [facility] [address] [place] [address] Indra Eason MD [address] [place], [place] [phone] Referral Social History Tobacco Use Types Packs/Day [...] asking for another referral to [facility]. Author advised provider had ordered x-rays of knee and hip and advised pt to complete those prior to anortho referral. Pt requested x-ray orders be faxed to [facility] for exam to be completed there. Author advised will review with provider for colonoscopy referral. Pt verbalized understanding and agreement with plan * Telephone Encounter - Juventino Akers - 04/25/2025 10:22 AM EDT Tc from pt reporting from 6 referrals requested has 4 she still missing referral for orthopedics for her hips-waist and for colonoscopy. documented in this encounter Plan of Treatment Not on file documented as of this encounter Visit Diagnoses Not on filedocumented in this encounter Additional Health Concerns Assessment Noted Time PHQ-9 Depression Total Score: 16 024 12:36 PM EST documented as of this encounter Care Teams Operational Communication Chief Relationship Specialty Start Date End Date Indra Eason MD [address] [place] [phone] PCP - General Internal Medicine 06/12/21 documented as of this encounter
--- OUTSIDE RECORDS SUMMARY | 2025-09-30 14:35 | XMS_ITS | Clinical Summary ---
Author Organization [facility] Address [address] [place] [address] Phone Care Team Providers Care Project Financial Analyst Name Role Phone Inna Eason MD Primary Care Provider [phone] Social History Tobacco Use Types Packs/Day Years [...] year. [facility]amm[facility] [address], [address] -------- FINAL REPORT -------- Dictated By: Constantine Banks Dictated Date: 04/18/2025 16:42 ET Assigned Physician: Constantine Banks Reviewed and Electronically Signed By: Constantine Banks Signed Date: 04/18/2025 16:52 ET Workstation ID: [id number] Transcribed By: Self Edit Transcribed Date: 04/18/2025 16:42 ET Narrative 04/18/2025 4:52 PM EDT EXAM: SCREENING MAMMOGRAPHY, BILATERAL HISTORY: SCREENING. No additional history. COMPARISON: 04/08/23, 10/03/21 TECHNIQUE: Synthesized CC and MLO projections of each breast. Tomosynthesis of each breast in the CC and MLO projections. ADDITIONAL IMAGING: None Computer-aided detection was employed with the [employer] AI 3-D. TISSUE DENSITY: The breasts are [...] None Computer-aided detection was employed with the [employer] AI 3-D. TISSUE DENSITY: The breasts are [...] year. [facility]ammography location: [facility] [address] [place], [address] -------- FINAL REPORT -------- Dictated By: Constantine Banks Dictated Date: 04/18/2025 16:42 ET Assigned Physician: Constantine Banks Reviewed and Electronically Signed By: Constantine Banks Signed Date: 04/18/2025 16:52 ET Workstation ID: [id number] Transcribed By: Self Edit Transcribed Date: 04/18/2025 16:42 ET us Inna Eason MD IMG BI PROCEDURES Final R esult * QUINTIN DEXA AXIAL SKELETON (07/24/2021 11:57 AM EDT) Anatomical Region Laterality Modality Mammography 07/24/2021 10:5 6 AM EDT Narrative 07/24/2021 11:57 AM EDT [facility] Diagnostic Imaging Department [address] [place] [address] Patient: MARIBEL ACOSTA./Age/Sex: 1955 - 65 - F Unit#: [id number] Location/Status: SPDIMAM/REG CLI Mnemonic[facility] Ordering Physician: INNA EASON MD [facility] [...] probability of hip fracture of 3.4%. Code 08406 Dictating Physician: BRENDA HYLTON MD Electronically Signed by: BRENDA HYLTON MD Dic Date/Time: 07/24/21 115 Sign date/Time: 07/24/21 115 Procedure Note Brenda Hylton MD - 11/25/2022 [facility] Diagnostic Imaging Department [address] [place], [place] [id number] Patient: MARIBEL ACOSTA/Age/Sex: 1955 - 65 - F Unit#: [id number] Location/Status: SPDIMAM/REG CLI Mnemonic[facility] Ordering Physician: NINA EASON MD [facility] Dexa Axial Skeleton - 07/24/21 - 1147 [...] probability of hip fracture of 3.4%. Code 38509 Dictating Physician: BRENDA HYLTON MD Electronically Signed by: BRENDA HYLTON MD Dic Date/Time: 07/24/21 1151 Sign date/Time: 07/24/21 1157 Inna Eason MD IMG BI PROCEDURES Final R esult from Last 3 Months or Most Recently Relevant to Health Maintenance Insurance [facility] MEDICARE ADVANTAGE on file MEDICAID - [place] Care Teams Project Financial Analyst Relationship Specialty Start Date End Date Inna Eason MD [address] [place] [address] PCP - General Internal Medicine 04/18/25
--- OUTSIDE RECORDS SUMMARY | 2025-09-30 14:35 | XMS_ITS | Encounter Summary ---
Author Organization [employer] Address [address] [facility] [address] [place] [address] Care Team Providers Care Mediator Name Role Phone Indra Eason MD Primary Care Provider Encounter Details Date Type Department Care Team (Late st Contact Info) Description 10/01/2023 Abstract [facility] [address] [place] [address] Tanya Fields Social History Tobacco [...] as of this encounter Plan of Treatment Not on file documented as of this encounter Visit Diagnoses Not on filedocumented in this encounter Additional Health Concerns Assessment Noted Time PHQ-9 Depression Total Score: 9 11/19/20 22 11:13 AM EST documented as of this encounter Care Teams Mediator Relationship Specialty Start Date End Date Indra Eason MD [address] [place] [id number] PCP - General Internal Medicine 06/12/21 documented as of this encounter
--- OUTSIDE RECORDS SUMMARY | 2025-09-30 14:35 | XMS_ITS | Encounter Summary ---
Author Organization [employer] Address [address] [facility] [address] [place] [address] Care Team Providers Care Automation Tester Name Role Phone Indra Eason MD Primary Care Provider Encounter Details Date Type Department Care Team (Late st Contact Info) Description 03/17/2024 Orders Only [facility] [address] [place], [place] [phone] Indra Eason MD [address] [place], [place] [phone] Depressive disorder (Primary Dx) Social History Tobacco [...] documented as of this encounter Care Teams Automation Tester Relationship Specialty Start Date End Date Indra Eason MD [address] [place] [phone] PCP - General Internal Medicine 06/12/21 documented as of this encounter
--- OUTSIDE RECORDS SUMMARY | 2025-09-30 14:35 | XMS_ITS | Data Portability ---
Author Organization [place] [facility], Allergy Address [address] [place] [address] Care Team Providers Care Drop Forge Hand Name Role Phone INNA GARCÍA Primary Care [...] in the voice box. She deferred on BIOGEOGRAPHER referral at this time. The patient is awaiting an upper endoscopy and colonoscopy as recommended by her servicing manager to further evaluate her swallowing difficulties and [...] By Organization Details Last Modified Time 08/02/2025 25055 - Follow up with the servicing manager for upper endoscopy and colonoscopy. - Schedule [...] and Address Organization Details Recorded Time Hoarse 40666007 Active 2024 ZULMA DUARTE MD [address], [place], [address], [place] [facility] 11:34:01 Moderate chronic obstructive pulmonary disease 068012717 Active 2024 ZULMA DUARTE MD [address], [place], [address], [place] [facility] 11:34:06 Gastric reflux 430955427 Active 2024 ZULMA DUARTE MD [address], [place], [address], [place] [facility] 11:34:13 Dysphagia 54092091 Active 2024 ZULMA DUARTE MD [address], [place], [address], [place] [facility] 11:34:19 Hearing loss of left ear 389806756 Active 2024 ZULMA DUARTE MD [address], [place], [address], [place] [facility] 11:35:40 Cigarette smoker 49644167 Active 2024 ZULMA DUARTE MD [address] [facility] [address], [place], [address], [place] [facility] 11:36:36 Problem Notes None recorded. Procedures Surgical History Date Name Laterality Status Provider Name and Address Organization Details Recorded Time 08/02/2025 FOL_DP completed ZULMA DUARTE MD [address] [facility] [address], [place], [address], [place] [facility] 08/02/2025 11:33:46 Imaging Results None recorded. [...] Updated DateTime 08/02/2025 144.78 cm 31.6 kg/m2 18561.49 g SUZAN JAYA [place] - [facility] 08/02/2025 11:19:52 Social History None recorded. Functional Status Question Answer Note LastModified by Organization D etails LastModified Time What is your level of alcohol consumption? None ccomi Information not available 08/02/2025 Mental Status None recorded. Family History Nothing Reported. Medical History Condition Response COPD Y Bleeding Disorder Y Arthritis Y Headaches Y Hypertension Y Kidney Disease Y Gynecological HistoryNo gynecological history recorded. Obstetrics History GPAL:G 0 P 0 0 0 0 Past Encounters Encounter ID Performer Location Encounter Start Date Encounter Closed Date Diagnosis/Indication Diagnosis SNOMED-CT Code Diagnosis ICD10 Code Diagnosis IMO Codes Diagnosis Note [id number] ZULMA DUARTE MD [facility] [address] [address] 08/02/2025 10:45:56 08/02/2025 11:39:42 Hoarse 32096709 R49.0 615015 Moderate c hronic obstructive pulmonary disease 809897790 J44.9 487813 Gastric reflux 972316173 K21.9 856520 Dysphagia 61697501 R13.1 4 436897 Hearing lo ss of left ear 483048916 H91.92 19343111 Cigarette smoker 7591247 7 F17.210 343939 Health Concerns Section Related Observation LastModified by Organization Detai ls LastModified Time None Recorded Concern Status LastModified by Organization Details LastModified Time None Recorded Advance Directives Directive None Recorded Payers Insurance Date Sequence Insurance Name Policy Number Policy Chong Covered Member ID Chong Member ID Guarantor Name 08/02/2025 1 [place] [employer] Maribel Dong [id number] Maribel Dong 08/30/2025 2 [place] [facility] [place] [id number] Maribel Chahalam 09/21/2025 1 [employer] (MEDICARE REPLACEMENT/A DVANTAGE - PPO) Maribel Jeffy Chahalam [id number] Maribel Chahalam 08/30/2025 2 [facility] (MEDICARE REPLACEMENT/A DVANTAGE - HMO) Maribel Dong [id number] Maribel Dong Notes Date Note Type Note [...] She is retired and previously worked at [employer]. ZULMA DUARTE MD [address] [place] [address], [address], [place] [facility] 08/02/2025 11:39:24 OBGyn Episode No OBEpisode recorded.
--- OUTSIDE RECORDS SUMMARY | 2025-09-30 14:35 | XMS_ITS | Encounter Summary ---
Author Organization [employer] Address [address] [facility] 7t [place] [address] Care Team Providers Care Desulfurizer Operator Name Role Phone Indra Eason MD Primary Care Provider Reason for Visit * Reason Comments Med Refill Encounter Details Date Type Department Care Team ([facility] Contact Info) Description 08/04/2025 Refill [facility] MED & PEDS [address] [place], [place] [phone] Indra Eason MD [address] [place], [place] [phone] Social History Tobacco Use Types Packs/Day Years [...] documented as of this encounter Care Teams Desulfurizer Operator Relationship Specialty Start Date End Date Indra Eason MD [address] [place] [address] PCP - General Internal Medicine 06/12/21 documented as of this encounter
--- OUTSIDE RECORDS SUMMARY | 2025-09-30 14:35 | XMS_ITS | Encounter Summary ---
Author Organization [employer] Address [address] [facility] 7t [place] [address] Care Team Providers Care Salesperson Men'S Hats Name Role Phone Indra Eason MD Primary Care Provider [phone] Encounter Details Date Type Department Care Team (Late st Contact Info) Description 11/02/2024 Orders Only [facility] [address] [place], [place] [phone] Provider, MD Maria Isabel Social History Tobacco [...] on file documented as of this encounter Procedures Procedure [...] as of this encounter Care Teams Salesperson Men'S Hats Relationship Specialty Start Date End Date Indra Eason MD [address] [place] [place] [address] PCP - General Internal Medicine 06/12/21 documented as of this encounter
--- OUTSIDE RECORDS SUMMARY | 2025-09-30 14:35 | XMS_ITS | Encounter Summary ---
Author Organization [employer] Address [address] [facility] 7t [place] [address] Care Team Providers Care Top Precipitator Operator Name Role Phone Indra Eason MD Primary Care Provider [phone] Reason for Visit * Reason Comments Med Refill Encounter Details Date Type Department Care Team ([facility] st Contact Info) Description 09/22/2024 Refill [facility] [address] [place], [place] [phone] Alix Ayala CN [address] [place], [place] [phone] Social History Tobacco Use Types Packs/Day Years [...] documented as of this encounter Care Teams Top Precipitator Operator Relationship Specialty Start Date End Date Indra Eason MD [address] [place] [address] PCP - General Internal Medicine 06/12/21 documented as of this encounter
--- OUTSIDE RECORDS SUMMARY | 2025-09-30 14:35 | XMS_ITS | Encounter Summary ---
Author Organization [employer] Address [address] [place] [address] 7 [place] [address] Care Team Providers Care Stockroom Inventory Clerk Name Role Phone Indra Eason MD Primary Care Provider Reason for Visit * Reason Comments Med Refill Encounter Details Date Type Department Care Team ([facility] st Contact Info) Description 08/25/2023 Refill [facility] MED & PEDS [address] [place], [place] [phone] Indra Eason MD [address] [place], [place] [phone] Tingling of upper extremity Social History Tobacco [...] documented as of this encounter Care Teams Stockroom Inventory Clerk Relationship Specialty Start Date End Date Indra Eason MD [address] [place] [address] PCP - General Internal Medicine 06/12/21 documented as of this encounter
--- OUTSIDE RECORDS SUMMARY | 2025-09-30 14:35 | XMS_ITS | Encounter Summary ---
Author Organization [employer] Address [address] [place] [address] 7 [place] [address] Care Team Providers Care Chemistry Instructor Name Role Phone Indra Eason MD Primary Care Provider [phone] Reason for Visit * Reason Comments Med Refill Encounter Details Date Type Department Care Team ([facility] Contact Info) Description 07/27/2023 Refill [facility] MED & PEDS [address] [place], [place] [phone] Indra Eason MD [address] [place], [place] [phone] Social History Tobacco Use Types Packs/Day Years [...] documented as of this encounter Care Teams Chemistry Instructor Relationship Specialty Start Date End Date Indra Eason MD [address] [place], [place] [phone] PCP - General Internal Medicine 06/12/21 documented as of this encounter
--- OUTSIDE RECORDS SUMMARY | 2025-09-30 14:35 | XMS_ITS | Data Portability ---
Author Organization [employer] [facility] Address [address] [place] [address] Care Team Providers Care Brazer Production Line Name Role Phone [facility] Referring Provider Unavailable Referring Provider [...] pain. No nausea/vomiting, diarrhea, or fevers. VSS. Certified Surgical Assistant on site reports appears well. POC UA [...] recorded. Lab urinalysis , dipstick 2022 023 [facility], [address] [place] [address], [phone] 3 10:09:06 culture, urine 2021 022 [place] [facility] (Centralized Electronic Ordering - All Locations), Patient Can Go To The Location Of Their Choice, [facility] 11:41:40 culture, urine 2021 022 [place] [facility] (Centralized Electronic Ordering - All Locations), Patient Can Go To The Location Of Their Choice, [id number] 05:01:57 Referral None recorded. Procedures None recorded. Surgeries None recorded. Imaging None recorded. Medication Orders Bactrim DS 800 mg-160 mg tablet 2022 023 [id number], [address] [place], [place], [id number], 11:47:06 Bactrim DS 800 mg-160 mg tablet 2022 023 [facility][id number], [address] [place], [place], [id number], 11:47:16 Bactrim DS 800 mg-160 mg tablet 2021 022 [facility] #89505, [address] [place], [place], [id number], 12:31:51 Patient TargetsNo targets recorded. Patient InstructionsNo instructions recorded. Reason for Referral None Reported. Results Created Date Observation Date Name Description Value Unit Range Abnormal Flag Note LastModifiedBy Organization Detail LastModifiedTime 08/13/2008/13/2022 UA W/REF THOM CULTU RE appear/color COLOR LESS CLEAR Not Available [facility] (Centralized Electronic Ordering - All Locations) Patient Can Go To The Location Of Their Choice, [facility] 08/13/2022 23:31:57 08/13/20 22 08/13/2022 UA W/REF [...] Go To The Location Of Their Choice, [id number] 08/13/2022 23:31:57 09/15/2009/15/2022 URINE CULTU RE specimen description URINE Not Available [facility] (Centralized Electronic Ordering - All Locations) Patient Can Go To The Location Of Their Choice, [id number] 09/16/2022 11:41:40 09/15/2009/15/2022 URINE CULTU RE special requests NONE Not Available [facility] (Centralized Electronic Ordering - All Locations) Patient Can Go To The Location Of Their Choice, [id number] 09/16/2022 11:41:40 09/15/2009/16/2022 URINE CULTU RE culture Mixed bacter ial you, indica tive of urogen ital contam inatio n. Not Available [facility] (Centralized Electronic Ordering - All Locations) Patient Can Go To The Location Of Their Choice, [id number] 09/16/2022 11:41:40 09/15/2009/16/2022 URINE CULTU RE report status FINAL 2021 Not Available [facility] (Centralized Electronic Ordering - All Locations) Patient Can Go To The Location Of Their Choice, [id number] 09/16/2022 11:41:40 Result Notes None recorded. Medical [...] Updated DateTime 3 97.9 [degF] 85 /min 91075.7 2 g 98 % 98 % 14 /min 163/84 mm[Hg] Not Available [facility] 3 10:43:47 Date Recorded Body weight Body temperature Heart rate Respiratory rate Oxygen saturation Oxygen saturation in Arterial blood by Pulse oximetry Heart rate Respiratory rate Body weight Oxygen saturation Oxygen saturation in Arterial blood by Pulse oximetry Body temperature Provider Name and Address Organization Details Last Updated DateTime 3 65206.8 g 97.8 [degF] 76 /min 18 /min 98 % 98 % 76 /min 18 /min 14458.8 g 98 % 98 % 97.8 [degF] Not Available [facility] 3 11:26:24 Date Recorded Heart rate Body temperature Body weight Respiratory rate Oxygen saturation Oxygen saturation in Arterial blood by Pulse oximetry Systolic And Diastolic Systolic And Diastolic Systolic And Diastolic Provider Name and Address Organization Details Last Updated DateTime 3 76 /min 97.8 [degF] 79365.8 g 18 /min 98 % 98 % 156/78 mm[Hg] 156/78 mm[Hg] 156/78 mm[Hg] Not Available [facility] 3 11:55:40 Date Recorded Oxygen saturation Oxygen saturation in Arterial blood by Pulse oximetry Body temperature Respiratory rate Heart rate Systolic And Diastolic Provider Name and Address Organization Details Last Updated DateTime 2 99 % 99 % 98.1 [degF] 16 /min 78 /min 120/82 mm[Hg] Not Available [facility] 2 12:54:18 Date Recorded Oxygen saturation Oxygen [...] Codes Diagnosis Note [id number] Brianda Forrest MD [facility] - [address] [address] 08/13/2022 11:49:44 08/31/2022 15:08:44 Kidney stone 59917106 N20.0 [id number] Melanie Sheikh MD [facility] - [address] [address] 09/15/2022 12:23:55 09/15/2022 13:15:24 Acute urinary tract infection 440699763 N39.0 67 year old female being evaluated for urinary symptoms for 3 days. Patient reports urgency, dysuria and frequency, along with hematuria and subjective fever. Last UTI was in March. Patient able to tolerate PO currently, without n/v or flank pain. Exam notable for normal vital signs. Will send for urinalysis and culture, and empiricall y treat with bactrim. [id number] Melanie Sheikh MD [address] [address] 05/03/2023 10:43:44 05/04/2023 15:51:57 Diarrhea 26719526 R19.7 67 year old female being evaluated [...] up if symptoms persistent beyond next week. [id number] Beatris Gandhi MD [facility] - [address] [address] 05/24/2023 11:11:02 05/25/2023 11:28:31 Acute pyelonephritis 15416146 N10 Health Concerns Section Related Observation LastModified by Organization Detai ls LastModified Time None Recorded Concern Status LastModified by Organization Details LastModified Time None Recorded Advance Directives Directive None Recorded Payers Insurance Date Sequence Insurance Name Policy Number Policy Chong Covered Member ID Chong Member ID Guarantor Name 05/03/2023 1 [facility] - DOS PRIOR TO 2023 - DUAL ELIGIBLE (MEDICARE REPLACEMENT/ADV ANTAGE - HMO) [facility] [id number] Maribel Martinez Dong 05/24/2023 1 [facility] - DOS ON OR AFTER 2023 - DUAL ELIGIBLE - SENIOR LIVING OPTIONS AND ONE CARE (MEDICARE REPLACEMENT/ADV ANTAGE - HMO) Maribel Dong [id number] Maribel Martinez Dong Notes Date Note Type [...] ...................... ...................... ...................... ...................... ...................... ...................... ......... Certified Surgical Assistant Note: Dysuria. Vitals, assessment, UA, cultures ...................... ...................... ...................... ...................... ...................... ...................... ......... Disposition: Fulfilled Brianda Forrest MD [address] [place] [address],[address], [place], [address], [facility] 08/13/2022 15:49:24 09/15/2022 text/html CRC Nursing Assessment: [...] ...................... ...................... ...................... ...................... ...................... ...................... ......... Certified Surgical Assistant Note: Dispatched to a/a for urinary s/s. [...] 04/19, denies hx of hospitalizations for UTI. Certified Surgical Assistant Zheng performs pt assessment. Skin is warm and dry. Equal chest rise and fall, abd is soft, +tender, not distended. No CVA tenderness. No other signs/symptoms at this time. Obtained clean catch urine, and Certified Surgical Assistant Zheng performed UA. Results uploaded to [facility] [place]. Consulted [facility] who ordered dose of Bactrim DS culture to be sent to lab and will send script to pt's pharmacy. Went over red flags and provided pt education on how to prevent UTI's in future. No further questions or concerns at this time. ...................... ...................... ...................... ...................... ...................... ...................... ......... Disposition: Fabienne Sheikh MD [address] [facility],[address], [place], [address], [facility] 09/15/2022 12:29:40 05/03/2023 text/html CRC Nursing Assessment: Chief Complaints: Abdominal Pain PMH: COPD/Asthma, Hypertension Allergies: No Known Comments: RN from [facility] calling on behalf of member with request for [facility] visit for eval of vague abdominal pain and loos stools x 3 days deny fever/chills. Verify member name/- Melanie Sheikh MD [address] [facility],[address], [place], [address], [facility] 05/03/2023 11:24:14 05/24/2023 text/html CRC Nursing Assessment: Reason For Request: Back pain Patient Reports: Frequent and increased urination with flank pain; Painful urination with or without fever Chief Complaints: UTI/Pyelonephritis, Abdominal Pain, Pain, Syncope/Dizziness/Ligh theadedness PMH: COPD/Asthma, Hypertension Allergies: No Known Comments: Member calling with request for [facility] visit for eval for flank pain and dysuria and pressure x 2 days +hematuria this am, Deny fevers. Verify name/- ...................... ...................... ...................... ...................... ...................... ...................... ......... Certified Surgical Assistant Note From Rosas Alanis: Pt presents A@Ox4 . O'Brien warm and dry. Pt c/o UTI related [...] ...................... ...................... ...................... ......... Disposition: Fulfilled Beatris Gnadhi MD [address] [place] [address],[address] [facility], [place], [address], [facility] 05/24/2023 15:12:34 OBGyn Episode No OBEpisode recorded.
--- OUTSIDE RECORDS SUMMARY | 2025-09-30 14:35 | XMS_ITS | Encounter Summary ---
Author Organization [employer] Address [address] [facility] 7t [place] [address] Care Team Providers Care Developmental Specialist Name Role Phone Indra Eason MD Primary Care Provider Encounter Details Date Type Department Care Team (Late st Contact Info) Description 06/28/2025 Orders Only [facility] [address] [place], [place] [phone] Provider, MD Maria Isabel Social History Tobacco [...] Modality Body, Pelvis, Abdomen Computed T omography us Historical Provider MD DE LA ROSA CT PROCEDURES Final R esult documented in this encounter Visit Diagnoses Not on filedocumented in this encounter Additional Health Concerns Assessment Noted Time PHQ-9 Depression Total Score: 14 025 11:02 AM EDT documented as of this encounter Care Teams Developmental Specialist Relationship Specialty Start Date End Date Indra Eason MD [address] [place] [address] PCP - General Internal Medicine 06/12/21 documented as of this encounter
--- OUTSIDE RECORDS SUMMARY | 2025-09-30 14:35 | XMS_ITS | Clinical Summary ---
Author Organization [employer] Address [address] [facility] [address] [place] [address] Care Team Providers Care Shuttlecock Assembler Name Role Phone Indra Eason MD Primary [...] intervention , Patient to reach out to [facility] team as needed, Comply with medication [...] intervention , Patient to reach out to [facility] team as needed, Comply with medication , [...] Encounters Date Type Department Care Team Description 09/10/2025 1:45 PM EDT Office Visit [facility] [address] [place] [address] Indra Eason MD Left adrenal mass (CMS/HCC) (Primary Dx); Primary hypertension; Post-menopausal bleeding; Encounter for immunization; Abnormal sensation in left ear; Left inguinal hernia 09/10/2025 Travel 09/07/2025 Telephone [facility] [address] [place] [address] Indra Eason MD chart prep 08/31/2025 Orders Only GENERIC EXTERNAL DATA DEPARTMENT Provider, Generic External Data 08/04/2025 Refill [facility] [address] [place] [address] Indra Eason MD 07/31/2025 Orders Only GENERIC EXTERNAL DATA DEPARTMENT Provider, Generic External Data 07/20/2025 Orders Only [facility] External Provider, [facility] 07/10/2025 Refill [facility] [address] [place] [address] Indra Eaosn MD 07/09/2025 10:00 AM EDT Office Visit [facility] [address] [place] [address] Indra Eason MD Diaphragm, eventration (Primary Dx); Left adrenal mass (CMS/HCC); Post-menopausal bleeding; Primary hypertension; Primary osteoarthritis of right knee; Left hip pain; Tobacco dependence syndrome 07/09/2025 Travel from Last 3 Months Immunizations Immunization Administration Dates Next Due Influenza, High Dose Seasonal, Preservative Free 09/10/2025,10/11/2024 [employer]elight SARS-CoV-2 Vaccination 02/19/2021 Pfizer Covid-19 Vaccine 12+ [...] Sign Reading Time Taken Comments Blood Pressure 140/77 09/10/2025 1:55 PM EDT Pulse 76 09/10/2025 1:55 PM EDT Temperature 36.6 C (97.8 F) 07/09/2025 9:38 AM EDT Respiratory Rate 20 09/10/2025 1:55 PM EDT Oxygen Saturation 98% 09/10/2025 1:55 PM EDT Inhaled Oxygen Concentration - - Weight 65.8 kg (145 lb) 09/10/2025 1:55 PM EDT Height 145.4 cm (4' 9.25 ) 09/10/2025 1:55 PM ED T Body Mass Index 31.1 09/10/2025 1:55 PM EDT Plan of Treatment Health Maintenance Due Date Last Done Comments CT Colonography 1955 FIT DNA/Cologuard 1955 FIT 1955 FOBT 1955 Sigmoidoscopy 1955 Hepatitis A Vaccines (1 of 2 - Risk 2-dose series) 1974 Zoster Vaccines (2 of 2) 07/09/2022 05/14/2022 COVID-19 Vaccine ( season) 2025 11/11/2023, 09/17/2022, 10/17/2021, Additional history exists Lung Cancer Screening 10/30/2025 10/30/2024 Depression Monitoring 11/30/2025 05/30/2025, 025 Alcohol/Substance Use Screening 07/09/2026 07/09/2025 SDOH Screening 07/09/2026 07/09/2025 Tobacco Screening 07/09/2026 07/09/2025 Mammogram 04/18/2027 04/18/2025, 03/30, 04/18/2025 Lipid Panel 10/11/2029 10/11/2024, 04/1 11/2021, 05/23/2021 HPV/Cotest 05/29/2030 05/29/2025, 11/10/2022 Pap Smear 05/29/2030 05/29/2025, 11/10/2022 Colonoscopy 07/30/2032 07/30/2022 Colorectal Cancer Screening 07/30/2032 DTaP/Tdap/Td Vaccines (3 - Td or Tdap) 10/11/2034 10/11/2024, 04/18/2012 Pneumococcal Vaccine: 50+ Years Completed 05/14/2022 RSV Patients and Patients Aged 60 years or older Completed 11/11/2023 Hepatitis C Screening Completed 05/30/2025, 022 Influenza Vaccine Completed 09/10/2025, 10/11/2024 HIB Vaccines Aged Out No longer eligi ble based on patient's age to complete this topic HPV Vaccines Aged Out No longer eligi ble based on patient's age to complete this topic Hepatitis B Vaccines Discontinued IPV Vaccines Aged Out No longer eligi [...] Diagnosis Comments HEMATOXYLIN AND EOSIN STAIN Routine 08/31/2025 10:50 AM EDT HEMATOXYLIN AND EOSIN STAIN Routine 07/31/2025 10:42 AM EDT FL ESOPHAGUS BARIUM SWALLOW WITH AIR Routine 07/20/2025 8:00 AM EDT HEPATITIS PANEL, GENERAL Routine 05/30/2025 8:36 AM EDT HPV DNA, LOW/HIGH RISK Routine 05/29/2025 9:29 AM EDT PAP SMEAR Routine 05/29/2025 9:29 AM EDT Post-menopausal bleeding BI MAMMOGRAM SCREENING TOMOSYNTHESIS BILATERAL Routine 04/18/2025 Screening mammogram for breast cancer HM LUNG CANCER SCREENING Routine 10/30/2024 11:03 AM EST LIPID PANEL, STANDARD Routine 10/11/2024 10:34 AM EST Degeneration of intervertebral disc of lumbar region with discogenic back pain COLONOSCOPY Routine 07/30/2022 from Last 3 Months or Most Recently Relevant to Health Maintenance Results * Hematoxylin and Eosin Stain (08/31/2025 10:50 AM EDT) Only the most recent of2 resultswithin the time period is included. 08/31/2025 10:5 0 AM EDT 08/31/2025 11:30 AM EDT [facility] - 09/03/2025 3:27 PM EDT ----- ------- Name: DongMaribel Age/Sex: 70/F : 1955 Unit#: [id number] Attend Dr: Anson Doan MD Re08/31/25 Status: [facility] Location: [facility] Disch: ----- ------- SPEC : [id number] RECD: 08/31/25 STATUS: CLIFF LOU NUM: [id number] CARLOS: 08/31/25 [facility] DR: Anson Doan MD ENTERED: 08/31/25 SP TYPE: Surgical OTHR DR: Indra Eason MD ORDERED: HE Stain/2, Gross Micro L4 Diagnosis Endometrium, curettage: Small fragment with features of endometrial polyp; few strips of inactive endometrium; no atypia identified. Clinical History Pre-Op Dx: Post menopausal bleeding Post-Op Dx: Normal cavity Microscopic Description Microscopic sections reviewed. Material Received EMC Gross Description Received in formalin, on Telfa, labeled EMC are fragments of red-pink and pink white soft tissue mixed with mucus and clotted blood forming an aggregate measuring 1.5 by 1.1 x 0.2 cm which is wrapped in lens paper and entirely submitted for microscopic examination, multiple pieces in cassette A. ([facility]) IHC S/NG Disclaimer NOTE: Unless otherwise stated, all tissue is formalin-fixed and paraffin-embedded. Some or all of the immunohistochemical tests reported herein may have been developed and their performance characteristics determined by [facility]. They have not been cleared or approved by the U.S. Food and Drug Administration (FDA). However, the FDA has determined that such clearance or approval is not necessary. This laboratory is certified under the Clinical Laboratory Improvement Amendments of 1988 (CLIA) as qualified to perform high complexity clinical laboratory testing. Copies To: Indra Eason MD [address] [address] CONTINUED ON NEXT PAGE ----- ------- Name: Maribel Dong Age/Sex: 70/F : 1955 Unit#: [id number] Attend Dr: Anson Doan MD Re08/31/25 Status: [facility] Location: [facility] Disch: ----- ------- SPEC : [id number] RECD: 08/31/25 STATUS: CLIFF LOU NUM: [id number] CARLOS: 08/31/25 [facility] DR: Anson Doan MD ENTERED: 08/31/25 SP TYPE: Surgical OTHR DR: Indra Eason MD ORDERED: HE Stain/2, Gross Micro L4 Copies To: (Continued) Anson Doan MD [facility] Women's Services [address] [place] [phone] ----- ------- Signed (signature on file) Alvaro Irby MD 09/03/25 1527 ----- ------- END OF REPORT us Generic External Data Provider LAB BLOOD ORDERAB LES Final Result [facility] [address] [place] [phone] * FL Esophagus Barium Swallow w/Air (07/20/2025 8:00 AM EDT) Anatomical Region Laterality Modality Head, Neck Radiographic Ely ging 07/20/2025 8:00 AM EDT Narrative 07/20/2025 10:43 AM EDT [address] [address] Fluoroscopy Report Signed Patient: Maribel Dong MR#: [id number] 38 : 1955 Acct:[id number] Age/Sex: 69 / F ADM Date: 07/20/25 Loc: [facility] Attending Dr: Cherelle Montana CNP Ordering Physician: Cherelle Montana CNP Date of Service: 07/20/25 Procedure(s): FL barium swallow with air Accession Number(s): [id number] cc: Indra Eason MD; Cherelle Montana CNP [...] 07/20/25 1040 DD/ 0800 TD/TT: 07/20/25 0820 Fashion Coordinator: Procedure Note Donotuseinterpreter, Image - 07/20/2025 [place] [address] Fluoroscopy Report Signed Patient: Melissa Dong#: [id number] [birth year] : 5Acct:[id number] Age/Sex: 69 / FADM Date: 07/20/25 Loc: HO.XRAY Attending Dr: Cherelle Montana CNP Ordering Physician: Cherelle Montana CNP Date of Service: 07/20/25 Procedure(s): FL barium swallow with air Accession Number(s): [id number] cc: Indra Eason MD; Cherelle Montana CNP [...] 07/20/25 1040 DD/ 0800 TD/TT: 07/20/25 0820 Fashion Coordinator: [facility] External Provider IMG FLU OROSCOPY PROCEDURES Final Result * Hepatitis Panel, General (05/30/2025 8:36 AM EDT) Hepatitis A IgM Nonreactive Nonreactive [facility] Comment:IgM antibodies to FRANCOIS V not detected; does not exclude earlyacute or recovered HAV infection. ~Hepatitis B Surface Antibody REACTIVE Nonreactive [facility] Comment:REACTIVE: > 11.99 mI U/mL Hepatitis B Core Antibody Nonreactive Nonreactive [facility] Hepatitis C Antibody Nonreactive Nonreactive [facility] Comment:Antibodies to HCV no t detected; does not exclude early acuteHCV infection. Hepatitis B Surface Ag Negative Negative [facility] 05/30/2025 8:36 AM EDT 05/30/2025 8:36 AM EDT us Generic External Data Provider LAB BLOOD ORDERAB LES Final Result Performing Organization Address [facility]/ZIP Co de Phone Number [facility] [address] [place] [phone] * HPV DNA, Low/High Risk (05/29/2025 9:29 AM EDT) HPV High Risk Negative Negative [facility] HPV Genotype 16 Negative Negative [facility] HPV Genotype 18 Negative Negative [facility] Comment:HPV testing performe d at [facility] (CLIA#[id number]), [address] [place] [address].Testing for HPV was performed using the Jenna [...] 9:29 AM EDT 05/30/2025 8:25 AM EDT us Dennys BARCENAS LAB BLOOD ORDERABLES Ashwini l Result Performing Organization Address City/[facility]/ZIP Co de Phone Number [facility] [address] [place] [phone] * Pap Smear (05/29/2025 9:29 AM EDT) Swab Cervix uteri structure / Unknown 05/29/2025 9:29 AM EDT 05/30/2025 8:25 AM EDT [facility] - 06/05/2025 12:33 PM EDT ----- ------- Name: Maribel Dong Age/Sex: 69/F : 1955 Unit#: [id number] Attend Dr: DENNYS MAE CNM Re05/29/25 Status: DEP REF Location: HO.LNP Disch: ----- ------- SPEC : [id number] RECD: 05/30/25 STATUS: CLIFF LOU NUM: [id number] CARLOS: 05/29/25 [facility] DR: DENNYS MAE CNM ENTERED: 05/30/25 SP TYPE: Pap Smr OT : ORDERED: Pap Smear Interpretation Satisfactory for [...] and HPV testing will be performed at [facility] (CLIA #[id number]), [address] [place] [address]. Testing for HPV was performed using the [employer] MUKESH [id number] system. The presence of HPV [...] detected. All professional services are performed by [facility] ([address] [place], [place] [id number]; ; CLIA #[id number]). The PAP Test is a screening procedure [...] ----- ------- END OF REPORT us Dennys Mae CN LAB CYTOLOGY ORDERABLES F inal Result Performing Organization Address City/[facility]/ZIP Co de Phone Number [facility] [address] [place] [phone] * BI Mammogram Screening Tomosynthesis Bilateral (04/18/2025) Anatomical Region Laterality Modality Breast Bilateral Mammography us Indra Eason MD IMG BI PROCEDURES Final Res ult * Hm Lung Cancer Screning (10/30/2024 11:03 AM EST) Anatomical Region Laterality Modality Other Historical Provider HEALTH MAINTENANCE Final Result * (ABNORMAL) Lipid Panel, Standard (10/11/2024 10:34 AM EST) Triglycerides 180(H) <150 mg/dL [facility] Comment:Desirable Triglyceri de: less than 150 mg/dLBorderline High Triglyceride 150-199 mg/dLHigh Triglyceride: 200-499 mg/dLVery High Triglyceride: greater than or equal to 5OO mg/dL Cholesterol 153 <200 mg/dL [facility] Comment:Desirable Cholestero l: less than 200 mg/dLBorderline High Cholesterol: 200-239 mg/dLHigh Cholesterol: greater than 239 mg/dL LDL Cholesterol Calculated 70 <100 mg/dL [facility] Comment:Desirable LDL: less than 100 mg/dLNear Optimal/Above Optimal LDL: 110- 129 mg/dLBorderline High LDL: 130-159 mg/dLHigh LDL: 160-189 mg/dLVery High LDL: greater than or equal to 190 mg/dL HDL Cholesterol 47 >40 mg/dL [facility] Comment:Desirable HDL: great er than 40 mg/dL Note: This HDL assay may give artificially low results in patients with liver disease. Blood Venous blood specimen / Unknown 10/11/2024 10:34 AM EST 10/11/2024 2:19 PM EST us Indra Eason MD LAB BLOOD ORDERABLES Final Result [facility] [address] [place] [phone] [phone] * Hm Colonoscopy (07/30/2022) Colonoscopy Performed us Historical Provider HEALTH MAINTENANCE Final Result from Last 3 Months or Most Recently Relevant to Health Maintenance [facility] Care Teams Shuttlecock Assembler Relationship Specialty Start Date End Date Indra Eason MD [address] [place] [phone] PCP - General Internal Medicine 06/12/21
== END 2025-09-28 14:34 | disposition home or self-care (01) ==
LOC: HO.HOSX 14:33
PROVIDERS: Visit Provider Physician Assistant
DX: M17.11 Unilateral primary osteoarthritis, right knee (principal); M25.562 Pain in left knee
CPT/HCPCS: 20610; 73565; 99202; J0665; J1100; J2003